=== PATIENT | male | born 1950 | race Caucasian/White ===

== ENCOUNTER → 2017-02-23 | Outpatient (CLI) | payer BC | LOC: FIMAGING 10:46 | PROVIDERS: ATTEND Internal Medicine Nephrology | DX: N18.3 Chronic kidney disease, stage 3 (moderate) (principal); E87.70 Fluid overload, unspecified ==

== ENCOUNTER 2017-02-26 11:53 | Inpatient (IN) | payer BC, OTHER ==
--- NOTE | 2017-02-26 12:52 | CPEKG ---
Heart Rate: 115 RR Interval: 522 QRSD Interval: 86 QT Interval: 324 QTC Interval: 448 QRS [place]: 54 EKG Severity - ABNORMAL ECG - EKG Impression: A-FLUTTER W/ VARIED AV BLOCK, A-RATE 0 EKG Impression: MULTIFORM VENTRICULAR PREMATURE COMPLEXES EKG Impression: NONSPECIFIC REPOL ABNORMALITY, DIFFUSE LEADS Electronically Signed By: Rayo Armstrong 26-Feb-2017 14:26:49
--- NOTE | 2017-02-26 12:52 | CPEKG ---
Heart Rate: 115 RR Interval: 522 QRSD Interval: 86 QT Interval: 324 QTC Interval: 448 QRS [place]: 54 EKG Severity - ABNORMAL ECG - EKG Impression: A-FLUTTER W/ VARIED AV BLOCK, A-RATE 0 EKG Impression: MULTIFORM VENTRICULAR PREMATURE COMPLEXES EKG Impression: NONSPECIFIC REPOL ABNORMALITY, DIFFUSE LEADS Electronically Signed By: Rayo Armstrong 26-Feb-2017 14:26:49
--- NOTE | 2017-02-26 13:30 | EDPHY ---
H & P Time Seen by Provider: 02/26/17 13:22 HPI/ROS: CHIEF COMPLAINT: Right hand pain HISTORY OF PRESENT ILLNESS: 66-year-old man presents with right hand pain and swelling for the last 2 days. Of note he was admitted to our hospital back in March of 2016 was diagnosed with congestive heart failure and atrial fibrillation and placed on Eliquis. He has noted increasing weight gain over the last 1 month. He had a cold last 2 weeks with a cough which is nonproductive and head congestion. Over the last 2 days he resents with polyarthralgia and feeling like all his joints are hurting. Today is right hand is swollen painful red and hot to the touch. It hurts more when he moves it or when it is touched by any other thing. Does not radiate. Symptoms severe. REVIEW OF SYSTEMS: Eye: no change in vision ENT: no sore throat Cardiac: no chest pain or syncope Pulmonary: no cough or SOB Abdomen: no vomiting, diarrhea, abdominal pain. Increasing abdominal girth Musculoskeletal: HPI Skin: no rash Neuro: no headache Constitutional: no fever : no urinary symptoms A comprehensive 10 point review of systems is otherwise negative aside from elements mentioned in the history of present illness. PAST MEDICAL HISTORY: Hypertension, Raynaud's, spine fracture, atrial fibrillation, CHF, gout. Social history: Nonsmoker General Appearance: Alert and conversant, cooperative. Eyes: No scleral icterus. ENT, Mouth: Normal mucous membranes. Respiratory: Normal respiratory effort, breath sounds equal, lungs are clear to auscultation. Cardiovascular: Regular rate and rhythm. Normal right hand radial pulse and capillary refill. Gastrointestinal: Abdominal distention with ventral and periumbilical hernia which are soft, no rebound or guarding. Neurological: Alert and oriented x3. Normally conversant. Face symmetric, normal movement and sensation in all extremities. Skin: Right hand is red and warm to the touch over the knuckles extending distally over the 4 fingers and not the thumb. No blisters and no lymphangitis. Musculoskeletal: Patient has right hand swelling 3+. It is tender to the touch. He can't really make a fist. He holds his hand in flexion. Psychiatric: Not agitated. Emergency Department course/MDM: Possibility of right hand infection is entertained. X-ray of the right hand, labs to include CBC and chemistry. 1407: Accepted by [facility], IV vancomycin with cephalexin allergy. Will treat for right hand cellulitis given elevated white blood cell count, relatively rapid onset of symptoms, no fracture visualized. He has warmth and redness and tenderness to palpation. Right hand Velcro splint placed by tech. Smoking Status: Never smoked Constitutional: Initial Vital Signs Temperature (C) 37.6 C 02/26/17 12:25 Heart Rate 118 H 02/26/17 12:25 Respiratory Rate 18 02/26/17 12:25 Blood Pressure 121/94 H 02/26/17 12:25 O2 Sat (%) 96 02/26/17 12:25 O2 Delivery Mode Room Air Allergies/Adverse Reactions: cephalexin Allergy (Severe, Verified 04/14/16 20:15) Anaphylaxis Home Medications: Medication Instructions Recorded Apixaban [Eliquis] 2.5 mg PO BID #60 tab 04/17/16 hydrALAZINE [Apresoline 10 mg (*)] 10 mg PO BID #60 tab 04/17/16 Furosemide [Lasix 20 MG (*)] 20 mg PO DAILY 02/26/17 Metoprolol Succinate Xr [Toprol Xl 25 mg PO DAILY 02/26/17 25 mg (*)] oxyCODONE HCL [Oxycontin] 30 mg PO BID@03,15 02/26/17 oxyCODONE IR [Oxycodone Ir (*)] 10 mg PO TID PRN 02/26/17 Medical Decision Making - Diagnostics Imaging Results: Imaging Impressions Hand X-Ray 02/26/17 13:31 Impression: 1. Diffuse soft tissue swelling of the second and third digits without evidence of osteomyelitis or retained foreign body. 2. 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 3. Sequela from remote old distal radius trauma. Procedures: Procedure: Splint placement. A right wrist Velcro volar splint was applied. After application of the splint I returned and re-examined the patient at 3:05 p.m.. The splint was adequately immobilizing the joint and distal to the splint the patient's circulation and sensation was intact. Differential Diagnosis: Differential considered including but not limited to gout, cellulitis, abscess, tenosynovitis, fracture, hematoma. - Data Points Laboratory Results: Laboratory Results 02/26/17 13:05 02/26/17 13:05 02/26/17 02/26/17 02/26/17 13:05 13:05 13:05 WBC 12.68 10^3/uL H 10^3/uL (3.80-9.50) RBC 4.02 10^6/uL L 10^6/uL (4.40-6.38) Hgb 14.8 g/dL g/dL (13.7-17.5) Hct 41.7 % % (40.0-51.0) MCV 103.7 fL H fL (81.5-99.8) MCH 36.8 pg H pg (27.9-34.1) MCHC 35.5 g/dL g/dL (32.4-36.7) RDW 14.7 % % (11.5-15.2) Plt Count 244 10^3/uL 10^3/uL (150-400) MPV 9.8 fL fL (8.7-11.7) Neut % (Auto) 76.5 % H % (39.3-74.2) Lymph % (Auto) 10.2 % L % (15.0-45.0) [place] % (Auto) 11.5 % % (4.5-13.0) Eos % (Auto) 0.5 % L % (0.6-7.6) Baso % (Auto) 0.8 % % (0.3-1.7) Nucleat RBC Rel Count 0.0 % % (0.0-0.2) Absolute Neuts (auto) 9.71 10^3/uL H 10^3/uL (1.70-6.50) Absolute Lymphs (auto) 1.29 10^3/uL 10^3/uL (1.00-3.00) Absolute Monos (auto) 1.46 10^3/uL H 10^3/uL (0.30-0.80) Absolute Eos (auto) 0.06 10^3/uL 10^3/uL (0.03-0.40) Absolute Basos (auto) 0.10 10^3/uL 10^3/uL (0.02-0.10) Absolute Nucleated RBC 0.00 10^3/uL 10^3/uL (0-0.01) Immature Gran % 0.5 % % (0.0-1.1) Immature Gran # 0.06 10^3/uL 10^3/uL (0.00-0.10) Sodium 134 mEq/L mEq/L (134-144) Potassium 4.2 mEq/L mEq/L (3.5-5.2) Chloride 91 mEq/L L mEq/L (97-110) Carbon Dioxide 29 mEq/l mEq/l (22-31) Anion Gap 14 mEq/L mEq/L (8-16) BUN 26 mg/dL H mg/dL (7-23) Creatinine 1.7 mg/dL H mg/dL (0.7-1.3) Estimated GFR 40 Glucose 103 mg/dL H mg/dL (70-100) Uric Acid Pending Calcium 9.5 mg/dL mg/dL (8.5-10.4) Procalcitonin Pending Medications Given: Discontinued Medications Hydromorphone HCl (Dilaudid) 0.5 mg IVP EDNOW ONE Stop: 02/26/17 13:58 Last Admin: 02/26/17 14:17 Dose: 0.5 mg Hydromorphone HCl (Dilaudid) 1 mg IVP EDNOW ONE Stop: 02/26/17 14:49 Last Admin: 02/26/17 14:48 Dose: 1 mg Vancomycin/Sodium Chloride (Vancomycin 1 Gm (Premix)) 250 mls @ 250 mls/hr IV EDNOW ONE PRN Reason: Protocol Stop: 02/26/17 14:55 Last Admin: 02/26/17 14:16 Dose: 250 mls Ondansetron HCl (Zofran) 4 mg IVP EDNOW ONE Stop: 02/26/17 13:58 Last Admin: 02/26/17 14:17 Dose: 4 mg Departure - Departure Disposition: [facility] Inpatient Acute Clinical Impression: Cellulitis of hand, right Condition: Good
[2017-02-26 13:36] LABS: PLATELET COUNT 244 10^3/uL (150-400)
[2017-02-26] MEDS ORDERED: VANCOMYCIN HCL/NORMAL SALINE 250 ML IV ONE (13:56)
[2017-02-26] MEDS ORDERED: ONDANSETRON 4 MG/2 ML VIAL IVP ONE (13:57)
[2017-02-26] MEDS ORDERED: HYDROmorphONE/DILAUDID 1 MG/ML INJ IVP ONE ×2 (13:57→14:48)
[2017-02-26] MEDS ORDERED: HYDROmorphONE/DILAUDID 1 MG/ML INJ ONE (14:47)
[2017-02-26] MEDS ORDERED: oxyCODONE IR 5 MG TAB PO PRN ×2 (16:34→16:38)
[2017-02-26] MEDS ORDERED: OXYCODONE/APAP 5/325 TAB PO PRN (16:34)
[2017-02-26] MEDS ORDERED: ONDANSETRON DISINTEGRATING 4 MG TAB PO PRN (16:34)
[2017-02-26] MEDS ORDERED: ONDANSETRON 4 MG/2 ML VIAL IVP PRN (16:34)
[2017-02-26] MEDS: ACETAMINOPHEN 325 MG TAB PO PRN ×2 (17:06→21:12)
[2017-02-26] MEDS: oxyCODONE IR 5 MG TAB PO PRN ×2 (17:06→21:13)
[2017-02-26] MEDS: COLCHICINE 0.6 MG CAP/TAB PO SCH ×2 (17:09→21:12)
[2017-02-26] MEDS: predniSONE 20 MG TAB PO SCH (17:09)
[2017-02-26] MEDS: HYDROmorphONE/DILAUDID 1 MG/ML INJ IVP PRN (17:09)
--- NOTE | 2017-02-26 17:11 | GHP ---
[f rep st] HISTORY AND PHYSICAL DATE OF ADMISSION: 02/26/2017 CHIEF COMPLAINT: Right hand pain and swelling. HISTORY OF PRESENT ILLNESS: This is a 66-year-old male with a history of chronic kidney disease as w ell as atrial fibrillation and hypertension. He presents with a 2-day history of significant right h and swelling, mostly in the distal areas. This is exquisitely tender to the smallest touch. He is n ot having fevers or chills. He has had a previous episode of gout in the past while being hospitaliz ed last time but none previous. No injury to the hand. REVIEW OF SYSTEMS: A 10-point review of systems was obtained and was negative. PAST MEDICAL HISTORY: 1. Chronic kidney disease with baseline creatinine about 1.7 to 1.8. 2. Atrial fibrillation. 3. Hypertension. MEDICATIONS: Reviewed. SOCIAL HISTORY: No smoking but does chew tobacco. 1-2 drinks per day. He lives in [place], is a DNR. FAMILY HISTORY: No heart disease. PHYSICAL EXAM: VITAL SIGNS: Afebrile, blood pressure is 119/79, heart rate 109, oxygen saturation i s 97% on room air. GENERAL: The patient is well developed, no apparent distress. HEENT: Nonicteri c sclerae. Extraocular movements intact. Moist mucous membranes. NECK: Supple. No thyromegaly. LUNGS: Good effort. Clear to auscultation bilaterally. CARDIOVASCULAR: Regular rate and rhythm. No murmurs or gallops. ABDOMEN: Positive bowel sounds. Soft, nontender, nondistended. No hepatosp lenomegaly. EXTREMITIES: Right hand shows significant swelling, but really mostly past the MCP join ts and especially the 3rd digit. He does not have tracking erythema down his hand or arm. The swoll en areas are exquisitely sensitive. No lower extremity edema. NEUROLOGIC: Alert and oriented x3. Moving all 4 extremities equally. PSYCH: Normal affect. LABS: White blood cell count slightly elevated at 12, MCV elevated at 103. Creatinine is 1.7. X-ra y shows evidence of CPPD but no fractures. ASSESSMENT: This is a 66-year-old male presenting with calcium pyrophosphate deposition disease vers us acute gout. PLAN: 1. CPPD attack versus gout. Likelihood for infection seems to be low. There is no reason he would have a hand cellulitis like this. No trauma or history of piercing the skin in any kind of way. He does have evidence of CPPD on his x-ray. The swelling in his hand is really localized to just his fi ngers with no extending erythema. Thus, I will stop his antibiotics. I am going to give a dose of p rednisone as well as colchicine and see how he does tomorrow. 2. Hypertension. Continue medications. 3. Atrial fibrillation. We will continue his Eliquis. CODE STATUS: Patient is a DNR. /[id number]/MODL
[2017-02-26] MEDS: hydrALAZINE 10 MG TAB PO SCH (21:13)
[2017-02-26] MEDS: APIXABAN 2.5 MG TAB PO SCH (21:13)
[2017-02-27] MEDS: HYDROmorphONE/DILAUDID 1 MG/ML INJ IVP PRN ×4 (00:06→20:18)
[2017-02-27] MEDS: oxyCODONE IR 5 MG TAB PO PRN ×5 (00:08→14:23)
[2017-02-27] MEDS: oxyCODONE CR 30 MG TAB PO SCH ×2 (03:29→14:23)
[2017-02-27] MEDS: ACETAMINOPHEN 325 MG TAB PO PRN (03:29)
[2017-02-27 05:40] LABS: PLATELET COUNT 237 10^3/uL (150-400)
[2017-02-27] MEDS: APIXABAN 2.5 MG TAB PO SCH ×2 (08:52→21:19)
[2017-02-27] MEDS: FUROSEMIDE 20 MG TAB PO SCH (08:52)
[2017-02-27] MEDS: hydrALAZINE 10 MG TAB PO SCH ×2 (08:52→20:19)
[2017-02-27] MEDS: METOPROLOL SUCCINATE XR 25 MG TAB PO SCH (08:52)
[2017-02-27] MEDS: predniSONE 20 MG TAB PO SCH (08:52)
[2017-02-27] MEDS: COLCHICINE 0.6 MG CAP/TAB PO SCH ×2 (08:52→20:19)
[2017-02-27] MEDS ORDERED: FLU VACC QS 2017-18 (3YR+)/PF 0.5 ML SYR (FLUARIX QUAD) IM ONE (09:14)
--- NOTE | 2017-02-27 11:13 | ASMTCMCOM ---
CM Note CM Note Notes: Patient cleared by PT, anticipate will dc home with support of when medically stable. CM available for any changes. Date Signed: 02/27/2017 11:12 AM Electronically Signed By:Effie Jennings RN
--- NOTE | 2017-02-27 15:23 | HOSPPROG ---
Hospitalist Progress Note Assessment/Plan: # Acute Suspected CPPD - patient with Xray hand (personally reviewed and interpreted) with erosions c/w CPPD sudden onset pain 2 days previous of presentation - severe pain/erythema/ swelling limiting movemment - episode on left in past far less severe - antibiotics not given overnight with pt reported improvement in erythema and pain - d/w [place] from ortho - recommended IR US arthrocentesis to confirm crystal - continue prednisone and colchicine - ortho agreed with holding abx due to improvement overnight # Acute leukocytosis - presumed 2/2 crystalline arthropathy - recheck in am # CKD - creatinine at baseline - 1.8 oxygen saturations 96% on 2L # proph - lovenox # diet - regular Dispo - > 2 MN as pain continues to require IV narcotics I discussed the case with Dr. Cloud - obtain synovial fluid to confirm crystal disease - continue current course today Subjective: pain and redness improved - however still extremely painful Objective: Vital Signs Temp Pulse Resp BP Pulse Ox 36.7 C 62 18 113/75 90 L 02/27/17 15:06 02/27/17 15:06 02/27/17 15:06 02/27/17 15:06 02/27/17 15:06 Laboratory Results 02/27/17 04:56 02/27/17 04:56 02/26/17 02/27/17 02/28/17 05:59 05:59 05:59 Intake Total 500 Output Total 350 450 Balance -350 50 - Physical Exam Constitutional: appears nourished Eyes: anicteric sclera Ears, Nose, Mouth, Throat: moist mucous membranes Cardiovascular: regular rate and rhythym Respiratory: no respiratory distress, no rales or rhonchi Gastrointestinal: normoactive bowel sounds, soft, non-tender abdomen Genitourinary: no bladder fullness Skin: warm Musculoskeletal: other (severe right hand swelling from wrist - to finger tips involving all five digits), No asymmetric calves Neurologic: AAOx3 Lymph, Heme, Immunologic: no cervical LAD ICD10 Worksheet Patient Problems: Problems Problem Status Onset Cellulitis of hand, right Acute Atrial fibrillation Acute Hyperkalemia Acute Renal failure, acute Acute
[2017-02-28] MEDS: oxyCODONE CR 30 MG TAB PO SCH ×2 (04:01→15:47)
[2017-02-28] MEDS: HYDROmorphONE/DILAUDID 1 MG/ML INJ IVP PRN ×3 (05:30→15:48)
[2017-02-28] MEDS: predniSONE 20 MG TAB PO SCH (09:33)
[2017-02-28] MEDS: APIXABAN 2.5 MG TAB PO SCH ×2 (09:34→21:23)
[2017-02-28] MEDS: FUROSEMIDE 20 MG TAB PO SCH (09:35)
[2017-02-28] MEDS: COLCHICINE 0.6 MG CAP/TAB PO SCH ×2 (09:35→21:23)
[2017-02-28] MEDS: hydrALAZINE 10 MG TAB PO SCH ×2 (09:35→21:23)
[2017-02-28] MEDS: METOPROLOL SUCCINATE XR 25 MG TAB PO SCH (09:36)
[2017-02-28] MEDS: oxyCODONE IR 5 MG TAB PO PRN (09:49)
[2017-02-28] MEDS ORDERED: LIDOCAINE 1% 300 MG/30 ML SDV ONE (11:19)
[2017-02-28] MEDS ORDERED: LACTULOSE 20 GM/30 ML UDCUP PO PRN (15:52)
[2017-02-28] MEDS ORDERED: POLYETHYLENE GLYCOL 3350 17 GM PKT PO PRN (15:52)
[2017-02-28] MEDS ORDERED: BISACODYL 10 MG SUPP PR PRN (15:52)
[2017-02-28] MEDS ORDERED: HYDROmorphONE/DILAUDID 1 MG/ML INJ IVP PRN (16:00)
[2017-02-28] MEDS ORDERED: HYDROmorphone HCL/NS/PF 0.4 MG/2 ML SYR IVP PRN (16:00)
--- NOTE | 2017-02-28 17:50 | HOSPPROG ---
Hospitalist Progress Note Assessment/Plan: Assessment: 66-year-old male presents with suspected acute gout flare the setting of chronic pain with continuous opiate dependency, chronic kidney disease stage 3 Plan: # Acute Suspected CPPD. Hx of gout, uric acid 15, X-ray hand with erosions c/w CPPD - D#2 pred 40, cont - uncontrolled breakthrough pain requiring IV dilaudid, adjust oxy IR to PO dilaudid, gauge effect - cont colchicine, on chronic allopurinol - aspirate difficult, w/o crystals, GS/cell ct/Cx not sent, d/w RN and requested reattempt w/ lab to r/o septic arthritis (given elevation in procalcitonin) # Chronic pain w/ continuous opiate dependency. Cont oxy SR, DC oxy IR # CKD Stage III. Baseline 1.8, cont to monitor # Paroxysmal Atrial fibrillation. Rate controlled w/ metoprolol, monitor burden on tele, cont eliquis renally dosed Diet. Cardiac PPx. High risk, on eliquis Code. DNR Dispo. ADD 03/01, pending symptomatic improvement. Subjective: terrible pain in R wrist/hand Objective: Vital Signs Temp Pulse Resp BP Pulse Ox 36.9 C 57 L 16 136/89 H 94 02/28/17 16:00 02/28/17 16:00 02/28/17 16:00 02/28/17 16:00 02/28/17 16:00 - Pending Discharge Pending Discharge Within 24 Hours: Yes Pending Discharge Date: 03/01/17 Pending Discharge Time: 11:00 - Physical Exam Constitutional: appears nourished, uncomfortable, No not in pain, No obese Cardiovascular: irregularly irregular, edema (trace bilat LE), No systolic murmur, No tachycardia Respiratory: no respiratory distress, no rales or rhonchi, clear to auscultation Gastrointestinal: normoactive bowel sounds, soft, non-tender abdomen, no palpable masses, No distension Skin: other (warmth dorsum R hand, no erythematous streaking) Musculoskeletal: other (effusion R wrist/MCPs w/ limited ROM 2/2 pain and soft tissue edema overlying fingers) Neurologic: AAOx3, sensation intact bilaterally, No facial droop Psychiatric: interacting appropriately, not anxious, not encephalopathic, thought process linear ICD10 Worksheet Patient Problems: Problems Problem Status Onset Cellulitis of hand, right Acute Atrial fibrillation Acute Hyperkalemia Acute Renal failure, acute Acute
--- NOTE | 2017-02-28 20:55 | PDMN ---
Medical Necessity Medical necessity: Patient transitioned to inpatient status per MD note and [facility] [place] M-605 Septic Arthritis ( acute suspected CPPD; hx of gout; attempted IR-guided arthrocentesis to confirm poss septic arthritis; hx CKD, atrial fib, HTN, chronic diastolic CHF; LOS > 2 midnights for ongoing colchicine, prednisone, adjustment in opioids for pain mgmt.)
--- NOTE | 2017-02-28 20:55 | PDMN ---
Medical Necessity Medical necessity: Patient transitioned to inpatient status per MD note and [facility] [place] M-605 Septic Arthritis ( acute suspected CPPD; hx of gout; attempted IR-guided arthrocentesis to confirm poss septic arthritis; hx CKD, atrial fib, HTN, chronic diastolic CHF; LOS > 2 midnights for ongoing colchicine, prednisone, adjustment in opioids for pain mgmt.)
--- NOTE | 2017-02-28 20:55 | PDMN ---
Medical Necessity Medical necessity: Patient transitioned to inpatient status per MD note and [facility] [place] M-605 Septic Arthritis ( acute suspected CPPD; hx of gout; attempted IR-guided arthrocentesis to confirm poss septic arthritis; hx CKD, atrial fib, HTN, chronic diastolic CHF; LOS > 2 midnights for ongoing colchicine, prednisone, adjustment in opioids for pain mgmt.)
[2017-02-28] MEDS: SENNOSIDES/DOCUSATE SODIUM TAB PO SCH (21:23)
[2017-03-01] MEDS: oxyCODONE CR 30 MG TAB PO SCH (02:46)
[2017-03-01 05:07] LABS: PLATELET COUNT 245 10^3/uL (150-400)
[2017-03-01 07:40] VITALS: BP 132/97; PULSE 75; RESP 18; TEMP 98; O2SAT 90
[2017-03-01] MEDS: COLCHICINE 0.6 MG CAP/TAB PO SCH (08:20)
[2017-03-01] MEDS: METOPROLOL SUCCINATE XR 25 MG TAB PO SCH (08:21)
[2017-03-01] MEDS: HYDROmorphONE/DILAUDID 4 MG TAB PO PRN ×2 (08:21→12:21)
[2017-03-01] MEDS: APIXABAN 2.5 MG TAB PO SCH (08:21)
[2017-03-01] MEDS: FUROSEMIDE 20 MG TAB PO SCH (08:22)
[2017-03-01] MEDS: hydrALAZINE 10 MG TAB PO SCH (08:22)
[2017-03-01] MEDS: SENNOSIDES/DOCUSATE SODIUM TAB PO SCH (08:23)
[2017-03-01] MEDS: predniSONE 20 MG TAB PO SCH (08:23)
--- NOTE | 2017-03-01 15:37 | PDDCSUM ---
Discharge Summary Discharge Summary: DISCHARGE SUMMARY FOLLOW-UP ITEMS: Outpatient up titration of allopurinol by medical diagnostic radiographer DATE OF ADMISSION: 02/26/2017 DATE OF DISCHARGE: 03/01/2017 DISCHARGE DIAGNOSES: 1. Acute suspected gout 2. Chronic pain with continuous opiate dependency 3. Chronic diastolic congestive heart failure 4. Permanent atrial fibrillation 5. Chronic kidney disease stage 3 CONSULTATIONS: None PROCEDURES / IMAGING: Attempted ultrasound aspiration of right synovium CHIEF COMPLAINT: Acute hand pain SUBJECTIVE: Patient feels like his pain is better managed PHYSICAL EXAM ON DISCHARGE: Systolic blood pressure is 130, heart rate 70, afebrile overnight, satting on room air, alert awake oriented x3, effusion over his right wrist and right MCPs has improved but is still present, limiting his full range of motion of his right wrist on extension and flexion, limiting the extension of his right hand fingers, small effusion over his right elbow, but with full range of motion in the elbow and only mild impairment in extension, skin is non erythematous over the dorsum of his right hand LABS ON DISCHARGE: Uric acid 15, white blood cell count 01529, creatinine 1.2, potassium 4.1, aspirate quantity insufficient to perform labs HOSPITAL COURSE BY PROBLEM: The patient presented with acute hand pain secondary to suspected acute gout flare evidenced by polyarticular effusions including the MCPs as well as the right wrist, with tenderness to the touch, and improvement with steroid challenge. Given the patient's chronic kidney disease, nonsteroidal anti- inflammatory medications are contraindicated and he was placed on a combination of colchicine and prednisone, for 1 week and then outpatient reassessment. He was continued on his chronic dosing of allopurinol, but this may be up titrated in the outpatient setting by his medical diagnostic radiographer, after the acute flare has resolved. We attempted to aspirate the affected joint to determine the exact type of crystals, but the aspirate quantity was insufficient. The patient did require aggressive pain control, given his opiate dependency, and we continued his OxyContin, discontinued his oxycodone, and initiated oral Dilaudid as a breakthrough agent. The patient will continue on oral Dilaudid as his breakthrough agent until his acute gout flare has subsided, and then he will discontinue the Dilaudid, resuming his oxycodone immediate release. The patient did not demonstrate any evidence of volume overload during this hospitalization and he was continued on his necessary diuretic. He was also in atrial fibrillation during the majority of hospitalization, but he was rate controlled on metoprolol and his Eliquis was continued at his renal dosing. DISCHARGE MEDICATIONS: Please see official discharge medication reconciliation sheet in chart , continue home medications with the addition of colchicine 0.6 mg twice daily, Dilaudid 2-4 mg as needed prednisone 40 mg daily x6 subsequent days. DISCHARGE INSTRUCTIONS: Please follow up with her outpatient medical diagnostic radiographer for reassessment, and Dr. Medel if orthopedic consultation is required. TIME SPENT: Greater than 30 minutes were spent on direct patient care, as well as discharge planning and preparation.
--- NOTE | 2017-03-01 15:37 | PDDCSUM ---
Discharge Summary Discharge Summary: DISCHARGE SUMMARY FOLLOW-UP ITEMS: Outpatient up titration of allopurinol by apparel machinery instructor DATE OF ADMISSION: 02/26/2017 DATE OF DISCHARGE: 03/01/2017 DISCHARGE DIAGNOSES: 1. Acute suspected gout 2. Chronic pain with continuous opiate dependency 3. Chronic diastolic congestive heart failure 4. Permanent atrial fibrillation 5. Chronic kidney disease stage 3 CONSULTATIONS: None PROCEDURES / IMAGING: Attempted ultrasound aspiration of right synovium CHIEF COMPLAINT: Acute hand pain SUBJECTIVE: Patient feels like his pain is better managed PHYSICAL EXAM ON DISCHARGE: Systolic blood pressure is 130, heart rate 70, afebrile overnight, satting on room air, alert awake oriented x3, effusion over his right wrist and right MCPs has improved but is still present, limiting his full range of motion of his right wrist on extension and flexion, limiting the extension of his right hand fingers, small effusion over his right elbow, but with full range of motion in the elbow and only mild impairment in extension, skin is non erythematous over the dorsum of his right hand LABS ON DISCHARGE: Uric acid 15, white blood cell count 06012, creatinine 1.2, potassium 4.1, aspirate quantity insufficient to perform labs HOSPITAL COURSE BY PROBLEM: The patient presented with acute hand pain secondary to suspected acute gout flare evidenced by polyarticular effusions including the MCPs as well as the right wrist, with tenderness to the touch, and improvement with steroid challenge. Given the patient's chronic kidney disease, nonsteroidal anti- inflammatory medications are contraindicated and he was placed on a combination of colchicine and prednisone, for 1 week and then outpatient reassessment. He was continued on his chronic dosing of allopurinol, but this may be up titrated in the outpatient setting by his apparel machinery instructor, after the acute flare has resolved. We attempted to aspirate the affected joint to determine the exact type of crystals, but the aspirate quantity was insufficient. The patient did require aggressive pain control, given his opiate dependency, and we continued his OxyContin, discontinued his oxycodone, and initiated oral Dilaudid as a breakthrough agent. The patient will continue on oral Dilaudid as his breakthrough agent until his acute gout flare has subsided, and then he will discontinue the Dilaudid, resuming his oxycodone immediate release. The patient did not demonstrate any evidence of volume overload during this hospitalization and he was continued on his necessary diuretic. He was also in atrial fibrillation during the majority of hospitalization, but he was rate controlled on metoprolol and his Eliquis was continued at his renal dosing. DISCHARGE MEDICATIONS: Please see official discharge medication reconciliation sheet in chart , continue home medications with the addition of colchicine 0.6 mg twice daily, Dilaudid 2-4 mg as needed prednisone 40 mg daily x6 subsequent days. DISCHARGE INSTRUCTIONS: Please follow up with her outpatient apparel machinery instructor for reassessment, and Dr. Medel if orthopedic consultation is required. TIME SPENT: Greater than 30 minutes were spent on direct patient care, as well as discharge planning and preparation.
--- NOTE | 2017-03-01 15:37 | PDDCSUM ---
Discharge Summary Discharge Summary: DISCHARGE SUMMARY FOLLOW-UP ITEMS: Outpatient up titration of allopurinol by business sales consultant DATE OF ADMISSION: 02/26/2017 DATE OF DISCHARGE: 03/01/2017 DISCHARGE DIAGNOSES: 1. Acute suspected gout 2. Chronic pain with continuous opiate dependency 3. Chronic diastolic congestive heart failure 4. Permanent atrial fibrillation 5. Chronic kidney disease stage 3 CONSULTATIONS: None PROCEDURES / IMAGING: Attempted ultrasound aspiration of right synovium CHIEF COMPLAINT: Acute hand pain SUBJECTIVE: Patient feels like his pain is better managed PHYSICAL EXAM ON DISCHARGE: Systolic blood pressure is 130, heart rate 70, afebrile overnight, satting on room air, alert awake oriented x3, effusion over his right wrist and right MCPs has improved but is still present, limiting his full range of motion of his right wrist on extension and flexion, limiting the extension of his right hand fingers, small effusion over his right elbow, but with full range of motion in the elbow and only mild impairment in extension, skin is non erythematous over the dorsum of his right hand LABS ON DISCHARGE: Uric acid 15, white blood cell count 34513, creatinine 1.2, potassium 4.1, aspirate quantity insufficient to perform labs HOSPITAL COURSE BY PROBLEM: The patient presented with acute hand pain secondary to suspected acute gout flare evidenced by polyarticular effusions including the MCPs as well as the right wrist, with tenderness to the touch, and improvement with steroid challenge. Given the patient's chronic kidney disease, nonsteroidal anti- inflammatory medications are contraindicated and he was placed on a combination of colchicine and prednisone, for 1 week and then outpatient reassessment. He was continued on his chronic dosing of allopurinol, but this may be up titrated in the outpatient setting by his business sales consultant, after the acute flare has resolved. We attempted to aspirate the affected joint to determine the exact type of crystals, but the aspirate quantity was insufficient. The patient did require aggressive pain control, given his opiate dependency, and we continued his OxyContin, discontinued his oxycodone, and initiated oral Dilaudid as a breakthrough agent. The patient will continue on oral Dilaudid as his breakthrough agent until his acute gout flare has subsided, and then he will discontinue the Dilaudid, resuming his oxycodone immediate release. The patient did not demonstrate any evidence of volume overload during this hospitalization and he was continued on his necessary diuretic. He was also in atrial fibrillation during the majority of hospitalization, but he was rate controlled on metoprolol and his Eliquis was continued at his renal dosing. DISCHARGE MEDICATIONS: Please see official discharge medication reconciliation sheet in chart , continue home medications with the addition of colchicine 0.6 mg twice daily, Dilaudid 2-4 mg as needed prednisone 40 mg daily x6 subsequent days. DISCHARGE INSTRUCTIONS: Please follow up with her outpatient business sales consultant for reassessment, and Dr. Medel if orthopedic consultation is required. TIME SPENT: Greater than 30 minutes were spent on direct patient care, as well as discharge planning and preparation.
--- NOTE | 2017-03-02 09:33 | ASDISCHSUM ---
Discharge Information Plan Status:Home with No Needs Medically Cleared to Leave: Discharge Date:03/01/2017 12:40 PM CM D/C Disposition:Home, Routine, Self-Care ADT D/C Disposition:Home, Routine, Self-Care Projected Discharge Date:03/01/2017 12:00 AM Transportation at D/C: Discharge Delay Reason: Follow-Up Date:03/01/2017 12:00 AM Discharge Slot: Final Diagnosis: Placement Information Patient Contact Information Contact Name:NORBERTO Relationship: Address:[address] City:[place] Alternate Phone: [facility]/Zip Code:[place] [address] Email: Financial Information Financial Class:HMO and PPO Plans Primary Plan Desc:[facility] PPO Primary Plan Number:[id number] Secondary Plan Desc:MEDICARE INPATIENT Secondary Plan Number:[id number] Assessment Information [facility] CM Progress Note CM Note CM Note Notes: Patient cleared by PT, anticipate will dc home with support of when medically stable. CM available for any changes. Date Signed: 02/27/2017 11:12 AM Electronically Signed By:Effie Jennings RN Intervention Information
--- NOTE | 2017-03-02 09:33 | ASDISCHSUM ---
Discharge Information Plan Status:Home with No Needs Medically Cleared to Leave: Discharge Date:03/01/2017 12:40 PM CM D/C Disposition:Home, Routine, Self-Care ADT D/C Disposition:Home, Routine, Self-Care Projected Discharge Date:03/01/2017 12:00 AM Transportation at D/C: Discharge Delay Reason: Follow-Up Date:03/01/2017 12:00 AM Discharge Slot: Final Diagnosis: Placement Information Patient Contact Information Contact Name:NORBERTO Relationship: Address:[address] City:[place] Alternate Phone: [facility]/Zip Code:[place] [address] Email: Financial Information Financial Class:HMO and PPO Plans Primary Plan Desc:[facility] PPO Primary Plan Number:[id number] Secondary Plan Desc:MEDICARE INPATIENT Secondary Plan Number:[id number] Assessment Information [facility] CM Progress Note CM Note CM Note Notes: Patient cleared by PT, anticipate will dc home with support of when medically stable. CM available for any changes. Date Signed: 02/27/2017 11:12 AM Electronically Signed By:Effie Jennings RN Intervention Information
--- NOTE | 2017-03-02 09:33 | ASDISCHSUM ---
Discharge Information Plan Status:Home with No Needs Medically Cleared to Leave: Discharge Date:03/01/2017 12:40 PM CM D/C Disposition:Home, Routine, Self-Care ADT D/C Disposition:Home, Routine, Self-Care Projected Discharge Date:03/01/2017 12:00 AM Transportation at D/C: Discharge Delay Reason: Follow-Up Date:03/01/2017 12:00 AM Discharge Slot: Final Diagnosis: Placement Information Patient Contact Information Contact Name:NORBERTO Relationship: Address:[address] City:[place] Alternate Phone: [facility]/Zip Code:[place] [address] Email: Financial Information Financial Class:HMO and PPO Plans Primary Plan Desc:[facility] PPO Primary Plan Number:[id number] Secondary Plan Desc:MEDICARE INPATIENT Secondary Plan Number:[id number] Assessment Information [facility] CM Progress Note CM Note CM Note Notes: Patient cleared by PT, anticipate will dc home with support of when medically stable. CM available for any changes. Date Signed: 02/27/2017 11:12 AM Electronically Signed By:Effie Jennings RN Intervention Information
== END 2017-03-01 12:40 | disposition home or self-care (01) | DRG 556 ==
LOC: F3N 15:34 → F3E 02-27 14:36 → OBSVTOIN 02-28 12:01
PROVIDERS: ADMIT Internal Medicine; ATTEND Internal Medicine
DX: M25.841 Other specified joint disorders, right hand (principal); I13.0 Hypertensive heart and chronic kidney disease with heart failure and stage 1 through stage 4 chronic kidney disease, or unspecified chronic kidney disease; F11.20 Opioid dependence, uncomplicated; I50.32 Chronic diastolic (congestive) heart failure; N18.3 Chronic kidney disease, stage 3 (moderate); G89.29 Other chronic pain; I48.2 Chronic atrial fibrillation; Z23 Encounter for immunization
CPT/HCPCS: 96365; 97161-GP; G0008; G0378; J1170; J2405; J3370; L3908

== ENCOUNTER 2017-07-19 12:54 | Inpatient (IN) | payer OTHER ==
--- NOTE | 2017-07-19 14:03 | EDPHY ---
HPI/HX/ROS/PE/MDM Narrative: CHIEF COMPLAINT: Peripheral edema, renal failure HISTORY OF PRESENT ILLNESS: The patient is a 66 y/o male with a history of hypertension and atrial fibrillation sent by his PCP for an elevated creatine ( 3.5) noted on blood draw yesterday. His previous creatinine was 1.5 in February. He has been reporting associate swelling and redness of the lower legs , and shortness of breath, worsening for several weeks. No warmth over the lower extremities or fever. He does report shortness of breath. He denies any chest pain, nausea, vomiting, fever, chills, or any other associated symptoms. He has used Lasix in the past for peripheral edema. It is unclear if he has been diagnosed with congestive heart failure. He denies history of diabetes or cardiac stents. His last stress test was two years ago. In addition, he has used alcohol heavily but recently stopped drinking. He denies tremors or withdrawal seizures. No fever, chills, chest pain, palpitations, vomiting, diarrhea, urinary complaints, headache, lightheadedness. REVIEW OF SYSTEMS: Aside from elements discussed in the HPI, a comprehensive 10-point review of systems was reviewed and is negative. 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 HEENT: Atraumatic. Eyes: No icterus, no injection. Mouth: dry mucus membranes. No erythema or lesions. Neck: supple with no adenopathy. LUNGS: Clear to auscultation bilaterally, no wheezes, rhonchi or rales. CARDIAC: Irregularly irregular, no rubs, murmurs or gallops. ABDOMEN: Soft, nontender, nondistended, bowel sounds normal. BACK: Presacral edema. No CVA tenderness. EXTREMITIES: 3+ to 4+ pitting edema from feet to knees. Some edema in thighs. No trauma. Range of motion is normal throughout. No warmth, chronic venous stasis changes on bilateral calves and tib-fib NEURO: Alert and oriented, grossly nonfocal. SKIN: Warm and dry, no rash. PSYCHIATRIC: Normal mentation, no agitation. ED Course: 12-LEAD EKG: Please see the full report in [facility]. My interpretation: Atrial flutter/atrial fibrillation The patient was sent by his PCP for elevated creatinine identified yesterday. On exam, he has extensive edema to lower legs, thighs, and presacral. Plan for EKG, chest X-ray, chem-7, troponin, BNP, and urinalysis, and likely admission. 3:10 PM- X-ray shows cardiomegaly. 3:35 PM- EKG shows atrial flutter/atrial fibrillation. I have spoken with the hospitalist service. Dr. Marte will be the admitting physician. I informed the patient of the results of his workup and the planned course of action. The patient agrees to this course of action. Patient's troponin has been delayed secondary to analyzer malfunction the lab. Troponin is positive at 0.141. Patient will be admitted to the PCU. Dr. Lee Marte aware. MDM: Differential diagnoses for the patient's symptom complex was considered including but not limited to dehydration, renal insufficiency secondary to hypertension, hypoperfusion from cardiac causes, arrhythmia, acute coronary syndrome, congestive heart failure. - Data Points Imaging Results: Imaging Impressions Chest X-Ray 07/19/17 13:34 Impression: 1. Findings consistent with low grade congestive heart failure are seen superimposed upon underlying airways disease. 2. Basilar opacities, presumably atelectasis. Imaging: I viewed and interpreted images myself Laboratory Results: Laboratory Results 07/19/17 13:30 07/19/17 13:30 07/19/17 07/19/17 07/19/17 13:34 13:30 13:30 WBC 11.11 10^3/uL H 10^3/uL (3.80-9.50) RBC 4.00 10^6/uL L 10^6/uL (4.40-6.38) Hgb 14.1 g/dL g/dL (13.7-17.5) POC Hgb 16.0 gm/dL gm/dL (13.7-17.5) Hct 42.2 % % (40.0-51.0) POC Hct 47 % % (40-51) MCV 105.5 fL H fL (81.5-99.8) MCH 35.3 pg H pg (27.9-34.1) MCHC 33.4 g/dL g/dL (32.4-36.7) RDW 16.9 % H % (11.5-15.2) Plt Count 283 10^3/uL 10^3/uL (150-400) MPV 10.6 fL fL (8.7-11.7) Neut % (Auto) 87.1 % H % (39.3-74.2) Lymph % (Auto) 6.4 % L % (15.0-45.0) Gooding % (Auto) 5.7 % % (4.5-13.0) Eos % (Auto) 0.1 % L % (0.6-7.6) Baso % (Auto) 0.2 % L % (0.3-1.7) Nucleat RBC Rel Count 0.0 % % (0.0-0.2) Absolute Neuts (auto) 9.68 10^3/uL H 10^3/uL (1.70-6.50) Absolute Lymphs (auto) 0.71 10^3/uL L 10^3/uL (1.00-3.00) Absolute Monos (auto) 0.63 10^3/uL 10^3/uL (0.30-0.80) Absolute Eos (auto) 0.01 10^3/uL L 10^3/uL (0.03-0.40) Absolute Basos (auto) 0.02 10^3/uL 10^3/uL (0.02-0.10) Absolute Nucleated RBC 0.00 10^3/uL 10^3/uL (0-0.01) Immature Gran % 0.5 % % (0.0-1.1) Immature Gran # 0.06 10^3/uL 10^3/uL (0.00-0.10) POC Sodium 129 mEq/L L mEq/L (135-145) Sodium POC Potassium 3.0 mEq/L L mEq/L (3.3-5.0) Potassium POC Chloride 76 mEq/L L mEq/L (97-110) Chloride Carbon Dioxide Anion Gap POC BUN 46 mg/dL H mg/dL (7-23) BUN Creatinine POC Creatinine 4.1 mg/dL H mg/dL (0.7-1.3) Estimated GFR Glucose POC Glucose 123 mg/dL H mg/dL (70-100) Calcium Total Bilirubin Conjugated Bilirubin Unconjugated Bilirubin AST ALT Alkaline Phosphatase Creatine Kinase Troponin I NT-Pro-B Natriuret Pep 42557 pg/mL H pg/mL (0-125) Total Protein Albumin Prealbumin 11.7 mg/dL L mg/dL (17.6-36.0) Lipase 07/19/17 07/19/17 13:30 13:30 WBC RBC Hgb POC Hgb Hct POC Hct MCV MCH MCHC RDW Plt Count MPV Neut % (Auto) Lymph % (Auto) Gooding % (Auto) Eos % (Auto) Baso % (Auto) Nucleat RBC Rel Count Absolute Neuts (auto) Absolute Lymphs (auto) Absolute Monos (auto) Absolute Eos (auto) Absolute Basos (auto) Absolute Nucleated RBC Immature Gran % Immature Gran # POC Sodium Sodium 131 mEq/L L mEq/L (135-145) POC Potassium Potassium 3.6 mEq/L mEq/L (3.5-5.2) POC Chloride Chloride 74 mEq/L L mEq/L (97-110) Carbon Dioxide 39 mEq/l H D mEq/l (22-31) Anion Gap 18 mEq/L H mEq/L (8-16) POC BUN BUN 58 mg/dL H mg/dL (7-23) Creatinine 3.6 mg/dL H mg/dL (0.7-1.3) POC Creatinine Estimated GFR 17 Glucose 98 mg/dL mg/dL (70-100) POC Glucose Calcium 8.6 mg/dL mg/dL (8.5-10.4) Total Bilirubin 1.6 mg/dL H mg/dL (0.1-1.4) Conjugated Bilirubin 1.1 mg/dL H mg/dL (0.0-0.5) Unconjugated Bilirubin 0.5 mg/dL mg/dL (0.0-1.1) AST 125 IU/L H IU/L (17-59) ALT 96 IU/L H IU/L (21-72) Alkaline Phosphatase 150 IU/L H IU/L (38-126) Creatine Kinase 86 IU/L IU/L (0-224) Troponin I 0.141 ng/mL H ng/mL (0.000-0.034) NT-Pro-B Natriuret Pep Total Protein 6.4 g/dL g/dL (6.3-8.2) Albumin 3.6 g/dL g/dL (3.5-5.0) Prealbumin Lipase 58 IU/L IU/L (23-300) Medications Given: Apixaban (Eliquis) 2.5 mg PO BID ОЛЕГ Stop: 01/15/18 20:59 Last Admin: 07/19/17 20:24 Dose: 2.5 mg Potassium Chloride/Sodium Chloride (Ns W/ 20 Kcl/L) 1,000 mls @ 75 mls/hr IV CONT ОЛЕГ Stop: 07/21/17 07:19 Last Admin: 07/19/17 18:48 Dose: 1,000 mls Oxycodone HCl (Oxycodone Ir) 5 - 10 mg PO Q4H PRN PRN Reason: Pain, Breakthrough Stop: 07/29/17 22:18 Last Admin: 07/19/17 22:25 Dose: 10 mg Discontinued Medications Furosemide (Lasix Injection) 40 mg IVP EDNOW ONE Stop: 07/19/17 15:11 Last Admin: 07/19/17 16:11 Dose: 40 mg Oxycodone HCl (Oxycontin) 30 mg PO EDNOW ONE Stop: 07/19/17 16:16 Last Admin: 07/19/17 17:03 Dose: 30 mg Potassium Chloride (Potassium Chloride Oral Liquid) 20 meq PO ONCE ONE Stop: 07/19/17 18:02 Last Admin: 07/19/17 18:49 Dose: 20 meq Point of Care Test Results: 07/19/17 13:34 POC Sodium 129 L POC Potassium 3.0 L POC Chloride 76 L POC BUN 46 H POC Creatinine 4.1 H POC Glucose 123 H General Time Seen by Provider: 07/19/17 13:23 Initial Vital Signs: Initial Vital Signs Temperature (C) 36.8 C 07/19/17 13:00 Heart Rate 75 07/19/17 13:00 Respiratory Rate 18 07/19/17 13:00 Blood Pressure 119/81 H 07/19/17 13:00 O2 Sat (%) 93 07/19/17 13:00 O2 Delivery Mode Room Air Allergies/Adverse Reactions: cephalexin Allergy (Severe, Verified 07/19/17 13:00) Anaphylaxis Home Medications: Medication Instructions Recorded Apixaban [Eliquis] 2.5 mg PO BID #60 tab 04/17/16 hydrALAZINE [Apresoline 10 mg (*)] 10 mg PO BID #60 tab 04/17/16 Furosemide [Lasix 20 MG (*)] 20 mg PO DAILY 02/26/17 Metoprolol Succinate Xr [Toprol Xl 25 mg PO DAILY 02/26/17 25 mg (*)] oxyCODONE HCL [Oxycontin] 30 mg PO BID@03,15 02/26/17 Colchicine [Colchicine (*)] 0.6 mg PO DAILY 07/19/17 Departure - Departure Disposition: [facility] Inpatient Acute Clinical Impression: Elevated troponin Acute renal failure Qualifiers: Acute renal failure type: unspecified Qualified Code(s): N17.9 - Acute kidney failure, unspecified Condition: Fair Report Scribed for: Elly Cantrell Report Scribed by: Tiana Mo Date of Report: 07/19/17 Time of Report: 14:36 Physician Review and Approval Statement: Portions of this note were transcribed by a medical illustrator. I personally performed a history, physical exam, medical decision making, and confirmed accuracy of information the transcribed note.
[2017-07-19 14:49] LABS: PLATELET COUNT 283 10^3/uL (150-400)
[2017-07-19] MEDS ORDERED: FUROSEMIDE 40 MG/4 ML VIAL IVP ONE (15:10)
--- NOTE | 2017-07-19 15:34 | CPEKG ---
Heart Rate: 71 RR Interval: 845 QRSD Interval: 98 QT Interval: 464 QTC Interval: 505 QRS Pollock: 60 T Wave Pollock: -22 EKG Severity - ABNORMAL ECG - EKG Impression: ATRIAL FIBRILLATION, V-RATE 56-99 EKG Impression: NONSPECIFIC REPOL ABNORMALITY, DIFFUSE LEADS EKG Impression: PROLONGED QT INTERVAL Electronically Signed By: Dewey Smalls 19-Jul-2017 21:53:52
[2017-07-19] MEDS ORDERED: ONDANSETRON DISINTEGRATING 4 MG TAB PO PRN (15:35)
[2017-07-19] MEDS ORDERED: ONDANSETRON 4 MG/2 ML VIAL IVP PRN (15:35)
[2017-07-19] MEDS ORDERED: ACETAMINOPHEN 325 MG TAB PO PRN (15:35)
--- NOTE | 2017-07-19 15:47 | PDGENHP ---
History and Physical - Chief Complaint elevated Cr - History of Present Illness The patient is a 66 y/o male with a history of hypertension and atrial fibrillation sent by his PCP for an elevated creatine (3.5) at a routine blood draw yesterday. His previous creatinine was 1.5 in February. Over the past several months he has noticed a decline in his health. He started noticing bilateral leg swelling and increased his Lasix. He has experienced dyspnea on exertion. Labs were checked per routine and his Cr. was found to be elevated. He denies any chest pain, nausea, vomiting, fever, chills, or any other associated symptoms. No fever, chills, chest pain, palpitations, vomiting, diarrhea, urinary complaints, headache, lightheadedness. 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 Lab Data: -Mild leukocytosis -Hypokalemia, K 3.0 -Albumin 3.3 -Cr: 3.5 -BUN 53 CXR: mild CHF History Information - Allergies/Home Medication List Allergies/Adverse Reactions: cephalexin Allergy (Severe, Verified 07/19/17 13:00) Anaphylaxis Home Medications: Furosemide [Lasix 20 MG (*)] 20 mg PO DAILY 02/26/17 [Last Taken 07/19/17] Metoprolol Succinate Xr [Toprol Xl 25 mg (*)] 25 mg PO DAILY 02/26/17 [Last Taken 07/19/17] oxyCODONE HCL [Oxycontin] 30 mg PO BID@,15 02/26/17 [Last Taken 07/19/17 03:00 ] Colchicine [Colchicine (*)] 0.6 mg PO DAILY 07/19/17 [Last Taken 07/19/17] I have personally reviewed and updated: medical history, social history - Social History Smoking Status: Former smoker Review of Systems Review of Systems: ROS: 10pt was reviewed & negative except for what was stated in HPI & below Physical Exam Physical Exam: Temp Pulse Resp BP Pulse Ox 36.8 C 75 18 119/81 H 93 07/19/17 13:00 07/19/17 13:00 07/19/17 13:00 07/19/17 13:00 07/19/17 13:00 Constitutional: no apparent distress Eyes: PERRL, EOMI Ears, Nose, Mouth, Throat: hearing normal, dry mucous membranes Cardiovascular: irregularly irregular, edema (1+ Edema LE), No JVD Respiratory: no respiratory distress, reduced air movement Gastrointestinal: normoactive bowel sounds, soft, non-tender abdomen Skin: warm Musculoskeletal: generalized weakness Neurologic: AAOx3 Psychiatric: interacting appropriately, not anxious, not encephalopathic, thought process linear Lymph, Heme, Immunologic: No petechiae Lab Data & Imaging Review 07/19/17 13:30 07/19/17 13:30 WBC 11.11 10^3/uL (3.80-9.50) H 07/19/17 13:30 RBC 4.00 10^6/uL (4.40-6.38) L 07/19/17 13:30 Hgb 14.1 g/dL (13.7-17.5) 07/19/17 13:30 POC Hgb 16.0 gm/dL (13.7-17.5) 07/19/17 13:34 Hct 42.2 % (40.0-51.0) 07/19/17 13:30 POC Hct 47 % (40-51) 07/19/17 13:34 MCV 105.5 fL (81.5-99.8) H 07/19/17 13:30 MCH 35.3 pg (27.9-34.1) H 07/19/17 13:30 MCHC 33.4 g/dL (32.4-36.7) 07/19/17 13:30 RDW 16.9 % (11.5-15.2) H 07/19/17 13:30 Plt Count 283 10^3/uL (150-400) 07/19/17 13:30 MPV 10.6 fL (8.7-11.7) 07/19/17 13:30 Neut % (Auto) 87.1 % (39.3-74.2) H 07/19/17 13:30 Lymph % (Auto) 6.4 % (15.0-45.0) L 07/19/17 13:30 Gates % (Auto) 5.7 % (4.5-13.0) 07/19/17 13:30 Eos % (Auto) 0.1 % (0.6-7.6) L 07/19/17 13:30 Baso % (Auto) 0.2 % (0.3-1.7) L 07/19/17 13:30 Nucleat RBC Rel Count 0.0 % (0.0-0.2) 07/19/17 13:30 Absolute Neuts (auto) 9.68 10^3/uL (1.70-6.50) H 07/19/17 13:30 Absolute Lymphs (auto) 0.71 10^3/uL (1.00-3.00) L 07/19/17 13:30 Absolute Monos (auto) 0.63 10^3/uL (0.30-0.80) 07/19/17 13:30 Absolute Eos (auto) 0.01 10^3/uL (0.03-0.40) L 07/19/17 13:30 Absolute Basos (auto) 0.02 10^3/uL (0.02-0.10) 07/19/17 13:30 Absolute Nucleated RBC 0.00 10^3/uL (0-0.01) 07/19/17 13:30 Immature Gran % 0.5 % (0.0-1.1) 07/19/17 13:30 Immature Gran # 0.06 10^3/uL (0.00-0.10) 07/19/17 13:30 POC Sodium 129 mEq/L (135-145) L 07/19/17 13:34 POC Potassium 3.0 mEq/L (3.3-5.0) L 07/19/17 13:34 POC Chloride 76 mEq/L (97-110) L 07/19/17 13:34 POC BUN 46 mg/dL (7-23) H 07/19/17 13:34 POC Creatinine 4.1 mg/dL (0.7-1.3) H 07/19/17 13:34 POC Glucose 123 mg/dL (70-100) H 07/19/17 13:34 Total Bilirubin 1.6 mg/dL (0.1-1.4) H 07/19/17 13:30 Conjugated Bilirubin 1.1 mg/dL (0.0-0.5) H 07/19/17 13:30 Unconjugated Bilirubin 0.5 mg/dL (0.0-1.1) 07/19/17 13:30 AST 125 IU/L (17-59) H 07/19/17 13:30 ALT 96 IU/L (21-72) H 07/19/17 13:30 Alkaline Phosphatase 150 IU/L (38-126) H 07/19/17 13:30 Creatine Kinase 86 IU/L (0-224) 07/19/17 13:30 Total Protein 6.4 g/dL (6.3-8.2) 07/19/17 13:30 Albumin 3.6 g/dL (3.5-5.0) 07/19/17 13:30 Lipase 58 IU/L (23-300) 07/19/17 13:30 Assessment & Plan Assessment: #Acute on chronic renal failure #Pedal edema #hx of diastolic CHF, Lasix dependant #Intravascular Depletion #Hypokalemia #indeterminate troponin in a pt with no chest pain. -EKG reviewed, Afib, rate 71, prolonged QT. No ischemic changes #Hx of HTN #Afib and chronic AC #Hypoalbuminemia #Chronic Pain Syndrome #Generalized Weakness Plan: Inpatient admission Hold Hydralazine, bp ok currently Urine studies Renal ultrasound I's and O's He looks intravascularly dry. He received Lasix 40mg IV in the E.D. I will provided 2 L of IVF at 75ml/hr. Hold additional Lasix Low albumin is likely contributing to his edema consider renal consult if no improvement and pending w/u. I's and O's: he reports no hx of prostate issues. He is urinating. For now, I will check post void residual and hold off on Vargas. Avoid meds that prolong the QT interval check TTE Serial Trops Telemetry Cont Apixaban, unclear why he is not on AFib AC doses, this will need to be clarified in a.m. Cont Metoprolol Monitor BP Replace K. check Mg DNR
[2017-07-19] MEDS ORDERED: oxyCODONE CR 30 MG TAB PO ONE (16:15)
[2017-07-19] MEDS ORDERED: POTASSIUM CL 20 MEQ/15 ML UDCUP PO ONE (18:01)
[2017-07-19] MEDS: NS W/ 20 KCl/L 1,000 ML IV SCH (18:48)
[2017-07-19] MEDS: APIXABAN 2.5 MG TAB PO SCH (20:24)
[2017-07-19] MEDS: oxyCODONE IR 5 MG TAB PO PRN (22:25)
[2017-07-20] MEDS: oxyCODONE CR 30 MG TAB PO SCH ×2 (03:21→15:06)
[2017-07-20 04:01] LABS: PLATELET COUNT 246 10^3/uL (150-400)
[2017-07-20] MEDS: NS W/ 20 KCl/L 1,000 ML IV SCH (06:25)
[2017-07-20] MEDS: oxyCODONE IR 5 MG TAB PO PRN ×3 (08:34→18:57)
[2017-07-20] MEDS: APIXABAN 2.5 MG TAB PO SCH ×2 (08:34→21:21)
[2017-07-20] MEDS: METOPROLOL SUCCINATE XR 25 MG TAB PO SCH (08:34)
[2017-07-20] MEDS: COLCHICINE 0.6 MG CAP/TAB PO SCH (08:34)
--- NOTE | 2017-07-20 09:39 | ECHO ---
[email or web address] [address] [address] Main: [phone] Fax: [email or web address] Echocardiogram Name: RAÚL MONTES MR#: [id number] Study Date: 07/20/2017 Study Time: 07:48 AM Date of : 1950 Age: 66 year(s) Height: 182.9 cm (72 in.) Weight: 79.38 kg (175 lb.) BSA: 2.01 m2 Gender: Male Examination: Echo Indication: volume overload Image Quality: Adequate Contrast: Requested by: Lee Marte BP: 104 mmHg/84 mmHg Heart Rate: Rhythm: Atrial fibrillation Indication: volume overload Procedure [employer] Director: Zulma Casey RDCS Reading Physician: Modesto Valentine MD Requesting Provider: Conclusions: No pericardial effusion. Borderline left ventricular systolic function. Biatrial enlargement. Moderate to severe mitral regurgitation with calcification of the annulus. Aortic valve calcification with mild aortic regurgitation and a mean aortic valve gradient of 10 mm of mercury. Reduced RV systolic function with a right ventricular systolic pressure estimated at 46 mm of mercury. Moderate tricuspid regurgitation Measurements: Chambers Valvular Assessment AV/MV Valvular Assessment TV/PV Normal Normal Normal Name Value Range Name Value Range Name Value Range Ao Janie (MM): 3.7 cm (2.2 cm-3.7 AV Vmax: 2.01 m/s (1 m/s-1.7 TR Vmax: 2.77 mm/s ( - ) cm) m/s) TR PGmax: 31 mmHg ( - ) IVSd (2D): 1.2 cm (0.6 cm-1.1 AV maxP mmHg ( - ) syst. PAP: 46 mmHg ( - ) cm) AV meanP mmHg ( - ) PV Vmax: 0.58 m/s (0.6 m/s-0.9 LVDd (2D): 5.6 cm (4.2 cm-5.9 JOANNE (VTI): 1.0 cm ( - ) m/s) cm) MV E Vmax: 0.68 m/s ( - ) PV PGmax: 1 mmHg ( - ) LVDs (2D): 4.2 cm (2.1 cm-4 MV meanP mmHg ( - ) cm) MVA (Vmax): 0.3 m/s ( - ) LVPWd (2D): 1.3 cm (0.6 cm-1 cm) LVOTd 2.2 cm 2.2 cm mm LVEF (BP): 53 % (>=55 %) RVDd(2D): 4.4 cm (1.9 cm-3.8 cmmm) Continued Measurements: Chambers Valvular Assessment AV/MV Valvular Assessment TV/PV Name Value Name Value Name Value LADs Lon.8 cm MV Annulus: 3.6 cm CVP (est.): 15 mmHg Patient: RAÚL MONTES Study Date: 07/20/2017 Page 1 of 2 07:48 AM LA Area: 26.9 cm2 MV VTI: 166.00 cm LA Volume: 99 ml MR Vena Contracta: 0.6 cm LA Volume Index: 49.3 ml/m2 MR ERO: 3.450 cm2 TAPSE: 1.3 cm MR PISA radius: 9 mm RA Area: 28.0 cm2 MR Reg. Volume: 35 ml MR Reg. Fraction: 2 % Additional Vessels Name Value Ao Ascendin.6 cm Findings: Left Ventricle: Normal size left ventricle. No LV hypertrophy. Low normal left ventricular systolic function. EF is 53 %. No regional wall motion abnormality. Unable to assess diastolic dysfunction. Right Ventricle: Mildly dilated right ventricle. Mildly reduced RV function. Left Atrium: The left atrium is severely dilated. Right Atrium: Right atrial enlargement. Mitral Valve: The mitral valve is normal in appearance. There is mild bileaflet mitral valve prolapse.Moderate to severe mitral regurgitation. No mitral stenosis is present. Aortic Valve: The aortic valve is tri-leaflet. Moderate aortic cusp calcification is present. Mild aortic valve regurgitation is present. Mean aortic valve gradient 10. Mild calcific aortic valve stenosis. Tricuspid Valve: The tricuspid valve is normal in appearance and function. Moderate tricuspid regurgitation is present. The pulmonary artery pressure is mild to moderately increased. Right ventricular systolic pressure measures 46mmHg. Pulmonic Valve: The pulmonic valve is normal in appearance and function. Mild pulmonic valve regurgitation is noted. Aorta: Normal size aortic root measuring 3.7 cm. Normal size ascending aorta measuring 3.6 cm. IVC: The IVC is dilated. Pericardium: No pericardial effusion. (No Signature Object) Patient: RAÚL MONTES Study Date: 07/20/2017 Page 2 of 2 07:48 AM [id number]
--- NOTE | 2017-07-20 09:43 | PDMN ---
Medical Necessity Medical necessity: M326 ARF A-3 days: elevated Cr., elevated trop., EKG changes - afib, prolonged QT interval. hypokalemia, further monitoring, eval and tx needed anticipate > 2 midnights.
--- NOTE | 2017-07-20 14:33 | ASMTCMCOM ---
CM Note CM Note Notes: 07/20/2017 Case Management Note Discussed pt in rounds this morning. Pt admitted for renal failure, peripheral edema, dyspnea and elevated troponin. Met w/pt this afternoon. Provided resources to support pt desire to maintain sobriety after d/c. Encouraged pt to contact [employer] for list of resources covered by insurance. There are no d/c case management needs anticipated d/t pt age, marital status and employment status. Will await PT eval and recommendations for final d/c plan. Case Management d/c poc: anticipating independent with follow up as directed. Case Management to follow. Date Signed: 07/20/2017 02:32 PM Electronically Signed By:Ana M Gaytan RN
--- NOTE | 2017-07-20 14:53 | HOSPPROG ---
Hospitalist Progress Note Assessment/Plan: 66-year-old male admitted because of acute renal failure. Patient has had 2-4 weeks of peripheral edema treated with diuresis of Lasix. He was noted in his PCPs office prior to admission to have an elevated creatinine at 3.2. Additionally the gentleman has known alcohol abuse but stopped 2 weeks ago. Admission laboratories indicate abnormal LFTs along with peripheral edema and a creatinine of 3.5. Patient is new to me today -acute renal failure with a creatinine of 3.5. Fractional excretion of sodium is 0.5% indicating pre renal azotemia. He is being treated with IV fluid hydration and will recheck his creatinine and electrolytes. -alcohol addiction, and alcoholic hepatitis. His a prior ultrasound indicating hepatomegaly. This will not be repeated at this time although his liver is tender on examination with abnormal LFTs. He is 2 weeks out from his last alcohol use thus withdrawal is unlikely. The use of high doses of diuretics has probably precipitated renal failure combined with hepatorenal syndrome. -atrial fibrillation: Currently in good rate control on metoprolol and anticoagulation with Eliquis. There is no signs of GI bleeding. -electrolyte at abnormalities without and ion gap. This is secondary to excessive diuresis and will continue his IV fluid hydration. Time: 50 min case was discussed with staff on rounds and discussed with the patient all questions were answered Subjective: Reports he is feeling weak and tired but no nausea vomiting chest pain fever or chills Objective: Vital Signs Temp Pulse Resp BP Pulse Ox 36.6 C 85 15 132/99 H 96 07/20/17 11:13 07/20/17 11:13 07/20/17 11:13 07/20/17 11:13 07/20/17 11:13 Laboratory Results 07/20/17 03:20 07/20/17 12:25 07/19/17 07/20/17 07/21/17 05:59 05:59 05:59 Intake Total 1100 Output Total 600 250 Balance 500 -250 - Time Spent With Patient Time Spent with Patient: greater than 35 minutes Time Spent with Patient: Greater than 35 minutes spent on this patients care, greater than 50% of time spent counseling, educating, and coordinating care regarding the above mentioned plan. - Pending Discharge Pending Discharge Within 24 Hours: No Pending Discharge Within 48 Hours: No - Physical Exam Constitutional: no apparent distress, chronically ill appearing Eyes: PERRL, icteric sclera Ears, Nose, Mouth, Throat: moist mucous membranes, dry mucous membranes Cardiovascular: irregularly irregular Respiratory: no respiratory distress, no rales or rhonchi, clear to auscultation Gastrointestinal: normoactive bowel sounds, tenderness (Right upper quadrant is tender in the liver is easily palpable spleen cannot be palpated nor is the left upper quadrant tender) Genitourinary: no bladder fullness Skin: warm Musculoskeletal: generalized weakness, other (1-2 +peripheral edema.) Neurologic: AAOx3, CN II-XII Intact ICD10 Worksheet Patient Problems: Problems Problem Status Onset Renal failure, acute Acute Atrial fibrillation Acute Hyperkalemia Acute Cellulitis of hand, right Acute Elevated troponin Acute
[2017-07-20] MEDS ORDERED: NS W/ 20 KCl/L 1,000 ML IV SCH (15:00)
[2017-07-20] MEDS: SENNOSIDES 1 TAB PO PRN (18:57)
[2017-07-21] MEDS: oxyCODONE IR 5 MG TAB PO PRN ×5 (01:15→21:26)
[2017-07-21] MEDS: oxyCODONE CR 30 MG TAB PO SCH ×2 (03:27→14:21)
[2017-07-21 03:48] LABS: PLATELET COUNT 224 10^3/uL (150-400)
[2017-07-21] MEDS: APIXABAN 2.5 MG TAB PO SCH ×2 (07:48→21:26)
[2017-07-21] MEDS: METOPROLOL SUCCINATE XR 25 MG TAB PO SCH (07:48)
[2017-07-21] MEDS: COLCHICINE 0.6 MG CAP/TAB PO SCH (07:52)
[2017-07-21] MEDS ORDERED: FUROSEMIDE 40 MG TAB PO ONE (11:23)
[2017-07-21] MEDS ORDERED: LACTULOSE 20 GM/30 ML UDCUP PO PRN (14:02)
[2017-07-21] MEDS ORDERED: MAGNESIUM HYDROXIDE 30 ML UDCUP PO PRN (14:02)
[2017-07-21] MEDS ORDERED: BISACODYL 10 MG SUPP PR PRN (14:02)
--- NOTE | 2017-07-21 14:09 | HOSPPROG ---
Hospitalist Progress Note Assessment/Plan: 66-year-old male admitted because of acute renal failure. Patient has had 2-4 weeks of peripheral edema treated with diuresis of Lasix. He was noted in his PCPs office prior to admission to have an elevated creatinine at 3.2. Additionally the gentleman has known alcohol abuse but stopped 2 weeks ago. Admission laboratories indicate abnormal LFTs along with peripheral edema and a creatinine of 3.5. today creatinine is declined to 2.5 and perpherial edema is increased due to IVF -acute renal failure with a creatinine of 3.5. Fractional excretion of sodium is 0.5% indicating pre renal azotemia. He is being treated with IV fluid hydration and will recheck his creatinine and electrolytes. Will stop IVF, permit po on free water restriction due to hyponatremia, and start lasix gently , consult nephrology. -alcohol addiction, and alcoholic hepatitis. His a prior ultrasound indicating hepatomegaly. This will not be repeated at this time although his liver is tender on examination with abnormal LFTs. He is 2 weeks out from his last alcohol use thus withdrawal is unlikely. The use of high doses of diuretics has probably precipitated renal failure combined with hepatorenal syndrome. Will continue gentle diuresis -atrial fibrillation: Currently in good rate control on metoprolol and anticoagulation with Eliquis. There is no signs of GI bleeding. -electrolyte at abnormalities without and ion gap. This is secondary to excessive diuresis and will continue his IV fluid hydration. CXR shows cardiomegaly, will obtain echo per possible cardiomyopathy 2/2 ETOH. Time: 50 min case was discussed with staff on rounds and discussed with the patient all questions were answered Subjective: no complaints yet many quesitons Objective: Vital Signs Temp Pulse Resp BP Pulse Ox 36.6 C 79 19 121/94 H 94 07/21/17 07:53 07/21/17 07:48 07/21/17 07:53 07/21/17 07:48 07/21/17 08:15 Laboratory Results 07/21/17 03:17 07/21/17 03:17 07/20/17 07/21/17 07/22/17 05:59 05:59 05:59 Intake Total 1100 4863 Output Total 600 2850 200 Balance 500 2012 - Time Spent With Patient Time Spent with Patient: greater than 35 minutes Time Spent with Patient: Greater than 35 minutes spent on this patients care, greater than 50% of time spent counseling, educating, and coordinating care regarding the above mentioned plan. - Pending Discharge Pending Discharge Within 24 Hours: No Pending Discharge Within 48 Hours: No - Physical Exam Constitutional: no apparent distress, chronically ill appearing Eyes: PERRL, anicteric sclera Ears, Nose, Mouth, Throat: moist mucous membranes Cardiovascular: irregularly irregular, other (good rate control) Respiratory: no respiratory distress, no rales or rhonchi, reduced air movement Gastrointestinal: normoactive bowel sounds, soft, non-tender abdomen, no palpable masses Genitourinary: no bladder fullness Skin: warm Musculoskeletal: full muscle strength Neurologic: AAOx3, CN II-XII Intact Psychiatric: interacting appropriately ICD10 Worksheet Patient Problems: Problems Problem Status Onset Renal failure, acute Acute Atrial fibrillation Acute Hyperkalemia Acute Cellulitis of hand, right Acute Elevated troponin Acute
[2017-07-21] MEDS: SENNOSIDES 1 TAB PO PRN (14:20)
[2017-07-21] MEDS: POLYETHYLENE GLYCOL 3350 17 GM PKT PO PRN (14:24)
[2017-07-21] MEDS ORDERED: FUROSEMIDE 40 MG TAB PO SCH (15:00)
[2017-07-22] MEDS: oxyCODONE CR 30 MG TAB PO SCH ×2 (03:13→14:38)
[2017-07-22 04:11] LABS: PLATELET COUNT 229 10^3/uL (150-400)
[2017-07-22] MEDS: oxyCODONE IR 5 MG TAB PO PRN ×3 (07:15→19:21)
[2017-07-22] MEDS: APIXABAN 2.5 MG TAB PO SCH ×2 (08:21→20:08)
[2017-07-22] MEDS: COLCHICINE 0.6 MG CAP/TAB PO SCH (08:21)
[2017-07-22] MEDS: METOPROLOL SUCCINATE XR 25 MG TAB PO SCH (08:21)
--- NOTE | 2017-07-22 12:04 | PDCONSULT ---
Emergency Services Dispatcher Note: History and Physical - Chief Complaint CATHY - History of Present Illness The patient is a 66 y/o M wiht a known h/o HTN, CKDIII, and diastolic HF who presented to the ED per his PCP for elevated creatinine of 3.5mg/dL 2 days ago. His baseline Cr is 1.5 and he endorses LE edema and increased SOB over the past 3 months. He thinks his dry weight is 170lbs, currently 207lbs. He is currently taking lasix 20mg 2x/day, however states this has been at a higher and lower dose in the past. He denies recent NSAID use, symptoms of infection, or other ROS. He does admit to drinking a lot of alcohol for several years, however has stopped. He also monitors his salt intake closely and cooks with his at home. 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, tobacco and ETOH use FmHx: No renal disease History Information - Allergies/Home Medication List cephalexin Allergy (Severe, Verified 07/19/17 13:00) Anaphylaxis Home Medications: Furosemide [Lasix 20 MG (*)] 20 mg PO DAILY 02/26/17 [Last Taken 07/19/17] Metoprolol Succinate Xr [Toprol Xl 25 mg (*)] 25 mg PO DAILY 02/26/17 [Last Taken 07/19/17] oxyCODONE HCL [Oxycontin] 30 mg PO BID@03,15 02/26/17 [Last Taken 07/19/17 03:00 ] Colchicine [Colchicine (*)] 0.6 mg PO DAILY 07/19/17 [Last Taken 07/19/17] Review of Systems ROS: 10pt was reviewed & negative except for what was stated in HPI & below Physical Exam Physical Exam: Temp Pulse Resp BP Pulse Ox 36.5 C 89 16 101/72 94 07/22/17 08:20 07/22/17 08:20 07/22/17 08:20 07/22/17 08:20 07/22/17 08:20 O2 (L/minute) 22 General: NAD, A+Ox3 HEENT: EOMI, dry MM Neck: Supple, no thyromegaly CV: Irregular, soft systolic murmur RESP: Decreased bases, no wheezing ABD: Soft, distended, no tenderness EXT: 2+ edema with chronic stasis changes NEURO: Non-focal, appropriate affect, normal gait SKIN: No rashes, dry WBC 7.85 10^3/uL (3.80-9.50) 07/22/17 03:23 RBC 4.04 10^6/uL (4.40-6.38) L 07/22/17 03:23 Hgb 14.1 g/dL (13.7-17.5) 07/22/17 03:23 POC Hgb 16.0 gm/dL (13.7-17.5) 07/19/17 13:34 Hct 43.3 % (40.0-51.0) 07/22/17 03:23 POC Hct 47 % (40-51) 07/19/17 13:34 MCV 107.2 fL (81.5-99.8) H 07/22/17 03:23 MCH 34.9 pg (27.9-34.1) H 07/22/17 03:23 MCHC 32.6 g/dL (32.4-36.7) 07/22/17 03:23 RDW 16.4 % (11.5-15.2) H 07/22/17 03:23 Plt Count 229 10^3/uL (150-400) 07/22/17 03:23 MPV 10.4 fL (8.7-11.7) 07/22/17 03:23 Neut % (Auto) 63.4 % (39.3-74.2) 07/22/17 03:23 Lymph % (Auto) 23.7 % (15.0-45.0) 07/22/17 03:23 Powell % (Auto) 10.6 % (4.5-13.0) 07/22/17 03:23 Eos % (Auto) 1.1 % (0.6-7.6) 07/22/17 03:23 Baso % (Auto) 0.6 % (0.3-1.7) 07/22/17 03:23 Nucleat RBC Rel Count 0.0 % (0.0-0.2) 07/22/17 03:23 Absolute Neuts (auto) 4.97 10^3/uL (1.70-6.50) 07/22/17 03:23 Absolute Lymphs (auto) 1.86 10^3/uL (1.00-3.00) 07/22/17 03:23 Absolute Monos (auto) 0.83 10^3/uL (0.30-0.80) H 07/22/17 03:23 Absolute Eos (auto) 0.09 10^3/uL (0.03-0.40) 07/22/17 03:23 Absolute Basos (auto) 0.05 10^3/uL (0.02-0.10) 07/22/17 03:23 Absolute Nucleated RBC 0.00 10^3/uL (0-0.01) 07/22/17 03:23 Immature Gran % 0.6 % (0.0-1.1) 07/22/17 03:23 Immature Gran # 0.05 10^3/uL (0.00-0.10) 07/22/17 03:23 POC Sodium 129 mEq/L (135-145) L 07/19/17 13:34 Sodium 135 mEq/L (135-145) 07/22/17 03:23 POC Potassium 3.0 mEq/L (3.3-5.0) L 07/19/17 13:34 Potassium 3.7 mEq/L (3.5-5.2) 07/22/17 03:23 POC Chloride 76 mEq/L (97-110) L 07/19/17 13:34 Chloride 89 mEq/L (97-110) L 07/22/17 03:23 Carbon Dioxide 36 mEq/l (22-31) H 07/22/17 03:23 Anion Gap 10 mEq/L (8-16) 07/22/17 03:23 POC BUN 46 mg/dL (7-23) H 07/19/17 13:34 BUN 58 mg/dL (7-23) H 07/22/17 03:23 Creatinine 2.4 mg/dL (0.7-1.3) H 07/22/17 03:23 POC Creatinine 4.1 mg/dL (0.7-1.3) H 07/19/17 13:34 Estimated GFR 27 07/22/17 03:23 Glucose 74 mg/dL (70-100) 07/22/17 03:23 POC Glucose 123 mg/dL (70-100) H 07/19/17 13:34 Calcium 8.9 mg/dL (8.5-10.4) D 07/22/17 03:23 Magnesium 2.2 mg/dL (1.6-2.3) 07/20/17 03:20 Total Bilirubin 1.3 mg/dL (0.1-1.4) 07/21/17 03:17 Conjugated Bilirubin 1.1 mg/dL (0.0-0.5) H 07/19/17 13:30 Unconjugated Bilirubin 0.5 mg/dL (0.0-1.1) 07/19/17 13:30 AST 92 IU/L (17-59) H 07/21/17 03:17 ALT 92 IU/L (21-72) H 07/21/17 03:17 Alkaline Phosphatase 125 IU/L (38-126) 07/21/17 03:17 Creatine Kinase 86 IU/L (0-224) 07/19/17 13:30 Troponin I 0.174 ng/mL (0.000-0.034) H 07/20/17 03:20 NT-Pro-B Natriuret Pep 81371 pg/mL (0-125) H 07/21/17 03:17 Total Protein 5.5 g/dL (6.3-8.2) L 07/21/17 03:17 Albumin 3.0 g/dL (3.5-5.0) L 07/21/17 03:17 Prealbumin 11.7 mg/dL (17.6-36.0) L 07/19/17 13:30 Lipase 123 IU/L (23-300) 07/21/17 03:17 Urine Color CHE 07/19/17 18:10 Urine Appearance HAZY 07/19/17 18:10 Urine pH 7.0 (5.0-7.5) 07/19/17 18:10 Ur Specific Siren 1.014 (1.002-1.030) 07/19/17 18:10 Urine Protein NEGATIVE (NEGATIVE) 07/19/17 18:10 Urine Ketones NEGATIVE (NEGATIVE) 07/19/17 18:10 Urine Blood NEGATIVE (NEGATIVE) 07/19/17 18:10 Urine Nitrate NEGATIVE (NEGATIVE) 07/19/17 18:10 Urine Bilirubin NEGATIVE (NEGATIVE) 07/19/17 18:10 Urine Urobilinogen 4.0 EU (0.2-1.0) H 07/19/17 18:10 Ur Leukocyte Esterase NEGATIVE (NEGATIVE) 07/19/17 18:10 Ur Random Creatinine 118.1 mg/dL 07/19/17 18:10 Ur Random Sodium 76 mEq/L (30-90) 07/19/17 18:10 Urine Glucose NEGATIVE (NEGATIVE) 07/19/17 18:10 Imaging: Echo and US results reviewed. Assessment/Plan: The patient is a 66 y/o M with a known h/o HTN, diastolic CHF, and CKD Stage III who presents for CATHY, likely cardio-renal syndrome given clinical symptoms, elevated BNP, and bland urine. No evidence of cirrhosis on US and does have elevated transaminases possibly 2/2 to hepatic congestion, however, an INR would assess function. CATHY on CKD Stage III: -CRS as above -would diurese with 40-80mg IV lasix BID -abd US limited and only shows R kidney, no hydro, would consider full renal US -avoid nephrotoxins HTN/vol: -soft BP's most likely 2/2 to CHF -echo shows mildly reduced EF with enlarged atria -diuresis as above -continue BB for afib rate control Metabolic alkalosis -unclear if possibly compensatory from chronic respiratory acidosis -sent VBG -needs EBONIE eval, consider pulm consult -monitor closely with diuresis, may consider acetazolamide Consult appreciated, will continue to monitor. Please contact #[phone] if further questions.
[2017-07-22] MEDS: FUROSEMIDE 40 MG/4 ML VIAL IVP SCH (14:38)
--- NOTE | 2017-07-22 15:00 | ASMTCMCOM ---
CM Note CM Note Notes: 07/22/2017 Case Management Note Met pt during rounds this morning. Pt rheumotologist is Dr. Perera in [place]. Pt reports seeing Dr. Perera approximately every [address] Perera is presriber for meds. Pt family law attorney is Dr. Oliver but pt has not seen recently. Case Management d/c poc: remains independent. Case Management to follow. Date Signed: 07/22/2017 02:59 PM Electronically Signed By:Ana M Gaytan RN
--- NOTE | 2017-07-22 15:47 | HOSPPROG ---
Hospitalist Progress Note Assessment/Plan: 66-year-old male admitted because of acute renal failure. Patient has had 2-4 weeks of peripheral edema treated with diuresis of Lasix. He was noted in his PCPs office prior to admission to have an elevated creatinine at 3.2. Additionally the gentleman has known alcohol abuse but stopped 2 weeks ago. Admission laboratories indicate abnormal LFTs along with peripheral edema and a creatinine of 3.5. today creatinine is declined to 2.5 and perpherial edema is increased due to IVF -acute renal failure with a creatinine of 3.5. Fractional excretion of sodium is 0.5% indicating pre renal azotemia. He is being treated with IV fluid hydration and will recheck his creatinine and electrolytes. today per nephrology consult will restart lasix and follow creatinine. -mild systolic CHF with EF lower limit of normal by echo. Possible ETOH cardiomyopathy. -alcohol addiction, and alcoholic hepatitis. His a prior ultrasound indicating hepatomegaly. Repeat ultrasound shows heptomegaly without obstruction suggesting steatosis. He is 2 weeks out from his last alcohol use thus withdrawal is unlikely. The use of high doses of diuretics has probably precipitated renal failure combined with hepatorenal syndrome or cardorenal syndrome with the reduced EF. Will continue gentle diuresis -atrial fibrillation: Currently in good rate control on metoprolol and anticoagulation with Eliquis. There is no signs of GI bleeding. -electrolyte at abnormalities without and ion gap. This is secondary to excessive diuresis and will continue his IV fluid hydration. CXR shows cardiomegaly, will obtain echo per possible cardiomyopathy 2/2 ETOH. disposition: -will be able to return home when final medication regimen is established for diuresis. Could be followed further as outpatient. Possible discharge 07/23 to home. Time: 50 min case was discussed with staff on rounds and discussed with the patient all questions were answered Subjective: Reports he is feeling improved with less leg edema, less abdominal pressure. NO chest pain, fever, nausea, vomiting, diarrhea, melena Objective: Vital Signs Temp Pulse Resp BP Pulse Ox 36.6 C 82 16 98/76 L 94 07/22/17 12:00 07/22/17 12:00 07/22/17 12:00 07/22/17 12:00 07/22/17 12:00 Laboratory Results 07/22/17 03:23 07/22/17 03:23 07/21/17 07/22/17 07/23/17 05:59 05:59 05:59 Intake Total 8130 3091 Output Total 3067 611 424 Balance 2013 7445 -203 - Time Spent With Patient Time Spent with Patient: greater than 35 minutes Time Spent with Patient: Greater than 35 minutes spent on this patients care, greater than 50% of time spent counseling, educating, and coordinating care regarding the above mentioned plan. - Pending Discharge Pending Discharge Within 24 Hours: Yes Pending Discharge Date: 07/23/17 Pending Discharge Time: 11:00 - Physical Exam Constitutional: no apparent distress Eyes: PERRL, anicteric sclera Ears, Nose, Mouth, Throat: moist mucous membranes, hearing normal Cardiovascular: irregularly irregular Respiratory: no respiratory distress, no rales or rhonchi, clear to auscultation Gastrointestinal: normoactive bowel sounds, soft, non-tender abdomen, distension , other (very rounded) Genitourinary: no bladder fullness Skin: warm Musculoskeletal: full muscle strength Neurologic: AAOx3, CN II-XII Intact Psychiatric: interacting appropriately ICD10 Worksheet Patient Problems: Problems Problem Status Onset Renal failure, acute Acute Atrial fibrillation Acute Hyperkalemia Acute Cellulitis of hand, right Acute Elevated troponin Acute
[2017-07-23] MEDS: oxyCODONE CR 30 MG TAB PO SCH ×2 (03:12→15:27)
[2017-07-23] MEDS: oxyCODONE IR 5 MG TAB PO PRN ×3 (03:14→19:41)
[2017-07-23 04:21] LABS: PLATELET COUNT 247 10^3/uL (150-400)
[2017-07-23] MEDS: APIXABAN 2.5 MG TAB PO SCH ×2 (08:08→19:41)
[2017-07-23] MEDS: FUROSEMIDE 40 MG/4 ML VIAL IVP SCH ×2 (08:08→15:26)
[2017-07-23] MEDS: METOPROLOL SUCCINATE XR 25 MG TAB PO SCH (08:08)
[2017-07-23] MEDS: COLCHICINE 0.6 MG CAP/TAB PO SCH (08:08)
--- NOTE | 2017-07-23 10:16 | SOAPPROG ---
SOAP Progress Note Assessment/Plan: Assessment/Plan: CATHY on CKD 3: Baseline Cr around 1.5, no hematuria or proteinuria on UA, unlikely an active GN, prerenal indices concerning for possible cardiorenal syndrome in setting of volume overload. Cr down to 2.5 today. - No need for HD. - Will continue diuresis. - Avoid hypotension and nephrotoxins. - Will continue to monitor. Hypervolemia: improving, would continue IV diuretics today and switch to PO regimen tomorrow. Hypokalemia: K 3.5 in setting of Lasix, will give KCl today and continue to monitor. HTN: reasonably controlled on current meds, will continue to monitor. Subjective: No acute events overnight. Pt notes that his swelling seems to be improving but usually does not have any swelling in his legs, his fluid retention in the past has usually been in abdomen alone. His breathing is more comfortable and he is urinating more with IV Lasix. Objective: Vital Signs Temp Pulse Resp BP Pulse Ox 36.6 C 86 16 123/97 H 93 07/23/17 07:22 07/23/17 07:22 07/23/17 07:22 07/23/17 07:22 07/23/17 07:22 Laboratory Results 07/23/17 03:36 07/23/17 03:36 07/22/17 07/23/17 07/24/17 05:59 05:59 05:59 Intake Total 3093 800 Output Total 400 2750 Balance 2693 -1950 General: alert and oriented, no acute distress Eyes: EOMI, PERRL OP: CLear CV: RRR Resp: nonlabored respirations on RA Abd: Soft, distended, NTTP Ext: +2 edema BLE Neuro; CN II-XII grossly intact, no asterixis Psych: cooperative, appropriate mood and affect ICD10 Worksheet Patient Problems: Problems Problem Status Onset Elevated troponin Acute Renal failure, acute Acute Atrial fibrillation Acute Cellulitis of hand, right Acute Hyperkalemia Acute
[2017-07-23] MEDS ORDERED: POTASSIUM CL 20 MEQ TAB PO ONE (10:19)
[2017-07-23] MEDS ORDERED: POTASSIUM CL 10 MEQ TAB ONE (13:05)
--- NOTE | 2017-07-23 18:09 | HOSPPROG ---
Hospitalist Progress Note Assessment/Plan: DIAGNOSES: -acute valvular and right-sided congestive heart failure, no significant pulmonary edema * Has never been tested for EBONIE, and declined in past due to not willing to consider cpap (per patient) * Notably he has moderate to severe mitral regurg with pulmonary hypertension on echo, and suspect this may be contributing a lot to his overall problems * His AFib is rate controlled and not likely contributing significantly to his current issue * Systolic function unchanged from most recent echo at greater than 50% * Minimal elevations in troponin at admission may be due to his renal function; myocardial perfusion stress test about 18 months ago was unremarkable -acute renal failure felt to be primarily hemodynamic in etiology, unremarkable ultrasound * Notably he improved his creatinine while getting fluid infusions in the 1st couple days and his creatinine has remained stable at but not at his baseline while diuresing the last 2 days * will need to follow closely to see how well he tolerates ongoing diuresis -elevated hepatic transaminases * likely due to hepatic congestion, however heavy alcohol use and consideration for possible chronic viral hepatitis * Hepatic steatosis seen on ultrasound raising higher risk of developing cirrhosis or tumors if ongoing hepatitis -alcoholism now sober for 1 week and wishing to remain sober * No current signs of alcohol withdrawal -chronic pain syndrome (back) with chronic prescribed daily narcotic use At present as he has edema and passive congestion, it will be important to determine best ideas of what part of physiology is causing and best treatment approach. His MR may be major factor, and I need cardiology to assess to determine whether valve surgery wound benefit (presence of Pulm HTN already developed), and what his risk would be (notably higher with his worsened renal fxn). Also need to assess for resp/pulm contributors to R CHF, and determine what treatments would be helpful and what he would be willing to try. In addition, his liver disease may all be CHF, but should look for other causes. He is at risk for hepatic cirrhosis, and should protect liver any way possible. Worsening failure of any of his organs could pull to bottom out and lead to decompensation of the others. I reviewed all of above with patient and his son at bedside pt seen to day also as part of multidisc rounds PLANS: -continue diuresis -follow renal fxn closely -cardiology consult to review Mitral valve management -check Hep serologies -continue current AFib management -PFTs -strongly recommend sleep study to see if nocturnal oxygen (he [place] 9000 [place] elevation) or any treatments for EBONIE he would consider might be of benefit SUBJECTIVE: feeling better overall but still with abd distension, unable to take deep breath due to that, legs swollen and sore no fever sxs OBJECTIVE Vitals reviewed: stable without fever Shroudman, my review: a fib, good rate control Exam: alert oriented skin warm dry color ok resps not labored lungs clear BSs heart irregular abd soft nondistended nontender, bowel sounds present limbs warm, still with remarkable bilateral edema, stasis dermatitis but no ulcers or cellulitis All lab data reviewed by me today iv site ok I have reviewed his images from CXR, no pulm edema or effusions Objective: Vital Signs Temp Pulse Resp BP Pulse Ox 36.6 C 75 14 126/87 H 94 07/23/17 15:11 07/23/17 15:11 07/23/17 15:11 07/23/17 15:11 07/23/17 15:11 Laboratory Results 07/23/17 03:36 07/23/17 03:36 07/22/17 07/23/17 07/24/17 06:59 06:59 06:59 Intake Total 3093 800 810 Output Total 400 7170 2550 Balance 3243 -1186 -3298 - Time Spent With Patient Time Spent with Patient: greater than 35 minutes Time Spent with Patient: Greater than 35 minutes spent on this patients care, greater than 50% of time spent counseling, educating, and coordinating care regarding the above mentioned plan. ICD10 Worksheet Patient Problems: Problems Problem Status Onset Elevated troponin Acute Renal failure, acute Acute Atrial fibrillation Acute Cellulitis of hand, right Acute Hyperkalemia Acute
[2017-07-24] MEDS: oxyCODONE IR 5 MG TAB PO PRN ×4 (03:24→19:38)
[2017-07-24] MEDS: oxyCODONE CR 30 MG TAB PO SCH ×2 (03:25→14:20)
[2017-07-24 04:31] LABS: PLATELET COUNT 237 10^3/uL (150-400)
[2017-07-24 07:16] LABS: HEPATITIS B SURFACE ANTIGEN NEGATIVE (NEGATIVE); HEPATITIS C ANTIBODY TOTAL NEGATIVE (NEGATIVE)
[2017-07-24] MEDS: FUROSEMIDE 40 MG/4 ML VIAL IVP SCH ×2 (08:27→14:20)
[2017-07-24] MEDS: COLCHICINE 0.6 MG CAP/TAB PO SCH (08:28)
[2017-07-24] MEDS: METOPROLOL SUCCINATE XR 25 MG TAB PO SCH (08:28)
[2017-07-24] MEDS: APIXABAN 2.5 MG TAB PO SCH (08:28)
--- NOTE | 2017-07-24 10:00 | SOAPPROG ---
[facility] Progress Note Assessment/Plan: Assessment: 1. Heart Failure in setting of diastolic dysfuction and valvular disease. Pt appears better compensated. Diuresing well. Continue current dosing. 2. Hypokalemia Replace 3. MV disease Query contribution to Heart failure and pulmonary HTN 4. CATHY on CKD Cr falling with improving volume status. Plan: 07/24/17 09:56 Subjective: Doing better Objective: Vital Signs Temp Pulse Resp BP Pulse Ox 37.1 C 83 17 127/74 H 98 07/24/17 07:55 07/24/17 08:28 07/24/17 07:55 07/24/17 08:28 07/24/17 07:55 Laboratory Results 07/24/17 03:15 07/24/17 03:15 07/23/17 07/24/17 07/25/17 05:59 05:59 05:59 Intake Total 800 1310 120 Output Total 2750 3650 300 Balance -1950 -2340 -180 Physical Exam - Physical Exam General Appearance: no apparent distress Respiratory: normal breath sounds Cardiac/Chest: regular rate, rhythm, systolic murmur Extremities: pedal edema Neuro/Psych: oriented x 3 ICD10 Worksheet Patient Problems: Problems Problem Status Onset Elevated troponin Acute Renal failure, acute Acute Atrial fibrillation Acute Cellulitis of hand, right Acute Hyperkalemia Acute
[2017-07-24] MEDS ORDERED: POTASSIUM CL 10 MEQ TAB PO ONE (10:03)
[2017-07-24] MEDS: SENNOSIDES 1 TAB PO PRN (11:55)
--- NOTE | 2017-07-24 16:47 | ASMTCMCOM ---
CM Note CM Note Notes: 07/24/2017 Case Management Note Discussed pt during multidisciplinary rounds this morning. Pt requiring further work up for cardiac issues. D/C likely on Sun or . Case Management d/c poc: remains independent. Case Management will follow. Date Signed: 07/24/2017 04:46 PM Electronically Signed By:Ana M Gaytan RN
--- NOTE | 2017-07-24 18:55 | GCON ---
[f rep st] CONSULTATION CARDIOLOGY CONSULT DATE OF CONSULTATION: 07/24/2017 PRIMARY STABLE CLEANER: Anival Oliver MD CHIEF COMPLAINT: Mitral regurgitation and heart failure. HISTORY OF PRESENT ILLNESS: We were asked by Dr. Marc to visit with the patient. The patient is a 66-year-old male with permanent atrial fibrillation, chronic renal insufficiency, hypertension, and mitral regurgitation. He was admitted on July 19 with acute renal failure and predominantly right -sided heart failure. His renal function has improved with diuresis. Echocardiogram reveals low-nor mal ejection fraction, severe mitral regurgitation, severe biatrial dilation, mild aortic regurgitati on. Right ventricle is mildly dilated with mildly reduced systolic function. Pulmonary pressure is estimated at 46 mmHg. Moderate tricuspid regurgitation. Upon my evaluation, he reports that he is overall quite a bit better. His lower extremity edema has improved significantly. He had profound abdominal distention upon admission, which also has improved . He denies anginal chest pain. He has not had syncope. He denies palpitations. REVIEW OF SYSTEMS: A full 10-point review of systems was performed and negative except that which is outlined in the History of Present Illness. PAST MEDICAL HISTORY: 1. Permanent atrial fibrillation on Eliquis. 2. Hypertension. 3. Mitral regurgitation. 4. Gout. 5. Chronic pain syndrome. 6. Chronic renal insufficiency with a baseline creatinine of 1.5. OUTPATIENT MEDICATIONS: Eliquis, colchicine, Lasix 20 mg daily, metoprolol 25 mg daily, and OxyConti n. 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 He is a past alcohol drinker, quit 1 week ag o. He reports 2 mixed drinks nightly. He does chew tobacco. FAMILY HISTORY: Not applicable to the current case. PHYSICAL EXAM: VITAL SIGNS: Blood pressure 106/90, heart rate is 79, oxygen saturation is 92% on ro om air. His respiratory rate is 17, afebrile. GENERAL: Somewhat ill-appearing older male in no acu te distress. HEENT: Sclerae clear and free of jaundice. Mucous membranes are moist. CARDIOVASCULA R: JVP is less than 10. Carotids equal and 2+ without bruit. Irregularly irregular rhythm. 2/6 ho losystolic murmur at the apex. No S3. LUNGS: Clear to auscultation bilaterally without wheezing, r honchi, or rales. ABDOMEN: Distended with positive ascites. No obvious bruits, masses, or hepatospl enomegaly. EXTREMITIES: Warm and well perfused. There is stigmata of chronic venous insufficiency in both legs. He does have 1+ pitting edema to the midshin bilaterally. His hands are mottled, but he has normal radial pulses bilaterally. NEURO: Alert and oriented x3 without gross focal neurologi c deficits. Appropriate mood and affect. LABORATORY DATA: White count 6.7, hematocrit 43.8, and platelets are 237. Sodium 142, potassium 3.5, chloride 98, bicarb 34, BUN 50. Creatinine 2.4 from 3.6 on admission. T 92, ALT 92, alk phos 125. Troponin 0.174 with the peak BNP 10,400. Urinalysis is planned. Hepati tis B antigen and hepatitis C antibody are negative. EKG reviewed by me shows controlled atrial fibrillation. Echocardiogram reviewed by me and also compared to 2016 echocardiogram as detailed above. His RV dys function and mitral regurgitation seem to have progressed since 2016. Chest x-ray reviewed by me, dated 07/19: Airways disease. Renal ultrasound shows medical renal disease without hydronephrosis. Abdominal ultrasound: Hepatomegaly. Small amount of kidney pericholecystic fluid and a mildly thick ened gallbladder wall. ASSESSMENT AND PLAN: 66-year-old male with acute renal failure and acute on chronic heart failure. This represents both diastolic left-sided heart failure and right heart failure. I believe the prima ry etiology of his heart failure, pulmonary hypertension, and renal failure is related to his progres sive mitral regurgitation. 1. Heart failure: Likely related to mitral regurgitation. Agree with continued diuresis as long as his renal function is improving. At this point, not a candidate for angiotensin-converting enzyme i nhibitor, angiotensin receptor phil or spironolactone given his elevated creatinine. He is on Top rol 25 mg daily, primarily for his atrial fibrillation, but this can be continued. I will add low-do se hydralazine for improved afterload reduction. 2. Mitral regurgitation: This does appear severe and likely related to posterior leaflet prolapse. I have discussed options with the patient. We will hold his Apple hernandezight. On , July 26, he should have a ANGEL and right heart catheterization. If his creatinine has improved quite a bit , we could consider coronary angiography as well. I do think he may ultimately require surgical inte rvention for his mitral regurgitation, once he is more medically stable. 3. Atrial fibrillation: This is permanent. He is well rate controlled. His longstanding atrial fi brillation, and mitral regurgitation and tricuspid regurgitation are the etiology for his significant biatrial dilation. 4. Hypertension: Fairly well controlled. Add hydralazine for afterload reduction. 5. Acute on chronic renal failure: Improving. Appreciate renal consultation. Thank you for allowing us to participate in the patient's care. We will follow with you. /[id number]/MODL
--- NOTE | 2017-07-24 19:16 | HOSPPROG ---
Hospitalist Progress Note Assessment/Plan: DIAGNOSES: -acute valvular and right-sided congestive heart failure with moderately severe pulmonary hypertension, no significant pulmonary edema * Has never been tested for EBONIE, and declined in past due to not willing to consider cpap (per patient) * Notably he has moderate to severe mitral regurg with pulmonary hypertension on echo, and suspect this may be contributing a lot to his overall problems * His AFib is rate controlled and not likely contributing significantly to his current issue * Systolic function unchanged from most recent echo at greater than 50% * Minimal elevations in troponin at admission may be due to his renal function; myocardial perfusion stress test about 18 months ago was unremarkable -acute renal failure felt to be primarily hemodynamic in etiology, unremarkable ultrasound * Continued slow improvement of creatinine with ongoing diuresis here * will need to follow closely to see how well he tolerates further ongoing diuresis -elevated hepatic transaminases * likely due to hepatic congestion, however heavy alcohol use and consideration for possible chronic viral hepatitis * Hepatic steatosis seen on ultrasound raising higher risk of developing cirrhosis or tumors if ongoing hepatitis -alcoholism now sober for 1 week and wishing to remain sober * No current signs of alcohol withdrawal -chronic pain syndrome (back) with chronic prescribed daily narcotic use I reviewed the case today in detail with Dr. Vera Cloud who is seeing him in consultation. My belief is that this patient will probably benefit from considering mitral valve replacement or clipping. However the patient currently is certainly not medically optimized are stable for doing that surgery. It would seem to me that probably getting his renal function, pulmonary and respiratory issues, volume status, and liver issues stabilized to the best extent and then referring for elective evaluation for possible mitral valve procedures. Dr. Cloud will assess these questions and make her comments. In addition to my rounds with the patient I visited the patient on multidisciplinary rounds PLANS: -continue diuresis -follow renal fxn closely -cardiology consult to review Mitral valve management -check Hep serologies -continue current AFib management -PFTs -strongly recommend sleep study to see if nocturnal oxygen (he [place] 9000 [place] elevation) or any treatments for EBONIE he would consider might be of benefit SUBJECTIVE: Continues to feel improved overall. Still notices swelling and discomfort at his calves and ankles. No other new symptoms today OBJECTIVE Vitals reviewed: stable without fever Histologist, my review: a fib, good rate control Exam: alert oriented skin warm dry color ok resps not labored lungs clear BSs heart irregular abd soft nondistended nontender, bowel sounds present limbs warm, still with remarkable bilateral edema, stasis dermatitis but no ulcers or cellulitis All lab data reviewed by me today Hepatitis-B and C serologies are negative iv site ok Objective: Vital Signs Temp Pulse Resp BP Pulse Ox 36.4 C 79 17 106/90 H 92 07/24/17 16:00 07/24/17 16:00 07/24/17 16:00 07/24/17 16:00 07/24/17 16:00 Laboratory Results 07/24/17 03:15 07/24/17 03:15 07/23/17 07/24/17 07/25/17 06:59 06:59 06:59 Intake Total 800 1310 2090 Output Total 2750 7622 6483 Balance -1950 -2340 -485 - Time Spent With Patient Time Spent with Patient: greater than 35 minutes Time Spent with Patient: Greater than 35 minutes spent on this patients care, greater than 50% of time spent counseling, educating, and coordinating care regarding the above mentioned plan. ICD10 Worksheet Patient Problems: Problems Problem Status Onset Elevated troponin Acute Renal failure, acute Acute Atrial fibrillation Acute Cellulitis of hand, right Acute Hyperkalemia Acute
[2017-07-24] MEDS: hydrALAZINE 10 MG TAB PO SCH (21:03)
[2017-07-25] MEDS: oxyCODONE IR 5 MG TAB PO PRN ×5 (00:21→22:11)
[2017-07-25] MEDS: oxyCODONE CR 30 MG TAB PO SCH ×2 (03:25→15:10)
[2017-07-25] MEDS: SENNOSIDES 1 TAB PO PRN (08:17)
[2017-07-25] MEDS: METOPROLOL SUCCINATE XR 25 MG TAB PO SCH (08:17)
[2017-07-25] MEDS: hydrALAZINE 10 MG TAB PO SCH ×3 (08:17→22:11)
[2017-07-25] MEDS: FUROSEMIDE 40 MG/4 ML VIAL IVP SCH ×2 (08:18→15:10)
--- NOTE | 2017-07-25 10:08 | SOAPPROG ---
[facility] Progress Note Assessment/Plan: Assessment: 1. CATHY on CKD. UA bland. Presumed due to cardiorenal syndrome. Creat improved from 3.6 but stuck at 2.4-2.5 x 5 days. May have component of superimposed ATN. Baseline creatinine ~1.7. 2. CHF. Acute on chronic diastolic. Has significant MR, resultant SERENITY/RHF. Dr. Cloud evaluating, planning RHC. Would defer LHC until creat closer to baseline, probably some time after hospital d/c. Continue iv lasix, hydralazine. Would switch to po diuretics 1-2 d prior to d/c to ensure adequate titration. 3. Atrial fibrillation. Chronic. Rate controlled. On metop and eliquis. Plan: 07/25/17 10:04 07/25/17 10:04 07/25/17 10:09 Subjective: Feels much better overall. Has lost a lot of edema and breathing improved with diuresis. Objective: Vital Signs Temp Pulse Resp BP Pulse Ox 36.5 C 93 16 112/79 90 L 07/25/17 07:42 07/25/17 07:42 07/25/17 07:42 07/25/17 07:42 07/25/17 07:42 Laboratory Results 07/24/17 03:15 07/25/17 03:32 07/24/17 07/25/17 07/26/17 05:59 05:59 05:59 Intake Total 1310 2390 Output Total 3650 3075 Balance -2340 -685 comfortable wm, in bed IRIR, I/ sys murmur at LSB CTAB Abdom soft, nontender 3+ indurated sacral and LE pitting edema ICD10 Worksheet Patient Problems: Problems Problem Status Onset Renal failure, acute Acute Atrial fibrillation Acute Hyperkalemia Acute Cellulitis of hand, right Acute Elevated troponin Acute
[2017-07-25] MEDS ORDERED: NS 1,000 ML IV ONE (15:44)
--- NOTE | 2017-07-25 15:51 | SOAPPROG ---
[facility] Progress Note Assessment/Plan: Assessment: 1. Diastolic heart failure 2. Right heart failure 3. Chronic renal insufficiency 4. Acute on chronic heart failure 5. Acute on chronic renal failure. 6. Atrial fibrillation I have talked to him today. And he is Comfortable right now. He has no chest pain jaw pain arm pain He does have shortness of breath His edema is much better. He feels significantly better than when he came into the hospital. I had a long talk to talk to he and his son answer all her questions. 1 thing he has been doing is using tobacco and I talked to him extensively about stopping that any actually is willing to commit to doing that he choose to tobacco. I really believe that he can do this and his son is very enthusiastic about helping him. His son was taking the chewing tobacco out of the patient's room. His atrial fibrillation is controlled right now. He is going to have a transesophageal echocardiogram tomorrow. He had had his anticoagulation held in order to do a right heart catheterization but because renal does not want to do a left heart catheterization right now I think is much better for him to not having either catheterization and daily can happen both done at once he is not interested in having 2 procedures and I certainly understand that I do not think there is any benefit or need to put him through 2 procedures on especially since the coronary anatomy is the most important thing at this time that would have the biggest impact on changing his therapeutics around and that is the test we cannot do because of renals same we may end up putting him into dialysis. I do not think the procedure is indicated to the extent that it might cause him to be on long-term dialysis and I am sure that he is not interested in that at all although I did not talk to him about the fact that might threatened to end up on dialysis. Neck can be developed then figured out a little further down the line and people can decide if they think it is important to do it. So will line him up for ANGEL tomorrow get him back on Eliquis until it is decided that he is okay to have an angiogram and then the people care inform at that time can decide if they think is worth putting him through that risk. Plan: 07/25/17 15:51 Subjective: he has no chest pain He has no fever chills or cough He has no other issues right now. He continues to be short of breath. He does not have nausea vomiting He has been using tobacco. Objective: Vital Signs Temp Pulse Resp BP Pulse Ox 36.6 C 73 16 111/82 H 94 07/25/17 15:29 07/25/17 15:29 07/25/17 15:29 07/25/17 15:29 07/25/17 15:29 Laboratory Results 07/24/17 03:15 07/25/17 03:32 07/24/17 07/25/17 07/26/17 05:59 05:59 05:59 Intake Total 1310 2390 Output Total 3650 3075 1350 Balance -4342 -685 -4790 Laboratory Tests 07/20/17 07/21/17 07/24/17 03:20 03:17 03:15 Hct 40.6 43.8 Plt Count 246 237 BUN 58 H Creatinine 2.5 H NT-Pro-B Natriuret Pep 47124 H Total Protein 5.5 L Albumin 3.0 L 07/25/17 03:32 Hct Plt Count BUN 48 H Creatinine 2.4 H NT-Pro-B Natriuret Pep Total Protein Albumin Physical Exam - Physical Exam General Appearance: no apparent distress Respiratory: rhonchi, prolonged expiration Cardiac/Chest: regular rate, rhythm, systolic murmur Abdomen: non-tender, soft, No organomegaly Skin: warm/dry Extremities: non-tender, No calf tenderness Neuro/Psych: alert, normal mood/affect ICD10 Worksheet Patient Problems: Problems Problem Status Onset Elevated troponin Acute Renal failure, acute Acute Atrial fibrillation Acute Cellulitis of hand, right Acute Hyperkalemia Acute
[2017-07-25] MEDS ORDERED: SENNOSIDES 1 TAB PO PRN (17:32)
--- NOTE | 2017-07-25 17:37 | HOSPPROG ---
Hospitalist Progress Note Assessment/Plan: DIAGNOSES: -acute valvular and right-sided congestive heart failure with moderately severe pulmonary hypertension, no significant pulmonary edema * Has never been tested for EBONIE, and declined in past due to not willing to consider cpap (per patient) * Notably he has moderate to severe mitral regurg with pulmonary hypertension on echo, and suspect this may be contributing a lot to his overall problems * His AFib is rate controlled and not likely contributing significantly to his current issue * Systolic function unchanged from most recent echo at greater than 50% * Minimal elevations in troponin at admission may be due to his renal function; myocardial perfusion stress test about 18 months ago was unremarkable -acute renal failure felt to be primarily hemodynamic in etiology, unremarkable ultrasound * Continued slow improvement of creatinine with ongoing diuresis here * will need to follow closely to see how well he tolerates further ongoing diuresis -elevated hepatic transaminases * likely due to hepatic congestion, however heavy alcohol use and consideration for possible chronic viral hepatitis * Hepatic steatosis seen on ultrasound raising higher risk of developing cirrhosis or tumors if ongoing hepatitis -painful stasis dermatitis without ulcers * Will begin treating that today with compression stockings and steroid topical -alcoholism now sober for 1 week and wishing to remain sober * No current signs of alcohol withdrawal -chronic pain syndrome (back) with chronic prescribed low-dose daily narcotic use; he has not had any inappropriate discussion around his pain medicines I reviewed the patient's care today with Dr. Skinny Sampson and Dr. El Campo. At this point the patient continues gradual improvement with ongoing significant diuresis, stable to slowly improving renal function, improvement in symptoms. His leg pain is still significant and I think a lot of that is from stasis dermatitis at this point. We should be able to start treating the stasis dermatitis as well. I think Dr. Sampson suggestion to do all of his heart catheterization studies at 1 time is reasonable so delaying his right heart catheterization until he has can have coronary angiography down the road is reasonable In addition to my rounds with the patient I visited the patient on multidisciplinary rounds PLANS: -continue diuresis -will add compression stockings and topical steroids for his stasis dermatitis -follow renal fxn closely -continue current AFib management -plan on continuing treatment here for another 1-2 days most likely but depending on his symptoms progress and renal function, will review further with Nephrology tomorrow -he will be followed up closely by Cardiology and have eventually right heart catheterization and left heart catheterization with angiography and referral to cardiothoracic surgery for consideration of mitral valve replacement but clearly needs to have his renal function and other issues optimized before proceeding with that -PFTs ordered -strongly recommend at some point he get sleep study to see if nocturnal oxygen ([place]000 [place]) or any treatments for EBONIE he would except might be of benefit SUBJECTIVE: Continues to feel improved overall. Still notices swelling and discomfort at his calves and ankles. Today makes more mention of the pain in his legs. OBJECTIVE Vitals reviewed: stable without fever [employer], my review: a fib, good rate control Exam: alert oriented skin warm dry color ok resps not labored lungs clear BSs heart irregular abd soft nondistended nontender, bowel sounds present limbs warm, still with remarkable bilateral edema, stasis dermatitis but no ulcers or cellulitis All lab data reviewed by me today Hepatitis-B and C serologies are negative BUN slightly lower, creatinine stable unchanged today iv site ok Objective: Vital Signs Temp Pulse Resp BP Pulse Ox 36.6 C 73 16 111/82 H 94 07/25/17 15:29 07/25/17 15:29 07/25/17 15:29 07/25/17 15:29 07/25/17 15:29 Laboratory Results 07/24/17 03:15 07/25/17 03:32 07/24/17 07/25/17 07/26/17 06:59 06:59 06:59 Intake Total 1310 2390 Output Total 3650 5776 1355 Balance -2340 -685 -1350 ICD10 Worksheet Patient Problems: Problems Problem Status Onset Elevated troponin Acute Renal failure, acute Acute Atrial fibrillation Acute Cellulitis of hand, right Acute Hyperkalemia Acute
[2017-07-25] MEDS: TRIAMCINOLONE 0.1% 15 GM CRTUBE TP SCH (22:12)
[2017-07-26] MEDS: oxyCODONE CR 30 MG TAB PO SCH ×2 (02:36→14:15)
[2017-07-26] MEDS: oxyCODONE IR 5 MG TAB PO PRN ×3 (07:26→20:47)
[2017-07-26] MEDS: FUROSEMIDE 40 MG/4 ML VIAL IVP SCH ×2 (09:27→13:11)
[2017-07-26] MEDS: TRIAMCINOLONE 0.1% 15 GM CRTUBE TP SCH ×3 (09:27→21:45)
[2017-07-26] MEDS ORDERED: POTASSIUM CL 20 MEQ/15 ML UDCUP PO ONE (10:40)
--- NOTE | 2017-07-26 10:40 | SOAPPROG ---
SOAP Progress Note Assessment/Plan: Assessment: 1. CATHY on CKD. UA bland. Presumed due to cardiorenal syndrome. Creat improved from 3.6 to 2.0 with diuresis. May have component of superimposed ATN. Baseline creatinine ~1.7. 2. CHF. Acute on chronic diastolic. Good progress with diuretics. Has significant MR, resultant SERENITY/RHF. Cardiology evaluating. Possible eventual LHC/RHC. If necessary, agree with deferring LHC until creat back to baseline and patient euvolemic. Continue iv lasix, hydralazine. Would switch to po diuretics 1-2 d prior to d/c to ensure adequate titration. 3. Atrial fibrillation. Chronic. Rate controlled. On metop and eliquis. For ANGEL today. Plan: 07/25/17 10:04 07/25/17 10:04 07/25/17 10:09 07/26/17 10:37 07/26/17 10:39 Subjective: No new complaints. Hungry. Objective: Vital Signs Temp Pulse Resp BP Pulse Ox 37.1 C 96 16 119/87 H 92 07/26/17 07:14 07/26/17 07:14 07/26/17 07:14 07/26/17 07:14 07/26/17 07:14 Laboratory Results 07/24/17 03:15 07/26/17 03:27 07/25/17 07/26/17 07/27/17 05:59 05:59 05:59 Intake Total 2390 785 Output Total 3075 2400 Balance -685 -1615 Comfortable, sitting at bedside, NAD IRIR, tachycardic, no m/g/r CTAB Abdom obese, nontender 3+ LE indurated pitting edema Wt. 87.7 kg ICD10 Worksheet Patient Problems: Problems Problem Status Onset Renal failure, acute Acute Atrial fibrillation Acute Hyperkalemia Acute Cellulitis of hand, right Acute Elevated troponin Acute
[2017-07-26] MEDS ORDERED: PROPOFOL 200 MG/20 ML VIAL ONE ×2 (11:01)
--- NOTE | 2017-07-26 11:10 | PDANEPAE ---
ANE History of Present Illness transesophageal echocardiogram ANE Past Medical History - Cardiovascular History Hx Hypertension: Yes Hx Arrhythmias: Yes Hx CHF / Valvular Disease: Yes Cardiovascular History Comment: atrial fibrillation-chronic, CHF, moderate MR, moderate TR - Pulmonary History Hx Oxygen in Use at Home: No Hx Sleep Apnea: No - Endocrine History Hx Diabetes: No Hypothyroid: No Hyperthyroid: No Obesity: moderate - Renal History Hx Renal Disorders: Yes Renal History Comment: CKD III, creatinine was 3.5 on admission, now 2.0 - Neurological & Psychiatric Hx Hx Neurological and Psychiatric Disorders: No - GI History GERD: no - Chronic Pain History Chronic Pain: Yes (back pain, on chronic opioids) - Surgical History Prior Surgeries: s/p 11 surgeries for fractures of ankles, ACL reconstructions ANE Review of Systems Review of Systems: - Exercise capacity METS (RN): 3 METS ANE Patient History - Allergies Allergies/Adverse Reactions: cephalexin Allergy (Severe, Verified 07/19/17 13:00) Anaphylaxis - Home Medications Home Medications: Furosemide [Lasix 20 MG (*)] 20 mg PO DAILY 02/26/17 [Last Taken 07/19/17] Metoprolol Succinate Xr [Toprol Xl 25 mg (*)] 25 mg PO DAILY 02/26/17 [Last Taken 07/19/17] oxyCODONE HCL [Oxycontin] 30 mg PO BID@02/26/17 [Last Taken 07/19/17 03:00 ] Colchicine [Colchicine (*)] 0.6 mg PO DAILY 07/19/17 [Last Taken 07/19/17] - Anes Hx Anes Hx: no prior problems - Smoking Hx Smoking Status: Former smoker Marijuana use: No - Alcohol Use Alcohol Use: Other (2 drinks/day) ANE Labs/Vital Signs - Labs Result Diagrams: 07/24/17 03:15 07/26/17 03:27 - Vital Signs Blood Pressure: 119/87 Heart Rate: 96 Respiratory Rate: 16 O2 Sat (%): 92 Height: 182.88 cm Weight: 87.7 kg ANE Physical Exam - Airway Neck exam: FROM Mallampati Score: Class 3 Mouth exam: dentures (Upper) - Pulmonary Pulmonary: clear to auscultation - Cardiovascular Cardiovascular: irregularly irregular - ASA Status ASA Status: III ANE Anesthesia Plan Anesthesia Plan: GA with mask
--- NOTE | 2017-07-26 11:32 | PDHPUP ---
History & Physical Update H&P update statement: This history and physical update is based on an assessment of the patient which was completed after admission or registration (within 24 hours), but prior to the surgery/procedure. H&P update: H&P reviewed & patient examined, no change in patient's condition since H&P completed, changes noted
--- NOTE | 2017-07-26 11:48 | PDCARPN ---
Cardiology Progress Note Chief Complaint: Patient reports ongoing leg pain. Assessment/Plan: Assessment: 66-year-old male with significant history of permanent atrial fibrillation, chronic renal insufficiency (baseline 1.7), hypertension, and mitral regurgitation. Admitted on July 19 for acute renal failure and predominantly right-sided heart failure. Echocardiogram done on 07/20/2017 showing low-normal systolic function, EF 53% with no regional wall motion abnormalities. RV was mildly dilated with mildly reduced RV function, LA is severely dilated, RA is enlarged, mild bileaflet mitral valve prolapse. Moderate to severe MR, mild AI , mean gradient across the valve was 10 mm Hg, with mild calcified aortic stenosis, moderate TR, RVSP was estimated at 46 mm Hg, mild TN. Laboratory studies on admission showing creatinine 3.6, BUN 58, AST 125, ALT 96, proBNP 17, 300, patient noted to have troponin levels initially at 0.141, peaking at 0.174. Patient has been started on IV diuresis of Lasix. Being followed by hospital services, Nephrology, and our group. Today: Patient's weight is down almost 2 kilos from 07/25, total weight loss since hospitalization was 6.3 kilos. Liver enzymes reducing, creatinine is also down to 2 .0 today (2.4 yesterday). Continues to have +2 to 3 peripheral edema bilateral lower extremities knees down, but significant improvement. Reporting no abdomen bloating. Denies of any chest pressure, pain, or symptoms suggesting of ischemia. Plan: 1. Heart failure: Likely due to his mitral regurgitation. He has had significant improvement with diuresis. Will plan on continue IV diuresis until tomorrow, then consideration of transitioning over to oral. Currently on beta- phil primarily for rate control for his atrial fibrillation. Also on low- dose hydralazine for afterload reduction. 2. Mitral regurgitation: Moderate to severe by echo. Potentially related to prolapse. Patient will undergo ANGEL this morning for further evaluation (Dr Martinez). Potentially, may need surgical intervention for repair or replacement. Continue med management. 3. Elevated troponin: Patient reports no history of chest pressure or pain. Echocardiogram showing no wall motion abnormality. More likely elevation is due to heart failure and acute on top of chronic renal insufficiency. Patient ultimately will need a left heart catheterization, especially if he will require mitral valve repair. On hold this time due to renal insufficiency. Consideration a doing once he returns back to baseline renal function, and is stable on heart failure medication. Continue beta-phil. Will start on aspirin 81 mg p.o. q.day. Would not consider starting him on statins at this time due to recent elevated liver enzymes. Can consideration can be done once she is more stabilized on medical management. 4. Acute on chronic renal insufficiency: Improvement in creatinine today. Have discussed with Dr. Campo. Continue current dose of IV Lasix today, with consideration of transitioning over to oral tomorrow. Nephrology would like patient to be followed for 1-2 days after started oral diuretics before DC to home. 5. Hypertension: BP appears to be well controlled on current dose of metoprolol succinate and hydralazine. Continue to monitor. Patient is not a candidate for Acei, Arb, or Aldactone due to renal insufficiency. 6. Permanent atrial fibrillation: Well rate controlled on current dose of metoprolol succinate. On anticoagulation of Eliquis. 7. Elevated hepatic transaminases: Elevated on admission with improvement with diuresis. Recheck in a.m.. Probable due to right heart failure with hepatic congestion, questionable some history of EtOH use. 07/26/17 11:45 Subjective: Patient denies of any chest pressure or pain. Reports significant improvement in dyspnea on exertion with IV diuresis. Has noted a significant reduction in abdominal bloating and lower extremity edema. Denies of any palpitations, lightheadedness, orthopnea, near-syncope or syncopal events. Reviewed/Discussed With: hospitalist, other (Dr Martinez and Dr Campo) Objective: Vital Signs (8 Hrs) Temp Pulse Resp BP Pulse Ox 07/26/17 11:21 96 16 119/87 H 92 07/26/17 07:14 37.1 C 96 16 119/87 H 92 07/26/17 06:25 145 H 07/26/17 03:47 36.5 C 113 H 18 125/83 H 90 L Intake/Output (24 Hrs) 07/25/17 07/26/17 07/27/17 05:59 05:59 05:59 Intake Total 2390 785 Output Total 3075 2400 Balance -685 1618 Intake: Oral (ml) 2390 785 Output: Urine (ml) 3075 2400 Toilet 2575 1050 Urinal 500 1350 Other: Weight 89.4 kg 87.7 kg Intake Quantity Yes Yes Sufficient Number of Voids Toilet 7 2 Result Diagrams: 07/24/17 03:15 07/26/17 03:27 - Physical Exam Constitutional: WDWN, healthy appearing, no apparent distress Ears, Nose, Mouth, Throat: moist mucous membranes Cardiovascular: no rubs, no gallops, systolic murmur ( 2 to 3/6 left sternal border), irregularly irregular ( Regular rate irregular rhythm.), pulses symmetric bilat, No carotid bruit Peripheral Pulses: 1+: dorsalis-pedis (R), dorsalis-pedis (L), 2+: carotid (R), carotid (L) Respiratory: other ( lungs are clear to auscultation, no rhonchi, rales, or wheezing noted. No accessary muscle use, no intercostal muscle retraction.) Gastrointestinal: normoactive bowel sounds, no tenderness, no masses Skin: warm, No no edema ( +2 to 3 peripheral edema bilateral lower extremities to knees.) Neurologic: AAOx3 Psychiatric: cooperative, interactive, following commands ICD10 Worksheet Patient Problems: Problems Problem Status Onset Renal failure, acute Acute Atrial fibrillation Acute Hyperkalemia Acute Cellulitis of hand, right Acute Elevated troponin Acute
--- NOTE | 2017-07-26 11:51 | PDCARTEE ---
CAR ANGEL CAR ANGEL: After consents for sedation and ANGEL were signed, the patient was placed in the left lateral position. ANGEL probe was placed without difficulty and standard views were obtained. Prelim report Low normal LVEF (50%) Moderate to severe MR was noted - Bileaflet prolapse noted (posterior > anterior) - two separate regurgitant jets were noted with regurgitation to posterior aspect of the left atrium Severe biatrial dilation No significant TR was noted No PI Trace/Mild AI with moderate to severe aortic sclerosis (there is fusion of all cusps around the annulus). (+) smoke to both atria Bubble contrast injection without right to left passage noted No appreciable atherosclerosis to the aorta no complications were appreciated Patient recovered without incident
[2017-07-26] MEDS: hydrALAZINE 10 MG TAB PO SCH ×3 (12:02→20:47)
[2017-07-26] MEDS: APIXABAN 2.5 MG TAB PO SCH (12:02)
[2017-07-26] MEDS: METOPROLOL SUCCINATE XR 25 MG TAB PO SCH (13:10)
--- NOTE | 2017-07-26 15:22 | HOSPPROG ---
Hospitalist Progress Note Assessment/Plan: * Acute on chronic right/diastolic CHF due to valvular disease -good diuresis - continue IV Lasix * CKD -improving with improved volume control -baseline creatinine 1.7 * Severe MR s/p ANGEL -may need surgery * Pulmonary HTN -outpatient sleep study * Afib -rate control -Eliquis * Troponin elevation -outpatient cath when renal function returns to baseline * Hepatic congestion with increased LFT * Chronic pain with continuous narcotic dependency Subjective: NO complaints, feels much better Objective: Vital Signs Temp Pulse Resp BP Pulse Ox 37.1 C 96 16 119/87 H 92 07/26/17 07:14 07/26/17 11:21 07/26/17 11:21 07/26/17 11:21 07/26/17 11:21 Laboratory Results 07/24/17 03:15 07/26/17 03:27 07/25/17 07/26/17 07/27/17 05:59 05:59 05:59 Intake Total 2390 785 Output Total 3075 2400 Balance -595 -1615 d/w [facility] cardiology - another 24 hours IV lasix abd us - hepatic steatosis - Physical Exam Constitutional: no apparent distress, appears nourished, not in pain Cardiovascular: regular rate and rhythym, no murmur, rub, or gallop, edema (3+) Respiratory: no respiratory distress, no rales or rhonchi, clear to auscultation Gastrointestinal: normoactive bowel sounds, soft, non-tender abdomen, no palpable masses Skin: no rashes or abrasions, no fluctuance, no induration Neurologic: AAOx3, sensation intact bilaterally Psychiatric: interacting appropriately, not anxious, not encephalopathic, thought process linear ICD10 Worksheet Patient Problems: Problems Problem Status Onset Elevated troponin Acute Renal failure, acute Acute Atrial fibrillation Acute Cellulitis of hand, right Acute Hyperkalemia Acute
[2017-07-26] MEDS: APIXABAN 5 MG TAB PO SCH (20:47)
[2017-07-27] MEDS: oxyCODONE CR 30 MG TAB PO SCH ×2 (02:58→14:56)
[2017-07-27] MEDS: oxyCODONE IR 5 MG TAB PO PRN ×3 (06:08→14:13)
[2017-07-27] MEDS: hydrALAZINE 10 MG TAB PO SCH ×3 (08:24→22:00)
[2017-07-27] MEDS: APIXABAN 5 MG TAB PO SCH ×2 (08:24→21:12)
[2017-07-27] MEDS: METOPROLOL SUCCINATE XR 25 MG TAB PO SCH (08:24)
[2017-07-27] MEDS: ASPIRIN 81 MG CHEWABLE TAB PO SCH (08:24)
[2017-07-27] MEDS: FUROSEMIDE 40 MG/4 ML VIAL IVP SCH (08:25)
[2017-07-27] MEDS: TRIAMCINOLONE 0.1% 15 GM CRTUBE TP SCH ×3 (08:45→21:12)
[2017-07-27] MEDS ORDERED: POTASSIUM CL 20 MEQ/15 ML UDCUP PO ONE ×2 (10:20→13:45)
--- NOTE | 2017-07-27 10:26 | SOAPPROG ---
SOAP Progress Note Assessment/Plan: Assessment/Plan: CATHY on CKD 3: Baseline Cr around 1.5, no hematuria or proteinuria on UA, unlikely an active GN, prerenal indices concerning for possible cardiorenal syndrome in setting of volume overload. Cr down to 2.0 today with diuresis. ANGEL notes moderate to severe MR. - No need for HD. - Will continue diuresis, being switched to oral torsemide today. - Would ideally like to see further improvement in renal function before pursuing cardiac cath. - Avoid hypotension and nephrotoxins. - Will continue to monitor. Hypervolemia: improving with diuresis, switching to oral torsemide today. Hypokalemia: K 3.8 in setting of diuretics, will give KCl today and continue to monitor. HTN: reasonably controlled on current meds, will continue to monitor. Subjective: No acute events overnight. Pt had ANGEL yesterday, showing mod to severe MR. Pt notes that his swelling is improving but still present, urinating a lot. He has pain in his legs that is worsening. Objective: Vital Signs Temp Pulse Resp BP Pulse Ox 36.9 C 105 H 17 132/90 H 88 L 07/27/17 08:00 07/27/17 08:00 07/27/17 08:00 07/27/17 08:00 07/27/17 04:00 Laboratory Results 07/24/17 03:15 07/27/17 03:22 07/26/17 07/27/17 07/28/17 05:59 05:59 05:59 Intake Total 785 930 Output Total 2400 850 Balance -1615 80 General: alert and oriented, no acute distress Eyes: EOMI, PERRL OP: Clear CV: RRR Resp: nonlabored respirations on RA Abd: Soft, NT Ext: +2 edema BLE Neuro: CN II-XII grossly intact, no asterixis Psych: cooperative, appropriate mood and affect ICD10 Worksheet Patient Problems: Problems Problem Status Onset Elevated troponin Acute Renal failure, acute Acute Atrial fibrillation Acute Cellulitis of hand, right Acute Hyperkalemia Acute
--- NOTE | 2017-07-27 11:21 | PDCARPN ---
Cardiology Progress Note Chief Complaint: Patient reports continuation of lower extremity leg pain, his pain medication does help with symptoms. Assessment/Plan: Assessment: 66-year-old male with significant history of permanent atrial fibrillation, chronic renal insufficiency (baseline 1.7), hypertension, and mitral regurgitation. Admitted on July 19 for acute renal failure and predominantly right-sided heart failure. Echocardiogram done on 07/20/2017 showing low-normal systolic function, EF 53% with no regional wall motion abnormalities. RV was mildly dilated with mildly reduced RV function, LA is severely dilated, RA is enlarged, mild bileaflet mitral valve prolapse. Moderate to severe MR, mild AI , mean gradient across the valve was 10 mm Hg, with mild calcified aortic stenosis, moderate TR, RVSP was estimated at 46 mm Hg, mild UT. Laboratory studies on admission showing creatinine 3.6, BUN 58, AST 125, ALT 96, proBNP 17, 300, patient noted to have troponin levels initially at 0.141, peaking at 0.174. Patient has been started on IV diuresis of Lasix. Being followed by hospital services, Nephrology, and our group. Today: Patient's BUN creatinine are 36 and 2.0, this is unchanged pretty much from yesterday. His AST and ALT have returned back to within normal limits (54 in 62). Repeated troponin level was 0.020. His weight is down approximately 2 more kilos from yesterday. He did undergo ANGEL on 07/26/2017 showing low normal LVEF of 50%, moderate to severe MR noted with bileaflet prolapse, posterior leaflet worsened anterior, significant biatrial dilation, no significant TR was noted, no PI, trace to mild AI with moderate to severe aortic sclerosis. Patient denies of any chest pressure, pain, or symptoms suggesting of ischemia. Reports no worsening in shortness of breath. No significant arrhythmias noted on continuous cardiac monitoring. Plan: 1. Heart failure: Continues to have adequate output with IV diuretics. No significant JVD. Transitioned over to torsemide today. Also on low-dose hydralazine for afterload reduction. 2. Mitral regurgitation: ANGEL yesterday showing moderate to severe MR with bileaflet prolapse, posterior leaflet worse than anterior. We discussed after patient has been stabilized for few weeks, consideration of him seen CT surgery as an outpatient, for evaluation of possible replacement or repair. 3. Elevated troponin: Patient reports no history of chest pressure or pain. Echocardiogram showing no wall motion abnormality. More likely elevation is due to heart failure and acute on top of chronic renal insufficiency. Troponin level done today showing within normal limits. Patient ultimately will need a left heart catheterization, especially if he will require mitral valve repair. On hold this time due to renal insufficiency. Consideration a doing once he returns back to baseline renal function, and is stable on heart failure medication. Continue beta-phil. Will start on aspirin 81 mg p.o. q.day. Would not consider starting him on statins at this time due to recent elevated liver enzymes. Consider starting on statin therapy as an outpatient. 4. Acute on chronic renal insufficiency: BUN creatinine are unchanged today. Have discussed with Dr. Barrera with Nephrology, and agreement transitioning over to oral diuretics today. Nephrology would like patient to be followed for 1-2 days after started oral diuretics before DC to home. 5. Hypertension: BP appears to be well controlled on current dose of metoprolol succinate and hydralazine. Continue to monitor. Patient is not a candidate for Acei, Arb, or Aldactone due to renal insufficiency. 6. Permanent atrial fibrillation: Well rate controlled on current dose of metoprolol succinate. On anticoagulation of Eliquis. 7. Elevated hepatic transaminases: Elevated on admission with improvement with diuresis. Probable due to right heart failure with hepatic congestion, questionable some history of EtOH use. Today AST and ALT within normal limits. 07/27/17 11:18 Subjective: Patient reporting no chest pain or pressure. Reports continue improvement in peripheral edema to his lower extremities. Denies of any significant shortness of breath, palpitations, orthopnea, lightheadedness, near-syncope or syncopal events. Reviewed/Discussed With: other Objective: Vital Signs (8 Hrs) Temp Pulse Resp BP Pulse Ox 07/27/17 08:00 36.9 C 105 H 17 132/90 H 07/27/17 04:00 36.7 C 89 13 127/96 H 88 L Intake/Output (24 Hrs) 07/26/17 07/27/17 07/28/17 05:59 05:59 05:59 Intake Total 785 930 Output Total 2400 850 Balance -1615 80 Intake: Oral (ml) 785 930 Output: Urine (ml) 2400 850 Toilet 1050 Urinal 1350 850 Other: Weight 87.3 kg Intake Quantity Yes Sufficient Number of Voids Toilet 2 2 Urinal 1 Number of Stools Toilet 1 Result Diagrams: 07/24/17 03:15 07/27/17 03:22 Cardiac Labs: Cardiac Lab Results (72 Hrs) 07/27/17 03:22 Troponin I 0.020 - Physical Exam Constitutional: WDWN, no apparent distress Ears, Nose, Mouth, Throat: moist mucous membranes Cardiovascular: no rubs, systolic murmur (2 to 3/6 along the left sternal border.), irregularly irregular (Regular rate irregular rhythm, atrial fibrillation on the monitor.), pulses symmetric bilat, No jugular vein distention, No carotid bruit Peripheral Pulses: 1+: dorsalis-pedis (R), dorsalis-pedis (L), 2+: carotid (R), carotid (L) Respiratory: clear to auscultate bilat, no crackles, no wheezes Gastrointestinal: normoactive bowel sounds Skin: warm, No no edema (+ 2 peripheral edema bilateral lower extremities, mid calf down.) Neurologic: AAOx3 Psychiatric: cooperative, interactive, following commands ICD10 Worksheet Patient Problems: Problems Problem Status Onset Elevated troponin Acute Renal failure, acute Acute Atrial fibrillation Acute Cellulitis of hand, right Acute Hyperkalemia Acute
--- NOTE | 2017-07-27 13:01 | ASMTCMCOM ---
CM Note CM Note Notes: Pts case discussed in tx rounds this AM. Anticipate d/c for tomorrow. The plans remains the same. Pt will d/c independent. No therapies ordered at this time. CM available for changes. Plan: Independent Date Signed: 07/27/2017 01:00 PM Electronically Signed By:EDGAR Manzanares
[2017-07-27] MEDS: TORSEMIDE 20 MG TAB PO SCH (14:56)
[2017-07-27] MEDS ORDERED: PROTOCOL MAGNESIUM 1 DOSE IV PRN (16:35)
[2017-07-27] MEDS ORDERED: MAGNESIUM SULF 1 GM/DEXTROSE 100 ML IV ONE (16:41)
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
[2017-07-27] MEDS ORDERED: LORazepam 2 MG/ML INJ IVP PRN (16:46)
--- NOTE | 2017-07-27 16:48 | POSTANESTH ---
Post Anesthetic Evaluation Cardiovascular Status: Similar to Pre-Op Cond Respiratory Status: Similar to Pre-op Cond. Level of Consciousness/Mental Status: Can Participate in Eval Pain Control: Adequate, Prn Tx Ordered Nausea/Vomiting Control: Adequate, Prn Tx Ordered Complications Possibly Related to Anesthesia: None Noted
[2017-07-27] MEDS: HYDROmorphone HCL/NS 0.5 MG/ML SYR IVP PRN ×2 (17:18→17:42)
[2017-07-28] MEDS: oxyCODONE CR 30 MG TAB PO SCH ×2 (02:13→15:03)
[2017-07-28] MEDS: POLYETHYLENE GLYCOL 3350 17 GM PKT PO PRN (02:13)
[2017-07-28 05:15] LABS: PLATELET COUNT 240 10^3/uL (150-400)
[2017-07-28] MEDS: oxyCODONE IR 5 MG TAB PO PRN ×4 (07:22→21:34)
[2017-07-28] MEDS ORDERED: GABAPENTIN 300 MG CAP PO ONE (10:10)
[2017-07-28] MEDS: ASPIRIN 81 MG CHEWABLE TAB PO SCH (10:14)
[2017-07-28] MEDS: METOPROLOL SUCCINATE XR 25 MG TAB PO SCH (10:15)
[2017-07-28] MEDS: APIXABAN 5 MG TAB PO SCH ×2 (10:15→21:34)
[2017-07-28] MEDS: hydrALAZINE 10 MG TAB PO SCH ×3 (10:15→21:35)
[2017-07-28] MEDS: TRIAMCINOLONE 0.1% 15 GM CRTUBE TP SCH ×3 (10:18→21:38)
[2017-07-28] MEDS: TORSEMIDE 20 MG TAB PO SCH ×2 (10:18→10:20)
--- NOTE | 2017-07-28 10:34 | PDCARPN ---
Cardiology Progress Note Chief Complaint: Patient reports severe leg pain with movement, right worse left. Assessment/Plan: Assessment: 66-year-old male with significant history of permanent atrial fibrillation, chronic renal insufficiency (baseline 1.7), hypertension, and mitral regurgitation. Admitted on July 19 for acute renal failure and predominantly right-sided heart failure. Echocardiogram done on 07/20/2017 showing low-normal systolic function, EF 53% with no regional wall motion abnormalities. RV was mildly dilated with mildly reduced RV function, LA is severely dilated, RA is enlarged, mild bileaflet mitral valve prolapse. Moderate to severe MR, mild AI , mean gradient across the valve was 10 mm Hg, with mild calcified aortic stenosis, moderate TR, RVSP was estimated at 46 mm Hg, mild TN. Laboratory studies on admission showing creatinine 3.6, BUN 58, AST 125, ALT 96, proBNP 17, 300, patient noted to have troponin levels initially at 0.141, peaking at 0.174. ANGEL done 07/26/2017 showing moderate to severe MR with bileaflet prolapse (posterior greater than anterior) with 2 separate regurgitation jet. Severe biatrial dilation, trace to mild AI with moderate to severe aortic sclerosis. Being followed by hospital services, Nephrology, and our group. Today: Patient reports significant pain in his lower extremities, right worse than left. Normal pulses and capillary refill lower extremities shins. Patient did have an MRI done yesterday showing moderate central canal stenosis at L4 and L5, right L5-S1 with moderate to severe neural foraminal stenosis. Overnight, patient continue to diurese. No daily weights done today due to leg pain. O>I. BUN and creatinine today 32-1.9. Plan: 1. Heart failure: Continues to have adequate output, transition to oral diuretics of torsemide yesterday. Due to ongoing leg pain, will back off on diuresis to see if this helps with symptoms. Will switch torsemide to once daily. Continue monitoring I&Os. 2. Mitral regurgitation: ANGEL showing moderate to severe MR with bileaflet prolapse, posterior leaflet worse than anterior. We discussed after patient has been stabilized for few weeks, consideration of him seen CT surgery as an outpatient, for evaluation of possible replacement or repair. 3. Elevated troponin: Patient reports no history of chest pressure or pain. Echocardiogram showing no wall motion abnormality. More likely elevation is due to heart failure and acute on chronic renal insufficiency. Most recent troponin level was within normal limits. Patient ultimately will need a left heart catheterization, especially if he will require mitral valve repair. On hold this time due to renal insufficiency. Consideration doing once he returns back to baseline renal function, and is stable on heart failure medication. Could be done as an outpatient. Continue beta-phil. Will start on aspirin 81 mg p.o. q.day. Would not consider starting him on statins at this time due to recent elevated liver enzymes. Consider starting on statin therapy as an outpatient. 4. Acute on chronic renal insufficiency: BUN and creatinine improved today. Change in diuretics as mentioned above. Nephrology would like patient to be followed for 1-2 days after started oral diuretics before DC to home. 5. Hypertension: BP appears to be well controlled on current dose of metoprolol succinate and hydralazine. Continue to monitor. Patient is not a candidate for Acei, Arb, or Aldactone due to renal insufficiency. 6. Permanent atrial fibrillation: Well rate controlled on current dose of metoprolol succinate. On anticoagulation of Eliquis. 7. Elevated hepatic transaminases: Elevated on admission with improvement with diuresis. Returned back to normal limits after diuresis 8. Lower extremity pain: MRI done yesterday as above. Discuss with Dr Lal, she has reorder PT/OT evaluation, started patient on gabapentin, and consulting Neurosurgery 07/28/17 10:26 Subjective: Patient denies of any chest pressure or pain, reports no shortness of breath denies of any orthopnea, PND, palpitations, lightheadedness, near-syncope or syncope and Reviewed/Discussed With: hospitalist (Dr Lal), other (Dr Martinez) Objective: Vital Signs (8 Hrs) Temp Pulse Resp BP Pulse Ox 07/28/17 07:25 36.3 C 87 18 127/85 H 93 07/28/17 04:00 37.2 C 108 H 19 135/87 H 92 Intake/Output (24 Hrs) 07/27/17 07/28/17 07/29/17 05:59 05:59 05:59 Intake Total 930 660 Output Total 850 1700 Balance 80 -1040 Intake: Oral (ml) 930 560 IV Infused (ml) 100 Magnesium Sulf 1 gm/ 100 Dextrose 100 ml @ 100 mls /hr IV ONCE ONE Rx#: [id number] Output: Urine (ml) 850 1700 Urinal 850 1700 Other: Weight 87.3 kg Number of Voids Toilet 2 3 Urinal 1 Number of Stools Toilet 1 Result Diagrams: 07/28/17 04:43 07/28/17 04:43 Cardiac Labs: Cardiac Lab Results (72 Hrs) 07/27/17 03:22 Troponin I 0.020 - Physical Exam Constitutional: WDWN Ears, Nose, Mouth, Throat: moist mucous membranes Cardiovascular: irregularly irregular (Regular rate, regular rhythm, atrial fibrillation on the monitor), pulses symmetric bilat, No jugular vein distention (3-4 cm above sternal notch at a 45 degree angle) Peripheral Pulses: 1+: dorsalis-pedis (R), dorsalis-pedis (L), 2+: carotid (R), carotid (L) Respiratory: clear to auscultate bilat, no crackles, no wheezes Gastrointestinal: normoactive bowel sounds Skin: warm, other (shins on both legs red, but not warm. No open wounds. +1 post tibial pulses bilateral lower extremities normal capillary refills to foot and toes.), No no edema (Trace pedal edema bilateral lower extremities) Neurologic: AAOx3 Psychiatric: cooperative, following commands ICD10 Worksheet Patient Problems: Problems Problem Status Onset Elevated troponin Acute Renal failure, acute Acute Atrial fibrillation Acute Cellulitis of hand, right Acute Hyperkalemia Acute
[2017-07-28] MEDS ORDERED: MAGNESIUM SULF 1 GM/DEXTROSE 100 ML IV ONE (11:07)
--- NOTE | 2017-07-28 13:35 | HOSPPROG ---
Hospitalist Progress Note Assessment/Plan: * Acute on chronic right/diastolic CHF due to valvular disease -s/p massive diuresis - changed to oral Demadex * CKD -improving with improved volume control -baseline creatinine 1.7 * Severe MR s/p ANGEL -outpatient cardiothoracic surgery consult * Pulmonary HTN -outpatient sleep study * Afib -rate control -Eliquis * Troponin elevation -outpatient cath prior to MVR * Hepatic congestion with increased LFT * Chronic pain with continuous narcotic dependency * Acute flare gout right knee -colchicine held on admission due to ARF -restart home colchicine dose + prednisone burst 40mg x 5 days Subjective: pain in legs has now localized to right knee, swollen Objective: Vital Signs Temp Pulse Resp BP Pulse Ox 36.4 C 96 18 102/60 94 07/28/17 11:52 07/28/17 11:52 07/28/17 11:52 07/28/17 11:52 07/28/17 11:52 Laboratory Results 07/28/17 04:43 07/28/17 04:43 07/27/17 07/28/17 07/29/17 05:59 05:59 05:59 Intake Total 930 660 Output Total 850 1700 Balance 80 -10[facility] for discharge from cardiology once gout resolved MRI L-spine - not that bad, mild stenosis - Physical Exam Constitutional: no apparent distress, appears nourished, not in pain Cardiovascular: regular rate and rhythym, no murmur, rub, or gallop Respiratory: no respiratory distress, no rales or rhonchi, clear to auscultation Gastrointestinal: normoactive bowel sounds, soft, non-tender abdomen, no palpable masses Skin: no rashes or abrasions, no fluctuance, no induration Musculoskeletal: joint effusion, joint tenderness, pain with ROM, No normal joint ROM, No muscular tenderness Neurologic: AAOx3, sensation intact bilaterally Psychiatric: interacting appropriately, not anxious, not encephalopathic, thought process linear ICD10 Worksheet Patient Problems: Problems Problem Status Onset Elevated troponin Acute Renal failure, acute Acute Atrial fibrillation Acute Cellulitis of hand, right Acute Hyperkalemia Acute
[2017-07-28] MEDS: predniSONE 20 MG TAB PO SCH (13:38)
[2017-07-28] MEDS: COLCHICINE 0.6 MG CAP/TAB PO SCH (13:38)
--- NOTE | 2017-07-28 14:04 | SOAPPROG ---
SOAP Progress Note Assessment/Plan: Assessment/Plan: CATHY on CKD 3: Baseline Cr around 1.5, no hematuria or proteinuria on UA, unlikely an active GN, prerenal indices concerning for possible cardiorenal syndrome in setting of volume overload. Cr down to 1.9 today with diuresis. ANGEL notes moderate to severe MR. - No need for HD. - Will continue diuresis, oral torsemide decreased today. - Would ideally like to see further improvement in renal function before pursuing cardiac cath. - Avoid hypotension and nephrotoxins. - Will continue to monitor. Hypervolemia: improving with diuresis, on oral torsemide with decrease in dose to daily today, continue fluid restriction. Hypokalemia: K at goal at 4.0, will continue to monitor. HTN: reasonably controlled on current meds, will continue to monitor. Gout: possible acute flare today, may have been brought on with aggressive diuresis. - Ok to give colchicine. - Agree with prednisone. - Please avoid NSAIDs in setting of renal disease. - Will check uric acid. Subjective: No acute events overnight. Pt having marked pain in both legs, particularly R knee, with erythema, feels like a gout flare to him. Objective: Vital Signs Temp Pulse Resp BP Pulse Ox 36.4 C 96 18 102/60 94 07/28/17 11:52 07/28/17 11:52 07/28/17 11:52 07/28/17 11:52 07/28/17 11:52 Laboratory Results 07/28/17 04:43 07/28/17 04:43 07/27/17 07/28/17 07/29/17 05:59 05:59 05:59 Intake Total 930 660 Output Total 850 1700 Balance 80 -1040 General: alert and oriented, no acute distress Eyes; EOMI, PERRL OP: Clear CV: RRR Resp: nonlabored respirations Abd: Soft, NT/ND Ext: +1 edema BLE with erythema and TTP Neuro: CN II-XII grossly intact, no asterixis Psych: cooperative ICD10 Worksheet Patient Problems: Problems Problem Status Onset Elevated troponin Acute Renal failure, acute Acute Atrial fibrillation Acute Cellulitis of hand, right Acute Hyperkalemia Acute
[2017-07-28] MEDS: HYDROmorphone HCL/NS 0.5 MG/ML SYR IVP PRN ×2 (14:31→15:05)
--- NOTE | 2017-07-28 15:34 | ASMTCMCOM ---
CM Note CM Note Notes: Today SWer participated in rounds. Pt. having significant knee pain today. PT recommending home, but OT recommending SNF vs HC vs H. Pt's d/c plan is still TBD. Pt. would like to go home. CM to follow. Date Signed: 07/28/2017 03:33 PM Electronically Signed By:Lakeshia Douglass LCSW
[2017-07-29] MEDS: oxyCODONE CR 30 MG TAB PO SCH (02:18)
[2017-07-29 07:05] VITALS: BP 113/87; PULSE 74; RESP 16; TEMP 97.7; O2SAT 93
[2017-07-29] MEDS: oxyCODONE IR 5 MG TAB PO PRN (07:33)
[2017-07-29] MEDS ORDERED: GABAPENTIN 300 MG CAP PO SCH (09:00)
[2017-07-29] MEDS: TORSEMIDE 20 MG TAB PO SCH (09:44)
[2017-07-29] MEDS: COLCHICINE 0.6 MG CAP/TAB PO SCH (09:45)
[2017-07-29] MEDS: APIXABAN 5 MG TAB PO SCH (09:45)
[2017-07-29] MEDS: ASPIRIN 81 MG CHEWABLE TAB PO SCH (09:45)
[2017-07-29] MEDS: hydrALAZINE 10 MG TAB PO SCH (09:45)
[2017-07-29] MEDS: METOPROLOL SUCCINATE XR 25 MG TAB PO SCH (09:45)
[2017-07-29] MEDS: predniSONE 20 MG TAB PO SCH (09:45)
[2017-07-29] MEDS: TRIAMCINOLONE 0.1% 15 GM CRTUBE TP SCH (09:47)
--- NOTE | 2017-07-29 09:52 | GDS ---
[f rep st] DISCHARGE SUMMARY ALL DIAGNOSES: 1. Acute on chronic right end diastolic congestive heart failure due to valvular disease. 2. Acute kidney injury on chronic kidney disease with a baseline creatinine about 1.5. 3. Severe mitral regurgitation. 4. Pulmonary hypertension. 5. Atrial fibrillation. 6. Troponin elevation. 7. Hepatic congestion with increased LFTs. 8. Chronic pain with continuous narcotic dependency. 9. Acute gout flare of the right knee. HOSPITAL COURSE: This is a 66-year-old man who was admitted with severe volume overload, as well as renal failure. Etiology of his volume overload is likely severe mitral regurgitation. He underwent a ANGEL to document this. Also noted to have renal failure with creatinine of 3.5, where his baseline is about 1.5. He underwent diuresis guided by both Cardiology, as well as Nephrology. He has had a significant diuresis with a documented weight loss of approximately 10 kg. At discharge, he has no s ignificant peripheral edema. His creatinine improved significantly with diuresis; it is 1.6 on the d ay of discharge. Diuretics were switched from furosemide to torsemide. He will be discharged on 20 mg daily. He has atrial fibrillation as well. He previously was on Eliquis at 2.5 mg p.o. b.i.d., this has bee n increased to the appropriate dose of 5 mg p.o. b.i.d. He is also on metoprolol for rate control. In terms of his cardiac issues, he will need to follow up closely with Cardiology as an outpatient. Could consider giving him a cardiothoracic referral for his mitral regurgitation. He would also need a left heart catheterization prior to any planned surgical intervention. Would ideally want to opti berta his creatinine prior to this. He would prefer to follow with Dr. Oliver if possible. He had an acute flare of gout. His colchicine had been held with his renal failure. This was restar rafael. He was also given a prednisone burst of a total 5 days of 40 mg. Gout on the day of discharge is significantly better than the day prior. FOLLOWUP: 1. Dr. Stoddard. Her office will call with a followup appointment in 1-2 weeks. 2. Cardiology. Would prefer to follow with Dr. Oliver. 3. Consideration for outpatient sleep study given his pulmonary hypertension. 4. Consideration for cardiothoracic surgery referral given his valvular disease. BILLING: I spent more than 30 minutes on the day of discharge coordinating care. /[id number]/MODL
--- NOTE | 2017-07-29 13:57 | ASDISCHSUM ---
Discharge Information Plan Status:Home with No Needs Medically Cleared to Leave:07/29/2017 Discharge Date:07/29/2017 11:50 AM CM D/C Disposition:Home, Routine, Self-Care ADT D/C Disposition:Home, Routine, Self-Care Projected Discharge Date:07/29/2017 11:50 AM Transportation at D/C:Family Discharge Delay Reason: Follow-Up Date:07/29/2017 11:50 AM Discharge Slot: Final Diagnosis: Placement Information Patient Contact Information Contact Name:NORBERTO Relationship: Address:[address] City:[place] Alternate Phone: [facility]/Zip Code:[place] [address] Email: Financial Information Financial Class:Kelly MiTurno Primary Plan Desc:[facility] Primary Plan Number:[id number] Secondary Plan Desc:MEDICARE INPATIENT Secondary Plan Number:[id number] Assessment Information LACE LACE Length of stay for Answers: 7-13 days current admission Acuity / Level of Answers: Yes Care: Did the patient have an inpatient admission? Comorbidities - select Answers: Chronic pulmonary disease all that apply Congestive heart failure Mild liver or renal disease # of Emergency department Answers: 1-2 visits in the last 6 months Social determinants Answers: History of substance abuse (ETOH, street drugs, prescription drugs, etc.) Score: 18 Date Signed: 07/29/2017 01:56 PM Electronically Signed By:Ana M Gaytan RN [facility] Progress Note CM Fran CHANDLER Note Notes: 07/20/2017 Case Management Note Discussed pt in rounds this morning. Pt admitted for renal failure, peripheral edema, dyspnea and elevated troponin. Met w/pt this afternoon. Provided resources to support pt desire to maintain sobriety after d/c. Encouraged pt to contact [employer] for list of resources covered by insurance. There are no d/c case management needs anticipated d/t pt age, marital status and employment status. Will await PT eval and recommendations for final d/c plan. Case Management d/c poc: anticipating independent with follow up as directed. Case Management to follow. Date Signed: 07/20/2017 02:32 PM Electronically Signed By:Ana M Gaytan RN [facility] CM Progress Note CM Note CM Note Notes: 07/22/2017 Case Management Note Met pt during rounds this morning. Pt rheumotologist is Dr. Perera in [place]. Pt reports seeing Dr. Perera approximately every [address] Perera is presriber for meds. Pt professor of apologetics is Dr. Oliver but pt has not seen recently. Case Management d/c poc: remains independent. Case Management to follow. Date Signed: 07/22/2017 02:59 PM Electronically Signed By:Ana M Gaytan RN [facility] CM Progress Note CM Note CM Note Notes: 07/24/2017 Case Management Note Discussed pt during multidisciplinary rounds this morning. Pt requiring further work up for cardiac issues. D/C likely on Sun or . Case Management d/c poc: remains independent. Case Management will follow. Date Signed: 07/24/2017 04:46 PM Electronically Signed By:Ana M Gaytan RN [facility] CM Progress Note CM Note CM Note Notes: Pts case discussed in tx rounds this AM. Anticipate d/c for tomorrow. The plans remains the same. Pt will d/c independent. No therapies ordered at this time. CM available for changes. Plan: Independent Date Signed: 07/27/2017 01:00 PM Electronically Signed By:EDGAR Manzanares [facility] CM Progress Note CM Note CM Note Notes: Today SWer participated in rounds. Pt. having significant knee pain today. PT recommending home, but OT recommending SNF vs HC vs H. Pt's d/c plan is still TBD. Pt. would like to go home. CM to follow. Date Signed: 07/28/2017 03:33 PM Electronically Signed By:Lakeshia Douglass LCSW Case Management Discharge Plan Note Case Management Discharge Discharge Order Complete? Answers: Yes Patient to Obtain Answers: Independently Medications Transportation Arranged Answers: Family/Friends Family Notified Answers: Yes Notes: in room Discharge Comments Notes: 07/29/2017 Case Management Note Pt d/c independent with support from and with follow up as directed. transported home. PT and OT recommended home. There were no other case management d/c needs identified. Date Signed: 07/29/2017 01:55 PM Electronically Signed By:Ana M Gaytan RN Intervention Information
== END 2017-07-29 11:50 | disposition home or self-care (01) | DRG 682 ==
LOC: OBSVTOIN 15:35 → F2W 17:25
PROVIDERS: ADMIT Student in an Organized Health Care Education/Training Program; ATTEND Student in an Organized Health Care Education/Training Program
PROC: B246ZZ4 Ultrasonography of Right and Left Heart, Transesophageal (ICD-10-PCS; principal; 2017-07-26)
DX: N17.9 Acute kidney failure, unspecified (principal); I13.0 Hypertensive heart and chronic kidney disease with heart failure and stage 1 through stage 4 chronic kidney disease, or unspecified chronic kidney disease; I50.33 Acute on chronic diastolic (congestive) heart failure; F11.20 Opioid dependence, uncomplicated; N18.3 Chronic kidney disease, stage 3 (moderate); I34.0 Nonrheumatic mitral (valve) insufficiency; I27.20 Pulmonary hypertension, unspecified; I48.91 Unspecified atrial fibrillation; K76.1 Chronic passive congestion of liver; G89.4 Chronic pain syndrome; M10.461 Other secondary gout, right knee; K70.10 Alcoholic hepatitis without ascites; F10.21 Alcohol dependence, in remission; I87.2 Venous insufficiency (chronic) (peripheral); Z79.01 Long term (current) use of anticoagulants
CPT/HCPCS: 82947-QW; 84134-90; 97116-GP; 97161-GP; 97164-GP; 97166-GO; 97535-GO; G0472; G8978-GP-CH; G8978-GP-CI; G8979-GP-CH; G8979-GP-CI; G8980-GP-CH; G8980-GP-CI; G8987-GO-CL; G8988-GO-CI; G8990-GO-CI; J1170; J1940; J2060; J2704; J3475; J7512

== ENCOUNTER 2017-08-08 11:23 | Inpatient (IN) | payer OTHER ==
[~2017-08-08 11:23] MED LIST: MILRINONE/DEXTROSE 100 ML IV ONE; niCARdipine/NACL 200 ML IV ONE
[2017-08-08] MEDS ORDERED: ASPIRIN EC 325 MG TAB PO ONE ×2 (11:27→11:54)
[2017-08-08] MEDS ORDERED: FAMOTIDINE 20 MG TAB PO ONE (11:27)
[2017-08-08] MEDS ORDERED: diphenhydrAMINE 25 MG CAP PO ONE ×2 (11:27→11:54)
[2017-08-08] MEDS ORDERED: DIAZEPAM 5 MG TAB PO ONE (11:27)
[2017-08-08] MEDS ORDERED: NS 1,000 ML IV ONE (11:27)
--- NOTE | 2017-08-08 11:48 | CPEKG ---
Heart Rate: 95 RR Interval: 632 QRSD Interval: 88 QT Interval: 380 QTC Interval: 478 QRS [place]: 39 T Wave [place]: 55 EKG Severity - ABNORMAL ECG - EKG Impression: ATRIAL FIBRILLATION, V-RATE 70-136 EKG Impression: BORDERLINE ST DEPRESSION, ANTEROLATERAL LEADS EKG Impression: BORDERLINE PROLONGED QT INTERVAL Electronically Signed By: Delores Bravo 08-Aug-2017 17:02:49
[2017-08-08] MEDS ORDERED: FAMOTIDINE 20 MG TAB ONE (11:54)
[2017-08-08] MEDS ORDERED: DIAZEPAM 5 MG TAB ONE (11:55)
[2017-08-08 12:17] LABS: PLATELET COUNT 325 10^3/uL (150-400)
--- NOTE | 2017-08-08 12:19 | PDHPUP ---
History & Physical Update H&P update statement: This history and physical update is based on an assessment of the patient which was completed after admission or registration (within 24 hours), but prior to the surgery/procedure. H&P update: H&P reviewed & patient examined, no change in patient's condition since H&P completed
--- NOTE | 2017-08-08 12:19 | PDPROPOC ---
Sedation Plan of Care Sedation Plan of Care: vital signs stable, mental status noted, patient educated of risks, benefits, alternatives, patient can tolerate sedation ASA Classification: ASA 1 Planned drugs: fentanyl, midazolam Mallampati Score: Class 1 Mallampati Reference Image: Patient passed 3-3-2 rule?: Yes
[2017-08-08 12:24] LABS: INR 1.03 (0.83-1.16); PROTIME(PATIENT) 13.7 SEC (12.0-15.0)
[2017-08-08] MEDS ORDERED: fentaNYL 100 MCG/2 ML INJ ONE (12:41)
[2017-08-08] MEDS ORDERED: LIDOCAINE 1% 300 MG/30 ML SDV ONE (12:41)
[2017-08-08] MEDS ORDERED: IOPAMIDOL (ISOVUE-370) 150 ML BTL IV ONE (12:41)
[2017-08-08] MEDS ORDERED: MIDAZOLAM 2 MG/2 ML VIAL ONE (12:41)
[2017-08-08] MEDS ORDERED: VERAPAMIL 5 MG/2 ML VIAL ONE (12:46)
[2017-08-08] MEDS ORDERED: HEPARIN 10,000 UNIT/10 ML MDV (1,000 UNIT/ML) ONE (12:47)
--- NOTE | 2017-08-08 13:23 | PDGENHP ---
History and Physical - Chief Complaint MR, TR, LSPAF, CAD - History of Present Illness 66M with significant LAD disease, severe MR, moderate TR, and long-standing persistent AF admitted today in advance of open-heart surgery for risk stratification. Pt has a h/o valvular cardiomyopathy which has been managed by Dr. Oliver. Pt was hospitalized 07/19-07/29 for decompensated heart failure, acute on chronic renal insufficiency, and congestive hepatopathy. After diuresis , his edema improved, his LFTs normalized, and his Cr returned to his baseline of about 1.6. Pt currently reports that he becomes dyspneic on minimal exertion. His BLE has improved although his abdominal bloating has recently returned. He admits to intermittent CP and palpitations. He sleeps with his head propped up and sometimes wakes with SOB. He quit ETOH abuse about 4 weeks ago and states he would drink at least 3 drinks per night for many years. His states he drank much more than that. He quit smoking 40 years ago and denies illicit drug use. He took his last dose of Eliquis on Sunday. History Information - Allergies/Home Medication List Allergies/Adverse Reactions: cephalexin Allergy (Severe, Verified 08/07/17 17:38) Anaphylaxis Home Medications: Metoprolol Succinate Xr [Toprol Xl 25 mg (*)] 25 mg PO DAILY 02/26/17 [Last Taken 08/07/17] oxyCODONE HCL [Oxycontin] 30 mg PO BID@03,14 02/26/17 [Last Taken 08/08/17 03:00 ] Colchicine [Colchicine (*)] 0.6 mg PO DAILY 07/19/17 [Last Taken 08/07/17] Herbals/Supplements -Info Only 1 ea PO DAILY 08/06/17 [Last Taken Unknown] Torsemide [Demadex] 20 mg PO DAILY 08/06/17 [Last Taken 08/07/17] oxyCODONE IR [Oxycodone Ir (*)] 10 mg PO Q4HRS PRN 08/06/17 [Last Taken 03:00] predniSONE 20 mg PO DAILY 08/06/17 [Last Taken 08/07/17] I have personally reviewed and updated: medical history, social history, surgical history - Past Medical History atrial fibrillation, arthritis, CHF (acute on chronic class III systolic/ diastolic ), hypertension, hyperlipidemia, liver disease Additional medical history: pulmonary htn, CKD stage 3, chronic pain on narcotics - Surgical History Reports: appendectomy Additional surgical history: multiple bony injuries requiring surgical repair - Social History Smoking Status: Former smoker Alcohol Use: Heavy Drug Use: None Review of Systems Review of Systems: ROS: 10pt was reviewed & negative except for what was stated in HPI & below Physical Exam Physical Exam: Constitutional: no apparent distress, appears nourished, not in pain Eyes: anicteric sclera Ears, Nose, Mouth, Throat: moist mucous membranes, hearing normal, poor dentition Cardiovascular: systolic murmur, irregularly irregular Respiratory: no respiratory distress, no rales or rhonchi, clear to auscultation Gastrointestinal: soft, non-tender abdomen, distension Genitourinary: no bladder fullness Skin: warm, mottled Musculoskeletal: full muscle strength Neurologic: AAOx3 Psychiatric: interacting appropriately, not anxious, not encephalopathic, thought process linear Lab Data & Imaging Review 08/08/17 11:45 08/08/17 11:45 WBC 11.07 10^3/uL (3.80-9.50) H 08/08/17 11:45 RBC 4.73 10^6/uL (4.40-6.38) 08/08/17 11:45 Hgb 15.9 g/dL (13.7-17.5) 08/08/17 11:45 Hct 48.4 % (40.0-51.0) 08/08/17 11:45 MCV 102.3 fL (81.5-99.8) H 08/08/17 11:45 MCH 33.6 pg (27.9-34.1) 08/08/17 11:45 MCHC 32.9 g/dL (32.4-36.7) 08/08/17 11:45 RDW 16.9 % (11.5-15.2) H 08/08/17 11:45 Plt Count 325 10^3/uL (150-400) 08/08/17 11:45 MPV 10.0 fL (8.7-11.7) 08/08/17 11:45 Neut % (Auto) 64.0 % (39.3-74.2) 08/08/17 11:45 Lymph % (Auto) 24.3 % (15.0-45.0) 08/08/17 11:45 [place] % (Auto) 9.2 % (4.5-13.0) 08/08/17 11:45 Eos % (Auto) 1.2 % (0.6-7.6) 08/08/17 11:45 Baso % (Auto) 0.9 % (0.3-1.7) 08/08/17 11:45 Nucleat RBC Rel Count 0.0 % (0.0-0.2) 08/08/17 11:45 Absolute Neuts (auto) 7.09 10^3/uL (1.70-6.50) H 08/08/17 11:45 Absolute Lymphs (auto) 2.69 10^3/uL (1.00-3.00) 08/08/17 11:45 Absolute Monos (auto) 1.02 10^3/uL (0.30-0.80) H 08/08/17 11:45 Absolute Eos (auto) 0.13 10^3/uL (0.03-0.40) 08/08/17 11:45 Absolute Basos (auto) 0.10 10^3/uL (0.02-0.10) 08/08/17 11:45 Absolute Nucleated RBC 0.00 10^3/uL (0-0.01) 08/08/17 11:45 Immature Gran % 0.4 % (0.0-1.1) 08/08/17 11:45 Immature Gran # 0.04 10^3/uL (0.00-0.10) 08/08/17 11:45 PT 13.7 SEC (12.0-15.0) 08/08/17 11:45 INR 1.03 (0.83-1.16) 08/08/17 11:45 Sodium 138 mEq/L (135-145) 08/08/17 11:45 Potassium 5.2 mEq/L (3.5-5.2) 08/08/17 11:45 Chloride 101 mEq/L (97-110) 08/08/17 11:45 Carbon Dioxide 25 mEq/l (22-31) 08/08/17 11:45 Anion Gap 12 mEq/L (8-16) 08/08/17 11:45 BUN 24 mg/dL (7-23) H 08/08/17 11:45 Creatinine 1.7 mg/dL (0.7-1.3) H 08/08/17 11:45 Estimated GFR 40 08/08/17 11:45 Glucose 90 mg/dL (70-100) 08/08/17 11:45 Calcium 9.6 mg/dL (8.5-10.4) 08/08/17 11:45 Magnesium 2.5 mg/dL (1.6-2.3) H 08/08/17 11:45 Triglycerides 143 mg/dL (40-150) 08/08/17 11:45 Cholesterol 230 mg/dL (140-220) H 08/08/17 11:45 Cholesterol Risk Factr 0.6 (0.2-1.0) 08/08/17 11:45 LDL Cholesterol, Calc 140 mg/dL (80-100) H 08/08/17 11:45 LDL Risk Factor 0.8 (0.2-1.0) 08/08/17 11:45 VLDL Cholesterol 28 mg/dL (8-25) H 08/08/17 11:45 Non-HDL Cholesterol 168 mg/dL (90-129) H 08/08/17 11:45 HDL Cholesterol 62 mg/dL (40-65) 08/08/17 11:45 LDL/HDL Ratio 2.26 RATIO (1.00-3.64) 08/08/17 11:45 Cholesterol/HDL Ratio 3.71 RATIO (1.00-4.97) 08/08/17 11:45 Patient ABO/Rh A POSITIVE 08/08/17 11:45 Antibody Screen NEGATIVE 08/08/17 11:45 Visualized and Interpreted Chest x-ray results: Yes Chest X-Ray results: no infiltrate, other (CHF) Visualized and Interpreted imaging results: Yes Interpretation: 07/20/17 TTE: EF 53%, LAE, MARY, mod-sev MR, mild /AI, mod TR, RVSP 46 mmHg, aortic root 3.7 asc ao 3.6 cm. 08/08/17 LHC/RHC: EF 50-55%. LAD with 90% proximal stenosis. RV 70/12 mmHg. PA 75/34 mmHg. PAWP: 23 mmHg Visualized and Interpreted EKG results: Yes EKG Interpretation: Positive for: other (irregularly irregular) Assessment & Plan Assessment: 66M with MR/TR/LSPAF/CAD Plan: - MV repair/replacement, TVA, CM 4, CABG tomorrow at 7:15 AM - Pre-op orders to be placed - Consents to be obtain in tomorrow
[2017-08-08] MEDS ORDERED: ONDANSETRON 4 MG/2 ML VIAL IVP PRN (14:18)
[2017-08-08] MEDS ORDERED: HYDROCODONE/APAP 5/325 TAB PO PRN (14:18)
[2017-08-08] MEDS ORDERED: OXYCODONE/APAP 5/325 TAB PO PRN (14:18)
[2017-08-08] MEDS ORDERED: ATROPINE SULFATE 1 MG/10 ML SYR IVP PRN (14:18)
[2017-08-08] MEDS ORDERED: NITROGLYCERIN 0.4 MG BTL SL PRN (14:18)
--- NOTE | 2017-08-08 14:21 | PDDXCAT ---
Diagnostic Cath Note - . Date: 08/08/17 Director Of [employer]: Jl Indication: other (History of significant mitral and tricuspid regurgitation. Preoperative for planned mitral valve repair and tricuspid ring annuloplasty.) - Procedure Access: left wrist (The left wrist was used for coronary angiography. Right femoral vein was used for right heart catheterization.) Procedure: left heart catheterization, coronary angiography, left ventriculogram , right heart catheterization - Materials Left Heart Cath size: 5F Left Heart Cath materials: standard multipack (JL4, JR4, pigtail) Right Heart Cath size: 7F Right Heart Cath materials: PWP catheter - Findings-Left Heart Catheterization LM: Large caliber vessel. Normal angiographically in appearance. Bifurcates into the LAD and circumflex. LAD: Large caliber transapical vessel. 2 diagonal branches identified. 90% proximal LAD lesion. LCX: Large caliber vessel. 2 obtuse marginal branches and a posterolateral identified. Angiographically normal. RCA: Large caliber vessel. Dominant. Normal in appearance. EDP: 127/21/26 mmHg. LVEF: A hand injection was used. The ejection fraction visually is about 50-55% . Wall motion: Grossly normal. - Findings-Right Heart Catheterization RA: 20 mm Hg. RV: 70/12/24 mmHg. PA: 75/34/52 mmHg. PAOP: 23 mmHg. AO: 131/89/104 mmHg. Complications: None. Estimated blood loss: <50ml Closure method: manual pressure (Manual pressure was used for the vein. A TR band was used to obtain hemostasis to the left radial artery.) Assessment: 1. Single-vessel coronary artery disease with a 90% proximal LAD lesion noted. 2. History of severe mitral and tricuspid regurgitation with plans for mitral and tricuspid valve repair. 3. Low normal left ventricular systolic function. 4. Severely elevated pulmonary artery pressures likely mixed related to the underlying valvular heart disease however there also appears to be a component of primary pulmonary vascular disease. Plan: The patient will be admitted to the hospital tonight. There are plans for cardiovascular surgery in the morning. Intervention: None. Patient Problems: Problems Problem Status Onset Atrial fibrillation Acute Cellulitis of hand, right Acute Elevated troponin Acute Hyperkalemia Acute Renal failure, acute Acute
[2017-08-08] MEDS ORDERED: FUROSEMIDE 100 MG/10 ML VIAL IVP ONE (16:30)
[2017-08-08] MEDS ORDERED: FUROSEMIDE IV ONE ×2 (17:00)
[2017-08-08] MEDS ORDERED: NS IV ONE (17:00)
[2017-08-08] MEDS ORDERED: D5W IV ONE (17:00)
[2017-08-08] MEDS: METOPROLOL SUCCINATE XR 25 MG TAB PO SCH (17:56)
[2017-08-08] MEDS: COLCHICINE 0.6 MG CAP/TAB PO SCH (17:56)
[2017-08-08] MEDS ORDERED: CHLORHEXIDINE GLUC HIBICLENS 118 ML BTL TP SCH (21:00)
[2017-08-08] MEDS: oxyCODONE IR 5 MG TAB PO PRN (21:36)
[2017-08-09] MEDS ORDERED: VERAPAMIL 5 MG, NITROGLYCERIN 2.5 MG, HEPARIN 500 UNIT, SODIUM BICARBONATE 0.2 MEQ in L... MISC ONE (06:00)
[2017-08-09] MEDS ORDERED: CITRATE DEXTROSE SOLN 500 ML BAG MISC ONE (06:00)
[2017-08-09] MEDS ORDERED: AMINOCAPROIC ACID 5 GM/20 ML VIAL IV ONE (06:00)
[2017-08-09] MEDS ORDERED: NOREPINEPHRINE BITARTRATE 16 MG in NS 250 ML IV ONE (06:00)
[2017-08-09] MEDS ORDERED: DOBUTamine/DEXTROSE 250 ML IV ONE (06:00)
[2017-08-09] MEDS ORDERED: PHENYLEPHRINE HCL 50 MG in NS 250 ML IV ONE (06:00)
[2017-08-09] MEDS ORDERED: INSULIN REGULAR HUMAN 100 UNIT in NS 100 ML IV ONE (06:00)
[2017-08-09] MEDS ORDERED: DOBUTamine 500 MG in D5W 250 ML IV SCH (06:00)
[2017-08-09] MEDS ORDERED: SODIUM BICARBONATE 20 MEQ, LIDOCAINE 1% 10 ML in NORMOSOL-R 1,000 ML MISC ONE (06:00)
[2017-08-09] MEDS ORDERED: MANNITOL 25% 12.5 GM/50 ML VIAL IVP ONE (06:00)
[2017-08-09] MEDS ORDERED: TRANEXAMIC ACID 1,000 MG in NS (SYRINGE) 50 ML IV ONE (06:00)
[2017-08-09] MEDS ORDERED: MUPIROCIN 2% 22 GM OINT NS ONE (06:00)
[2017-08-09] MEDS ORDERED: VANCOMYCIN PHARMACY TO DOSE MISC ONE (06:00)
[2017-08-09] MEDS ORDERED: VANCOMYCIN 1.25 GM in NS 250 ML IV ONE (06:00)
[2017-08-09] MEDS ORDERED: MILRINONE/DEXTROSE/100 ML BAG IV ONE (06:23)
[2017-08-09] MEDS ORDERED: PROTAMINE SULFATE 50 MG/5 ML VIAL IVP ONE (06:23)
[2017-08-09] MEDS ORDERED: CALCIUM CHLORIDE 1 GM/10 ML INJ ONE ×2 (06:23→06:27)
[2017-08-09] MEDS ORDERED: niCARdipine/NACL/200 ML BAG IV ONE (06:24)
[2017-08-09] MEDS ORDERED: NA BICARBONATE 50 MEQ/50 ML VIAL ONE (06:24)
[2017-08-09] MEDS ORDERED: HEPARIN 10,000 UNIT/10 ML MDV (1,000 UNIT/ML) ONE ×2 (06:24→06:27)
[2017-08-09] MEDS ORDERED: DOPamine/DEXTROSE/250 ML BAG IV ONE ×2 (06:24→20:07)
[2017-08-09] MEDS ORDERED: ceFAZolin 1 GM VIAL ONE (06:25)
[2017-08-09] MEDS ORDERED: AMIODARONE HCL 150 MG/3 ML VIAL ONE ×2 (06:25→06:27)
[2017-08-09] MEDS ORDERED: ADENOSINE 6 MG/2 ML VIAL ONE (06:25)
[2017-08-09] MEDS ORDERED: ALBUMIN 5% 250 ML BOTTLE IV ONE ×2 (06:26→10:52)
[2017-08-09] MEDS ORDERED: CITRATE DEXTROSE SOLN 500 ML BAG ONE (06:27)
[2017-08-09] MEDS ORDERED: LIDOCAINE 2% 100 MG/5 ML SYR ONE (06:27)
[2017-08-09] MEDS ORDERED: LR 1,000 ML IV ONE (06:28)
[2017-08-09] MEDS ORDERED: methylPREDNISolone SOD SUCC 1 GM/8 ML VIAL ONE (06:28)
[2017-08-09] MEDS ORDERED: MAGNESIUM SULFATE 1 GM/2 ML VIAL ONE (06:28)
[2017-08-09] MEDS ORDERED: PAPAVERINE HCL 60 MG/2 ML SDV ONE (07:06)
[2017-08-09] MEDS ORDERED: MIDAZOLAM 2 MG/2 ML VIAL IVP ONE (07:06)
[2017-08-09] MEDS ORDERED: VERAPAMIL 5 MG/2 ML VIAL ONE (07:06)
[2017-08-09] MEDS ORDERED: MINERAL OIL 10 ML VIAL ONE (07:06)
--- NOTE | 2017-08-09 07:06 | PDANEPAE ---
ANE History of Present Illness 66 yo for mvr/tvr/ayala 4/ cabg ANE Past Medical History - Cardiovascular History Hx Hypertension: Yes Hx Arrhythmias: Yes Hx CHF / Valvular Disease: Yes Cardiovascular History Comment: atrial fibrillation-chronic, CHF, moderate MR, moderate TR - Pulmonary History Hx COPD: No Hx Asthma/Reactive Airway Disease: No Hx Recent Upper Respiratory Infection: No Hx Oxygen in Use at Home: No Hx Sleep Apnea: No Sleep Apnea Screening Result - Last Documented: Positive Pulmonary History Comment: SOB w/ strenuous activity - Neurologic History Hx Cerebrovascular Accident: No Hx Seizures: No Hx Dementia: No - Endocrine History Hx Diabetes: No - Renal History Hx Renal Disorders: Yes Renal History Comment: CKD III, creatinine 1.6 as of 07-29-17. - Liver History Hx Hepatic Disorders: No - Neurological & Psychiatric Hx Hx Neurological and Psychiatric Disorders: Yes Neurological / Psychiatric History Comment: "T12/L4/L5 fx them twice" resulting in back pain. - Cancer History Hx Cancer: No - Congenital Disorder History Hx Congenital Disorders: No - GI History Hx Gastrointestinal Disorders: Yes Gastrointestinal History Comment: use OTC for occ acid reflux - Chronic Pain History Chronic Pain: Yes (back pain, on chronic opioids) - Surgical History Prior Surgeries: s/p 11 surgeries for fractures of ankles, ACL reconstructions ANE Review of Systems Review of Systems: - Exercise capacity METS (RN): 4 METS ANE Patient History - Allergies Allergies/Adverse Reactions: cephalexin Allergy (Severe, Verified 08/07/17 17:38) Anaphylaxis - Home Medications Home medications: home medication list seen and reviewed Home Medications: Metoprolol Succinate Xr [Toprol Xl 25 mg (*)] 25 mg PO DAILY 02/26/17 [Last Taken 08/07/17] oxyCODONE HCL [Oxycontin] 30 mg PO BID@03,14 02/26/17 [Last Taken 08/08/17 03:00 ] Colchicine [Colchicine (*)] 0.6 mg PO DAILY 07/19/17 [Last Taken 08/07/17] Herbals/Supplements -Info Only 1 ea PO DAILY 08/06/17 [Last Taken Unknown] Torsemide [Demadex] 20 mg PO DAILY 08/06/17 [Last Taken 08/07/17] oxyCODONE IR [Oxycodone Ir (*)] 10 mg PO Q4HRS PRN 08/06/17 [Last Taken 03:00] predniSONE 20 mg PO DAILY 08/06/17 [Last Taken 08/07/17] - NPO status NPO Status: no food or drink >8 hours NPO Since - Liquids (Date): 08/09/17 NPO Since - Liquids (Time): 00:00 NPO Since - Solids (Date): 08/09/17 NPO Since - Solids (Time): 00:00 - Anes Hx Anes Hx: no prior problems - Smoking Hx Smoking Status: Former smoker - Alcohol Use Alcohol Use: Heavy ANE Labs/Vital Signs - Labs Result Diagrams: 08/08/17 11:45 08/09/17 03:44 - Vital Signs Blood Pressure: 112/77 Heart Rate: 84 Respiratory Rate: 16 O2 Sat (%): 96 Height: 6 ft Weight: 81.3 kg ANE Physical Exam - Airway Neck exam: FROM Mallampati Score: Class 2 Mouth exam: dentures - Pulmonary Pulmonary: no respiratory distress - Cardiovascular Cardiovascular: regular rate and rhythym - ASA Status ASA Status: IV ANE Anesthesia Plan Anesthesia Plan: general endotracheal anesthesia Lines/Monitors: arterial line, central line, ANGEL
[2017-08-09] MEDS ORDERED: REMIFENTANIL HCL 1 MG VIAL ONE (07:14)
[2017-08-09] MEDS ORDERED: PROPOFOL/EMULSION 500 MG/50 ML BOTTLE IV ONE (07:14)
[2017-08-09] MEDS ORDERED: fentaNYL 250 MCG/5 ML INJ ONE (07:14)
[2017-08-09] MEDS ORDERED: DEXMEDETOMIDINE HCL 400 MCG in NS 100 ML IV ONE (07:30)
[2017-08-09] MEDS ORDERED: DEXMEDETOMIDINE IN 0.9 % NACL 100 ML IV ONE (07:30)
[2017-08-09] MEDS ORDERED: MAGNESIUM SULF 2 GM/WATER 50 ML BAG IV ONE (10:41)
[2017-08-09] MEDS ORDERED: PROPOFOL 200 MG/20 ML VIAL ONE (11:09)
[2017-08-09] MEDS ORDERED: SUGAMMADEX SODIUM 200 MG/2 ML VIAL IVP ONE (11:37)
[2017-08-09] MEDS ORDERED: DEXAMETHASONE 4 MG/ML VIAL ONE (11:37)
[2017-08-09] MEDS ORDERED: ROCURONIUM 100 MG/10 ML VIAL ONE (11:37)
[2017-08-09] MEDS ORDERED: ONDANSETRON 4 MG/2 ML VIAL ONE (11:37)
[2017-08-09] MEDS ORDERED: fentaNYL 100 MCG/2 ML INJ ONE (11:41)
[2017-08-09] MEDS ORDERED: POLYETHYLENE GLYCOL 3350 17 GM PKT PO PRN (12:06)
[2017-08-09] MEDS ORDERED: CEPACOL LOZENGE PO PRN (12:06)
[2017-08-09] MEDS ORDERED: LACTULOSE 20 GM/30 ML UDCUP PO PRN (12:06)
[2017-08-09] MEDS ORDERED: POTASSIUM Cl (KCl) 50 ML IV PRN (12:06)
[2017-08-09] MEDS ORDERED: SODIUM CL NASAL 45 ML BTL EACHNARE PRN (12:06)
[2017-08-09] MEDS ORDERED: BISACODYL 10 MG SUPP PR PRN (12:06)
[2017-08-09] MEDS ORDERED: ACETAMINOPHEN 650 MG SUPP PR PRN (12:06)
[2017-08-09] MEDS ORDERED: ONDANSETRON DISINTEGRATING 4 MG TAB PO PRN (12:06)
[2017-08-09] MEDS ORDERED: MEPERIDINE 25 MG/ML SYR IVP PRN (12:06)
[2017-08-09] MEDS ORDERED: METOCLOPRAMIDE 10 MG/2 ML VIAL IVP PRN (12:06)
[2017-08-09] MEDS ORDERED: ACETAMINOPHEN 325 MG TAB PO PRN (12:06)
[2017-08-09] MEDS ORDERED: fentaNYL 100 MCG/2 ML INJ IVP PRN (12:06)
[2017-08-09] MEDS ORDERED: D50W 25 GM/50 ML SYR IVP PRN (12:06)
[2017-08-09] MEDS ORDERED: DOBUTamine/DEXTROSE 250 ML IV SCH (12:30)
[2017-08-09] MEDS ORDERED: INSULIN REGULAR HUMAN 100 UNIT in NS 100 ML IV SCH (12:30)
--- NOTE | 2017-08-09 12:34 | GOP ---
[f rep st] OPERATIVE REPORT DATE OF OPERATION: 08/09/2017 SURGEON: Carter Uribe DO TAR WORKER: Alyx Kelley, PAC. ANESTHESIOLOGIST: Ban Little MD. PREOPERATIVE DIAGNOSIS: 1. Class 4 congestive heart failure with permanent atrial fibrillation, severe mitral insufficiency, and severe tricuspid insufficiency. 2. Valvular cardiomyopathy. 3. Arteriosclerotic heart disease. POSTOPERATIVE DIAGNOSIS: 1. Class 4 congestive heart failure with permanent atrial fibrillation, severe mitral insufficiency, and severe tricuspid insufficiency. 2. Valvular cardiomyopathy. 3. Arteriosclerotic heart disease. PROCEDURE PERFORMED: 1. Mitral valve repair with a #34 Physio annuloplasty ring. 2. Tricuspid valve annuloplasty with a #30 MC3 Verma tricuspid ring. 3. Full left and right-sided Bishop-Maze IV, utilizing cryo and radiofrequency ablation with testing. 4. AtriClip of the left atrial appendage. 5. Left internal mammary artery to the left anterior descending. 6. Left ventricular lead at the base of the left ventricle tunneled to the left subclavian area. FINDINGS: Patient had class 4 heart failure, presented with a 40-pounds weight gain, was diuresed, r eferred for surgical intervention. He returned for diagnostic left heart cath and was noted to have severe pulmonary hypertension as well with PAs in the 70s. DESCRIPTION OF PROCEDURE: He was diuresed overnight, brought to the operating room, intubated, and m onitoring lines were placed. He was prepped and draped in sterile classical manner. Sternotomy was performed. The mammary was harvested. It was a 2.7 mm vessel with good flow. He was heparinized, c annulated in the standard fashion with bicaval cannulae and tapes. Cardiopulmonary bypass was begun. We then did attempt to cardiovert him to sinus rhythm in order to perform complete sensing. We wer e unable to cardiovert him. We did confirm that he had conduction in both pulmonary veins in all fortunato renee tested prior to ablation. We then encircled the right common pulmonary vein and ablated that multiple times until we had multip le lesion sets with conductance less than 5 seconds. We then arrested the heart and then performed a pulmonary vein ablation on the left side again until there were conduction times less than 5 seconds multiple times. We then identified the terminus of the left and right coronary system and ablated t he coronary sinus overlapping the left atrium at that site and marking it with methylene blue. This was done for 3 minutes. We then placed a retrograde catheter in order to adequately give cardioplegi a as well. We transected the tip of the left atrial appendage and placed a radiofrequency clamp up i nto the left superior pulmonary vein and did multiple ablations. We then placed a 35 mm AtriClip acr oss the base to the appendage. We then exposed the mitral valve through the right superior pulmonary vein. We then performed a roof in 4 lesions utilizing cryo for 3 minutes. We then performed the is thmus lesion utilizing cryo for 3 minutes, overlapping the previous coronary sinus lesion which had b een marked. 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 Circumferential annuloplasty rings were placed. He was sized f or a 34 ring which was secured in place with Cor-Knots. Distention of the ventricle revealed no regu rgitation. Left atrium was then closed. We then performed grafting of the mammary to the mid LAD which was a 2 mm vessel. It was tacked to the epicardium. We then proceeded with rewarming. The cross-clamp was removed with suction on the ascending aortic vent. Both caval tapes were secured. The patient was k ept in Trendelenburg and aspiration through the LV apex was intermittently repeated until no air was identified. With the aortic vent done, caval tapes were secured. The right atrium was opened after removing the retrograde catheter in a vertical fashion and then connecting that with the isthmus of t he tricuspid valve with 3 minutes of radiofrequency. We then performed a free wall superior and infe rior vena caval lines utilizing radiofrequency. Circumferential annuloplasty sutures were then place d, and the patient was sized for a 30 mm ring which was secured with Cor-Knots. There was no signifi cant regurgitation with distention at the completion. Spontaneous cardiac activity was noted to resu me while the right atrium was closed. We then placed an LV lead in the inferior lateral wall in case the patient needed future biventricular pacing. This was a screw-in lead, which was also tacked to the epicardium. The patient was then allowed to rewarm. Spontaneous cardiac activity was noted to r esume. He resumed normal sinus rhythm without pacing. He was easily weaned from bypass. Heparin wa s reversed with protamine. There was no mitral regurgitation or tricuspid regurgitation on echo. LV function appeared to maintain around 45%. The heparin was reversed with protamine. The cannula was removed and oversewn. The thymic fat and pericardium were closed with 4 pacing wires. The LV lead was tunneled to the left subclavicular region. The sternum was closed in a standard fashion with 2 m ediastinal and 1 left pleural drain. Chest was closed in standard fashion. Patient returned to ICU in stable condition. /[id number]/MODL
[2017-08-09] MEDS: METOPROLOL SUCCINATE XR 25 MG TAB PO SCH (12:49)
[2017-08-09] MEDS: COLCHICINE 0.6 MG CAP/TAB PO SCH (12:49)
--- NOTE | 2017-08-09 13:12 | CPEKG ---
Heart Rate: 60 RR Interval: 1000 P-R Interval: 164 QRSD Interval: 86 QT Interval: 476 QTC Interval: 476 P [place]: 159 QRS [place]: 60 T Wave [place]: 67 EKG Severity - ABNORMAL ECG - EKG Impression: SINUS OR ECTOPIC ATRIAL RHYTHM EKG Impression: LOW VOLTAGE IN FRONTAL LEADS EKG Impression: NONSPECIFIC REPOL ABNORMALITY VS ISCHEMIC CHANGE, DIFFUSE LEADS EKG Impression: BORDERLINE PROLONGED QT INTERVAL Electronically Signed By: Delores Bravo 09-Aug-2017 15:27:30
[2017-08-09] MEDS: ALBUMIN 5% 250 ML IV PRN ×2 (13:18→14:58)
--- NOTE | 2017-08-09 13:21 | PDMN ---
Medical Necessity Medical necessity: Patient meets inpatient criteria per physician/PA notes and [facility] [place] [facility]-[id number] Cardiac Valve Replacement or Repair.
[2017-08-09] MEDS: NS 1,000 ML IV SCH ×2 (14:13→14:49)
[2017-08-09] MEDS: HYDROCORTISONE 100 MG/2 ML VIAL IVP SCH ×2 (14:18→21:53)
[2017-08-09] MEDS: PANTOPRAZOLE SODIUM 40 MG VIAL IVP SCH (14:18)
[2017-08-09] MEDS ORDERED: HEPARIN 5,000 UNIT/0.5 ML SYR ONE ×2 (16:19→16:20)
[2017-08-09] MEDS: oxyCODONE IR 5 MG TAB PO PRN ×2 (17:31→23:51)
[2017-08-09] MEDS: HYDROCODONE/APAP 5/325 TAB PO PRN (18:42)
[2017-08-09] MEDS ORDERED: FUROSEMIDE 40 MG/4 ML VIAL ONE (20:07)
[2017-08-09] MEDS ORDERED: FUROSEMIDE 40 MG/4 ML VIAL IVP ONE (20:15)
--- NOTE | 2017-08-09 20:19 | GCON ---
[f rep st] CONSULTATION CERTIFIED PROFESSIONAL MIDWIFE CONSULTATION REASON FOR ADMISSION: Patient examined postoperatively after receiving mitral valve repair, tricuspi d valve annuloplasty, left and right Bishop maze IV, AtriClip of left atrial appendage, left internal ma mmary to the left anterior descending artery, left ventricular lead to the base of the left ventricle . HISTORY OF PRESENT ILLNESS: The patient is a 66-year-old white male with a past medical history incl uding class III congestive heart failure, hypertension, hyperlipidemia, chronic liver disease, atrial fibrillation, arthritis, pulmonary hypertension, chronic renal insufficiency. Again, he is examined postoperatively. Patient is currently sedated and on mechanical ventilation. All history is gleane d from the record. Apparently, in the last several weeks, he has had a worsening course with regard to his congestive he art failure. He was recently admitted and discharged from [facility] after a 40-pound weight gain, requiring aggressive diuresis. Again, he is sedated and on mechanical ventilation. REVIEW OF SYSTEMS: 10-point review of systems was performed and was negative, except for what was st ated in HPI. ALLERGIES: To cephalosporins. SOCIAL HISTORY: Previous heavy smoker, none recently. Apparently, he has excessive alcohol use. PAST SURGICAL HISTORY: For an appendectomy. FAMILY HISTORY: Noncontributory. PHYSICAL EXAMINATION: VITAL SIGNS: Blood pressure is 112/77, pulse 66, respirations 14, temperature 37.1, oxygen saturation 93% on mechanical ventilation at 50% FiO2. GENERAL: He is a well-developed , well-nourished, 66-year-old white male who is resting comfortably, on mechanical ventilation. HEEN T: Eyes: PERRLA, EOMI. Throat: Endotracheal tube is in good position. NECK: Supple. There is n o cervical adenopathy. HEART: Regular rate and rhythm, with a 2/6 systolic murmur at left sternal b order without radiation. LUNGS: Diminished breath sounds and a mild prolongation of expiratory phas e but no wheeze. ABDOMEN: Soft, nontender. Bowel sounds are present in all 4 quadrants. EXTREMITI ES: No clubbing, cyanosis, or edema. LABORATORIES: White count is 11, hemoglobin of 15, hematocrit 48; platelet count is 325. Sodium 140, potassium 4.5, chloride 102; CO2 is 28. BUN 25, creatinine 1.8. Glucose is 72. AST is 58, ALT 106. IMPRESSION: 1. Congestive heart failure. 2. Hypertension. 3. Atrial fibrillation. 4. Hyperlipidemia. 5. Chronic liver disease. 6. Pulmonary hypertension. 7. Chronic renal insufficiency. 8. Chronic pain. 9. Status post mitral valve repair, tricuspid valve annuloplasty, Bishop maze using cryoablation and ra diofrequency ablation, and coronary artery bypass. RECOMMENDATIONS: 1. Wean FiO2 as tolerated. 2. Extubate patient from mechanical ventilation when appropriate. 3. DVT and PE prophylaxis: Holding anticoagulation for now. 4. Stress ulcer prophylaxis. 5. Adequate pain control. 6. Early ambulation. 7. PT and OT. /[id number]/MODL
[2017-08-09] MEDS: MUPIROCIN 2% 22 GM OINT NS SCH (21:12)
[2017-08-10 04:17] LABS: PLATELET COUNT 193 10^3/uL (150-400)
[2017-08-10 04:25] LABS: INR 1.11 (0.83-1.16); PROTIME(PATIENT) 14.5 SEC (12.0-15.0)
[2017-08-10] MEDS: HYDROCORTISONE 100 MG/2 ML VIAL IVP SCH (06:35)
[2017-08-10] MEDS: HEPARIN 5,000 UNIT/0.5 ML SYR SC SCH ×3 (06:36→21:00)
[2017-08-10] MEDS: oxyCODONE IR 5 MG TAB PO PRN ×2 (06:38→19:25)
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
[2017-08-10] MEDS ORDERED: ALBUMIN 5% 500 ML IV ONE (07:11)
[2017-08-10] MEDS ORDERED: ALBUMIN 5% 500 ML BOTTLE IV ONE (07:12)
[2017-08-10] MEDS ORDERED: D50W 25 GM/50 ML SYR IVP PRN (08:52)
--- NOTE | 2017-08-10 08:57 | PDINTPN ---
Cold Mill Operator Progress Note Assessment/Plan: Assessment/plan: * Acute respiratory failure-stable off mechanical ventilation -wean FiO2 as tolerated * Congestive heart failure * Coronary disease * Status post mitral valve repair tricuspid valve annuloplasty Bishop Maze and coronary bypass graft * Pain well tolerated * Arthritis * Pulmonary hypertension * Chronic renal insufficiency * Hyperglycemia -start sliding scale * PT/OT * Nutrition Subjective: Sitting up in chair. Resting comfortably. Hungry. Pain is well tolerated. Objective: Vital Signs Temp Pulse Resp BP Pulse Ox 36.3 C 90 21 H 111/62 90 L 08/10/17 04:00 08/10/17 06:00 08/10/17 06:00 08/10/17 06:00 08/10/17 06:00 Laboratory Results 08/10/17 04:04 08/10/17 04:04 08/09/17 08/10/17 08/11/17 05:59 05:59 05:59 Intake Total 100 1738.9 Output Total 2750 2228 Balance -2650 -489.1 PT 14.5 SEC (12.0-15.0) 08/10/17 04:04 INR 1.11 (0.83-1.16) 08/10/17 04:04 Chest [id number] by myself. Lines in good position. Left-sided chest tube in place. Sternal wires are present. Cardiomegaly. Slight fluid overload. - Time Spent With Patient Time Spent With Patient: 35 min of time spent with patient, over 1/2 involved coordination of care counseling. Case discussed with nursing. Physical Exam - Physical Exam General Appearance: WD/WN, alert, no apparent distress EENT: PERRL/EOMI, normal ENT inspection, pharynx normal, TMs normal Neck: non-tender, full range of motion, supple, normal inspection Respiratory: crackles (Left base), prolonged expiration (Mild), No respiratory distress, No wheezing Cardiac/Chest: normal peripheral pulses, regular rate, rhythm, systolic murmur Peripheral Pulses: 2+: carotid (R), carotid (L), femoral (R), femoral (L), dorsalis-pedis (R), dorsalis-pedis (L) Abdomen: normal bowel sounds, non-tender, soft Male Genitalia: deferred Rectal: deferred Skin: normal color, warm/dry Extremities: non-tender Neuro/Psych: no motor/sensory deficits, alert, normal mood/affect, oriented x 3 ICD10 Worksheet Patient Problems: Problems Problem Status Onset Acute blood loss anemia Acute CAD in [place] artery Acute Gout Acute S/P CABG x 1 Acute ~08/09/17 S/P Maze operation for atrial fibrillation Acute ~08/09/17 Status post mitral valve annuloplasty Acute ~08/09/17 Status post tricuspid valve repair Acute ~08/09/17 s/p placement of LV epicardial lead Acute ~08/09/17 CKD (chronic kidney disease) stage 3, GFR 30-59 ml/min Chronic Diastolic congestive heart failure, NYHA class 3 Chronic Dilated cardiomyopathy Chronic Secondary tricuspid valve regurgitation Chronic Severe mitral regurgitation Chronic Atrial fibrillation Chronic
[2017-08-10] MEDS ORDERED: VANCOMYCIN 1 GM in NS 250 ML IV SCH (09:00)
[2017-08-10] MEDS ORDERED: VANCOMYCIN HCL/NORMAL SALINE 250 ML IV SCH (09:00)
[2017-08-10] MEDS: predniSONE 20 MG TAB PO SCH (09:51)
[2017-08-10] MEDS: oxyCODONE CR 30 MG TAB PO SCH ×2 (09:51→20:59)
[2017-08-10] MEDS: ASPIRIN 81 MG CHEWABLE TAB PO SCH (09:51)
[2017-08-10] MEDS: MUPIROCIN 2% 22 GM OINT NS SCH ×2 (09:51→21:09)
[2017-08-10] MEDS: PANTOPRAZOLE SODIUM 40 MG VIAL IVP SCH (09:52)
--- NOTE | 2017-08-10 10:09 | WOCRNPDOC ---
WOCRN Advanced Assessment Note - Skin Integrity Problem, Advanced Assess Left Anterior Lower Medial Leg Dressing Type: Allevyn Life Dressing Description: Clean/Dry, Intact Exudate Amount: Minimal Exudate Color: Reddish/Yellow Exudate Characteristic(s): Serosanguinous Integumentary Issue Intervention: Dressing Changed, Dressing Initialed & Dated Marycruz Wound Tissue: Thin Marycruz Wound Swelling: None Wound Bed Color: Black, Red Wound Bed Constitution: Red/[place] - Non Granular Tissue (25%), Mixed Loose & Adhered Slough/Eschar (75%) Site Measurement - Head-to-Toe Length X Width X Depth (cm): 2cmx1.5cmx0.1cm Skin Integrity Problem Comment: Wound w/ loose eschar noted to L anterior cuello, no periwound erythema or swelling. Per patient report, this wound is the result of hitting his cuello about a week ago when his legs were edematous and the overlying skin was taut and thin. Will initiate dressing with Therahoney gel today to autolytically debride the necrotic tissue. Wound RN will round again to reassess on 08/14.
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
[2017-08-10] MEDS: INSULIN LISPRO 100 UNIT/ML SC SCH ×2 (11:38→18:46)
[2017-08-10] MEDS: FUROSEMIDE 40 MG/4 ML VIAL IVP SCH ×2 (14:36→20:59)
[2017-08-10] MEDS ORDERED: WARFARIN SODIUM 2.5 MG TAB PO ONE (16:00)
[2017-08-10] MEDS ORDERED: NS 1,000 ML IV SCH (17:30)
[2017-08-11] MEDS: oxyCODONE IR 5 MG TAB PO PRN ×4 (00:35→18:57)
[2017-08-11] MEDS: FUROSEMIDE 40 MG/4 ML VIAL IVP SCH (03:19)
[2017-08-11 04:40] LABS: PLATELET COUNT 183 10^3/uL (150-400)
[2017-08-11 04:47] LABS: INR 1.03 (0.83-1.16); PROTIME(PATIENT) 13.7 SEC (12.0-15.0)
[2017-08-11] MEDS ORDERED: LIDOCAINE 2% JELLY 20 ML (UROJECT) ONE (06:04)
[2017-08-11] MEDS: LIDOCAINE 2% JELLY 20 ML (UROJECT) UR PRN ×2 (06:24→13:00)
[2017-08-11] MEDS: HEPARIN 5,000 UNIT/0.5 ML SYR SC SCH ×3 (06:24→20:23)
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
--- NOTE | 2017-08-11 09:08 | PDINTPN ---
Fitting Room Maintenance Mechanic Progress Note Assessment/Plan: Assessment/plan: * Respiratory-stable on minimal oxygen. * Congestive heart failure * Coronary disease * Status post mitral valve repair tricuspid valve annuloplasty Bishop Maze and coronary bypass graft * Pain well tolerated * Acute renal failure-creatinine now at 2.2 -consider Nephrology consult -follow closely * Arthritis * Pulmonary hypertension * Chronic renal insufficiency * Hyperglycemia -start sliding scale * PT/OT * Nutrition-good appetite. Starting p.o. Subjective: Sitting in chair. Resting comfortably. Denies any breathlessness. Pain is well tolerated. Objective: Vital Signs Temp Pulse Resp BP Pulse Ox 37.6 C 90 23 H 153/106 H 95 08/10/17 17:00 08/11/17 06:00 08/11/17 06:00 08/11/17 06:00 08/11/17 06:00 Laboratory Results 08/11/17 04:15 08/11/17 04:15 08/10/17 08/11/17 08/12/17 05:59 05:59 05:59 Intake Total 1738.9 3000 Output Total 2228 1665 Balance -489.1 1335 PT 13.7 SEC (12.0-15.0) 08/11/17 04:15 INR 1.03 (0.83-1.16) 08/11/17 04:15 - Time Spent With Patient Time Spent With Patient: 25 min of time spent with patient, over 1/2 involved with coordination of care or counseling. Case discussed with nursing Physical Exam - Physical Exam General Appearance: alert, no apparent distress EENT: PERRL/EOMI, normal ENT inspection Neck: non-tender, full range of motion, supple, normal inspection Respiratory: chest non-tender, lungs clear, normal breath sounds Cardiac/Chest: normal peripheral pulses, regular rate, rhythm, systolic murmur Peripheral Pulses: 2+: carotid (R), carotid (L), femoral (R), femoral (L), dorsalis-pedis (R), dorsalis-pedis (L) Abdomen: normal bowel sounds, non-tender, soft Male Genitalia: deferred Rectal: deferred Skin: normal color, warm/dry Extremities: normal range of motion Neuro/Psych: no motor/sensory deficits, alert, normal mood/affect, oriented x 3 ICD10 Worksheet Patient Problems: Problems Problem Status Onset Acute blood loss anemia Acute CAD in [place] artery Acute Gout Acute S/P CABG x 1 Acute ~08/09/17 S/P Maze operation for atrial fibrillation Acute ~08/09/17 Status post mitral valve annuloplasty Acute ~08/09/17 Status post tricuspid valve repair Acute ~08/09/17 s/p placement of LV epicardial lead Acute ~08/09/17 CKD (chronic kidney disease) stage 3, GFR 30-59 ml/min Chronic Diastolic congestive heart failure, NYHA class 3 Chronic Dilated cardiomyopathy Chronic Secondary tricuspid valve regurgitation Chronic Severe mitral regurgitation Chronic Atrial fibrillation Chronic
[2017-08-11] MEDS: oxyCODONE CR 30 MG TAB PO SCH ×2 (09:32→20:22)
[2017-08-11] MEDS: ASPIRIN 81 MG CHEWABLE TAB PO SCH (09:33)
[2017-08-11] MEDS: INSULIN LISPRO 100 UNIT/ML SC SCH ×3 (09:33→17:30)
[2017-08-11] MEDS: predniSONE 20 MG TAB PO SCH (09:33)
[2017-08-11] MEDS: MUPIROCIN 2% 22 GM OINT NS SCH (09:37)
[2017-08-11] MEDS: PANTOPRAZOLE SODIUM 40 MG VIAL IVP SCH (11:20)
[2017-08-11] MEDS: PANTOPRAZOLE SODIUM 40 MG TAB PO SCH (12:43)
[2017-08-11] MEDS: TAMSULOSIN HCL 0.4 MG CAP PO SCH (15:09)
[2017-08-11] MEDS ORDERED: WARFARIN SODIUM 2.5 MG TAB PO ONE (16:00)
[2017-08-11] MEDS: SENNOSIDES/DOCUSATE SODIUM TAB PO SCH (20:22)
[2017-08-12] MEDS: oxyCODONE IR 5 MG TAB PO PRN ×4 (00:31→19:15)
[2017-08-12 06:25] LABS: INR 1.08 (0.83-1.16); PROTIME(PATIENT) 14.2 SEC (12.0-15.0)
[2017-08-12] MEDS: HEPARIN 5,000 UNIT/0.5 ML SYR SC SCH ×3 (06:28→20:53)
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
[2017-08-12] MEDS: INSULIN LISPRO 100 UNIT/ML SC SCH (08:18)
[2017-08-12] MEDS: PANTOPRAZOLE SODIUM 40 MG TAB PO SCH (08:18)
[2017-08-12] MEDS: oxyCODONE CR 30 MG TAB PO SCH ×2 (08:18→20:53)
[2017-08-12] MEDS: SENNOSIDES/DOCUSATE SODIUM TAB PO SCH ×2 (08:18→20:53)
[2017-08-12] MEDS: TAMSULOSIN HCL 0.4 MG CAP PO SCH (08:18)
[2017-08-12] MEDS: predniSONE 20 MG TAB PO SCH (08:18)
[2017-08-12] MEDS: ASPIRIN 81 MG CHEWABLE TAB PO SCH (08:18)
[2017-08-12] MEDS: COLCHICINE 0.6 MG CAP/TAB PO SCH (09:07)
--- NOTE | 2017-08-12 09:21 | PDINTPN ---
Transmitter Tester Progress Note Assessment/Plan: Assessment/plan: * Respiratory-stable on minimal oxygen. * Congestive heart failure * Coronary disease * Status post mitral valve repair tricuspid valve annuloplasty Bishop Maze and coronary bypass graft * Pain well tolerated * Acute renal failure-creatinine down to 1.6 -continue to follow closely * Arthritis * Pulmonary hypertension * Chronic renal insufficiency * Hyperglycemia -start sliding scale * PT/OT-ambulating well without difficulty * Nutrition-good appetite, eating well Subjective: Sitting up in chair. Pain is well tolerated. Good spirits today. Good appetite Objective: Vital Signs Temp Pulse Resp BP Pulse Ox 36.8 C 47 L 20 126/65 H 98 08/12/17 08:00 08/12/17 08:00 08/12/17 08:00 08/12/17 08:00 08/12/17 08:00 Laboratory Results 08/12/17 06:00 08/12/17 06:00 08/11/17 08/12/17 08/13/17 05:59 05:59 05:59 Intake Total 3000 1550 Output Total 1665 955 Balance 1335 595 PT 14.2 SEC (12.0-15.0) 08/12/17 06:00 INR 1.08 (0.83-1.16) 08/12/17 06:00 - Time Spent With Patient Time Spent With Patient: 25 min of time spent with patient, over 1/2 involved with coordination of care or counseling. Case discussed with Nursing Physical Exam - Physical Exam General Appearance: alert, no apparent distress EENT: PERRL/EOMI, normal ENT inspection Neck: non-tender, full range of motion, supple, normal inspection Respiratory: chest non-tender, lungs clear, normal breath sounds Cardiac/Chest: normal peripheral pulses, regular rate, rhythm, systolic murmur Peripheral Pulses: 2+: carotid (R), carotid (L), femoral (R), femoral (L), dorsalis-pedis (R), dorsalis-pedis (L) Abdomen: normal bowel sounds, non-tender, soft Male Genitalia: deferred Rectal: deferred Skin: normal color, warm/dry Extremities: normal range of motion, non-tender, normal inspection, normal capillary refill Neuro/Psych: no motor/sensory deficits, alert, normal mood/affect, oriented x 3 ICD10 Worksheet Patient Problems: Problems Problem Status Onset Acute blood loss anemia Acute CAD in [place] artery Acute Gout Acute S/P CABG x 1 Acute ~08/09/17 S/P Maze operation for atrial fibrillation Acute ~08/09/17 Status post mitral valve annuloplasty Acute ~08/09/17 Status post tricuspid valve repair Acute ~08/09/17 s/p placement of LV epicardial lead Acute ~08/09/17 CKD (chronic kidney disease) stage 3, GFR 30-59 ml/min Chronic Diastolic congestive heart failure, NYHA class 3 Chronic Dilated cardiomyopathy Chronic Secondary tricuspid valve regurgitation Chronic Severe mitral regurgitation Chronic Atrial fibrillation Chronic
--- NOTE | 2017-08-12 10:14 | SOAPPROG ---
SOAP Progress Note Assessment/Plan: Assessment: CHF consult performed and dictated. 66 y/o man with longstanding afib and moderate to heavy ETOH use x 4yrs found to have LVEF 53%, single vessel CAD (90% LAD lesion) and severe MR and TR now POD#3 CABG (GAXIOLA to LAD), MV and TV annuloplasties, HUMPHREY IV MAZE and SILVANA clipping and placement LV lead. He is doing better than I would have expected with preop CVP of 20 with little RV dysfunction. Off IV DBT, DOPAMINE and LASIX gtts. I think he is still hypervolemic more right sided failure. REC: 1)lasix 40mg IV qday 2)Aldactone 12.5mg PO qam. 3)no beta phil or ACEI for now. 4)start statin soon? 5)follow telemetry and continue temporary pacer. May need EP-Javed to put in SPLASH LINE OPERATOR- P (not D) this hospitalization. watch closely for RV chf but so far none. Thanks will follow with you. 08/12/17 10:08 Objective: Vital Signs Temp Pulse Resp BP Pulse Ox 36.8 C 47 L 20 126/65 H 98 08/12/17 08:00 08/12/17 08:00 08/12/17 08:00 08/12/17 08:00 08/12/17 08:00 Laboratory Results 08/12/17 06:00 08/12/17 06:00 08/11/17 08/12/17 08/13/17 05:59 05:59 05:59 Intake Total 3000 1550 Output Total 1665 955 Balance 1335 595 PT 14.2 SEC (12.0-15.0) 08/12/17 06:00 INR 1.08 (0.83-1.16) 08/12/17 06:00 ICD10 Worksheet Patient Problems: Problems Problem Status Onset Gout Acute Acute blood loss anemia Acute S/P CABG x 1 Acute ~08/09/17 CAD in [place] artery Acute CKD (chronic kidney disease) stage 3, GFR 30-59 ml/min Chronic Dilated cardiomyopathy Chronic Diastolic congestive heart failure, NYHA class 3 Chronic Secondary tricuspid valve regurgitation Chronic Severe mitral regurgitation Chronic s/p placement of LV epicardial lead Acute ~08/09/17 S/P Maze operation for atrial fibrillation Acute ~08/09/17 Status post tricuspid valve repair Acute ~08/09/17 Status post mitral valve annuloplasty Acute ~08/09/17 Atrial fibrillation Chronic
[2017-08-12] MEDS ORDERED: traMADol 50 MG TAB PO PRN (10:59)
[2017-08-12] MEDS ORDERED: MAGNESIUM HYDROXIDE 30 ML UDCUP PO PRN (10:59)
[2017-08-12] MEDS: FUROSEMIDE 40 MG/4 ML VIAL IVP SCH (11:21)
[2017-08-12] MEDS: SPIRONOLACTONE 25 MG TAB PO SCH (11:21)
[2017-08-12] MEDS ORDERED: WARFARIN SODIUM 5 MG TAB PO ONE (16:00)
[2017-08-12] MEDS: HYDROCODONE/APAP 5/325 TAB PO PRN (16:16)
[2017-08-13] MEDS: oxyCODONE IR 5 MG TAB PO PRN ×2 (01:55→12:52)
[2017-08-13] MEDS: HEPARIN 5,000 UNIT/0.5 ML SYR SC SCH ×3 (05:34→22:38)
[2017-08-13 06:04] LABS: INR 1.18 (0.83-1.16); PROTIME(PATIENT) 15.2 SEC (12.0-15.0)
--- NOTE | 2017-08-13 07:57 | SOAPPROG ---
VIANEY Progress Note Assessment/Plan: POD#4: MVA #34 Physio ring, TVA #30 MC3 ring, CABGx1 (GAXIOLA-LAD), Bishpo-Maze 4, LV epicardial lead tunneled to left subclavian space. Sx severe MR - Amenable to ring annuloplasty. Antithrombotic prophylaxis with Coumadin as per Maze. Secondary TR - Amenable to ring annuloplasty. Antithrombotic prophylaxis as per Maze. Single vessel CAD - Revascularized with arterial graft. Secondary prevention with baby ASA, and statin. Beta-phil avoided d/t bradycardia. Longstanding persistent atrial fibrillation - Chronically anticoagulated on Eliquis for [id number] score of 4. Anticoagulation switched to Coumadin. Target INR 2-3. Duration TBD as per Maze surveillance. Early post Maze rhythm sinus, evolving into junctional/SR in 40s-50s with adequate BP. Continue AAI backup. Dilated cardiomyopathy with class IV CHF, diastolic and systolic - Preop PAS 70s , PCWP 23, LVEF 50%. from CPB on low dose dobutamine with preserved BiV systolic fx. Apacing and dopamine added for optimized hemodynamics. All inotropes weaned off. Staggered intro of HF meds when appropriate as per Dr. Gallardo. LV epicardial lead placed in case STEAMTABLE WORKER needed. Acute postoperative respiratory insufficiency - Extubated several hrs after surgery without incident. Inc O2 req overnight, primarily due to splinting/ suboptimal pain control. No evidence acute CHF, PTX, undrained pleural effusion. O2 wean in progress. CKD3 - Baseline Cr 1.6. No significant decline in renal fx early postop. Care with preload and MAPs. Cont avoidance nephrotoxins. Acute expected blood loss anemia - Stable. No transfusions required. No evidence bleeding. VTE prophylaxis with SQ heparin pending INR > 2. Acute on chronic pain - Narc dependent back pain. Postop pain management limited by renal fx. Reintro of chronic oxy in progress. Stress hyperglycemia - Preop A1c of 6%. Postop hyperglycemia managed with low dose insulin gtt. Likely exacerbated by steroids. Transitioned to SSI with adequate glucose levels. Blood sugar levels stopped. Recent gouty arthritis flare - Treated with colchicine and prednisone. Stress steroids periop. Colchicine pending normalization renal fx. Follow. Chronic wound left low leg - Accidental scrape with delayed healing while CHF decompensated. Now with dry leathery eschar. Wound care managing. Disposition - anticipate home without services in the next day or two. Objective: Vital Signs Temp Pulse Resp BP Pulse Ox 36.7 C 48 L 16 137/80 H 98 08/13/17 04:00 08/13/17 04:00 08/13/17 04:00 08/13/17 04:00 08/13/17 04:00 Laboratory Results 08/12/17 06:00 08/13/17 05:30 08/12/17 08/13/17 08/14/17 05:59 05:59 05:59 Intake Total 1550 1408 Output Total 955 1675 Balance 595 -267 PT 15.2 SEC (12.0-15.0) H 08/13/17 05:30 INR 1.18 (0.83-1.16) H 08/13/17 05:30 Physical Exam - Physical Exam General Appearance: WD/WN, alert, no apparent distress EENT: No scleral icterus (R), No scleral icterus (L) Neck: normal inspection Respiratory: No respiratory distress Cardiac/Chest: bradycardia Abdomen: non-tender, soft, distended Skin: normal color, warm/dry Extremities: pedal edema Neuro/Psych: no motor/sensory deficits, alert, normal mood/affect, oriented x 3 ICD10 Worksheet Patient Problems: Problems Problem Status Onset Acute blood loss anemia Acute CAD in [place] artery Acute Gout Acute S/P CABG x 1 Acute ~08/09/17 S/P Maze operation for atrial fibrillation Acute ~08/09/17 Status post mitral valve annuloplasty Acute ~08/09/17 Status post tricuspid valve repair Acute ~08/09/17 s/p placement of LV epicardial lead Acute ~08/09/17 CKD (chronic kidney disease) stage 3, GFR 30-59 ml/min Chronic Diastolic congestive heart failure, NYHA class 3 Chronic Dilated cardiomyopathy Chronic Secondary tricuspid valve regurgitation Chronic Severe mitral regurgitation Chronic Atrial fibrillation Chronic
[2017-08-13] MEDS: SPIRONOLACTONE 25 MG TAB PO SCH (08:05)
[2017-08-13] MEDS: COLCHICINE 0.6 MG CAP/TAB PO SCH (08:05)
[2017-08-13] MEDS: FUROSEMIDE 40 MG/4 ML VIAL IVP SCH (08:06)
[2017-08-13] MEDS: ASPIRIN 81 MG CHEWABLE TAB PO SCH (08:06)
[2017-08-13] MEDS: SENNOSIDES/DOCUSATE SODIUM TAB PO SCH ×2 (08:06→19:57)
[2017-08-13] MEDS: TAMSULOSIN HCL 0.4 MG CAP PO SCH (08:06)
[2017-08-13] MEDS: oxyCODONE CR 30 MG TAB PO SCH ×2 (08:06→19:56)
[2017-08-13] MEDS: predniSONE 20 MG TAB PO SCH (08:06)
[2017-08-13] MEDS: PANTOPRAZOLE SODIUM 40 MG TAB PO SCH (08:06)
--- NOTE | 2017-08-13 09:43 | ASMTCMCOM ---
CM Note CM Note Notes: 08/13/2017 Case Management Note Discussed case with RN and PA this morning. Cardiac rehab has evaluated pt and recommends follow up after discharge. There are no further anticipated case management d/c needs. Case Management d/c poc: home with cardiac rehab. Case Management available for any further d/c needs. Date Signed: 08/13/2017 09:42 AM Electronically Signed By:Ana M Gaytan RN
--- NOTE | 2017-08-13 09:46 | ECHO ---
[email or web address] [address] [address] Main: [phone] Fax: [email or web address] Echocardiogram Name: RAÚL MONTES MR#: [id number] Study Date: 08/13/2017 Study Time: 10:17 AM Date of : 1950 Age: 66 year(s) Height: 182.9 cm (72 in.) Weight: 83.46 kg (184 lb.) BSA: 2.06 m2 Gender: Male Examination: Echo Indication: Image Quality: Adequate Contrast: Requested by: Stalin Eid BP: 137 mmHg/80 mmHg Heart Rate: Rhythm: Indication: Procedure Staff Creative Lead: Skylar Calderón [facility] Reading Physician: Skinny Sampson MD Requesting Provider: Conclusions: Normal size left ventricle. No LV hypertrophy. Normal global systolic LV function. EF is 60 %. No regional wall motion abnormality. Unable to assess diastolic dysfunction. Normal RV function. Trivial mitral valve regurgitation. An annuloplasty ring is noted in the mitral valve position. The prosthetic mitral valve is normal. The aortic valve is normal in appearance and function. Mild-moderate aortic valve stenosis. There is no aortic valve regurgitation. The pulmonary artery pressure is normal. There is a tricuspid valve ring. The prosthetic tricuspid valve is normal. The aorta is normal. Measurements: Chambers Valvular Assessment AV/MV Valvular Assessment TV/PV Normal Normal Normal Name Value Range Name Value Range Name Value Range Ao Janie (2D): 3.4 cm (1.4 cm-2.6 AV meanP mmHg ( - ) TV Vmax: 1.34 m/s (0.3 m/s-0.7 cm) JOANNE (VTI): 1.3 cm ( - ) m/s) IVSd (2D): 1.3 cm (0.6 cm-1.1 MV E Vmax: 1.43 m/s ( - ) TV Vmean: 0.89 m/s ( - ) cm) MV A Vmax: 0.40 m/s ( - ) TV PGmax: 7 mmHg ( - ) LVDd (2D): 5.6 cm (4.2 cm-5.9 MV E/A: 3.58 ( - ) TV PGmean: 4 mmHg ( - ) cm) MV meanP mmHg ( - ) TV VTI: 33.50 cm ( - ) LVDs (2D): 3.7 cm (2.1 cm-4 PV Vmax: 0.94 m/s (0.6 m/s-0.9 cm) MV PHT: 0.063 s ( - ) m/s) Patient: RAÚL MONTES Study Date: 08/13/2017 Page 1 of 2 10:17 AM LVPWd (2D): 1.3 cm (0.6 cm-1 MVA (Vmax): 2.2 m/s ( - ) PV PGmax: 4 mmHg ( - ) cm) MVA (PHT): 3.5 s ( - ) LVOTd 2.2 cm 2.2 cm mm LVEF (BP): 60 % (>=55 %) RVDd(2D): 3.6 cm (1.9 cm-3.8 cmmm) Continued Measurements: Chambers Valvular Assessment AV/MV Valvular Assessment TV/PV Name Value Name Value Name Value LADs: 4.7 cm MV DecTime: 215 m/s CVP (est.): 5 mmHg LADs Lon.4 cm MV E' Septal: 0.04 m/s LA Area: 28.6 cm2 MV E/E' Septal: 35.80 LA Volume: 102 ml MV E/E' Lateral: 24.00 LA Volume Index: 49.5 ml/m2 MV VTI: 38.10 cm RA Area: 23.1 cm2 Additional Vessels Name Value Ao Ascendin.0 cm Findings: Left Ventricle: Normal size left ventricle. No LV hypertrophy. Normal global systolic LV function. EF is 60 %. No regional wall motion abnormality. Unable to assess diastolic dysfunction. Right Ventricle: Normal size right ventricle. Normal RV function. Left Atrium: The left atrium is normal in size. Right Atrium: The right atrium is normal in size. Mitral Valve: The mitral valve is normal in appearance and function. Trivial mitral valve regurgitation. An annuloplasty ring is noted in the mitral valve position. The prosthetic mitral valve is normal. Aortic Valve: The aortic valve is normal in appearance and function. Mild-moderate aortic valve stenosis. There is no aortic valve regurgitation. Tricuspid Valve: The tricuspid valve is normal in appearance and function. Trivial tricuspid valve regurgitation. The pulmonary artery pressure is normal. There is a tricuspid valve ring. The prosthetic tricuspid valve is normal. Pulmonic Valve: The pulmonic valve is normal in appearance and function. There is no pulmonic regurgitation seen. Aorta: The aorta is normal. IVC: The IVC is not visualized. Pericardium: No pericardial effusion. No pleural effusion. (No Signature Object) Patient: RAÚL MONTES Study Date: 08/13/2017 Page 2 of 2 10:17 AM [id number]
--- NOTE | 2017-08-13 10:19 | SOAPPROG ---
SOAP Progress Note Assessment/Plan: Assessment: 66 y/o man with longstanding afib and moderate to heavy ETOH use x 4yrs found to have LVEF 53%, single vessel CAD (90% LAD lesion) and severe MR and TR now POD#3 CABG (GAXIOLA to LAD), MV and TV annuloplasties, HUMPHREY IV MAZE and SILVANA clipping and placement LV lead. He is doing better than I would have expected with preop CVP of 20 with little RV dysfunction. Off IV DBT, DOPAMINE and LASIX gtts. He is doing well diuresis, in sinus bradycardia with improving renal function. REC: 1)change IV lasix to Lasix 40mg PO qam and discharge on this dose 2)increase Aldactone to 25mg PO qam. 3)no beta phil or ACEI for now. 4)f/u CHF-Blois in 2-3 weeks post discharge. 08/13/17 10:16 Subjective: overall feeling better each day. Transferred out of ICU to Tele yesterday. Urinating a lot. Denies palpitations, syncope, PND or chest pressure. Ambulating hallways with mild STOKES. Objective: Vital Signs Temp Pulse Resp BP Pulse Ox 36.5 C 53 L 20 157/86 H 95 08/13/17 08:00 08/13/17 08:00 08/13/17 08:00 08/13/17 08:00 08/13/17 08:00 Laboratory Results 08/12/17 06:00 08/13/17 05:30 08/12/17 08/13/17 08/14/17 05:59 05:59 05:59 Intake Total 1550 1408 Output Total 955 1675 200 Balance 595 -267 -200 PT 15.2 SEC (12.0-15.0) H 08/13/17 05:30 INR 1.18 (0.83-1.16) H 08/13/17 05:30 Physical Exam - Physical Exam General Appearance: alert EENT: normal ENT inspection Neck: non-tender Respiratory: lungs clear Cardiac/Chest: regular rate, rhythm, systolic murmur (1/6 JERILYN heard), No gallop Peripheral Pulses: 2+: carotid (R), carotid (L), femoral (R), femoral (L), dorsalis-pedis (R), dorsalis-pedis (L) Abdomen: non-tender, No guarding, No rebound Skin: warm/dry Extremities: No pedal edema Neuro/Psych: alert ICD10 Worksheet Patient Problems: Problems Problem Status Onset Acute blood loss anemia Acute CAD in [place] artery Acute Gout Acute S/P CABG x 1 Acute ~08/09/17 S/P Maze operation for atrial fibrillation Acute ~08/09/17 Status post mitral valve annuloplasty Acute ~08/09/17 Status post tricuspid valve repair Acute ~08/09/17 s/p placement of LV epicardial lead Acute ~08/09/17 CKD (chronic kidney disease) stage 3, GFR 30-59 ml/min Chronic Diastolic congestive heart failure, NYHA class 3 Chronic Dilated cardiomyopathy Chronic Secondary tricuspid valve regurgitation Chronic Severe mitral regurgitation Chronic Atrial fibrillation Chronic
--- NOTE | 2017-08-13 11:44 | CPEKG ---
Heart Rate: 52 RR Interval: 1154 QRSD Interval: 98 QT Interval: 456 QTC Interval: 424 QRS [place]: 60 T Wave [place]: 99 EKG Severity - ABNORMAL ECG - EKG Impression: REPOL ABNRM SUGGESTS ISCHEMIA, ANT-LAT LEADS EKG Impression: Atrial fibrillation, new since August 09, 2017 EKG Impression: Left atrial abnormality Electronically Signed By: Darrin Werner 13-Aug-2017 12:18:31
[2017-08-13] MEDS ORDERED: POTASSIUM CL 10 MEQ TAB PO SCH (11:45)
--- NOTE | 2017-08-13 12:13 | GCON ---
[f rep st] CONSULTATION CONGESTIVE HEART FAILURE CONSULTATION DATE OF CONSULTATION: 08/12/2017 REASON FOR CONSULTATION: Evaluate gentleman with [id number] diastolic heart failure, status po st complex cardiac surgery. HISTORY OF PRESENT ILLNESS: The patient is a 66-year-old gentleman with the following cardiac histor y. He has had long-standing atrial fibrillation. Earlier this year, he was found to have diastolic heart failure with severe mitral and tricuspid insufficiency. A heart catheterization in July, presurgery, demonstrated an LVEF of 53% with isolated 90% LAD lesion. Right heart catheterizatio n demonstrated an RA pressure of 20, PA pressure of 75/34, with a mean pulmonary artery pressure of 5 2, and a mean pulmonary capillary wedge pressure of 23. On 08/09/2017, he underwent a sternotomy wit h a GAXIOLA to LAD bypass, mitral valve and tricuspid valve repairs, a Bishop maze type IV ablation, and pl acement of LV epicardial lead and clipping of the left atrial appendage. He was briefly on IV dobuta mine, dopamine, and Lasix drip, but these have been weaned off. He is now postop day [address] He denies chest pressure, rest shortness of breath, dizziness, or cough. His last CVP was 14. He is temporarily paced with an underlying junctional rhythm. Of note, he did drink heavy alcohol, probably 4-5 drinks per day until 3 weeks ago. PAST MEDICAL HISTORY: Atrial fibrillation, diastolic heart failure, previous severe mitral and tricu spid insufficiency, moderate to severe secondary pulmonary hypertension, coronary artery disease, hyp ertension, chronic renal insufficiency with a creatinine of 1.6, and gout. PAST SURGICAL HISTORY: A remote appendectomy and recent cardiac surgery, as per HPI. CURRENT MEDICATIONS: Aspirin 81 mg per day. The rest of the medications are noncardiac. ALLERGIES: Lisinopril and Keflex. SOCIAL HISTORY: Patient is . He does have heavy alcohol use until 3 weeks ago and does not s moke. FAMILY HISTORY: Unremarkable for premature coronary artery disease. REVIEW OF SYSTEMS: The patient reports no recent fevers, chills, hemoptysis, or purulent sputum prod uction. He has no GI bleed symptoms such as hematemesis, melena, or bright red blood per rectum. Th e rest of a 10-point review of systems was negative. PHYSICAL EXAM: VITAL SIGNS: Afebrile, pulse 60 and paced, blood pressure 126/65, respirations 20, C ION EXCHANGE OPERATOR 14, weight 83.9 kg. GENERAL: A normal-appearing gentleman in no acute distress without chest yared n or using accessory respiratory muscles. EYES: Pupils equal and reactive to light. ENT: Oral muc enrique with no cyanosis. NECK: Jugular venous pressure to 8-9 cm. Carotid pulses 2+ bilaterally with no obvious bruits. LUNGS: Clear to auscultation bilaterally with no obvious rales, rhonchi, or whee zing. HEART: Normal PMI. Regular rate and rhythm with 1/6 nonradiating systolic murmur and no S3. ABDOMEN: Slightly distended. No obvious guarding or ascites noted. EXTREMITIES: 2+ peripheral pu lses including femoral and pedal pulses. Trace pretibial edema noted. MUSCULOSKELETAL: No scoliosi s. SKIN: No bleeding or cyanosis. NECK: No nuchal rigidity. LABORATORY DATA: White count 16.5, hematocrit 31, platelets 167,000, MCV 103. INR 1.08. Sodium 132 , potassium 5.0, chloride 96, bicarb 28, BUN 34, creatinine 1.6, glucose 91. Hemoglobin A1c 6.0, LDL cholesterol 140. IMPRESSION: A 66-year-old gentleman with [id number] diastolic heart failure and successful cor onary artery bypass graft x1 vessel and mitral valve and tricuspid valve repair. He is doing much be tter than I clinically suspected. In particular, not having any significant right ventricular failur e. He probably is moderately hypervolemic, more with right-sided congestion. RECOMMENDATIONS: 1. Would start on Lasix 40 mg IV daily. 2. Would start on renal dose Aldactone 12.5 mg per day. 3. For now, do not think he needs a beta-phil and he is allergic to FRANSISCO inhibitors. 4. Would start him back on a statin during this hospitalization. 5. Agree with loading him on Coumadin for an INR of 2.0-3.0. 6. He is getting an echo tomorrow to re-evaluate LV and RV function and valvular function status pos t his complex cardiac surgery. Thank you for allowing me to participate in the care of your patient. As mentioned above, I think he clinically is doing much better than expected for his complex biventricular issues. I will follow a long closely with you during his hospitalization. Copy requested to: [facility] /[id number]/MODL
[2017-08-13] MEDS ORDERED: FUROSEMIDE 40 MG TAB PO ONE (13:00)
[2017-08-13] MEDS ORDERED: WARFARIN SODIUM 5 MG TAB PO ONE (16:00)
--- NOTE | 2017-08-13 17:07 | WOCRNPDOC ---
WOBRIGETTEN Advanced Assessment Note - Skin Integrity Problem, Advanced Assess Left Anterior Lower Medial Leg Scab Dressing Type: Allevyn Life, Telfa Dressing Description: Clean/Dry, Intact Exudate Amount: Moderate Exudate Color: Brown, Reddish/Yellow Exudate Characteristic(s): Serosanguinous Integumentary Issue Intervention: Dressing Changed Marycruz Wound Tissue: Blanching, Macerated, Contused Marycruz Wound Swelling: Mild Wound Bed Color: Red, Yellow, White Wound Bed Constitution: Hypergranulation (40%), Adhered Slough (60%) Site Odor: Moderate, Foul Site Measurement - Head-to-Toe Length X Width X Depth (cm): 2.3x1.6x0.2 Skin Integrity Problem Comment: Traumatic wound greatly improved since previous assessment. Eschar completely gone. Wound plan will be amended accordingly. Wound care will follow next week.
[2017-08-14] MEDS: oxyCODONE IR 5 MG TAB PO PRN ×2 (02:14→17:48)
[2017-08-14] MEDS: HEPARIN 5,000 UNIT/0.5 ML SYR SC SCH ×3 (05:20→22:04)
[2017-08-14 06:11] LABS: INR 1.25 (0.83-1.16); PROTIME(PATIENT) 15.9 SEC (12.0-15.0)
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
[2017-08-14] MEDS: SPIRONOLACTONE 25 MG TAB PO SCH (09:57)
[2017-08-14] MEDS: ASPIRIN 81 MG CHEWABLE TAB PO SCH (09:57)
[2017-08-14] MEDS: SENNOSIDES/DOCUSATE SODIUM TAB PO SCH ×2 (09:57→19:28)
[2017-08-14] MEDS: oxyCODONE CR 30 MG TAB PO SCH ×2 (09:57→19:25)
[2017-08-14] MEDS: POTASSIUM CL 20 MEQ TAB PO SCH (09:57)
[2017-08-14] MEDS: PANTOPRAZOLE SODIUM 40 MG TAB PO SCH (09:58)
[2017-08-14] MEDS: predniSONE 20 MG TAB PO SCH (09:58)
[2017-08-14] MEDS: COLCHICINE 0.6 MG CAP/TAB PO SCH (09:58)
[2017-08-14] MEDS: TAMSULOSIN HCL 0.4 MG CAP PO SCH (09:58)
[2017-08-14] MEDS: FUROSEMIDE 40 MG TAB PO SCH (10:05)
[2017-08-14] MEDS ORDERED: WARFARIN SODIUM 5 MG TAB PO ONE (16:00)
[2017-08-15] MEDS: oxyCODONE IR 5 MG TAB PO PRN ×2 (01:55→19:05)
[2017-08-15] MEDS: HEPARIN 5,000 UNIT/0.5 ML SYR SC SCH ×2 (05:48→12:35)
[2017-08-15 06:25] LABS: INR 1.4 (0.83-1.16); PROTIME(PATIENT) 17.3 SEC (12.0-15.0)
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
[2017-08-15] MEDS: TAMSULOSIN HCL 0.4 MG CAP PO SCH (08:58)
[2017-08-15] MEDS: oxyCODONE CR 30 MG TAB PO SCH ×2 (08:59→20:50)
[2017-08-15] MEDS: PANTOPRAZOLE SODIUM 40 MG TAB PO SCH (08:59)
[2017-08-15] MEDS: SPIRONOLACTONE 25 MG TAB PO SCH (08:59)
[2017-08-15] MEDS: predniSONE 20 MG TAB PO SCH (08:59)
[2017-08-15] MEDS: POTASSIUM CL 20 MEQ TAB PO SCH (08:59)
[2017-08-15] MEDS: COLCHICINE 0.6 MG CAP/TAB PO SCH (08:59)
[2017-08-15] MEDS: ASPIRIN 81 MG CHEWABLE TAB PO SCH (09:00)
[2017-08-15] MEDS: FUROSEMIDE 40 MG TAB PO SCH (09:00)
[2017-08-15] MEDS: SENNOSIDES/DOCUSATE SODIUM TAB PO SCH (09:03)
--- NOTE | 2017-08-15 11:17 | PDCARPN ---
Cardiology Progress Note Chief Complaint: Reports no symptoms. Had heart rates less than 30 beats per minute last night at 6:05 p.m. while he was awake, needed atrial pacing Assessment/Plan: Assessment: 1. Status post mitral and tricuspid valve repair 2. Status Bishop Maze 4 procedure 3. Sinus node dysfunction with daytime heart rates less than 30 beats per minute 4. Secondary pulmonary hypertension Plan: Patient meets class 1 indication for pacemaker given that he has heart rates less than 30 beats per minute during the daytime requiring backup atrial pacing , also need for beta-blockers and potentially antiarrhythmic drugs in this patient who has underlying bradycardia. Patient has had breakfast this morning so will perform his procedure at 4:30 p.m. Today. Risks of the procedure including cardiac perforation, pneumothorax, bleeding, infection, lead dislodgement etc were discussed with him, his nurse was present in the room at the time of interview. Dr. Uribe did place an epicardial coronary sinus lead which will be brought back to the pacemaker pocket and attached to a biventricular pacemaker generator. 08/15/17 11:19 Subjective: Status post mitral and tricuspid repair, status post Maze. Maintaining sinus rhythm. Feels well. Reviewed/Discussed With: multidisciplinary team (Dr. Carter Uribe, patient's RN Maranda) Time Spent With Patient: 30 min Objective: Vital Signs (8 Hrs) Temp Pulse Resp BP Pulse Ox 08/15/17 07:41 37.1 C 63 15 141/82 H 97 08/15/17 04:00 36.8 C 62 17 126/77 H 94 Intake/Output (24 Hrs) 08/13/17 08/14/17 08/15/17 11:59 11:59 11:59 Intake Total 6105 511 1704 Output Total 2375 700 900 Balance -667 -100 195 Intake: Oral (ml) 8619 055 9638 Output: Urine (ml) 2375 700 900 Catheter 600 Toilet 400 250 Urinal 1775 300 650 Other: Weight 83.2 kg 81.1 kg 79.69 kg Intake Quantity Yes Yes Sufficient Number of Voids Catheter 1 Toilet 1 1 1 Urinal 1 1 Number of Stools Toilet 1 Result Diagrams: 08/14/17 05:30 08/15/17 05:45 Telemetry: Sinus rhythm. Episode of sinus rate less than 30 beats per minute at 6:05 p.m. requiring atrial pacing - Physical Exam Constitutional: obese Eyes: PERRL, EOMI Ears, Nose, Mouth, Throat: moist mucous membranes Cardiovascular: regular rate and rhythm Respiratory: clear to auscultate bilat ICD10 Worksheet Patient Problems: Problems Problem Status Onset Gout Acute Acute blood loss anemia Acute S/P CABG x 1 Acute ~08/09/17 CAD in [place] artery Acute CKD (chronic kidney disease) stage 3, GFR 30-59 ml/min Chronic Dilated cardiomyopathy Chronic Diastolic congestive heart failure, NYHA class 3 Chronic Secondary tricuspid valve regurgitation Chronic Severe mitral regurgitation Chronic s/p placement of LV epicardial lead Acute ~08/09/17 S/P Maze operation for atrial fibrillation Acute ~08/09/17 Status post tricuspid valve repair Acute ~08/09/17 Status post mitral valve annuloplasty Acute ~08/09/17 Atrial fibrillation Chronic
[2017-08-15] MEDS ORDERED: BACITRACIN IRRIGATION/NS 50,000 UNITS/1,000 ML BTL IRR ONE (11:39)
[2017-08-15] MEDS ORDERED: NS 1,000 ML IV ONE (11:39)
[2017-08-15] MEDS ORDERED: VANCOMYCIN 1.25 GM in D5W 250 ML IV ONE (11:47)
[2017-08-15] MEDS ORDERED: VANCOMYCIN 1.25 GM in NS 250 ML IV ONE (13:30)
[2017-08-15] MEDS ORDERED: WARFARIN SODIUM 5 MG TAB PO SCH (16:00)
[2017-08-15] MEDS ORDERED: LIDOCAINE 1% 300 MG/30 ML SDV ONE (16:01)
[2017-08-15] MEDS ORDERED: BUPIVACAINE 0.5% 30 ML SDV ONE (16:01)
[2017-08-15] MEDS ORDERED: MIDAZOLAM 2 MG/2 ML VIAL IVP ONE (16:10)
[2017-08-15] MEDS ORDERED: NALOXONE HCL 0.4 MG/ML INJ IVP PRN (16:12)
[2017-08-15] MEDS ORDERED: ALBUTEROL 3 ML DEYVIAL IH PRN (16:12)
[2017-08-15] MEDS ORDERED: fentaNYL 100 MCG/2 ML INJ IVP PRN (16:12)
--- NOTE | 2017-08-15 16:12 | PDANEPAE ---
ANE History of Present Illness here for PM ANE Past Medical History - Cardiovascular History Hx Hypertension: Yes Hx Arrhythmias: Yes Hx CHF / Valvular Disease: Yes Cardiovascular History Comment: atrial fibrillation-chronic, CHF, moderate MR, moderate TR - Pulmonary History Hx COPD: No Hx Asthma/Reactive Airway Disease: No Hx Recent Upper Respiratory Infection: No Hx Oxygen in Use at Home: No Hx Sleep Apnea: No Sleep Apnea Screening Result - Last Documented: Positive Pulmonary History Comment: SOB w/ strenuous activity - Neurologic History Hx Cerebrovascular Accident: No Hx Seizures: No Hx Dementia: No - Endocrine History Hx Diabetes: No - Renal History Hx Renal Disorders: Yes Renal History Comment: CKD III, creatinine 1.6 as of 07-29-17. - Liver History Hx Hepatic Disorders: No - Neurological & Psychiatric Hx Hx Neurological and Psychiatric Disorders: Yes Neurological / Psychiatric History Comment: "T12/L4/L5 fx them twice" resulting in back pain. - Cancer History Hx Cancer: No - Congenital Disorder History Hx Congenital Disorders: No - GI History Hx Gastrointestinal Disorders: Yes Gastrointestinal History Comment: use OTC for occ acid reflux - Chronic Pain History Chronic Pain: Yes (back pain, on chronic opioids) - Surgical History Prior Surgeries: s/p 11 surgeries for fractures of ankles, ACL reconstructions ANE Review of Systems Review of systems is: negative Review of Systems: - Exercise capacity Exercise capacity: <4 METS METS (RN): 4 METS - Pacemaker Pacemaker Set Rate: 30 ANE Patient History - Allergies Allergies/Adverse Reactions: cephalexin Allergy (Severe, Verified 08/07/17 17:38) Anaphylaxis - Home Medications Home medications: home medication list seen and reviewed Home Medications: Metoprolol Succinate Xr [Toprol Xl 25 mg (*)] 25 mg PO DAILY 02/26/17 [Last Taken 08/07/17] oxyCODONE HCL [Oxycontin] 30 mg PO BID@03,14 02/26/17 [Last Taken 08/08/17 03:00 ] Colchicine [Colchicine (*)] 0.6 mg PO DAILY 07/19/17 [Last Taken 08/07/17] Herbals/Supplements -Info Only 1 ea PO DAILY 08/06/17 [Last Taken Unknown] Torsemide [Demadex] 20 mg PO DAILY 08/06/17 [Last Taken 08/07/17] oxyCODONE IR [Oxycodone Ir (*)] 10 mg PO Q4HRS PRN 08/06/17 [Last Taken 03:00] predniSONE 20 mg PO DAILY 08/06/17 [Last Taken 08/07/17] - NPO status NPO Status: no food or drink >8 hours NPO Since - Liquids (Date): 08/09/17 NPO Since - Liquids (Time): 00:00 NPO Since - Solids (Date): 08/09/17 NPO Since - Solids (Time): 00:00 - Smoking Hx Smoking Status: Former smoker - Alcohol Use Alcohol Use: Heavy ANE Labs/Vital Signs - Labs Result Diagrams: 08/15/17 12:44 08/15/17 12:44 - Vital Signs Vital Signs: reviewed preoperatively; see RN documention for details Blood Pressure: 116/74 Heart Rate: 68 Respiratory Rate: 15 O2 Sat (%): 95 Height: 182.88 cm Weight: 79.69 kg ANE Physical Exam - Airway Neck exam: FROM Mallampati Score: Class 1 - Pulmonary Pulmonary: no respiratory distress - Cardiovascular Cardiovascular: other - ASA Status ASA Status: III (pacer external) ANE Anesthesia Plan Anesthesia Plan: GA with mask
[2017-08-15] MEDS ORDERED: PROPOFOL/EMULSION 500 MG/50 ML BOTTLE IV ONE (16:17)
[2017-08-15] MEDS ORDERED: fentaNYL 100 MCG/2 ML INJ ONE (16:19)
--- NOTE | 2017-08-15 16:34 | ASMTCMCOM ---
CM Note CM Note Notes: 08/15/2017 Case Management Note Reviewed case with Alyx Kleley. Pt has pacer placed today and will likely d/c tomorrow. Case Management d/c poc: cardiac rehab once a week with follow up by his Primary Care in [place]. Case Management available if needs change. Date Signed: 08/15/2017 04:33 PM Electronically Signed By:Ana M Gaytan RN
[2017-08-15] MEDS ORDERED: IOPAMIDOL (ISOVUE-300) 100 ML BTL ONE (16:36)
[2017-08-15] MEDS ORDERED: PROPOFOL 200 MG/20 ML VIAL ONE ×2 (17:10)
--- NOTE | 2017-08-15 17:52 | POSTOPPROG ---
Post Op Note Date of Operation: 08/15/17 Surgeon: Vijay Burt Anesthesiologist: Katina Velasquez Anesthesia: IV Sedation Pre-op Diagnosis: bradycardia Indication: bradycardia Procedure: dual chamber pacemaker Inf/Abcess present in the surg proc area at time of surgery?: No EBL: Minimal Complications: None
--- NOTE | 2017-08-15 18:28 | CPEKG ---
Heart Rate: 60 RR Interval: 1000 P-R Interval: 176 QRSD Interval: 90 QT Interval: 460 QTC Interval: 460 QRS Enola: 50 T Wave Enola: 81 EKG Severity - ABNORMAL ECG - EKG Impression: ATRIAL-PACED RHYTHM -- NEW SINCE AUGUST 13, 2017 Electronically Signed By: Darrin Werner 16-Aug-2017 06:51:49
[2017-08-15] MEDS ORDERED: SENNOSIDES/DOCUSATE SODIUM TAB PO PRN (21:00)
[2017-08-16] MEDS: oxyCODONE IR 5 MG TAB PO PRN ×2 (00:55→06:08)
[2017-08-16 04:09] LABS: INR 1.54 (0.83-1.16); PROTIME(PATIENT) 18.6 SEC (12.0-15.0)
[2017-08-16 04:11] LABS: PLATELET COUNT 266 10^3/uL (150-400)
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
--- NOTE | 2017-08-16 08:16 | EPPROC ---
Electrophysiology Procedure Note: PROCEDURE DONE 08/15/17 PROCEDURE PERFORMED: 1. Implantation of an A/V Pacemaker 2. Subclavian vein angiography 3. Fluoroscopy INDICATION: Maze procedure, MV repair, TV repair Post maze has sinus pauses requring atrial backup pacing at rates of 30 ppm PROCEDURE NOTE: Patient presented to the cardiac catheterization laboratory in a fasting, post absorptive state . Dr. Gerhard Velasquez administered sedation. The left infraclavicular area was prepped and draped in the usual sterile fashion. Lidocaine plus bupivacaine was used for local anesthesia. Left subclavian venography was performed by injection of iodinated contrast into the left antecubital vein. This was done to assure patency of the vein and also to assess for any anatomical aberrations. Using a combination of blunt and sharp dissection and electrocautery, the dissection was carried down to the prepectoral fascia. A pocket was made in this anatomical plane. All bleeding was controlled with electrocautery. The pocket was packed with gauze soaked in antibiotic solution. Fluoroscopy was utilized during the entire procedure for venous access and placement of the leads. Using a direct stick technique the left extrathoracic axillary vein was accessed with 2 sticks using the modified Seldinger technique. Placement of the guidewires into the venous system was confirmed by low-pressure blood return and also by visualizing the guidewires advancing into the inferior vena cava. A purse string suture was applied around the guidewires. Two #7 [place] sheaths were advanced under fluoroscopic guidance over the guidewire. An active fixation ventricular lead was advanced into the right ventricular apex and screwed in place. An active fixation atrial lead was advanced into the right atrial appendage and screwed in place. The peel away sheaths were removed. Pacing thresholds, sensing parameters and lead impedances were measured. There was no diaphragmatic stimulation at maximum output. The leads were sutured to the prepectoral fascia with 3 nonabsorbable sutures each. During atrial pacing at 120 bpm there was 1:1 AV conduction. QRS duration was < 120 ms. LV epicardial lead placed at time of surgery was brought to pacemaker pocket and thresholds were tested. However due to above findings and LVEF >50% , this lead was recapped and sutured to posterior aspect of pacemaker pocket. This lead is available for use in future if necessary. The pocket was again inspected for any bleeding. The leads were attached to the pacemaker securely. The pacemaker was inserted into the pocket and secured in place with a nonabsorbable suture. Fluoroscopy was performed in MARTIN and KINYARWANDA planes to verify right-sided placement of the leads. Also fluoroscopy of the pacemaker pocket was performed. The pacemaker pocket was closed in 3 layers with absorbable monocryl sutures and bobby. Appropriate dressing was applied. The patient left the cardiac catheterization laboratory in stable condition. Serial Numbers: 1. Device: SJ Assurity 2272 SN [id number] 2. Atrial Lead: SJM Tendril 52 cm 2088TC SN [id number] 3. R Ventricular Lead: SJM Tendril 58 cm 2088TC SN [id number] 4. L Ventricular (epicardial) lead : [facility] [id number] (CAPPED, USABLE) Stimulation Thresholds & Impedance Measurements: 1. Atrial Lead P 4.8 mV 0.9 V 0.5 ms 2.1 mA415 ohm 2. R Ventricular Lead R >12 mV 680 ohm 0.5 V 0.5 ms 3. L Ventricular Lead R 9.4 mV 422 ohm 1.2 V 0.5 ms [place] Pacing Parameters 1. Pacing mode: DDDR 2. Lower rate: 60ppm 3. Upper tracking rate: 120 ppm 4. Upper sensor rate: 120 ppm Patient Problems: Problems Problem Status Onset Gout Acute Acute blood loss anemia Acute S/P CABG x 1 Acute ~08/09/17 CAD in [place] artery Acute CKD (chronic kidney disease) stage 3, GFR 30-59 ml/min Chronic Dilated cardiomyopathy Chronic Diastolic congestive heart failure, NYHA class 3 Chronic Secondary tricuspid valve regurgitation Chronic Severe mitral regurgitation Chronic s/p placement of LV epicardial lead Acute ~08/09/17 S/P Maze operation for atrial fibrillation Acute ~08/09/17 Status post tricuspid valve repair Acute ~08/09/17 Status post mitral valve annuloplasty Acute ~08/09/17 Atrial fibrillation Chronic
--- NOTE | 2017-08-16 08:57 | CPEKG ---
Heart Rate: 76 RR Interval: 789 P-R Interval: 172 QRSD Interval: 92 QT Interval: 400 QTC Interval: 450 P [place]: 100 QRS [place]: 23 T Wave [place]: 105 EKG Severity - ABNORMAL ECG - EKG Impression: SINUS RHYTHM Electronically Signed By: Vijay Burt 16-Aug-2017 10:19:31
[2017-08-16] MEDS: TAMSULOSIN HCL 0.4 MG CAP PO SCH (09:29)
[2017-08-16] MEDS: SPIRONOLACTONE 25 MG TAB PO SCH (09:30)
[2017-08-16] MEDS: COLCHICINE 0.6 MG CAP/TAB PO SCH (09:30)
[2017-08-16] MEDS: oxyCODONE CR 30 MG TAB PO SCH (09:31)
[2017-08-16] MEDS: predniSONE 20 MG TAB PO SCH (09:32)
[2017-08-16] MEDS: FUROSEMIDE 40 MG TAB PO SCH (09:32)
[2017-08-16] MEDS: PANTOPRAZOLE SODIUM 40 MG TAB PO SCH (09:32)
[2017-08-16] MEDS: ASPIRIN 81 MG CHEWABLE TAB PO SCH (09:32)
[2017-08-16] MEDS: POTASSIUM CL 20 MEQ TAB PO SCH (09:32)
[2017-08-16] MEDS: METOPROLOL SUCCINATE XR 25 MG TAB PO SCH (09:32)
[2017-08-16 11:39] VITALS: BP 130/84
--- NOTE | 2017-08-16 12:05 | PDCARPN ---
Cardiology Progress Note Chief Complaint: Patient reports he would like to go home. Assessment/Plan: Assessment: 66-year-old male with significant past history of atrial fibrillation, cardiomyopathy, history of systolic heart failure, renal insufficiency hypertension, and mitral regurgitation. He has recently underwent mitral valve annuloplasty ring placement, tricuspid valve annuloplasty ring placement, CABG x1 (sweeney LAD), Bishop Maze procedure, an epicardial LV lead implantation on 02/2018. Noted to have sinus stephanie dysfunction postoperatively with daytime heart rates less than 30 BPM. Underwent ppm implantation with right atrial and right ventricular lead implantation. LV epicardial lead capped ([employer] device and leads). By Dr. Burt 08/15/2017. Today: Device check by [employer] rep showing functioning within normal limits. Chest x-ray showing no delayed pneumothorax. Postop anemia remained stable. H&H today 9.8 in 29.6. Electrocardiogram done today showing sinus rhythm, with no malignant arrhythmias or pauses. 12 lead showing sinus rhythm, normal axis, nonspecific T-wave abnormalities noted in lateral leads. Patient reports since no shortness of breath, denies of any chest pressure or pain. Plan: 1. Sick sinus syndrome: Status post ppm implantation, device functioning within normal limits, no delayed pneumothorax by chest x-ray. Postprocedure discharge instructions went over with patient including activity restrictions, bathing precautions. Patient has capped epicardial lead if needed for few used to upgrade to Bi V device. 2. CAD: Status post CABG x1 vessel, no chest pain or symptoms suggesting of ischemia, patient his been started on 81 mg of aspirin, statin and beta- blockers 3. Valvular heart disease: Status post mitral and tricuspid valve vision repair. Patient appears to be euvolemic, defer to CT surgery for management at this time. 4. History of dilated cardiomyopathy: Appears euvolemic, continue on current medication management, Patient is planning to be discharged home today, post pacemaker implantation instructions went over with patient. Follow-up appointments have been made for both device and wound check, and one-month follow-up with Dr. Burt. 08/16/17 12:05 Subjective: Patient denies of any chest pressure, pain, shortness of breath, palpitations, lightheadedness, near-syncope or syncopal events. Reviewed/Discussed With: other Objective: Vital Signs (8 Hrs) Temp Pulse Resp BP Pulse Ox 08/16/17 11:30 36.5 C 72 16 130/84 H 93 08/16/17 07:48 36.7 C 69 16 140/89 H 91 L 08/16/17 04:08 36.8 C 60 17 144/86 H 93 Intake/Output (24 Hrs) 08/15/17 08/16/17 08/17/17 05:59 05:59 05:59 Intake Total 1095 750 Output Total 900 Balance 195 750 Intake: Oral (ml) 1095 750 Output: Urine (ml) 900 Toilet 250 Urinal 650 Other: Weight 79.1 kg Number of Voids Toilet 1 1 Urinal 1 Result Diagrams: 08/16/17 03:34 08/16/17 03:34 - Physical Exam Constitutional: WDWN, no apparent distress Ears, Nose, Mouth, Throat: moist mucous membranes Cardiovascular: regular rate and rhythm, no murmurs, pulses symmetric bilat, No jugular vein distention Peripheral Pulses: 1+: dorsalis-pedis (R), dorsalis-pedis (L), 2+: carotid (R), carotid (L) Respiratory: other ( Lungs are diminished in bases bilateral, no rhonchi, rales , or wheezing noted.) Gastrointestinal: normoactive bowel sounds Skin: no edema, other ( Pacemaker insertion site, left anterior chest, incision intact with bobby, no redness, swelling, drainage, or ecchymosis. Sternotomy incision site, CDI, with no signs of infection) Neurologic: AAOx3 Psychiatric: cooperative, interactive, following commands ICD10 Worksheet Patient Problems: Problems Problem Status Onset Acute blood loss anemia Acute CAD in [place] artery Acute Gout Acute S/P CABG x 1 Acute ~08/09/17 S/P Maze operation for atrial fibrillation Acute ~08/09/17 Status post mitral valve annuloplasty Acute ~08/09/17 Status post tricuspid valve repair Acute ~08/09/17 s/p placement of LV epicardial lead Acute ~08/09/17 Atrial fibrillation Chronic CKD (chronic kidney disease) stage 3, GFR 30-59 ml/min Chronic Diastolic congestive heart failure, NYHA class 3 Chronic Dilated cardiomyopathy Chronic Secondary tricuspid valve regurgitation Chronic Severe mitral regurgitation Chronic
--- NOTE | 2017-08-16 12:38 | PDDCSUM ---
Discharge Summary Discharge Summary: ADMISSION DATE: 08/08/17 DISCHARGE DATE: 08/16/17 ADMISSION DIAGNOSES: 1. Severe MR 2. Secondary TR 3. CAD 4. Longstanding persistent atrial fibrillation 5. Dilated cardiomyopathy with class IV diastolic and systolic CHF 6. CKD stage 3 7. Gout 8. Chronic left leg wound DISCHARGE DIAGNOSES: 1. Severe MR 2. Secondary TR 3. CAD 4. Longstanding persistent atrial fibrillation 5. Dilated cardiomyopathy with class IV diastolic and systolic CHF 6. CKD stage 3 7. Gout 8. Chronic left leg wound 9. Acute blood loss anemia 10. Bradycardia 11. Urinary retention PROCEDURES 08/09/17, Carter Uribe: 1. Mitral valve repair with #34 Physio annuloplasty ring 2. Tricuspid valve annuloplasty with #30 MC3 Verma ring 3. Bishop-Maze IV 4. CABGx1 ([place]-LAD) 5. LV lead placed at base of LV and tunneled to left subclavian area 08/14/17, Vijay Burt: 1. Implantation of [employer] A/V pacemaker HOSPITAL COURSE BY PROBLEM LIST 1. Severe MR with secondary TR - s/p MV and TV repairs. Thromboprophylaxis with Coumadin, parameters and duration as per Bishop-Maze protocol. 2. CAD - s/p CABG x1. Continue beta-phil, aspirin, and statin for secondary prevention. 3. Longstanding persistent atrial fibrillation - s/p Bishop-Maze IV with post-op bradycardia requiring A/V pacemaker implantation. Thromboprophylaxis with Coumadin, INR goal 2-3, duration as per Bishop-Maze protocol. 4. Dilated cardiomyopathy with class IV diastolic and systolic CHF - fluid balance optimized on discharge with daily Lasix and Aldactone. Beta-phil restarted after PPM implanted. Plans for further management as an outpatient with Dr. Gallardo. LV lead in place if RN INTAKE needed. 5. CKD stage 3 - discharged with normal Cr. 6. Gout - colchicine and steroids continued. 7. Chronic left leg wound - managed by wound care with patient taught home care. 8. Acute blood loss anemia - stable without the need for blood transfusions. 9. Urinary retention - resolution after Flomax started. Duration as per PCP. CONDITION Good DISPOSITION Home, self-care ACTIVITY Pt was instructed on sternal precautions, activity limitations, and which problems to call [facility] with. Please see Discharge Plan in chart for specifics. DISCHARGE MEDICATIONS Continue: Metoprolol Succinate Xr [Toprol Xl 25 mg (*)] 25 mg PO DAILY oxyCODONE HCL [Oxycontin] 30 mg PO BID@,14 Colchicine [Colchicine (*)] 0.6 mg PO DAILY Aspirin [Aspirin 81mg (*)] 81 mg PO DAILY Herbals/Supplements -Info Only 1 ea PO DAILY oxyCODONE IR [Oxycodone Ir (*)] 10 mg PO Q4HRS PRN predniSONE 20 mg PO DAILY New: Acetaminophen [Tylenol 325mg (*)] 325 - 650 mg PO Q4HRS PRN Furosemide [Lasix 40 MG (*)] 40 mg PO DAILY Potassium Cl [Klor-Con 20 meq (*)] 20 meq PO DAILY Sennosides/Docusate Sodium [Senokot-S] 1 - 2 tab PO BID PRN Spironolactone [Aldactone 25 MG (*)] 25 mg PO DAILY Tamsulosin HCl [Flomax 0.4 MG (*)] 0.4 mg PO DAILY Warfarin Sodium [Coumadin 5MG (*)] 5 mg PO DAILY AT 4PM traMADol [Ultram 50 mg (*)] 50 mg PO Q4HRS PRN Stop: Eliquis Hydralazine Torsemide PENDING STUDIES/LABS 1. CXR prior to surgical follow-up 2. INR 08/17/17 with PCP. Rx given to patient regarding INR parameters and instructed to share with PCP. FOLLOW-UP 1. Carter Uribe, 08/21/17, 11:30 PM 2. Pacemaker clinic, 08/21/17, 11:00 AM 3. PCP, 08/17/17
--- NOTE | 2017-08-21 08:41 | POSTANESTH ---
Post Anesthetic Evaluation Cardiovascular Status: Normal, Stable Respiratory Status: Normal, Stable Level of Consciousness/Mental Status: Can Participate in Eval, Moderately Sleepy Pain Control: Adequate, Prn Tx Ordered Nausea/Vomiting Control: Adequate, Prn Tx Ordered Complications Possibly Related to Anesthesia: None Noted
== END 2017-08-16 13:00 | disposition home or self-care (01) | DRG 217 ==
LOC: FCATH 11:23 → F2W 12:25 → F2N 08-09 07:37 → F2W 08-12 15:56
PROVIDERS: ADMIT Thoracic Surgery (Cardiothoracic Vascular Surgery); ATTEND Thoracic Surgery (Cardiothoracic Vascular Surgery)
PROC: B2111ZZ Fluoroscopy of Multiple Coronary Arteries using Low Osmolar Contrast (ICD-10-PCS; 2017-08-08)
PROC: B2151ZZ Fluoroscopy of Left Heart using Low Osmolar Contrast (ICD-10-PCS; 2017-08-08)
PROC: 4A023N8 Measurement of Cardiac Sampling and Pressure, Bilateral, Percutaneous Approach (ICD-10-PCS; 2017-08-08)
PROC: 02UJ0JZ Supplement Tricuspid Valve with Synthetic Substitute, Open Approach (ICD-10-PCS; principal; 2017-08-09 07:15)
PROC: 02L70CK Occlusion of Left Atrial Appendage with Extraluminal Device, Open Approach (ICD-10-PCS; principal; 2017-08-09 07:15)
PROC: 02H Heart and Great Vessels, Insertion (ICD-10-PCS; principal; 2017-08-09 07:15)
PROC: 5A1221Z Performance of Cardiac Output, Continuous (ICD-10-PCS; principal; 2017-08-09 07:15)
PROC: 02100Z9 Bypass Coronary Artery, One Artery from Left Internal Mammary, Open Approach (ICD-10-PCS; principal; 2017-08-09 07:15)
PROC: 5A2204Z Restoration of Cardiac Rhythm, Single (ICD-10-PCS; principal; 2017-08-09 07:15)
PROC: 02UG0JZ Supplement Mitral Valve with Synthetic Substitute, Open Approach (ICD-10-PCS; principal; 2017-08-09 07:15)
PROC: 02580ZZ Destruction of Conduction Mechanism, Open Approach (ICD-10-PCS; principal; 2017-08-09 07:15)
PROC: 02H63JZ Insertion of Pacemaker Lead into Right Atrium, Percutaneous Approach (ICD-10-PCS; 2017-08-15)
PROC: 0JH636Z Insertion of Pacemaker, Dual Chamber into Chest Subcutaneous Tissue and Fascia, Percutaneous Approach (ICD-10-PCS; 2017-08-15)
PROC: 02HK3JZ Insertion of Pacemaker Lead into Right Ventricle, Percutaneous Approach (ICD-10-PCS; 2017-08-15)
DX: I08.1 Rheumatic disorders of both mitral and tricuspid valves (principal); I25.10 Atherosclerotic heart disease of native coronary artery without angina pectoris; I48.1 Persistent atrial fibrillation; I42.0 Dilated cardiomyopathy; I13.0 Hypertensive heart and chronic kidney disease with heart failure and stage 1 through stage 4 chronic kidney disease, or unspecified chronic kidney disease; I50.40 Unspecified combined systolic (congestive) and diastolic (congestive) heart failure; N18.3 Chronic kidney disease, stage 3 (moderate); L97.829 Non-pressure chronic ulcer of other part of left lower leg with unspecified severity; M10.9 Gout, unspecified; D62 Acute posthemorrhagic anemia; N17.9 Acute kidney failure, unspecified; I49.5 Sick sinus syndrome; R33.9 Retention of urine, unspecified; E78.5 Hyperlipidemia, unspecified; K76.9 Liver disease, unspecified; R73.9 Hyperglycemia, unspecified; T38.0X5A Adverse effect of glucocorticoids and synthetic analogues, initial encounter; G89.29 Other chronic pain; F11.20 Opioid dependence, uncomplicated; Z87.891 Personal history of nicotine dependence
CPT/HCPCS: 82947-QW; 92610-GN; 97110-GP; 97116-GP; 97161-GP; 97165-GO; 97530-GO; 97530-GP; 97535-GO; C1721; C1769; C1785; C1898; G8978-GP-CK; G8979-GP-CI; G8980-GP-CI; G8987-GO-CK; G8988-GO-CI; G8996-GN-CH; G8997-GN-CH; G8998-GN-CH; J0153; J0282; J0690; J1100; J1250; J1265; J1644; J1720; J1815; J1940; J2001; J2150; J2250; J2260; J2270; J2370; J2405; J2440; J2704; J2720; J2765; J2930; J3010; J3370; J3475; J7060; J7512; P9041; Q9967

== ENCOUNTER → 2017-08-21 | Outpatient (CLI) | payer OTHER | LOC: FIMAGING 10:21 | PROVIDERS: ATTEND Thoracic Surgery (Cardiothoracic Vascular Surgery) | DX: Z09 Encounter for follow-up examination after completed treatment for conditions other than malignant neoplasm (principal); J98.11 Atelectasis; J90 Pleural effusion, not elsewhere classified; I51.7 Cardiomegaly; Z95.1 Presence of aortocoronary bypass graft; Z95.2 Presence of prosthetic heart valve; Z95.0 Presence of cardiac pacemaker; Z98.890 Other specified postprocedural states; Z86.79 Personal history of other diseases of the circulatory system ==

== ENCOUNTER 2017-08-22 07:39 | Day surgery (SDC) | payer OTHER ==
[2017-08-22] MEDS ORDERED: MIDAZOLAM 2 MG/2 ML VIAL IVP ONE (07:41)
[2017-08-22] MEDS ORDERED: BENZOCAINE UNIT DOSE SPRAY HURRICAINE MM ONE (07:41)
[2017-08-22] MEDS ORDERED: NS 500 ML IV ONE (07:41)
[2017-08-22] MEDS ORDERED: fentaNYL 100 MCG/2 ML INJ IVP ONE (07:41)
[2017-08-22] MEDS ORDERED: ATROPINE SULFATE 1 MG/10 ML SYR IVP ONE (07:41)
--- NOTE | 2017-08-22 08:10 | CPEKG ---
Heart Rate: 91 RR Interval: 659 QRSD Interval: 84 QT Interval: 360 QTC Interval: 443 QRS [place]: 37 EKG Severity - ABNORMAL ECG - EKG Impression: ATRIAL FIBRILLATION EKG Impression: ATRIAL FIBRILLATION HAS REPLACED SINUS RHYTHM NOTED ON PRIOR ECG Electronically Signed By: Jaiden Martinez 22-Aug-2017 10:57:41
[2017-08-22 08:39] LABS: INR 2.09 (0.83-1.16); PROTIME(PATIENT) 23.5 SEC (12.0-15.0)
[2017-08-22] MEDS ORDERED: ETOMIDATE 40 MG/20 ML INJ ONE (08:53)
--- NOTE | 2017-08-22 09:14 | PDPROPOC ---
Sedation Plan of Care Sedation Plan of Care: vital signs stable, mental status noted, patient educated of risks, benefits, alternatives, patient can tolerate sedation ASA Classification: ASA 3 Planned drugs: fentanyl, midazolam Mallampati Score: Class 2 Mallampati Reference Image: Patient passed 3-3-2 rule?: Yes
--- NOTE | 2017-08-22 09:15 | PDHPUP ---
History & Physical Update H&P update statement: This history and physical update is based on an assessment of the patient which was completed after admission or registration (within 24 hours), but prior to the surgery/procedure. H&P update: H&P reviewed & patient examined, no change in patient's condition since H&P completed H&P changes: Patient has a fib with RVR needs ANGEL cardioversion
--- NOTE | 2017-08-22 10:16 | PDTEE1 ---
ANGEL Cardioversion Procedure Procedure: electrical cardioversion, transesophageal echo Indications: atrial fibrillation Consent: signed and in chart Anticoagulation: warfarin Procedural Details: Pads were placed in anterior-posterior position. ANGEL probe was advanced and standard images obtained. There is no evidence of left atrial or left atrial appendage thrombus. Synchronized cardioversion attempt #1: 300J Results: normal sinus rhythm Conclusions: successful ANGEL cardioversion Patient Problems: Problems Problem Status Onset Acute blood loss anemia Acute CAD in [place] artery Acute Gout Acute S/P CABG x 1 Acute ~08/09/17 S/P Maze operation for atrial fibrillation Acute ~08/09/17 Status post mitral valve annuloplasty Acute ~08/09/17 Status post tricuspid valve repair Acute ~08/09/17 s/p placement of LV epicardial lead Acute ~08/09/17 Atrial fibrillation Chronic CKD (chronic kidney disease) stage 3, GFR 30-59 ml/min Chronic Diastolic congestive heart failure, NYHA class 3 Chronic Dilated cardiomyopathy Chronic Secondary tricuspid valve regurgitation Chronic Severe mitral regurgitation Chronic
[2017-08-22] MEDS ORDERED: AMIODARONE HCL 100 ML IV ONE (10:30)
--- NOTE | 2017-08-22 10:53 | CPEKG ---
Heart Rate: 60 RR Interval: 1000 P-R Interval: 180 QRSD Interval: 84 QT Interval: 432 QTC Interval: 432 P [place]: 38 QRS [place]: 39 T Wave [place]: 90 EKG Severity - ABNORMAL ECG - EKG Impression: ATRIAL-PACED COMPLEXES EKG Impression: NONSPECIFIC T ABNORMALITIES, LATERAL LEADS EKG Impression: ATRIAL PACED COMPLEXES HAVE REPLACED ATRIAL FIBRILLATION NOTED ON PRIOR ECG Electronically Signed By: Jaiden Martinez 22-Aug-2017 10:58:09
[2017-08-22 12:22] VITALS: BP 112/79
--- NOTE | 2017-08-23 08:45 | ECHO ---
[email or web address] [id number] Main: [phone] Fax: Transesophageal Echocardiography Name: RAÚL MONTES MR#: [id number] Study Date: 08/22/2017 Study Time: 09:03 AM Date of : 1950 Age: 66 year(s) Height: ( ) Weight: ( ) BSA: Gender: Male Examination: ANGEL Indication: Post open heart, Pre cardioversion Image Quality: Contrast: Requested by: Chaparro Bustos Heart Rate: Rhythm: BP: / Procedure Staff Electrotyper Helper: Deven Ramos RDCS Reading Physician: Chaparro Bustos MD Requesting Provider: ANGEL Exam Details Measurements: Chambers Valvular Assessment AV/MV Valvular Assessment TV/PV Normal Normal Normal Name Value Range Name Value Range Name Value Range Additional Measurements: Findings: Left Ventricle: Normal global systolic LV function. Right Ventricle: Normal size right ventricle. Left Atrium: There is a left atrial appendage clip.. Right Atrium: The right atrium is normal in size. Mitral Valve: A bioprothetic mitral valve is in place. The mitral valve prosthesis exhibits normal function. Aortic Valve: The aortic valve is a bioprosthesis. Normal functioning aortic valve prosthesis. Tricuspid Valve: There is a tricuspid valve ring. Tricuspid valve prosthesis function is normal. Pulmonic Valve: Patient: RAÚL MONTES Study Date: 08/22/2017 Page 1 of 2 09:03 AM The pulmonic valve is normal in appearance and function. Aorta: The aorta is normal. Pericardium: No pericardial effusion. l1n (No Signature Object) Patient: RAÚL MONTES Study Date: 08/22/2017 Page 2 of 2 09:03 AM [id number]
== END 2017-08-22 13:15 | disposition home or self-care (01) ==
LOC: FCATH 07:39
PROVIDERS: ATTEND Internal Medicine Cardiovascular Disease
PROC: 5A2204Z Restoration of Cardiac Rhythm, Single (ICD-10-PCS; principal; 2017-08-22)
DX: I48.2 Chronic atrial fibrillation (principal); I50.30 Unspecified diastolic (congestive) heart failure; I34.0 Nonrheumatic mitral (valve) insufficiency; N17.9 Acute kidney failure, unspecified; Z79.82 Long term (current) use of aspirin
CPT/HCPCS: J0282; J0461; J2250; J3010

== ENCOUNTER 2017-10-11 18:48 | Inpatient (IN) | payer OTHER ==
--- NOTE | 2017-10-11 19:18 | EDPHY ---
H & P Stated Complaint: hx afib failed ablation in july here for cardioversion? Time Seen by Provider: 10/11/17 19:15 HPI/ROS: CHIEF COMPLAINT: Recurrent atrial fib ablation HISTORY OF PRESENT ILLNESS: The patient has a history of coronary artery disease and valvular heart disease and paroxysmal atrial fibrillation. He is status post mitral and tricuspid valve surgery, Maze procedure in CABG in July. He required cardioversion later that month. He presents to the ED today with recurrent palpitations. The patient reports he took himself all of his cardiac medications earlier this week. He felt that he was having fatigue as a result of the medications. He reports he has been compliant with his Coumadin. The patient denies any focal numbness or weakness. He denies history of fall or trauma. He denies headache. REVIEW OF SYSTEMS: A comprehensive 10 point review of systems is otherwise negative aside from elements mentioned in the history of present illness. Source: Patient - Personal History Current Tetanus/Diphtheria Vaccine: Yes - Medical/Surgical History Hx Asthma: No Hx Chronic Respiratory Disease: No Hx Diabetes: No Hx Cardiac Disease: Yes Hx Renal Disease: No Hx Cirrhosis: No Hx Alcoholism: No Hx HIV/AIDS: No Hx Splenectomy or Spleen Trauma: No Other PMH: a fib. CHF. HTN/RAYNAUDS/BACK FX x2, knee replacements, chronic pain - Social History Smoking Status: Former smoker - Physical Exam Exam: General Appearance: Alert, no distress Eyes: Pupils equal and round no pallor or injection ENT, Mouth: Mucous membranes moist Respiratory: There are no retractions, lungs are clear to auscultation Cardiovascular: Tachycardic, irregular Gastrointestinal: Abdomen is soft and nontender, no masses, bowel sounds normal Neurological: A&O, normal motor function, normal sensory exam, normal cranial nerves Skin: Warm and dry, no rashes Musculoskeletal: Neck is supple nontender Extremities: symmetrical, full range of motion Psychiatric: Patient is oriented X 3, there is no agitation Constitutional: Initial Vital Signs Temperature (C) 36.5 C 10/11/17 18:58 Heart Rate 138 H 18 18:58 Respiratory Rate 18 10/11/17 18:58 Blood Pressure 130/99 H 10/11/17 18:58 O2 Sat (%) 93 10/11/17 18:58 O2 Delivery Mode Room Air Allergies/Adverse Reactions: cephalexin Allergy (Severe, Verified 10/11/17 18:58) Anaphylaxis Home Medications: Medication Instructions Recorded oxyCODONE HCL [Oxycontin] 30 mg PO BID@02/26/17 oxyCODONE IR [Oxycodone Ir (*)] 10 mg PO Q4HRS PRN 08/06/17 Warfarin Sodium [Coumadin 3MG (*)] 3 mg PO DAILY@16 10/11/17 Medical Decision Making - Diagnostics EKG Interpretation: EKG: Complete interpretation has been separately recorded in the [facility] archive. Summary impression: Atrial fibrillation, rate 137, no ST segment elevation or depression, unifocal PVCs noted Imaging Results: EKG: Complete interpretation has been separately recorded in the [email or web address] archive. Summary impression: Narrow complex tachycardia, likely underlying low -voltage fib versus flutter. ED Course/Re-evaluation: The patient presents to the ED with recurrent atrial fibrillation with rapid ventricular response in the setting of medication noncompliance for the past week. The patient is hemodynamically stable. He has no focal findings on his neurologic examination. The patient was slightly subtherapeutic with an INR of 1.8. The patient's hospital account liaison would like him admitted to the hospital. The patient was given his regular 100 mg oral dose of metoprolol. Consultation was made with Dr. Abdirashid Combs from the hospitalist service. The patient will be admitted to the progressive care unit. The patient has no evidence of a critical anemia or metabolic abnormality. The patient's creatinine is 1.6 which is improved from his chronic renal insufficiency which typically runs with a creatinine of 2. Differential Diagnosis: Differential diagnosis considered includes atrial fibrillation, atrial flutter, dehydration, metabolic abnormality, congestive heart failure, renal failure - Data Points Laboratory Results: Laboratory Results 10/11/17 19:24 10/11/17 19:24 10/11/17 10/11/17 10/11/17 19:24 19:24 19:24 WBC 9.58 10^3/uL H 10^3/uL (3.80-9.50) RBC 4.20 10^6/uL L 10^6/uL (4.40-6.38) Hgb 10.9 g/dL L g/dL (13.7-17.5) Hct 36.2 % L % (40.0-51.0) MCV 86.2 fL fL (81.5-99.8) MCH 26.0 pg L pg (27.9-34.1) MCHC 30.1 g/dL L g/dL (32.4-36.7) RDW 18.3 % H % (11.5-15.2) Plt Count 516 10^3/uL H 10^3/uL (150-400) MPV 9.1 fL fL (8.7-11.7) Neut % (Auto) 69.1 % % (39.3-74.2) Lymph % (Auto) 18.5 % % (15.0-45.0) [place] % (Auto) 9.7 % % (4.5-13.0) Eos % (Auto) 1.3 % % (0.6-7.6) Baso % (Auto) 1.0 % % (0.3-1.7) Nucleat RBC Rel Count 0.0 % % (0.0-0.2) Absolute Neuts (auto) 6.62 10^3/uL H 10^3/uL (1.70-6.50) Absolute Lymphs (auto) 1.77 10^3/uL 10^3/uL (1.00-3.00) Absolute Monos (auto) 0.93 10^3/uL H 10^3/uL (0.30-0.80) Absolute Eos (auto) 0.12 10^3/uL 10^3/uL (0.03-0.40) Absolute Basos (auto) 0.10 10^3/uL 10^3/uL (0.02-0.10) Absolute Nucleated RBC 0.00 10^3/uL 10^3/uL (0-0.01) Immature Gran % 0.4 % % (0.0-1.1) Immature Gran # 0.04 10^3/uL 10^3/uL (0.00-0.10) PT 20.8 SEC H SEC (12.0-15.0) INR 1.78 H (0.83-1.16) APTT 44.8 SEC H SEC (23.0-38.0) Sodium 137 mEq/L mEq/L (135-145) Potassium 3.9 mEq/L mEq/L (3.3-5.0) Chloride 92 mEq/L L mEq/L (97-110) Carbon Dioxide 33 mEq/l H mEq/l (22-31) Anion Gap 12 mEq/L mEq/L (8-16) BUN 21 mg/dL mg/dL (7-23) Creatinine 1.6 mg/dL H mg/dL (0.7-1.3) Estimated GFR 43 Glucose 79 mg/dL mg/dL (70-100) Calcium 8.9 mg/dL mg/dL (8.5-10.4) Medications Given: Discontinued Medications Metoprolol Tartrate (Lopressor) 100 mg PO EDNOW ONE Stop: 10/11/17 19:57 Last Admin: 10/11/17 20:41 Dose: 100 mg Departure - Departure Disposition: [facility] Inpatient Acute Clinical Impression: Atrial fibrillation with RVR, CKD (chronic kidney disease) stage 3, GFR 30-59 ml/min, S/P CABG x 1, Status post tricuspid valve repair, Status post mitral valve annuloplasty, S/P Maze operation for atrial fibrillation Condition: Good
--- NOTE | 2017-10-11 19:19 | CPEKG ---
Heart Rate: 137 RR Interval: 438 P-R Interval: 288 QRSD Interval: 86 QT Interval: 300 QTC Interval: 453 P [place]: 0 QRS [place]: 46 T Wave [place]: 12 EKG Severity - ABNORMAL ECG - EKG Impression: ATRIAL FIBRILLATION, V-RATE 0-0 EKG Impression: MULTIPLE VENTRICULAR PREMATURE COMPLEXES EKG Impression: FIRST DEGREE AV BLOCK Electronically Signed By: Stalin Handy 11-Oct-2017 19:37:25
[2017-10-11 19:45] LABS: PLATELET COUNT 516 10^3/uL (150-400)
[2017-10-11 19:56] LABS: INR 1.78 (0.83-1.16); PROTIME(PATIENT) 20.8 SEC (12.0-15.0)
[2017-10-11] MEDS ORDERED: METOPROLOL TARTRATE 100 MG TAB PO ONE (19:56)
[2017-10-11] MEDS ORDERED: FUROSEMIDE 40 MG/4 ML VIAL IVP ONE ×2 (21:15→23:30)
--- NOTE | 2017-10-11 22:22 | GHP ---
[f rep st] HISTORY AND PHYSICAL DATE OF ADMISSION: 10/11/2017 Mr. Crawley is a 67-year-old gentleman with a history of coronary artery disease and severe mitral regurgitation who recently in July of this year underwent valve repair of the mitral and tricuspid v ovalle as well as a 1-vessel bypass. He had a preexisting diagnosis of atrial fibrillation. His post operative course has been complicated by that as well, requiring admission to the hospital in July or elective ANGEL cardioversion. He was discharged and has done well since then with intermittent cardiology followup. It sounds like he sees them about once every month and a half. Over the last few weeks, he has noted that he felt that he was in a fog. He is feeling weak with blurred vision. He abruptly stopped all of his medica tions, which appeared to be metoprolol, Lasix, aspirin. He continued to take warfarin, and he takes chronic pain pills for low back pain. He went to the cardiology clinic yesterday where he was noted to be in rapid atrial fibrillation and referred for admission, but he declined because had some errands to run, but he returns today for adm ission. He notes that he has noticed a bit of swelling in his legs that had started over the last co uple of days. He feels better since stopping his medications. He has not had fever, chills, cough, sputum. He continues to have alcohol. He is a nonsmoker. REVIEW OF SYSTEMS: Complete 10-point review of systems conducted, negative except as noted in the HP I. PAST MEDICAL HISTORY: 1. Longstanding atrial fibrillation. 2. Chronic kidney disease, baseline creatinine about 1.5. 3. Mitral regurgitation status post repair. 4. Coronary artery disease status post bypass. PHYSICAL EXAMINATION: PRESENTING VITALS: Temp 36.5, blood pressure 130/99, pulse 138, now 1-teens, breathing 18 times a minute, 93% on room air. GENERAL: No acute distress. HEENT: Sclerae anicteri c. Oropharynx clear. Mucous membranes moist. NECK: Supple. No lymphadenopathy. 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 HEART: S1, S2. Irregularly irregular. Tachycardic. ABDOMEN: Sof t. Midline incision of his chest is well healed. LOWER EXTREMITIES: Show chronic venous stasis joe nges with trace edema bilaterally. LABS: White count 9.6, hematocrit 36, platelets are 516,000. INR is 1.8. Sodium 137, potassium 3.9 , chloride 92, bicarb 33, BUN 21, creatinine 1.6, it was 1 just 2 months ago. EKG interpreted by me shows atrial fibrillation at 137, with no ST or T-wave changes. Chest x-ray is pending. I have discussed the case Dr. Nickolas Handy. ASSESSMENT/PLAN: A 67-year-old gentleman with recent mitral valve repair, as well as coronary artery bypass graft presents with rapid atrial fibrillation. 1. Atrial fibrillation. This is rapid, uncontrolled secondary to cessation of his beta phil. I have given him 100 mg of metoprolol and will follow. Given his subtherapeutic INR, we will start low -molecular heparin and will make him n.p.o. past midnight for possible transesophageal echocardiogram and cardioversion in the morning. 2. Congestive heart failure. I believe the patient is probably a bit clinically wet, although I do acknowledge his elevated creatinine. His history of having elevated creatinine in the setting of hea rt failure. However, that was before his mitral valve was repaired. We will give a 1 time trial of Lasix and follow his labs. 3. Crackles. Will perform chest x-ray. His recent coronary artery bypass graft is at risk for a pl eural effusion. He may also have pulmonary edema. 4. History of coronary disease. Restart aspirin and beta phil. Chronic back pain. Continue his chronic narcotics. 5. Disposition: Inpatient status. /[id number]/[id number]
[2017-10-11] MEDS: oxyCODONE IR 5 MG TAB PO PRN (23:32)
[2017-10-11] MEDS ORDERED: ENOXAPARIN 80 MG/0.8 ML SYR SC ONE (23:45)
[2017-10-12] MEDS: oxyCODONE CR 30 MG TAB PO SCH ×2 (02:50→14:22)
[2017-10-12 04:26] LABS: INR 2.1 (0.83-1.16); PROTIME(PATIENT) 23.6 SEC (12.0-15.0)
[2017-10-12] MEDS ORDERED: FUROSEMIDE 20 MG TAB PO SCH (09:00)
--- NOTE | 2017-10-12 09:28 | HOSPPROG ---
Hospitalist Progress Note Assessment/Plan: Atrial fibrillation - s/p ANGEL/CV 07/2017, then stopped his Metoprolol. Rate control improved this am back on Metoprolol. INR therapeutic on coumadin. -NPO for possible cardioversion, will alert cards -cont BBholdenanabela -considered changing to dilt since he may be having untoward side effects from BB, but BB preferred given CAD. Will review with cards Acute heart failure - still appears volume up with JVD and LE edema, d/c weight in july was 74.8 kg, now 78.9 kg -cont lasix, will give IV today -follow I&O's, daily weights CAD s/p 1v CABG - stable, cont ASA, BB. LDL 140 in 07/2017 -add statin Severe MR - s/p valve repair 07/2017 CKD - baseline Cr 1.6-1.8, monitor closely while diuresing Chronic low back pain - cont home opioid regimen Full code Dispo - cont inpt, ADD uncertain Subjective: Pt feels a little better. No CP or SOB. Still a bit orthopneic and dyspneic with activity. No fevers/chills. NPO this am for possible cardioversion. Objective: Vital Signs Temp Pulse Resp BP Pulse Ox 36.6 C 100 15 108/78 89 L 10/12/17 07:32 10/12/17 07:32 10/12/17 07:32 10/12/17 07:32 10/12/17 07:32 Laboratory Results 10/12/17 03:16 10/12/17 03:16 10/11/17 10/12/17 10/13/17 05:59 05:59 05:59 Intake Total 150 Output Total 1100 550 Balance -950 -550 PT 23.6 SEC (12.0-15.0) H 10/12/17 03:16 INR 2.10 (0.83-1.16) H 10/12/17 03:16 - Physical Exam Constitutional: no apparent distress Eyes: PERRL Ears, Nose, Mouth, Throat: moist mucous membranes Cardiovascular: irregularly irregular Respiratory: no respiratory distress, inspiratory crackles Gastrointestinal: normoactive bowel sounds, soft, non-tender abdomen Skin: warm Musculoskeletal: full muscle strength, other (1+ b/l LE pitting edema) Neurologic: AAOx3 Psychiatric: interacting appropriately ICD10 Worksheet Patient Problems: Problems Problem Status Onset Atrial fibrillation with RVR Acute S/P CABG x 1 Acute ~08/09/17 S/P Maze operation for atrial fibrillation Acute ~08/09/17 Status post mitral valve annuloplasty Acute ~08/09/17 Status post tricuspid valve repair Acute ~08/09/17 CKD (chronic kidney disease) stage 3, GFR 30-59 ml/min Chronic Acute blood loss anemia Acute CAD in [place] artery Acute Gout Acute s/p placement of LV epicardial lead Acute ~08/09/17 Atrial fibrillation Chronic Diastolic congestive heart failure, NYHA class 3 Chronic Dilated cardiomyopathy Chronic Secondary tricuspid valve regurgitation Chronic Severe mitral regurgitation Chronic
[2017-10-12] MEDS: oxyCODONE IR 5 MG TAB PO PRN ×3 (10:36→18:37)
[2017-10-12] MEDS: ATORVASTATIN CALCIUM 40 MG TAB PO SCH (10:36)
[2017-10-12] MEDS: METOPROLOL TARTRATE 100 MG TAB PO SCH ×2 (10:37→20:37)
[2017-10-12] MEDS: ASPIRIN EC 81 MG TAB PO SCH (10:38)
[2017-10-12] MEDS: FUROSEMIDE 20 MG/2 ML VIAL IVP SCH ×2 (10:39→18:29)
--- NOTE | 2017-10-12 11:46 | ASMTCASEMG ---
Living Arrangements What is your living Answers: With Spouse arrangement? Who do you live with? Type Of Residence What kind of residence do Answers: House you live in? Discharge Plan Comments Coordination Status Comments Notes: Pts case discussed in morning rounds. Pt is a 67 y/o man admitted for atrial fibrillation. Pt goes by Jaime. Pt has a hx of chronic kidney disease. Cards have been consulted. Pt will most likely d/c without any needs. No therapies ordered at this time. CM available for changes. Plan: Independent Date Signed: 10/12/2017 11:46 AM Electronically Signed By:EDGAR Manzanares
--- NOTE | 2017-10-12 12:05 | PDMN ---
Medical Necessity Medical necessity: MCG: M505 Atrial Fibrillation, Tachycardic, NPO for potential ANGEL/CV, Acute Heart failure w/ lower extremity edema and JVD, on IV Lasix, orthopneic and dyspneic w/ activity, cardiology consult pending, significant cardiac history w/ CABG in July 2017. Ongoing monitoring and treatment, anticipate >2MN.
[2017-10-12] MEDS ORDERED: NS 1,000 ML IV ONE (13:51)
[2017-10-12] MEDS ORDERED: ATROPINE SULFATE 1 MG/10 ML SYR IVP ONE (13:52)
--- NOTE | 2017-10-12 13:54 | PDPROPOC ---
Sedation Plan of Care Sedation Plan of Care: vital signs stable, mental status noted, patient educated of risks, benefits, alternatives, patient can tolerate sedation ASA Classification: ASA 4 Planned drugs: fentanyl, midazolam, other (Etomidate) Mallampati Score: Class 3 Mallampati Reference Image: Patient passed 3-3-2 rule?: Yes
--- NOTE | 2017-10-12 13:55 | PDHPUP ---
History & Physical Update H&P update statement: This history and physical update is based on an assessment of the patient which was completed after admission or registration (within 24 hours), but prior to the surgery/procedure. H&P update: H&P reviewed & patient examined (pt remains in a fib symptomatic with RVR), no change in patient's condition since H&P completed
[2017-10-12] MEDS ORDERED: fentaNYL 100 MCG/2 ML INJ IVP ONE (14:20)
[2017-10-12] MEDS ORDERED: MIDAZOLAM 2 MG/2 ML VIAL IVP ONE (14:20)
[2017-10-12] MEDS ORDERED: NS 500 ML IV ONE (14:20)
[2017-10-12] MEDS ORDERED: BENZOCAINE UNIT DOSE SPRAY HURRICAINE MM ONE (14:20)
[2017-10-12] MEDS ORDERED: ETOMIDATE 40 MG/20 ML INJ IV ONE (15:00)
[2017-10-12] MEDS ORDERED: WARFARIN SODIUM 3 MG TAB PO SCH (16:00)
--- NOTE | 2017-10-12 16:21 | PDTEE1 ---
ANGEL Cardioversion Procedure Procedure: electrical cardioversion Indications: atrial fibrillation Consent: signed and in chart Anticoagulation: warfarin Procedural Details: Pads were placed in anterior-posterior position. ANGEL probe was advanced and standard images obtained. There is no evidence of left atrial or left atrial appendage thrombus. Synchronized cardioversion attempt #1: other (250 Joules) Results: other (AV sequential pacing. I temporarily increased the basal atrial rate to 70 BPM and turned on a fib suppression at atrial rates up to 90 to hopefully decrease the risk of a fib recurrence.) Conclusions: successful ANGEL cardioversion Patient Problems: Problems Problem Status Onset Atrial fibrillation with RVR Acute S/P CABG x 1 Acute ~08/09/17 S/P Maze operation for atrial fibrillation Acute ~08/09/17 Status post mitral valve annuloplasty Acute ~08/09/17 Status post tricuspid valve repair Acute ~08/09/17 CKD (chronic kidney disease) stage 3, GFR 30-59 ml/min Chronic Acute blood loss anemia Acute CAD in [place] artery Acute Gout Acute s/p placement of LV epicardial lead Acute ~08/09/17 Atrial fibrillation Chronic Diastolic congestive heart failure, NYHA class 3 Chronic Dilated cardiomyopathy Chronic Secondary tricuspid valve regurgitation Chronic Severe mitral regurgitation Chronic
--- NOTE | 2017-10-12 16:26 | CPEKG ---
Heart Rate: 91 RR Interval: 659 P-R Interval: 208 QRSD Interval: 86 QT Interval: 384 QTC Interval: 473 QRS [place]: 58 T Wave [place]: 113 EKG Severity - ABNORMAL ECG - EKG Impression: ATRIAL-PACED RHYTHM EKG Impression: REPOL ABNRM SUGGESTS ISCHEMIA, ANT-LAT LEADS EKG Impression: ATRIAL PACING IS NEW IN COMPARISON TO YESTERDAY'S ATRIAL FIBRILLATION Electronically Signed By: Jaiden Martinez 12-Oct-2017 17:14:13
[2017-10-12] MEDS ORDERED: predniSONE 20 MG TAB PO ONE (22:24)
--- NOTE | 2017-10-12 22:33 | HOSPPROG ---
Hospitalist Progress Note Assessment/Plan: Patient seen on almond grinder for acute bilateral foot and toe pain, has history of gout On examination he has changes consistent with bilateral gouty arthropathy acutely in the feet and per particularly the 1st MTPs. He does have some renal insufficiency with creatinine of 1.5 and so I would not use a nonsteroidal anti- inflammatory rate now particularly as AFib in will be needing anticoagulation. Will therefore give him some prednisone and some colchicine as he is quite uncomfortable Objective: Vital Signs Temp Pulse Resp BP Pulse Ox 36.6 C 91 16 124/81 H 90 L 10/12/17 20:46 10/12/17 20:46 10/12/17 20:46 10/12/17 20:46 10/12/17 20:46 Laboratory Results 10/12/17 03:16 10/12/17 03:16 10/11/17 10/12/17 10/13/17 06:59 06:59 06:59 Intake Total 150 150 Output Total 1100 1290 Balance -950 -1140 PT 23.6 SEC (12.0-15.0) H 10/12/17 03:16 INR 2.10 (0.83-1.16) H 10/12/17 03:16 ICD10 Worksheet Patient Problems: Problems Problem Status Onset Atrial fibrillation with RVR Acute S/P CABG x 1 Acute ~08/09/17 S/P Maze operation for atrial fibrillation Acute ~08/09/17 Status post mitral valve annuloplasty Acute ~08/09/17 Status post tricuspid valve repair Acute ~08/09/17 CKD (chronic kidney disease) stage 3, GFR 30-59 ml/min Chronic Acute blood loss anemia Acute CAD in [place] artery Acute Gout Acute s/p placement of LV epicardial lead Acute ~08/09/17 Atrial fibrillation Chronic Diastolic congestive heart failure, NYHA class 3 Chronic Dilated cardiomyopathy Chronic Secondary tricuspid valve regurgitation Chronic Severe mitral regurgitation Chronic
[2017-10-12] MEDS: COLCHICINE 0.6 MG CAP/TAB PO SCH (22:38)
[2017-10-13] MEDS: oxyCODONE IR 5 MG TAB PO PRN (00:13)
[2017-10-13] MEDS: oxyCODONE CR 30 MG TAB PO SCH (02:33)
[2017-10-13] MEDS: ASPIRIN EC 81 MG TAB PO SCH (08:50)
[2017-10-13] MEDS: COLCHICINE 0.6 MG CAP/TAB PO SCH (08:50)
[2017-10-13] MEDS: ATORVASTATIN CALCIUM 40 MG TAB PO SCH (08:50)
[2017-10-13] MEDS: FUROSEMIDE 20 MG/2 ML VIAL IVP SCH (08:51)
[2017-10-13] MEDS ORDERED: predniSONE 20 MG TAB PO SCH (09:00)
--- NOTE | 2017-10-13 09:02 | PDHOMEO2F ---
Home Oxygen Face to Face Home Orders: I certify that a physician or a nurse practitioner or physician's phlebotomist medical lab assistant has had a [id number] encounter with this patient on the date of this order due to the diagnosis listed, which relates to the primary reason the patient requires home oxygen. Alternative treatments have been tried, or considered, and deemed ineffective. It is anticipated that supplemental oxygen will result in improvement with treatment. Home oxygen qualifying diagnosis: heart failure SpO2 on room air (%): 80 Frequency of home oxygen needed: continuous Home oxygen liters per minute: 2 LPM Home oxygen delivery device: nasal cannula Concentrator: Yes E-tanks for mobility and back up: Yes If ordering portable O2, is the patient mobile in the home?: Yes I certify that, based on these findings, the home oxygen is medically necessary for this patient for the following length of time. Length of time home oxygen needed: 99 years
[2017-10-13] MEDS: METOPROLOL TARTRATE 100 MG TAB PO SCH (09:07)
--- NOTE | 2017-10-13 10:09 | GDS ---
[f rep st] DISCHARGE SUMMARY DISCHARGE DIAGNOSES: 1. Atrial fibrillation with rapid ventricular rate. 2. Acute diastolic heart failure. 3. Coronary artery disease, status post 1-vessel coronary artery bypass grafting, condition stable. 4. Hyperlipidemia. LDL was 140 in July 2017 after coronary artery bypass grafting. 5. Severe mitral regurgitation, status post valve repair, July 2017. 6. Chronic kidney disease, baseline creatinine 1.6-1.8. 7. Chronic low back pain. CONSULTANTS: Dr. Chaparro Bustos, cardiology. HISTORY: For details, please see the history and physical dated October 11, 2017. In brief, the patien brigitte is a 67-year-old male, history of coronary artery disease, severe mitral regurgitation, who recentl y underwent a valve repair, along with 1-vessel CABG in July 2017, presented to the hospital with ra pid atrial fibrillation, who was admitted for further management. HOSPITAL COURSE: Patient was admitted to the cardiac telemetry unit. He has had a pre-existing diag nosis of atrial fibrillation, and his postop course in July was complicated by problems with atrial fibrillation. He required readmission to the hospital for elective cardioversion. Since that time, he did well, but he states he had not been feeling well, and thus, stopped all of his medications, ex cept Coumadin. He was readmitted with rapid atrial fibrillation and a rate around 150. He was resta rted on his metoprolol. He underwent ANGEL cardioversion the following day and has maintained sinus rh ythm since. He seems to be tolerating his metoprolol and believes he can be adherent to his medicati on regimen. In addition, he was noted to be clinically volume overloaded on arrival. He received IV Lasix. His creatinine was 1.6 on admission and down to 1.5 after IV Lasix. Review of previous data reveals frequent acute on chronic kidney injury with a creatinine as high as 2.1, but he mostly seem s to have a baseline consistent with where he is right now. It is noted his discharge weight in [place] was 74.8 kg, and on admission here, he was 78.9 kg. We will continue low-dose Lasix at discharge a nd advised the patient he needs to have close followup with his supply service worker to repeat a basic metabo lic panel within 3-5 days to recheck his creatinine, as well as his symptoms and determine if he need s ongoing diuresis therapy. He is continued on his Coumadin. His INR on arrival was 1.8, though the following morning, it was therapeutic at 2.1. He will discharge on the same dose of Coumadin. Arabella ng his hospitalization, he complained of an acute gout flare and was started on colchicine. We will discharge with a few more days of prednisone to complete a 5-day prednisone course. I will keep this low dose in an effort to prevent recurrent atrial fibrillation. On the day of discharge, he maintai sofía sinus rhythm. He is rate controlled. His blood pressure was 105/74. He is a bit hypoxic on nathalia m air, and thus, will discharge on home oxygen. DISPOSITION: Patient is discharged home in stable condition with home oxygen at 2 L/minute. FOLLOWUP: 1. . Cardiology. 2. Dr. Mat Coon, primary care. DISCHARGE MEDICATIONS: [facility] see [facility] for completed outpatient medication list. New medication s on discharge include Lasix 20 mg p.o. daily, #30, no refills; potassium 10 mEq p.o. daily, #30, no refills; prednisone 20 mg p.o. daily, #3, no refills; colchicine 0.6 mg p.o. daily, #30, no refills; and atorvastatin 40 mg p.o. daily, #30 no refills. He will continue metoprolol 100 mg p.o. b.i.d. an d aspirin enteric-coated 81 mg p.o. daily. He will continue his same outpatient doses of warfarin, O xyContin, and oxycodone. /[id number]/MODL
[2017-10-13 11:17] VITALS: BP 111/78
--- NOTE | 2017-10-13 12:40 | ASDISCHSUM ---
Discharge Information Plan Status:Home with No Needs Medically Cleared to Leave: Discharge Date: CM D/C Disposition:Home, Routine, Self-Care ADT D/C Disposition:Home, Routine, Self-Care Projected Discharge Date: Transportation at D/C:Family Discharge Delay Reason: Follow-Up Date: Discharge Slot: Final Diagnosis: Placement Information Patient Contact Information Contact Name:NORBERTO Relationship: Address:[address] City:[place] Alternate Phone: [facility]/Zip Code:[place] [address] Email: Financial Information Financial Class:[facility] Primary Plan Desc:[facility] Primary Plan Number:[id number] Secondary Plan Desc:MEDICARE INPATIENT Secondary Plan Number:[id number] Assessment Information [facility] Initial CM Assessment Living Arrangements What is your living Answers: With Spouse arrangement? Who do you live with? Type Of Residence What kind of residence do Answers: House you live in? Discharge Plan Comments Coordination Status Comments Notes: Pts case discussed in morning rounds. Pt is a 67 y/o man admitted for atrial fibrillation. Pt goes by Jaime. Pt has a hx of chronic kidney disease. Cards have been consulted. Pt will most likely d/c without any needs. No therapies ordered at this time. CM available for changes. Plan: Independent Date Signed: 10/12/2017 11:46 AM Electronically Signed By:EDGAR Manzanares [facility] CM Progress Note CM Note CM Note Notes: OT ordered; recommending home no needs. Dc order received. Spoke with RN. Anticipate dc home independently. CM available if needs/changes. Date Signed: 10/13/2017 12:38 PM Electronically Signed By:Luz Combs RN Intervention Information
== END 2017-10-13 12:35 | disposition home or self-care (01) | DRG 308 ==
LOC: F2W 21:10
PROVIDERS: ADMIT Internal Medicine; ATTEND Internal Medicine
PROC: B244ZZ4 Ultrasonography of Right Heart, Transesophageal (ICD-10-PCS; principal; 2017-10-12)
PROC: 5A2204Z Restoration of Cardiac Rhythm, Single (ICD-10-PCS; principal; 2017-10-12)
DX: I48.91 Unspecified atrial fibrillation (principal); I50.31 Acute diastolic (congestive) heart failure; I25.10 Atherosclerotic heart disease of native coronary artery without angina pectoris; Z95.1 Presence of aortocoronary bypass graft; E78.5 Hyperlipidemia, unspecified; N18.3 Chronic kidney disease, stage 3 (moderate); G89.29 Other chronic pain; Z79.01 Long term (current) use of anticoagulants; M10.9 Gout, unspecified
CPT/HCPCS: 97116-GP; 97161-GP; G8978-GP-CI; G8979-GP-CI; G8980-GP-CI; J0461; J1650; J1940; J2250; J2270; J3010; J7512

== ENCOUNTER 2018-02-09 06:50 | Inpatient (IN) | payer OTHER ==
--- NOTE | 2018-02-09 07:26 | EDPHY ---
HPI/HX/ROS/PE/MDM Narrative: CHIEF COMPLAINT: Bilateral foot pain HPI: The patient is a 67 y/o male with atrial fibrillation arriving with his complaining of worsening bilateral foot pain over the last 3-4 days. He had bypass surgery in July 2017, 6 months ago, and since then he's had neuropathy in both feet. Recently the pain across the bottom of his feet has become more severe and spread up his legs, causing difficulty walking and sleeping. He describes it feels like "walking on coals." He reports he is on treatment for neuropathy including local anesthetic injections, but is not taking medication for this. He was on Lyrica briefly, but stopped it because " it made me feel strange." He is on continuous opioid use for his chronic back pain and reports these "don't touch" the foot pain. He denies fever, chest pain , dyspnea. He notes he decided to stop his Coumadin because "that stuff's too weird;" he is taking aspirin. REVIEW OF SYSTEMS: A comprehensive 10 system review of systems is otherwise negative aside from elements mentioned in the history of present illness. PMH: Bypass surgery in July 2017; CAD; atrial fibrillation; back fractures - continuous oxycodone and OxyContin use; osteoporosis; chronic kidney disease with baseline creatinine around 1.5; mitral regurgitation status post repair. SOCIAL HISTORY: at bedside. [facility]. Lives in [place]. Prior medical records reviewed including admission 10/11/17 for rapid atrial fibrillation. PHYSICAL EXAM: General:Patient is alert, in no acute distress. ENT:Eyes are normal to inspection. ENT inspection normal. Neck: Normal inspection. Full range of motion. Respiratory:No respiratory distress. Breath sounds normal bilaterally. Cardiovascular: Regular rate and rhythm. Strong peripheral pulses. Normal cap refill. Abdomen:The abdomen is nontender to palpation. There are no peritoneal signs. Back: Normal to inspection. No tenderness to palpation. Skin: Normal color. No rash. Warm and dry. Extremities: Normal appearance. Full range of motion. Normal capillary refill of both feet. Neuro: Oriented x3. Normal motor function. Normal sensory function. ED Course: This is a 67 y/o male with a history of atrial fibrillation and renal insufficiency who is 6 months post-op from bypass surgery and presents with persistent neuropathy since this surgery that worsened acutely over the last 3- 4 days. On exam ___. Since he has been off his Coumadin, we will proceed with bilateral leg US to rule out DVT. He also does not seem to be taking his Lasix appropriately and may be taking too much. Plan for IV and labs. Patient is in acute renal failure with creatinine of 5.1 (baseline around 1.5) and elevated potassium of 6.9. EKG ordered. The 12 lead EKG was interpreted by myself. See hard copy and/or "tracemaster" electronic copy for interpretation. Spoke with hospitalist service. Dr. Rodriguez accepts admission. US shows right calf DVT. - Data Points Imaging Results: Imaging Impressions Extremity Venous Study 02/09/18 07:27 Impression: Right calf vein DVT. Results called to Dr. Jorge Alejo at 9:00 AM. Imaging: Discussed imaging studies w/ concrete journeyman Radiologist Laboratory Results: Laboratory Results 02/09/18 07:40 02/09/18 07:40 02/09/18 02/09/18 02/09/18 07:40 07:40 07:40 WBC 5.08 10^3/uL 10^3/uL (3.80-9.50) RBC 5.35 10^6/uL 10^6/uL (4.40-6.38) Hgb 12.9 g/dL L g/dL (13.7-17.5) Hct 41.5 % % (40.0-51.0) MCV 77.6 fL L fL (81.5-99.8) MCH 24.1 pg L pg (27.9-34.1) MCHC 31.1 g/dL L g/dL (32.4-36.7) RDW 22.3 % H % (11.5-15.2) Plt Count 267 10^3/uL 10^3/uL (150-400) MPV 10.6 fL fL (8.7-11.7) Neut % (Auto) 42.1 % % (39.3-74.2) Lymph % (Auto) 31.9 % % (15.0-45.0) [place] % (Auto) 20.3 % H % (4.5-13.0) Eos % (Auto) 3.5 % % (0.6-7.6) Baso % (Auto) 2.0 % H % (0.3-1.7) Nucleat RBC Rel Count 0.0 % % (0.0-0.2) Absolute Neuts (auto) 2.14 10^3/uL 10^3/uL (1.70-6.50) Absolute Lymphs (auto) 1.62 10^3/uL 10^3/uL (1.00-3.00) Absolute Monos (auto) 1.03 10^3/uL H 10^3/uL (0.30-0.80) Absolute Eos (auto) 0.18 10^3/uL 10^3/uL (0.03-0.40) Absolute Basos (auto) 0.10 10^3/uL 10^3/uL (0.02-0.10) Absolute Nucleated RBC 0.00 10^3/uL 10^3/uL (0-0.01) Immature Gran % 0.2 % % (0.0-1.1) Immature Gran # 0.01 10^3/uL 10^3/uL (0.00-0.10) Platelet Estimate Pending PT 14.0 SEC SEC (12.0-15.0) INR 1.06 (0.83-1.16) APTT 30.3 SEC SEC (23.0-38.0) Sodium 135 mEq/L mEq/L (135-145) Potassium 6.9 mEq/L H* mEq/L (3.3-5.0) Chloride 89 mEq/L L mEq/L (97-110) Carbon Dioxide 36 mEq/l H mEq/l (22-31) Anion Gap 10 mEq/L mEq/L (6-14) BUN 66 mg/dL H mg/dL (7-23) Creatinine 5.1 mg/dL H mg/dL (0.7-1.3) Estimated GFR 11 Glucose 93 mg/dL mg/dL (70-100) Calcium 10.5 mg/dL H mg/dL (8.5-10.4) Creatine Kinase 29 IU/L IU/L (0-224) Medications Given: Discontinued Medications Sodium Chloride (Ns) 1,000 mls @ 0 mls/hr IV EDNOW ONE; Wide Open PRN Reason: Protocol Stop: 02/09/18 08:41 Last Admin: 02/09/18 09:03 Dose: 1,000 mls General Time Seen by Provider: 02/09/18 07:13 Initial Vital Signs: Initial Vital Signs Temperature (C) 36.7 C 02/09/18 06:59 Heart Rate 70 02/09/18 06:59 Respiratory Rate 16 02/09/18 06:59 Blood Pressure 100/62 02/09/18 06:59 O2 Sat (%) 94 02/09/18 06:59 O2 Delivery Mode Room Air Allergies/Adverse Reactions: cephalexin Allergy (Severe, Verified 10/11/17 18:58) Anaphylaxis Home Medications: Medication Instructions Recorded Colchicine 02/09/18 Furosemide 02/09/18 Metoprolol Succinate 02/09/18 Oxycodone HCl 02/09/18 Spironolactone 02/09/18 Torsemide 02/09/18 ULORIC 02/09/18 predniSONE 02/09/18 Departure - Departure Disposition: [facility] Acute Clinical Impression: Neuropathic pain, leg, bilateral, Hyperkalemia Acute renal failure Qualifiers: Acute renal failure type: unspecified Qualified Code(s): N17.9 - Acute kidney failure, unspecified DVT (deep venous thrombosis) Qualifiers: DVT location: lower extremity Affected thrombotic vein of extremity: other lower extremity vein Chronicity: acute Laterality: right Qualified Code(s): I82.491 - Acute embolism and thrombosis of other specified deep vein of right lower extremity Condition: Fair Report Scribed for: Jorge Alejo Report Scribed by: Martha Fischer Date of Report: 02/09/18 Time of Report: 07:37 Physician Review and Approval Statement: Portions of this note were transcribed by an ED scribe. I personally performed the history, physical exam, and medical decision making; and confirm the accuracy of the information in the transcribed note.
[2018-02-09 08:05] LABS: INR 1.06 (0.83-1.16)
[2018-02-09 08:18] LABS: CREATINE KINASE 29 IU/L (0-224)
[2018-02-09] MEDS ORDERED: NS 1,000 ML IV ONE (08:40)
[2018-02-09] MEDS ORDERED: SODIUM POLY SULF 15 GM/60 ML BOTTLE PO ONE (08:41)
[2018-02-09 09:08] LABS: PLATELET COUNT 267 10^3/uL (150-400)
[2018-02-09] MEDS ORDERED: ENOXAPARIN 80 MG/0.8 ML SYR SC ONE (09:15)
[2018-02-09] MEDS ORDERED: ACETAMINOPHEN 325 MG TAB PO PRN (09:20)
[2018-02-09] MEDS ORDERED: ONDANSETRON 4 MG/2 ML VIAL IVP PRN (09:20)
[2018-02-09] MEDS ORDERED: ONDANSETRON DISINTEGRATING 4 MG TAB PO PRN (09:20)
[2018-02-09] MEDS ORDERED: CALCIUM GLUCONATE 50 ML IV ONE (09:26)
[2018-02-09] MEDS ORDERED: INSULIN REGULAR HUMAN 100 UNIT/ML UNIT IVP ONE ×2 (09:26→12:15)
[2018-02-09] MEDS ORDERED: D50W 25 GM/50 ML SYR IVP ONE ×2 (09:27→12:30)
[2018-02-09] MEDS ORDERED: HYDROmorphONE/DILAUDID 1 MG/ML INJ ONE (10:30)
[2018-02-09] MEDS: HYDROmorphONE/DILAUDID 1 MG/ML INJ IVP PRN ×3 (10:33→20:27)
[2018-02-09] MEDS ORDERED: CALCIUM GLUCONATE 1 GM in D5W 50 ML IV ONE (11:30)
[2018-02-09] MEDS ORDERED: predniSONE 5 MG TAB PO PRN (11:34)
[2018-02-09] MEDS: oxyCODONE IR 5 MG TAB PO PRN ×2 (12:11→20:27)
[2018-02-09] MEDS: NS 1,000 ML IV SCH ×2 (12:47→20:26)
[2018-02-09] MEDS: HEPARIN 5,000 UNIT/0.5 ML INJ SC SCH ×2 (14:42→20:28)
[2018-02-09] MEDS: WARFARIN SODIUM 5 MG TAB PO SCH (17:14)
--- NOTE | 2018-02-09 18:10 | GHP ---
DATE OF ADMISSION: 02/09/2018 CHIEF COMPLAINT: Bilateral leg pain. 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 Th e patient states over the past 3-4 days, he is having a burning-type sensation in his feet. He does have a history of being diagnosed with peripheral neuropathy. He states he has been on Lyrica and Ne urontin before but did not continue them as they made him feel unusual. He also has chronic low back pain and is on chronic narcotics. Of significance during his emergency room evaluation, his creatin ine was measured at 5.1 and his potassium was 6.9. His baseline creatinine is reportedly around 1.5. He has not taken any NSAIDs recently. He denies taking any Advil or Aleve. No complaints of any d iarrhea or vomiting. Additionally, he had a lower extremity ultrasound in the emergency room which s howed a right calf vein deep vein thrombosis. PAST MEDICAL HISTORY: 1. Coronary artery disease with a history of 1 vessel CABG in July 2017. 2. Atrial fibrillation. 3. History of mitral valve regurgitation, status post repair. 4. Chronic kidney disease, stage 3, with a baseline creatinine of 1.5. 5. Chronic low back pain, on chronic narcotics. 6. Osteoporosis. PAST SURGICAL HISTORY: 1. CABG. 2. Mitral valve repair. MEDICATIONS: 1. Colchicine 0.6 mg daily. 2. Uloric 80 mg daily. 3. Lasix 20 mg daily. 4. Metoprolol succinate 100 mg daily. 5. OxyContin 30 mg twice a day. 6. Oxycodone IR 10 mg 3 times a day as needed. 7. Prednisone 5 mg daily. 8. Spironolactone 25 mg daily. 9. Torsemide 20 mg daily. ALLERGIES: Cephalexin. FAMILY HISTORY: Father secondary to stomach cancer and mother lived into her mid 90s and di ed of "old age." SOCIAL HISTORY: The patient is currently . He lives in [place]. He is a nonsmoker. REVIEW OF SYSTEMS: CONSTITUTIONAL: No complaints of any subjective fevers or chills. ENT: No comp laints of any upper respiratory illnesses. CARDIOVASCULAR: No complaints of any chest pains or palp itations. RESPIRATORY: No complaints of shortness of breath or productive cough. GI: No nausea, v omiting, diarrhea, constipation. : No report of any difficulty with urination. NEUROLOGIC: No c omplaints of any headaches or focal weakness. HEMATOLOGIC: No history of any deep vein thrombosis o r pulmonary embolism. PSYCHIATRIC: No history of anxiety or depression. ENDOCRINE: No polyuria or heat intolerance. SKIN: No new skin rashes. MUSCULOSKELETAL: No focal joint pains. PHYSICAL EXAM: VITAL SIGNS: Temperature 36.7, blood pressure is 115/88, heart rate 70, respirations 16, saturating 94% on room air. GENERAL: Patient appears comfortable. He is resting comfortably i n bed, awake, alert, conversant, in no acute distress. HEENT: Extraocular movements appear intact. No scleral icterus is noted. NECK: Supple. No adenopathy appreciated. CHEST: Clear to auscultat ion with normal respiratory effort. HEART: Irregular. No murmurs appreciated. ABDOMEN: Soft, non tender, nondistended. : No Vargsa catheter in place. EXTREMITIES: No significant pitting edema. He does have creases suggestive of recent edema in the lower extremities. Pulses 1+ in both dorsali s pedis. NEUROLOGIC: Cranial nerves 2-12 appear intact with 5/5 strength in the extremities. LABS: Sodium 135, potassium 6.9, chloride 89, bicarb 36, BUN 66, creatinine 5.1, glucose of 93. INR is 1.0, calcium 10.5. CPK 29. IMAGING: Lower extremity ultrasounds showed calf vein thrombosis on the right. ASSESSMENT/PLAN: 1. Hyperkalemia. I suspect this is related to a combination of use of spironolactone and acute kidn ey injury on top of chronic kidney disease. He was treated initially with insulin and dextrose. Rep eat potassium level has improved to 6.1 from the initial 6.9. Continue with IV fluids overnight. I will recheck another basic metabolic panel this evening as well. 2. Deep vein thrombosis. The patient was found to have a right calf vein thrombosis. We did discus s that these do not necessarily necessitate anticoagulation and could be followed. However, he does have a secondary indication for anticoagulation having atrial fibrillation. We had a discussion on r esuming Coumadin and the patient was agreeable to this. He states he was on a 3 mg daily dose in the past. For now, will start 5 mg daily and obtain a daily INR value. 3. Acute kidney injury on top of chronic kidney disease-ultrasound did not show any obstructive proc ess. Suspecting a prerenal secondary to diuresis. Improved with IV fluids thus far. Continue IV fl uids overnight and reassess again in the morning. 4. Lower extremity pain-the patient's presentation is consistent with peripheral neuropathy. For no w, we will treat with IV Dilaudid. I did offer a trial of Cymbalta, but patient declined. I will re assess if the patient will be willing to do a gradual titration of either Lyrica or Neurontin again i n the morning. 5. Coronary artery disease-patient with a history of CABG earlier this year. Continue current medic al management. I do not see that he is on aspirin or statin therapy and I will need to confirm with him. 6. Atrial fibrillation. Continue metoprolol for rate control, and per our discussion above, will re sume with Coumadin therapy. 7. Chronic kidney disease, stage 3-baseline listed at 1.5. 8. Chronic low back pain-I continued his outpatient regimen of OxyContin and oxycodone. 9. Deep venous thrombosis prophylaxis-anticoagulation being started. DISPOSITION: I anticipate it will take at least 2-3 days to normalize his creatinine to his current baseline. I recommend we admit him under an inpatient setting. /[id number]/MODL
--- NOTE | 2018-02-09 19:15 | PDMN ---
Medical Necessity Medical necessity: MCG: ARF 3 days: 67 yr. old male present with Bilat. Lower extremity pain, burning in his feet, has hx of peripheral neuropathy, elevated Cr 5.1, K 6.9, Pt also found to have DVT R calf, PMHx CAD w/ hx CABG 07/2017, afib, hx mitral valve regurg. s/p repair, CKD stage 3 bseline Cr 1.5, chronic low back pain, on chronic narcotics, osteoporosis. anticipate > 2 MN ongoing med nec care, further monitoring and tx.
[2018-02-09] MEDS: oxyCODONE CR 30 MG TAB PO SCH (21:01)
[2018-02-10] MEDS: HYDROmorphONE/DILAUDID 1 MG/ML INJ IVP PRN (00:57)
[2018-02-10 04:31] LABS: PLATELET COUNT 242 10^3/uL (150-400)
[2018-02-10 04:36] LABS: INR 1.05 (0.83-1.16); PROTIME(PATIENT) 13.9 SEC (12.0-15.0)
[2018-02-10] MEDS: NS 1,000 ML IV SCH ×3 (05:10→17:02)
[2018-02-10] MEDS: HEPARIN 5,000 UNIT/0.5 ML INJ SC SCH ×3 (06:05→21:34)
[2018-02-10] MEDS: oxyCODONE CR 30 MG TAB PO SCH ×2 (08:58→21:33)
[2018-02-10] MEDS: METOPROLOL SUCCINATE XR 100 MG TAB PO SCH (08:58)
[2018-02-10] MEDS: HYDROmorphONE/DILAUDID 2 MG/ML INJ IVP PRN ×3 (08:58→17:07)
--- NOTE | 2018-02-10 16:46 | ASMTCMCOM ---
CM Note CM Note Notes: Case Management Chart Review for Discharge Support: Patient is 67 y/o male presented to [facility] ED for bilateral lower extremity pain. Patient admitted and followed for hyperkalemia, DVT, CATHY, and peripheral neuropathy. There are no therapies ordered at this time. Patient was seen at [facility] last September & went home independent. Jolanta is support, patient lives in [place]. CM spoke with Larry MOYA, patient will likely be monitored for 2+ days and discharge home independent. CM to follow. Plan: likely home independent. Date Signed: 02/10/2018 04:46 PM Electronically Signed By:Komal Hinojosa
[2018-02-10] MEDS: WARFARIN SODIUM 5 MG TAB PO SCH (17:01)
--- NOTE | 2018-02-10 17:45 | HOSPPROG ---
Hospitalist Progress Note Assessment/Plan: Subjective Follow-up on hyperkalemia and acute kidney injury and isolated calf vein thrombosis. No acute events overnight. Patient denies any chest pain or difficulty breathing. We did review his chemistry studies and discuss his creatinine did improve to 4.0 and his potassium level has continued to trend down as well. We did discuss that his blood work did show microcytic anemia which could be iron deficiency and that we would check iron studies with his next set of labs and hemoccult his stools. He states he has had a colonoscopy in the past but it has been over 10 years. Objective Vital signs as detailed below Exam General-awake alert conversant no acute distress Heart-regular rate and rhythm no murmurs Lungs-Clear to auscultation with normal respiratory effort Abdomen-soft nontender nondistended normal bowel sounds -no Vargas catheter in place Extremities-no significant pitting edema or calf pain with palpation, he does have skin creases of his skin suggestive of recent diuresis. Skin-no concerning skin rashes noted Labs as detailed below Assessment and plan Hyperkalemia-suspect related to acute kidney injury and concurrent spironolactone use. This was 6.9 on admission and has trended downward to 5.9 today. I anticipate continued improvement with ongoing IV fluids. Recheck again with labs in the morning. Deep vein thrombosis-patient has an isolated calf vein thrombosis in the right calf. We discussed that this diagnosis does not necessitate anticoagulation and could be followed however he does have a secondary indication for anticoagulation with his underlying atrial fibrillation. Considering this the patient was agreeable to resuming Coumadin. He previously stopped Coumadin secondary to easy bleeding with skin abrasions. Continue 5 mg daily. The patient states he was previously well controlled on 3 mg daily. Acute kidney injury-suspecting secondary to over diuresis. Creatinine is improving with IV fluids. He does have a history of chronic kidney disease stage 3 as well and is followed by Nephrology in the outpatient setting. His baseline creatinine is estimated at 1.5. Lower extremity pain-I suspect this is secondary to peripheral neuropathy. I offered to start the patient on Lyrica or Neurontin but he declined stating bad reactions in the past. We did also discuss Cymbalta but this was also declined. He states he would like to resolve his electrolyte abnormalities and acute kidney injury before considering other treatment options. Continue with IV Dilaudid for now. Anemia-microcytic. Hemoccults and iron studies ordered. His last colonoscopy was over 10 years ago. Coronary artery disease-patient with history of single-vessel CABG in July of this year. He has not been on aspirin or statin therapy per his home medication list. Atrial fibrillation-patient with history of pacemaker placement. Continue metoprolol for rate control. Anticoagulation has been resumed with Coumadin. Gout-I have held allopurinol and Uloric for now. Chronic low back pain-patient is on his baseline pain medications. DVT prophylaxis-patient is on heparin pending his INR becoming therapeutic with Coumadin. Disposition-I anticipate he will be able to discharge home when medically ready. Objective: Vital Signs Temp Pulse Resp BP Pulse Ox 36.6 C 70 12 108/74 94 02/10/18 12:00 02/10/18 12:00 02/10/18 12:00 02/10/18 12:00 02/10/18 12:00 Laboratory Results 02/10/18 03:22 02/10/18 03:22 02/09/18 02/10/18 02/11/18 05:59 05:59 05:59 Intake Total 3154 Output Total 300 500 Balance 2854 -500 PT 13.9 SEC (12.0-15.0) 02/10/18 03:22 INR 1.05 (0.83-1.16) 02/10/18 03:22 ICD10 Worksheet Patient Problems: Problems Problem Status Onset Acute renal failure Acute DVT (deep venous thrombosis) Acute Hyperkalemia Acute Neuropathic pain, leg, bilateral Acute Acute blood loss anemia Acute Atrial fibrillation with RVR Acute CAD in [place] artery Acute Gout Acute S/P CABG x 1 Acute ~08/09/17 S/P Maze operation for atrial fibrillation Acute ~08/09/17 Status post mitral valve annuloplasty Acute ~08/09/17 Status post tricuspid valve repair Acute ~08/09/17 s/p placement of LV epicardial lead Acute ~08/09/17 Atrial fibrillation Chronic CKD (chronic kidney disease) stage 3, GFR 30-59 ml/min Chronic Diastolic congestive heart failure, NYHA class 3 Chronic Dilated cardiomyopathy Chronic Secondary tricuspid valve regurgitation Chronic Severe mitral regurgitation Chronic
[2018-02-10] MEDS: oxyCODONE IR 5 MG TAB PO PRN (18:44)
[2018-02-11] MEDS: NS 1,000 ML IV SCH ×4 (00:01→21:59)
[2018-02-11] MEDS: HYDROmorphONE/DILAUDID 2 MG/ML INJ IVP PRN (02:11)
[2018-02-11] MEDS: oxyCODONE IR 5 MG TAB PO PRN ×3 (03:58→21:49)
[2018-02-11 04:44] LABS: PLATELET COUNT 224 10^3/uL (150-400)
[2018-02-11 04:48] LABS: INR 1.09 (0.83-1.16); PROTIME(PATIENT) 14.3 SEC (12.0-15.0)
[2018-02-11] MEDS: HEPARIN 5,000 UNIT/0.5 ML INJ SC SCH (07:30)
[2018-02-11] MEDS ORDERED: SODIUM POLY SULF 15 GM/60 ML BOTTLE PO ONE ×2 (08:35→10:00)
--- NOTE | 2018-02-11 08:39 | ASMTLACE ---
TANVI Acuity / Level of Answers: Yes Care: Did the patient have an inpatient admission? Comorbidities - select Answers: Coronary Artery Disease all that apply Moderate or severe liver or renal disease Opioid dependence / Chronic pain Other Notes: AFib # of Emergency department Answers: 1-2 visits in the last 6 months Score: 15 Date Signed: 02/11/2018 08:38 AM Electronically Signed By:Gloria Yang
[2018-02-11] MEDS: oxyCODONE CR 30 MG TAB PO SCH ×2 (10:06→21:49)
[2018-02-11] MEDS: METOPROLOL SUCCINATE XR 100 MG TAB PO SCH (10:07)
[2018-02-11] MEDS: ASPIRIN EC 81 MG TAB PO SCH (11:13)
[2018-02-11] MEDS: ATORVASTATIN CALCIUM 40 MG TAB PO SCH (11:13)
--- NOTE | 2018-02-11 14:19 | HOSPPROG ---
Hospitalist Progress Note Assessment/Plan: #CATHY on CKD: BL Cr 1.5-2. Improved to 2.4 with IVFs #Right peroneal DVT: already on coumadin. Technically can just follow with U/S with distal DVT #Atrial fibrillation: restarted coumadin. BB #Peripheral neuropathy: side effects with Lyrica/Gabapentin. Suggested Cymbalta ; he wants to think about. Stop IV opioids #CAD: restarted ASA, statin. BB #Gout: hold home meds #Diet: renal #DVT ppx: Coumadin #Disp: can likely DC tomorrow if Cr stable Subjective: pain in feet Objective: Vital Signs Temp Pulse Resp BP Pulse Ox 36.6 C 74 18 122/77 H 93 02/11/18 07:55 02/11/18 10:07 02/11/18 07:55 02/11/18 10:07 02/11/18 07:55 Laboratory Results 02/11/18 03:58 02/10/18 02/11/18 02/12/18 05:59 05:59 05:59 Intake Total 3154 4850 Output Total 300 500 Balance 2854 4350 PT 14.3 SEC (12.0-15.0) 02/11/18 03:58 INR 1.09 (0.83-1.16) 02/11/18 03:58 - Time Spent With Patient Time Spent with Patient: greater than 35 minutes Time Spent with Patient: Greater than 35 minutes spent on this patients care, greater than 50% of time spent counseling, educating, and coordinating care regarding the above mentioned plan. - Physical Exam Constitutional: no apparent distress Eyes: PERRL Ears, Nose, Mouth, Throat: moist mucous membranes Cardiovascular: regular rate and rhythym, No edema Respiratory: no respiratory distress Gastrointestinal: normoactive bowel sounds Genitourinary: no bladder fullness, joy in urethra Musculoskeletal: other (TTP over bilateral legs with touch) Neurologic: AAOx3, CN II-XII Intact Psychiatric: interacting appropriately ICD10 Worksheet Patient Problems: Problems Problem Status Onset Acute renal failure Acute DVT (deep venous thrombosis) Acute Hyperkalemia Acute Neuropathic pain, leg, bilateral Acute Acute blood loss anemia Acute Atrial fibrillation with RVR Acute CAD in [place] artery Acute Gout Acute S/P CABG x 1 Acute ~08/09/17 S/P Maze operation for atrial fibrillation Acute ~08/09/17 Status post mitral valve annuloplasty Acute ~08/09/17 Status post tricuspid valve repair Acute ~08/09/17 s/p placement of LV epicardial lead Acute ~08/09/17 Atrial fibrillation Chronic CKD (chronic kidney disease) stage 3, GFR 30-59 ml/min Chronic Diastolic congestive heart failure, NYHA class 3 Chronic Dilated cardiomyopathy Chronic Secondary tricuspid valve regurgitation Chronic Severe mitral regurgitation Chronic
[2018-02-11] MEDS: WARFARIN SODIUM 5 MG TAB PO SCH (16:57)
--- NOTE | 2018-02-11 20:27 | CPEKG ---
Test Reason : OPEN Blood Pressure : / mmHG Vent. Rate : 070 BPM Atrial Rate : 188 BPM P-R Int : 144 ms QRS Dur : 144 ms QT Int : 421 ms P-R-T Axes : 000 000 065 degrees QTc Int : 455 ms Atrial-paced complexes Right atrial enlargement Nonspecific intraventricular conduction delay Inferior infarct, acute (RCA) Probable RV involvement, suggest recording right precordial leads Confirmed by Jorge Alejo ([id number] on 02/11/2018 8:26:39 PM Referred By: Confirmed By:Jorge Alejo
--- NOTE | 2018-02-11 20:27 | CPEKG ---
Test Reason : OPEN Blood Pressure : / mmHG Vent. Rate : 070 BPM Atrial Rate : 070 BPM P-R Int : 238 ms QRS Dur : 099 ms QT Int : 435 ms P-R-T Axes : 085 066 024 degrees QTc Int : 470 ms Atrial-paced rhythm Repol abnrm suggests ischemia, anterolateral Confirmed by Jorge Alejo ([id number]) on 02/11/2018 8:26:45 PM Referred By: Confirmed By:Jorge Alejo
[2018-02-12 04:34] LABS: INR 1.13 (0.83-1.16); PROTIME(PATIENT) 14.7 SEC (12.0-15.0)
[2018-02-12] MEDS: NS 1,000 ML IV SCH (04:56)
[2018-02-12] MEDS: oxyCODONE IR 5 MG TAB PO PRN ×2 (04:57→10:40)
[2018-02-12 07:50] VITALS: BP 142/83
[2018-02-12] MEDS: ATORVASTATIN CALCIUM 40 MG TAB PO SCH (08:36)
[2018-02-12] MEDS: oxyCODONE CR 30 MG TAB PO SCH (08:37)
[2018-02-12] MEDS: ASPIRIN EC 81 MG TAB PO SCH (08:37)
[2018-02-12] MEDS: METOPROLOL SUCCINATE XR 100 MG TAB PO SCH (08:37)
[2018-02-12] MEDS ORDERED: predniSONE 20 MG TAB PO SCH (09:15)
--- NOTE | 2018-02-12 10:00 | GDS ---
DISCHARGE DIAGNOSES: 1. Acute kidney injury on chronic kidney disease. 2. Right knee gout flare. 3. Right peroneal deep vein thrombosis. 4. Atrial fibrillation. 5. Peripheral neuropathy. 6. Coronary disease. HISTORY OF PRESENT ILLNESS: A 67-year-old male with CKD, gout, coronary disease with CABG in July 2017, presented to [facility] with increased bilateral leg pain. Over the 3-4 days prior, he described a burning sensation. During his evaluation in the ER, his creatinine was elevated to 5.1 (baseline 1.5), and potassium was 6.9. Denies NSAIDs, but had been taking spironolactone, Lasix, and torsemide. He is unclear where he received that prescription. ASSESSMENT/PLAN: 1. Hyperkalemia: Secondary to acute kidney injury in the setting of spironolactone. He was initially treated with insulin and dextrose. This resolved with additional Kayexalate and intravenous fluids. 2. Acute kidney injury on chronic kidney disease: Ultrasound without obstructive disease. Secondary to over diuresis. Still unclear why he had the additional torsemide. Creatinine now 1.9. He was advised to hold the spironolactone and Lasix until repeat labs on . 3. Right peroneal deep vein thrombosis: This is superficial in nature. This could technically be followed with serial ultrasounds, but is already on Coumadin, so will continue this. 4. Atrial fibrillation: He has not been compliant with his Coumadin. This was restarted. 5. Coronary disease: Coronary artery bypass graft, July 2017. His med list did not include a statin and aspirin, which he was previously prescribed. I have restarted both of these. 6. Peripheral neuropathy: Reason for his initial presentation. He has trialed Lyrica and Neurontin in the past with side effects. I offered Cymbalta , but he declined. 7. Chronic back pain with chronic opioid dependency. Resume home medications. 8. Right knee gout flare: Likely due to being off his medications with acute kidney injury. Reduce dose of Uloric to 40 mg a day. Prednisone burst for 5 days and hold colchicine until flare is treated. MEDICATIONS: Uloric reduced to 40 mg daily. Hold allopurinol, Lasix, and spironolactone until repeat lab. Prednisone 40 mg for 4 days. FOLLOWUP: 1. Dr. Barrera with Nephrology. 2. Primary care physician. 3. BMP, INR 02/12/2018. PHYSICAL EXAMINATION: VITAL SIGNS: Today, temperature 36.8. Blood pressure is 142/83. Heart rate is in the 70s, respirations 18, 90% on room air. GENERAL : Well appearing, no acute distress. HEENT: PERRLA. Moist mucous membranes. CV: Regular rate and rhythm. LUNGS: Clear. ABDOMEN: Soft, nontender, nondistended. Positive bowel sounds. : No Vargas. MUSCULOSKELETAL: Right knee with mild effusion. No warmth or redness over joint. Has full range, though some pain. NEURO: 2 through 12 intact. PSYCH: Alert and oriented x3. Time spent on discharge: 45 minutes at bedside with patient discussing medication changes, followup plan, and coordinating discharge.Advised to seek medical attention if pain progresses, fevers, redness over joint. /[id number]/MODL MTDD
--- NOTE | 2018-02-12 10:19 | CPEKG ---
Test Reason : OPEN Blood Pressure : / mmHG Vent. Rate : 070 BPM Atrial Rate : 070 BPM P-R Int : 220 ms QRS Dur : 089 ms QT Int : 407 ms P-R-T Axes : 100 081 058 degrees QTc Int : 440 ms Atrial-paced rhythm Borderline right axis deviation Abnormal T, consider ischemia, anterior leads Confirmed by Jaiden Martinez ([id number] on 02/12/2018 10:19:05 AM Referred By: Confirmed By:Jaiden Martinez
--- NOTE | 2018-02-12 10:35 | ASDISCHSUM ---
Discharge Information Plan Status:Home with No Needs Medically Cleared to Leave:02/12/2018 Discharge Date:02/12/2018 CM D/C Disposition:Home, Routine, Self-Care ADT D/C Disposition:Home, Routine, Self-Care Projected Discharge Date:02/12/2018 Transportation at D/C:Family Discharge Delay Reason: Follow-Up Date:02/12/2018 Discharge Slot: Final Diagnosis: Placement Information Patient Contact Information Contact Name:NORBERTO Relationship: Address:[address] City:[place] Alternate Phone: [facility]/Zip Code:[place] [address] Email: Financial Information Financial Class:[employer] Primary Plan Desc:[facility] OPEN ACC LOCAL Primary Plan Number:[id number] Secondary Plan Desc:MEDICARE INPATIENT Secondary Plan Number:[id number] Assessment Information [facility] CM Progress Note CM Note CM Note Notes: Case Management Chart Review for Discharge Support: Patient is 67 y/o male presented to [facility] ED for bilateral lower extremity pain. Patient admitted and followed for hyperkalemia, DVT, CATHY, and peripheral neuropathy. There are no therapies ordered at this time. Patient was seen at [facility] last September & went home independent. Jolanta is support, patient lives in [place]. CM spoke with Larry MOYA, patient will likely be monitored for 2+ days and discharge home independent. CM to follow. Plan: likely home independent. Date Signed: 02/10/2018 04:46 PM Electronically Signed By:Komal Hinojosa LACE TANVI Acuity / Level of Answers: Yes Care: Did the patient have an inpatient admission? Comorbidities - select Answers: Coronary Artery Disease all that apply Moderate or severe liver or renal disease Opioid dependence / Chronic pain Other Notes: AFib # of Emergency department Answers: 1-2 visits in the last 6 months Score: 15 Date Signed: 02/11/2018 08:38 AM Electronically Signed By:Gloria Yang Case Management Discharge Plan Note Case Management Discharge Discharge Order Complete? Answers: Yes Patient to Obtain Answers: via Family Medications Transportation Arranged Answers: Family/Friends Discharge Comments Notes: 02/12/2018 Case Management Note No discharge case management d/c needs identified. Pt to discharge with family support and follow up as directed. Date Signed: 02/12/2018 10:34 AM Electronically Signed By:Ana M Gaytan RN Intervention Information Intervention Type:*IM-Signed Date of Service:02/12/2018 10:27 AM Patient Type:Inpatient Staff Member:Gloria Yang Hours: Discipline: Severity: Comment:
== END 2018-02-12 11:54 | disposition home or self-care (01) | DRG 683 ==
LOC: OBSVTOIN 08:41 → F2W 11:05
PROVIDERS: ADMIT Internal Medicine; ATTEND Internal Medicine
DX: N17.9 Acute kidney failure, unspecified (principal); E87.5 Hyperkalemia; T50.0X5A Adverse effect of mineralocorticoids and their antagonists, initial encounter; I82.4Z1 Acute embolism and thrombosis of unspecified deep veins of right distal lower extremity; G62.9 Polyneuropathy, unspecified; M10.9 Gout, unspecified; N18.3 Chronic kidney disease, stage 3 (moderate); I48.91 Unspecified atrial fibrillation; M54.5 Low back pain; I25.10 Atherosclerotic heart disease of native coronary artery without angina pectoris; M81.0 Age-related osteoporosis without current pathological fracture; Z79.82 Long term (current) use of aspirin; Z95.1 Presence of aortocoronary bypass graft; Z95.0 Presence of cardiac pacemaker; Z23 Encounter for immunization
CPT/HCPCS: G0008; J0610; J1170; J1644; J1650; J1815; J7512

== ENCOUNTER 2018-06-06 07:57 | Inpatient (IN) | payer OTHER ==
[2018-06-06] MEDS ORDERED: ACETAMINOPHEN 325 MG TAB PO ONE (08:31)
[2018-06-06 08:51] LABS: INR 1.18 (0.83-1.16); PLATELET COUNT 249 10^3/uL (150-400); PROTIME(PATIENT) 15.2 SEC (12.0-15.0)
--- NOTE | 2018-06-06 09:15 | EDPHY ---
H & P Stated Complaint: weakness, nausea Time Seen by Provider: 06/06/18 08:30 HPI/ROS: CHIEF COMPLAINT: Altered mental status Limitations: Drowsy, answers limited questions only HISTORY OF PRESENT ILLNESS: 67-year-old male with alcoholism and chronic pain presents with altered mental status. Yesterday he underwent cataract surgery. The procedure went well and when he arrived home, he was complaining of pain. His manages his narcotic pain medications and gave him pain medication. This morning she found him in bed with altered mental status. There was a bottle of vodka under his pillow. She is concerned that he may have been drinking alcohol last evening. He denies cough, shortness of breath, abdominal pain. He complains of ongoing chronic pain. Did not know that he had a fever. REVIEW OF SYSTEMS: complete 10 point ROS reviewed and is negative except for the noted elements in the HPI - Personal History Current Tetanus/Diphtheria Vaccine: Yes Current Tetanus Diphtheria and Acellular Pertussis (TDAP): Yes - Medical/Surgical History Hx Asthma: No Hx Chronic Respiratory Disease: No Hx Diabetes: No Hx Cardiac Disease: Yes Hx Renal Disease: Yes Hx Cirrhosis: No Hx Alcoholism: Yes Hx HIV/AIDS: No Hx Splenectomy or Spleen Trauma: No Other PMH: a fib, CHF, open heart 08/15,. HTN/RAYNAUDS/BACK FX x2, knee replacements, chronic pain, CKD, MVR & TVR repair July 2017, cataract surgery - Social History Smoking Status: Former smoker - Physical Exam Exam: General Appearance: Drowsy, opens eyes to voice Eyes: Pupils equal and round, no conjunctival pallor or injection ENT, Mouth: Mucous membranes moist Neck: Normal inspection Respiratory: Rales at bases Cardiovascular: Regular rate and rhythm, 2/6 systolic murmur Gastrointestinal: Abdomen is soft, mild diffuse tenderness Neurological: A&O, nonfocal, normal gait Skin: Warm and dry Extremities: Left lower extremity-multiple linear abrasions with overlying scabs on the left anterior lower leg with surrounding erythema, erythema, warmth and tenderness on the medial aspect of the left ankle, left ankle range of motion does not appear to cause pain Psychiatric: Flat affect Constitutional: Initial Vital Signs Temperature (C) 38.8 C H 06/06/18 08:03 Heart Rate 79 06/06/18 08:03 Respiratory Rate 16 06/06/18 08:03 Blood Pressure 134/89 H 06/06/18 08:03 O2 Sat (%) 87 L 06/06/18 08:03 O2 Delivery Mode Nasal Cannula O2 (L/minute) 2 Allergies/Adverse Reactions: cephalexin Allergy (Severe, Verified 06/06/18 08:02) Anaphylaxis Home Medications: Medication Instructions Recorded Herbals/Supplements -Info Only 1 ea PO DAILY 02/09/18 oxyCODONE HCL [Oxycontin] 30 mg PO BID 02/09/18 oxyCODONE IR [Oxycodone Ir (*)] 10 mg PO Q6-8PRN PRN 02/09/18 Aspirin EC [Aspirin EC 81 mg (*)] 81 mg PO DAILY tab 02/12/18 Febuxostat [Uloric] 40 mg PO DAILY #30 tablet 02/12/18 Diclofenac 0.1% [Voltaren 0.1% (*)] 1 drops RTEYE BID 06/06/18 Gabapentin [Neurontin 300 MG (*)] 600 mg PO TID 06/06/18 Ofloxacin 0.3% [Ocuflox 0.3% (RX)] 1 drop RTEYE QID 06/06/18 oxyCODONE CR [Oxycontin] 10 mg PO Q8HRS PRN 06/06/18 prednisoLONE ACET 1% [Pred Forte 1 drops RTEYE QID 06/06/18 1% (*)] Medical Decision Making - Diagnostics EKG Interpretation: EKG interpreted by me reveals atrial paced rhythm, rate 74, T-wave inversions in leads V1 through V3. Interpretation: Abnormal EKG. Similar to EKG dated Imaging Results: Imaging Impressions Chest X-Ray 06/06/18 08:31 Impression: 1. Mild interstitial edema - cardiogenic versus viral pneumonitis. 2. No effusion or lobar pneumonia. Chest/Thorax CTA 06/06/18 09:12 Impression: 1. Acute minimally displaced lateral right fifth through seventh rib fractures. Subacute nondisplaced posterior left twelfth rib fracture. 2. No visible pulmonary embolus. 3. Coronary artery atherosclerosis. 4. 3 mm likely benign right middle lobe nodule. If the patient is a smoker or is high risk, unenhanced low dose chest CT for follow up in 12 months is considered optional. Otherwise, no further follow up is needed per Fleischner Society criteria. 5. Additional findings as above. Findings discussed with Renetta Loyola on on 06/06/2018 at 10:23 a.m. Imaging: Discussed imaging studies w/ downstairs maid Radiologist, I viewed and interpreted images myself ED Course/Re-evaluation: This patient presents with altered mental status and fever. Altered mental status possibly secondary to narcotics, alcohol or infection. Physical exam reveals hypoxia and left lower extremity cellulitis. Meets SIRS criteria, initial lactate normal. History of anaphylaxis to Keflex. Blood cultures were drawn and vancomycin 1 g IV given. Chest x-ray reveals likely pulmonary edema. BNP is markedly elevated, though D-dimer is elevated as well. Patient sent over for CT pulmonary angiogram to rule out pulmonary embolism. No evidence of pulmonary embolism or pneumonia. Lasix 20 mg IV given for pulmonary edema. Will reassess when the patient is more alert. 11am: pt more alert, answering more questions. ? sedation secondary to narcotics , now resolving. Abd soft, NT. No evidence of acute abdominal process. Extremities-left ankle range of motion without pain. Doubt gout or septic joint , given that he can move his ankle without pain and is now alert and not confused. The hospitalist service was consulted for admission. Differential Diagnosis: Altered mental status including but not limited to hypoglycemia, infectious process, electrolyte abnormality, head injury, CVA, and intoxicants. Differential diagnosis for fever includes pyelonephritis, cholecystitis, influenza, cellulitis, pneumonia, abscess, meningitis. - Data Points Laboratory Results: Laboratory Results 06/06/18 08:29 06/06/18 08:29 06/06/18 06/06/18 06/06/18 10:30 10:02 08:30 WBC RBC Hgb Hct MCV MCH MCHC RDW Plt Count MPV Neut % (Auto) Lymph % (Auto) Leslie % (Auto) Eos % (Auto) Baso % (Auto) Nucleat RBC Rel Count Absolute Neuts (auto) Absolute Lymphs (auto) Absolute Monos (auto) Absolute Eos (auto) Absolute Basos (auto) Absolute Nucleated RBC Immature Gran % Seg Neutrophils % Band Neutrophils % Lymphocytes % Monocytes % Eosinophils % Basophils % Metamyelocytes % Myelocytes % Promyelocytes % Blast Cells % Immature Gran # Absolute Seg Neuts Absolute Band Neuts Absolute Lymphocytes Absolute Monocytes Absolute Eosinophils Absolute Basophils Absolute Metamyelocyte Absolute Myelocytes Absolute Promyelocytes Absolute Plasma Cells Absolute Blast Cells Plasma Cells % Platelet Estimate Polychromasia Microcytic Cells PT INR APTT D-Dimer VBG Lactic Acid 0.8 mmol/L mmol/L (0.7-2.1) Sodium Potassium Chloride Carbon Dioxide Anion Gap BUN Creatinine Estimated GFR Glucose Calcium Phosphorus 3.0 mg/dL mg/dL (2.5-4.5) Magnesium 2.6 mg/dL H mg/dL (1.6-2.3) Total Bilirubin Conjugated Bilirubin Unconjugated Bilirubin AST ALT Alkaline Phosphatase Troponin I NT-Pro-B Natriuret Pep Total Protein Albumin Urine Color YELLOW Urine Appearance HAZY Urine pH 9.0 H (5.0-7.5) Ur Specific [place] 1.017 (1.002-1.030) Urine Protein NEGATIVE (NEGATIVE) Urine Ketones NEGATIVE (NEGATIVE) Urine Blood NEGATIVE (NEGATIVE) Urine Nitrate NEGATIVE (NEGATIVE) Urine Bilirubin NEGATIVE (NEGATIVE) Urine Urobilinogen NEGATIVE EU EU (0.2-1.0) Ur Leukocyte Esterase NEGATIVE (NEGATIVE) Urine Glucose NEGATIVE (NEGATIVE) Ethyl Alcohol 06/06/18 06/06/18 06/06/18 08:30 08:30 08:30 WBC RBC Hgb Hct MCV MCH MCHC RDW Plt Count MPV Neut % (Auto) Lymph % (Auto) Leslie % (Auto) Eos % (Auto) Baso % (Auto) Nucleat RBC Rel Count Absolute Neuts (auto) Absolute Lymphs (auto) Absolute Monos (auto) Absolute Eos (auto) Absolute Basos (auto) Absolute Nucleated RBC Immature Gran % Seg Neutrophils % Band Neutrophils % Lymphocytes % Monocytes % Eosinophils % Basophils % Metamyelocytes % Myelocytes % Promyelocytes % Blast Cells % Immature Gran # Absolute Seg Neuts Absolute Band Neuts Absolute Lymphocytes Absolute Monocytes Absolute Eosinophils Absolute Basophils Absolute Metamyelocyte Absolute Myelocytes Absolute Promyelocytes Absolute Plasma Cells Absolute Blast Cells Plasma Cells % Platelet Estimate Polychromasia Microcytic Cells PT INR APTT D-Dimer VBG Lactic Acid Sodium Potassium Chloride Carbon Dioxide Anion Gap BUN Creatinine Estimated GFR Glucose Calcium Phosphorus Magnesium Total Bilirubin 1.7 mg/dL H mg/dL (0.1-1.4) Conjugated Bilirubin 0.7 mg/dL H mg/dL (0.0-0.5) Unconjugated Bilirubin 1.0 mg/dL mg/dL (0.0-1.1) AST 30 IU/L IU/L (17-59) ALT 40 IU/L IU/L (21-72) Alkaline Phosphatase 103 IU/L IU/L (38-126) Troponin I 0.027 ng/mL ng/mL (0.000-0.034) NT-Pro-B Natriuret Pep 9670 pg/mL H pg/mL (0-125) Total Protein 6.8 g/dL g/dL (6.3-8.2) Albumin 4.0 g/dL g/dL (3.5-5.0) Urine Color Urine Appearance Urine pH Ur Specific [place] Urine Protein Urine Ketones Urine Blood Urine Nitrate Urine Bilirubin Urine Urobilinogen Ur Leukocyte Esterase Urine Glucose Ethyl Alcohol < 10 mg/dL mg/dL (0-10) 06/06/18 06/06/18 06/06/18 08:29 08:29 08:29 WBC 15.27 10^3/uL H 10^3/uL (3.80-9.50) RBC 5.30 10^6/uL 10^6/uL (4.40-6.38) Hgb 11.4 g/dL L g/dL (13.7-17.5) Hct 39.4 % L % (40.0-51.0) MCV 74.3 fL L fL (81.5-99.8) MCH 21.5 pg L pg (27.9-34.1) MCHC 28.9 g/dL L g/dL (32.4-36.7) RDW 22.5 % H % (11.5-15.2) Plt Count 249 10^3/uL 10^3/uL (150-400) MPV 10.7 fL fL (8.7-11.7) Neut % (Auto) Not Reported Lymph % (Auto) Not Reported Leslie % (Auto) Not Reported Eos % (Auto) Not Reported Baso % (Auto) Not Reported Nucleat RBC Rel Count Not Reported Absolute Neuts (auto) Not Reported Absolute Lymphs (auto) Not Reported Absolute Monos (auto) Not Reported Absolute Eos (auto) Not Reported Absolute Basos (auto) Not Reported Absolute Nucleated RBC Not Reported Immature Gran % Not Reported Seg Neutrophils % 77.0 % % Band Neutrophils % 5.0 % % Lymphocytes % 9.0 % % Monocytes % 7.0 % % Eosinophils % 2.0 % % Basophils % 0.0 % % Metamyelocytes % 0.0 % % Myelocytes % 0.0 % % Promyelocytes % 0.0 % % Blast Cells % 0.0 % % Immature Gran # Not Reported Absolute Seg Neuts 11.76 10^3/uL H 10^3/uL (1.70-6.50) Absolute Band Neuts 0.76 10^3/uL H 10^3/uL (0.00-0.70) Absolute Lymphocytes 1.37 10^3/uL 10^3/uL (1.00-3.00) Absolute Monocytes 1.07 10^3/uL H 10^3/uL (0.30-0.80) Absolute Eosinophils 0.31 10^3/uL 10^3/uL (0.03-0.40) Absolute Basophils 0.00 10^3/uL L 10^3/uL (0.02-0.10) Absolute Metamyelocyte 0.00 10^3/mL 10^3/mL (0.00-0.00) Absolute Myelocytes 0.00 10^3/mL 10^3/mL (0.00-0.00) Absolute Promyelocytes 0.00 10^3/uL 10^3/uL (0.00-0.00) Absolute Plasma Cells 0.00 10^3/uL 10^3/uL (0.00-0.00) Absolute Blast Cells 0.00 10^3/uL 10^3/uL (0.00-0.00) Plasma Cells % 0.0 % % Platelet Estimate ADEQUATE (ADEQ) Polychromasia 1+ H Microcytic Cells 1+ H PT 15.2 SEC H SEC (12.0-15.0) INR 1.18 H (0.83-1.16) APTT 29.2 SEC SEC (23.0-38.0) D-Dimer 1.84 ug/mLFEU H ug/mLFEU (0.00-0.50) VBG Lactic Acid Sodium 138 mEq/L mEq/L (135-145) Potassium 4.2 mEq/L mEq/L (3.5-5.2) Chloride 106 mEq/L mEq/L (97-110) Carbon Dioxide 23 mEq/l mEq/l (22-31) Anion Gap 9 mEq/L mEq/L (6-14) BUN 30 mg/dL H mg/dL (7-23) Creatinine 1.4 mg/dL H mg/dL (0.7-1.3) Estimated GFR 50 Glucose 106 mg/dL H mg/dL (70-100) Calcium 9.6 mg/dL mg/dL (8.5-10.4) Phosphorus Magnesium Total Bilirubin 1.6 mg/dL H mg/dL (0.1-1.4) Conjugated Bilirubin Unconjugated Bilirubin AST ALT Alkaline Phosphatase Troponin I NT-Pro-B Natriuret Pep Total Protein Albumin Urine Color Urine Appearance Urine pH Ur Specific [place] Urine Protein Urine Ketones Urine Blood Urine Nitrate Urine Bilirubin Urine Urobilinogen Ur Leukocyte Esterase Urine Glucose Ethyl Alcohol Microbiology Results: MICROBIOLOGY 06/06/18 08:29 Blood Blood Culture - Preliminary 06/06/18 10:02 Nasal, Sinus - Swab Respiratory Panel (PCR) - Final No Organism Detected By Pcr Medications Given: Diclofenac Sodium (Voltaren 0.1%) 1 drops RTEYE BID ОЛЕГ Stop: 12/03/18 12:44 Last Admin: 06/06/18 13:31 Dose: Not Given Discontinued Medications Acetaminophen (Tylenol) 650 mg PO EDNOW ONE Stop: 06/06/18 08:32 Last Admin: 06/06/18 08:55 Dose: 650 mg Furosemide (Lasix Injection) 20 mg IVP EDNOW ONE Stop: 06/06/18 11:02 Last Admin: 06/06/18 11:09 Dose: 20 mg Vancomycin/Sodium Chloride (Vancomycin 1 Gm (Premix)) 250 mls @ 250 mls/hr IV EDNOW ONE PRN Reason: Protocol Stop: 06/06/18 10:29 Last Admin: 06/06/18 10:03 Dose: 250 mls Departure - Departure Disposition: Home, Routine, Self-Care Clinical Impression: Cellulitis Qualifiers: Site of cellulitis: extremity Site of cellulitis of extremity: lower extremity Laterality: left Qualified Code(s): L03.116 - Cellulitis of left lower limb Congestive heart failure (CHF) Qualifiers: Heart failure type: unspecified Heart failure chronicity: acute on chronic Qualified Code(s): I50.9 - Heart failure, unspecified Condition: Fair
[2018-06-06] MEDS ORDERED: IOHEXOL 350mgI/ML (OMNIPAQUE) 150 ML BTL IV ONE (09:29)
[2018-06-06] MEDS ORDERED: VANCOMYCIN HCL/NORMAL SALINE 250 ML IV ONE (09:30)
[2018-06-06] MEDS ORDERED: FUROSEMIDE 20 MG/2 ML VIAL IVP ONE (11:01)
--- NOTE | 2018-06-06 11:02 | PDGENHP ---
History and Physical - Chief Complaint Confusion and left ankle pain - History of Present Illness Patient is a 67-year-old male with history of coronary artery disease status post one-vessel CABG and aortic valve repair, alcohol abuse, chronic kidney disease, hypertension, gout who was brought in by his with concerns of increasing confusion, weakness and left ankle pain. He had right cataract surgery yesterday and he seemed to do well with that. Afterwards he was complaining of pain in his left ankle and in his eye. She gave him pain medications and he went to sleep. When she woke up she said she found a bottle of empty vodka that she is concerned that he drink and he was confused and complaining of pain. She is unsure if he has had any fevers chills nausea vomiting or other symptoms. Patient currently complaining of severe pain in his left ankle and right knee. He was not able to tell me if he had fallen but he does have excoriations on his upper and lower extremities. Patient is somewhat of a difficult historian as he is falling asleep during the interview and only answers and small 1 word responses. He denied any chest pain cough dysuria shortness of breath or other symptoms. He has no pain with any movement of his ankle. History Information - Allergies/Home Medication List Allergies/Adverse Reactions: cephalexin Allergy (Severe, Verified 06/06/18 08:02) Anaphylaxis Home Medications: Herbals/Supplements -Info Only 1 ea PO DAILY 02/09/18 [Last Taken Unknown] oxyCODONE HCL [Oxycontin] 30 mg PO BID 02/09/18 [Last Taken 06/05/18 12:00] oxyCODONE IR [Oxycodone Ir (*)] 10 mg PO Q6-8PRN PRN 02/09/18 [Last Taken ] Diclofenac 0.1% [Voltaren 0.1% (*)] 1 drops RTEYE BID 06/06/18 [Last Taken 06/06 09:00] Gabapentin [Neurontin 300 MG (*)] 600 mg PO TID 06/06/18 [Last Taken 06/05/18 21 :00] Ofloxacin 0.3% [Ocuflox 0.3% (RX)] 1 drop RTEYE QID 06/06/18 [Last Taken 09:00] oxyCODONE CR [Oxycontin] 10 mg PO Q8HRS PRN 06/06/18 [Last Taken Unknown] prednisoLONE ACET 1% [Pred Forte 1% (*)] 1 drops RTEYE QID 06/06/18 [Last Taken 06/06/18 09:00] I have personally reviewed and updated: family history, medical history, social history, surgical history - Past Medical History atrial fibrillation, arthritis, CHF (acute on chronic class III systolic/ diastolic ), hypertension, hyperlipidemia, liver disease Additional medical history: pulmonary htn, CKD stage 3, chronic pain on narcotics - Surgical History Reports: appendectomy Additional surgical history: multiple bony injuries requiring surgical repair, mitral valve repair - Family History Positive for: non-pertinent - Social History Smoking Status: Former smoker Alcohol Use: Heavy Drug Use: None Review of Systems Review of Systems: ROS: 10pt was reviewed & negative except for what was stated in HPI & below Physical Exam Physical Exam: Temp Pulse Resp BP Pulse Ox 37.3 C 79 16 106/75 95 06/06/18 10:00 06/06/18 10:00 06/06/18 10:00 06/06/18 10:00 06/06/18 10:00 Constitutional: no apparent distress, appears nourished, not in pain Eyes: other (Right eye covered with clear patch. Anisocoria with right pupil 2- 3 mm nonreactive to light. Left pupil pinpoint with light reactive.) Ears, Nose, Mouth, Throat: moist mucous membranes, hearing normal, ears appear normal, no oral mucosal ulcers Cardiovascular: regular rate and rhythym, no murmur, rub, or gallop, No edema Respiratory: no respiratory distress, no rales or rhonchi, clear to auscultation Gastrointestinal: normoactive bowel sounds, soft, non-tender abdomen, no palpable masses Genitourinary: no bladder fullness, no bladder tenderness Skin: warm, other, No mottled Musculoskeletal: other (Left ankle with substantial swelling possible effusion.) Neurologic: AAOx3 Psychiatric: interacting appropriately, not anxious, not encephalopathic, thought process linear Lymph, Heme, Immunologic: no cervical LAD, no supraclavicular LAD Lab Data & Imaging Review 06/06/18 08:29 06/06/18 08:29 WBC 15.27 10^3/uL (3.80-9.50) H 06/06/18 08:29 RBC 5.30 10^6/uL (4.40-6.38) 06/06/18 08:29 Hgb 11.4 g/dL (13.7-17.5) L 06/06/18 08:29 Hct 39.4 % (40.0-51.0) L 06/06/18 08:29 MCV 74.3 fL (81.5-99.8) L 06/06/18 08:29 MCH 21.5 pg (27.9-34.1) L 06/06/18 08:29 MCHC 28.9 g/dL (32.4-36.7) L 06/06/18 08:29 RDW 22.5 % (11.5-15.2) H 06/06/18 08:29 Plt Count 249 10^3/uL (150-400) 06/06/18 08:29 MPV 10.7 fL (8.7-11.7) 06/06/18 08:29 Neut % (Auto) Not Reported 06/06/18 08:29 Lymph % (Auto) Not Reported 06/06/18 08:29 [place] % (Auto) Not Reported 06/06/18 08:29 Eos % (Auto) Not Reported 06/06/18 08:29 Baso % (Auto) Not Reported 06/06/18 08:29 Nucleat RBC Rel Count Not Reported 06/06/18 08:29 Absolute Neuts (auto) Not Reported 06/06/18 08:29 Absolute Lymphs (auto) Not Reported 06/06/18 08:29 Absolute Monos (auto) Not Reported 06/06/18 08:29 Absolute Eos (auto) Not Reported 06/06/18 08:29 Absolute Basos (auto) Not Reported 06/06/18 08:29 Absolute Nucleated RBC Not Reported 06/06/18 08:29 Immature Gran % Not Reported 06/06/18 08:29 Seg Neutrophils % 77.0 % 06/06/18 08:29 Band Neutrophils % 5.0 % 06/06/18 08:29 Lymphocytes % 9.0 % 06/06/18 08:29 Monocytes % 7.0 % 06/06/18 08:29 Eosinophils % 2.0 % 06/06/18 08:29 Basophils % 0.0 % 06/06/18 08:29 Metamyelocytes % 0.0 % 06/06/18 08:29 Myelocytes % 0.0 % 06/06/18 08: Promyelocytes % 0.0 % 06/06/18 08:29 Blast Cells % 0.0 % 06/06/18 08:29 Immature Gran # Not Reported 06/06/18 08:29 Absolute Seg Neuts 11.76 10^3/uL (1.70-6.50) H 06/06/18 08:29 Absolute Band Neuts 0.76 10^3/uL (0.00-0.70) H 06/06/18 08:29 Absolute Lymphocytes 1.37 10^3/uL (1.00-3.00) 06/06/18 08:29 Absolute Monocytes 1.07 10^3/uL (0.30-0.80) H 06/06/18 08:29 Absolute Eosinophils 0.31 10^3/uL (0.03-0.40) 06/06/18 08:29 Absolute Basophils 0.00 10^3/uL (0.02-0.10) L 06/06/18 08:29 Absolute Metamyelocyte 0.00 10^3/mL (0.00-0.00) 06/06/18 08:29 Absolute Myelocytes 0.00 10^3/mL (0.00-0.00) 06/06/18 08:29 Absolute Promyelocytes 0.00 10^3/uL (0.00-0.00) 06/06/18 08:29 Absolute Plasma Cells 0.00 10^3/uL (0.00-0.00) 06/06/18 08:29 Absolute Blast Cells 0.00 10^3/uL (0.00-0.00) 06/06/18 08:29 Plasma Cells % 0.0 % 06/06/18 08:29 Platelet Estimate ADEQUATE (ADEQ) 06/06/18 08:29 Polychromasia 1+ H 06/06/18 08:29 Microcytic Cells 1+ H 06/06/18 08:29 PT 15.2 SEC (12.0-15.0) H 06/06/18 08:29 INR 1.18 (0.83-1.16) H 06/06/18 08:29 APTT 29.2 SEC (23.0-38.0) 06/06/18 08:29 D-Dimer 1.84 ug/mLFEU (0.00-0.50) H 06/06/18 08:29 VBG Lactic Acid 0.8 mmol/L (0.7-2.1) 06/06/18 10:02 Sodium 138 mEq/L (135-145) 06/06/18 08:29 Potassium 4.2 mEq/L (3.5-5.2) 06/06/18 08:29 Chloride 106 mEq/L (97-110) 06/06/18 08:29 Carbon Dioxide 23 mEq/l (22-31) 06/06/18 08:29 Anion Gap 9 mEq/L (6-14) 06/06/18 08:29 BUN 30 mg/dL (7-23) H 06/06/18 08:29 Creatinine 1.4 mg/dL (0.7-1.3) H 06/06/18 08:29 Estimated GFR 50 06/06/18 08:29 Glucose 106 mg/dL (70-100) H 06/06/18 08:29 Calcium 9.6 mg/dL (8.5-10.4) 06/06/18 08:29 Total Bilirubin 1.6 mg/dL (0.1-1.4) H 06/06/18 08:29 Troponin I 0.027 ng/mL (0.000-0.034) 06/06/18 08:30 NT-Pro-B Natriuret Pep 9670 pg/mL (0-125) H 06/06/18 08:30 Urine Color YELLOW 06/06/18 10:30 Urine Appearance HAZY 06/06/18 10:30 Urine pH 9.0 (5.0-7.5) H 06/06/18 10:30 Ur Specific [place] 1.017 (1.002-1.030) 06/06/18 10:30 Urine Protein NEGATIVE (NEGATIVE) 06/06/18 10:30 Urine Ketones NEGATIVE (NEGATIVE) 06/06/18 10:30 Urine Blood NEGATIVE (NEGATIVE) 06/06/18 10:30 Urine Nitrate NEGATIVE (NEGATIVE) 06/06/18 10:30 Urine Bilirubin NEGATIVE (NEGATIVE) 06/06/18 10:30 Urine Urobilinogen NEGATIVE EU (0.2-1.0) 06/06/18 10:30 Ur Leukocyte Esterase NEGATIVE (NEGATIVE) 06/06/18 10:30 Urine Glucose NEGATIVE (NEGATIVE) 06/06/18 10:30 Ethyl Alcohol < 10 mg/dL (0-10) 06/06/18 08:30 Assessment & Plan Assessment: 67 year old male with pmh of CABG, etoh abuse, gout, brought in by with increased leg pain, and confusion. Cellulitis- findings consistent with left lower extremity cellulitis. Patient has a leukocytosis and substantial swelling of his left ankle with erythema, and warmth spreading from his ankle into his calf along with nonhealing ulcers and excoriations. -continue vancomycin started in the ER -monitor blood cultures -obtain plain film of ankle to start Left ankle swelling-he has no pain with palpation or movement of his left ankle making septic arthritis or gout flare less likely. But he has a white count with left shift, substantial swelling erythema to his left ankle spreading up into his calf. He has a history of gout and has been on colchicine and prednisone,but currently on uloric. He also may have sustained fall last night as he has excoriations and fractured ribs and does not remember what happened. Discussed the case with the emergency room physician and he has been started on vancomycin. -monitor blood cultures -obtain plain film of left ankle -If x ray shows joint effusion, consult ortho for aspiration to eval for septic arthritis or gout. -continue vancomycin for now -check uric acid -cont uloric Encephalopathy-patient apparently not acting appropriately when brought in. Currently he is alert and oriented x3 but does fall asleep easily. Aside from labs suggestive of an infection he does have a mildly elevated bilirubin but electrolytes are within normal limits. he does take fairly large doses of oxycodone and found an empty bottle of vodka next to him today which likely is the etiology. -hold meds that may contribute to confusion Right eye cataracts-. He has cataract surgery on the right yesterday. Leave patch in place. continue diclofenac, Pred eye drops and ofloxacin drops. Acute rib fractures- patient has no recollection of falling. Reviewed the CT which shows acute fractures of the right 5th through 7th ribs. -pain control, use judiciously given his lethargy -monitor on tele in case of syncopy Etoh abuse- per patient has hx of heavy alcohol use. patient says she has a "few"drinks a day. would not specify. Has elevated bilirubin but not transaminitis. -CIWA -If ciwa scores elevated, then initiate ativan. Coronary artery disease- status post 1 vessel CABG in 2018 along with an aortic valve repair done here -wants medications confirmed will continue Pacemaker- patient with hx of afib and multiple cardioversions in the past Gout-on uloric. No tenderness of ankle and pain is bilateral in feet adn legs. eval ankle as above. cont uloric for now. Elevated BNP- he is not hypoxic, and does not appear fluid overloaded, or decompensated. last TTE in 07/2017 with normal LVEF. ECG wtih TWI but is unchnaged from January 2018. Monitor for now chronic pain- has chronic leg and foot pain. on large doses of oxycodone. Giving reduced dose in setting of confusion. Fluids- saline intravenous 75 Electrolytes- wnl Diet- regular cor- dnr Dispo inpatient
[2018-06-06] MEDS ORDERED: ONDANSETRON 4 MG/2 ML VIAL IVP PRN (11:17)
[2018-06-06] MEDS ORDERED: ONDANSETRON DISINTEGRATING 4 MG TAB PO PRN (11:17)
[2018-06-06] MEDS ORDERED: ACETAMINOPHEN 325 MG TAB PO PRN (11:17)
[2018-06-06] MEDS: DICLOFENAC 0.1% 2.5 ML OPHT.BTL RTEYE SCH ×2 (13:31→21:57)
--- NOTE | 2018-06-06 14:33 | CPEKG ---
Test Reason : OPEN Blood Pressure : / mmHG Vent. Rate : 074 BPM Atrial Rate : 073 BPM P-R Int : 167 ms QRS Dur : 094 ms QT Int : 421 ms P-R-T Axes : 081 077 008 degrees QTc Int : 467 ms Atrial-paced complexes Repol abnrm suggests ischemia, anterolateral Confirmed by Renetta Archer ([id number]) on 06/06/2018 2:33:24 PM Referred By: RENETTA ARCHER Confirmed By:Renetta Archer
[2018-06-06] MEDS: HEPARIN 5,000 UNIT/0.5 ML INJ SC SCH ×2 (14:57→21:57)
[2018-06-06] MEDS: NS 1,000 ML IV SCH (15:05)
[2018-06-06] MEDS: OFLOXACIN 0.3% 5ML OPHT DROPS RTEYE SCH ×2 (17:58→21:57)
[2018-06-06] MEDS: prednisoLONE ACET 1% 5 ML OPHT.BTL RTEYE SCH ×2 (17:59→21:56)
[2018-06-06] MEDS ORDERED: VANCOMYCIN 500 MG in D5W 100 ML IV ONE (19:00)
[2018-06-06] MEDS: OXYCODONE/APAP 5/325 TAB PO PRN (19:33)
[2018-06-07] MEDS: OXYCODONE/APAP 5/325 TAB PO PRN ×3 (01:25→22:33)
[2018-06-07 04:44] LABS: PLATELET COUNT 203 10^3/uL (150-400)
[2018-06-07] MEDS: OFLOXACIN 0.3% 5ML OPHT DROPS RTEYE SCH ×4 (06:12→21:16)
[2018-06-07] MEDS: prednisoLONE ACET 1% 5 ML OPHT.BTL RTEYE SCH ×4 (06:12→21:15)
[2018-06-07] MEDS: HEPARIN 5,000 UNIT/0.5 ML INJ SC SCH ×3 (06:12→22:32)
[2018-06-07] MEDS: NS 1,000 ML IV SCH (06:16)
[2018-06-07] MEDS ORDERED: LORazepam 2 MG/ML INJ IVP PRN (08:38)
[2018-06-07] MEDS ORDERED: FLUMAZENIL 0.5 MG/5 ML MDV IVP PRN (08:38)
[2018-06-07] MEDS: ASPIRIN EC 81 MG TAB PO SCH (09:58)
[2018-06-07] MEDS: THIAMINE HCL 500 MG in NS 100 ML IV SCH (09:59)
[2018-06-07] MEDS: DICLOFENAC 0.1% 2.5 ML OPHT.BTL RTEYE SCH ×2 (10:03→21:15)
[2018-06-07] MEDS: VANCOMYCIN 1.5 GM in NS 250 ML IV SCH (10:32)
[2018-06-07] MEDS: oxyCODONE CR 30 MG TAB PO SCH ×2 (10:32→18:28)
--- NOTE | 2018-06-07 12:04 | PDMN ---
Medical Necessity Medical necessity: [facility] [place] M70 cellulitis: M 545 rib fxs 3 or more traumatic rib fxs- 67 yr old M with LLE cellulitis, AMS- leukocytosis, swelling of L ankle with erythema and warmth spreading from ankle to calf also with non healing ulcers and excoriations. also with acute rib fxs R 5-7- L- 12th . initial RA sat 87% 90-95 on 2 L., eye cataract sgy( yesterday) ., elevated BNP, rising Cr. PMHx: CABG, pacemaker, ETOH abuse, gout, anticipate > 2 MN ongoing gmed nec care- further monitoring , eval and tx.
--- NOTE | 2018-06-07 15:01 | HOSPPROG ---
Hospitalist Progress Note Assessment/Plan: 67 year old male with pmh of CABG, etoh abuse, gout, brought in by with increased leg pain, and confusion. Cellulitis- findings consistent with left lower extremity cellulitis. Patient has a leukocytosis and substantial swelling of his left ankle with erythema, and warmth spreading from his ankle into his calf along with nonhealing ulcers and excoriations. -continue vancomycin started in the ER, significant improvement in erythema per patient this AM -monitor blood cultures -obtain plain film of ankle to start Left ankle swelling-he has no pain with palpation or movement of his left ankle making septic arthritis or gout flare less likely. But he has a white count with left shift, substantial swelling erythema to his left ankle spreading up into his calf. He has a history of gout and has been on colchicine and prednisone,but currently on uloric. He also may have sustained fall last night as he has excoriations and fractured ribs and does not remember what happened. Discussed the case with the emergency room physician and he has been started on vancomycin. -monitor blood cultures -obtain plain film of left ankle -If x ray shows joint effusion, consult ortho for aspiration to eval for septic arthritis or gout. -continue vancomycin for now -check uric acid -cont uloric Encephalopathy-patient apparently not acting appropriately when brought in. Currently he is alert and oriented x3. Aside from labs suggestive of an infection he does have a mildly elevated bilirubin but electrolytes are within normal limits. he does take fairly large doses of oxycodone and found an empty bottle of vodka next to him today which likely is the etiology. Right eye cataracts-. He has cataract surgery on the right yesterday. Leave patch in place. continue diclofenac, Pred eye drops and ofloxacin drops. Acute rib fractures- patient has no recollection of falling. Reviewed the CT which shows acute fractures of the right 5th through 7th ribs. -pain control -monitor on tele in case of syncopy Etoh abuse- per patient has hx of heavy alcohol use. patient says she has a "few"drinks a day. would not specify. Has elevated bilirubin but not transaminitis. -CIWA Coronary artery disease- status post 1 vessel CABG in 2018 along with an aortic valve repair done here - Continue home medciations Pacemaker- patient with hx of afib and multiple cardioversions in the past Gout-on uloric. No tenderness of ankle and pain is bilateral in feet adn legs. eval ankle as above. cont uloric for now. Elevated BNP- he is not hypoxic, and does not appear fluid overloaded, or decompensated. last TTE in 07/2017 with normal LVEF. ECG wtih TWI but is unchnaged from January 2018. Monitor for now chronic pain- has chronic leg and foot pain. on large doses of oxycodone. Giving reduced dose in setting of confusion. Fluids- saline intravenous 75 Electrolytes- wnl Diet- regular cor- dnr Dispo inpatient Subjective: Patient reports pain this AM Objective: Vital Signs Temp Pulse Resp BP Pulse Ox 36.6 C 71 19 116/80 92 06/07/18 07:42 06/07/18 13:00 06/07/18 07:42 06/07/18 13:00 06/07/18 07:42 Laboratory Results 06/07/18 03:35 06/07/18 03:35 06/06/18 06/07/18 06/08/18 05:59 05:59 05:59 Intake Total 2260 Output Total 350 Balance 1910 PT 15.2 SEC (12.0-15.0) H 06/06/18 08:29 INR 1.18 (0.83-1.16) H 06/06/18 08:29 - Physical Exam Constitutional: chronically ill appearing, unkempt Eyes: PERRL Ears, Nose, Mouth, Throat: moist mucous membranes Cardiovascular: regular rate and rhythym Respiratory: no respiratory distress Skin: warm Musculoskeletal: generalized weakness Neurologic: AAOx3 Psychiatric: interacting appropriately ICD10 Worksheet Patient Problems: Problems Problem Status Onset Cellulitis Acute Congestive heart failure (CHF) Acute Acute blood loss anemia Acute Acute renal failure Acute Atrial fibrillation with RVR Acute CAD in [place] artery Acute DVT (deep venous thrombosis) Acute Gout Acute Hyperkalemia Acute Neuropathic pain, leg, bilateral Acute S/P CABG x 1 Acute ~08/09/17 S/P Maze operation for atrial fibrillation Acute ~08/09/17 Status post mitral valve annuloplasty Acute ~08/09/17 Status post tricuspid valve repair Acute ~08/09/17 s/p placement of LV epicardial lead Acute ~08/09/17 Atrial fibrillation Chronic CKD (chronic kidney disease) stage 3, GFR 30-59 ml/min Chronic Diastolic congestive heart failure, NYHA class 3 Chronic Dilated cardiomyopathy Chronic Secondary tricuspid valve regurgitation Chronic Severe mitral regurgitation Chronic
--- NOTE | 2018-06-07 15:29 | ASMTCMCOM ---
CM Note CM Note Notes: 06/07/2018 Case Management Note Pt admitted for cellulitis and AMS. Discussed pt in rounds. Met w/pt to discuss PT recommendation for home care. Pt uncertain if home care is needed but agreeable to referral. Faxed referral to [facility]. Pt lives closer to [facility] than [place]. Case Management d/c poc: to be determined. Case Management to follow. Date Signed: 06/07/2018 03:29 PM Electronically Signed By:Ana M Gaytan RN
[2018-06-07] MEDS ORDERED: oxyCODONE CR 30 MG TAB PO SCH (21:00)
[2018-06-08] MEDS: OXYCODONE/APAP 5/325 TAB PO PRN ×2 (03:49→10:42)
[2018-06-08] MEDS: oxyCODONE CR 30 MG TAB PO SCH (06:21)
[2018-06-08] MEDS: HEPARIN 5,000 UNIT/0.5 ML INJ SC SCH (06:21)
[2018-06-08] MEDS: prednisoLONE ACET 1% 5 ML OPHT.BTL RTEYE SCH ×2 (06:22→11:41)
[2018-06-08] MEDS: OFLOXACIN 0.3% 5ML OPHT DROPS RTEYE SCH ×2 (06:22→11:41)
[2018-06-08] MEDS ORDERED: Febuxostat [Uloric] 40 MG PO SCH (09:00)
[2018-06-08] MEDS: ASPIRIN EC 81 MG TAB PO SCH (09:08)
[2018-06-08] MEDS: THIAMINE HCL 500 MG in NS 100 ML IV SCH (09:08)
[2018-06-08] MEDS: DICLOFENAC 0.1% 2.5 ML OPHT.BTL RTEYE SCH (09:09)
[2018-06-08] MEDS: VANCOMYCIN 1.5 GM in NS 250 ML IV SCH (10:59)
[2018-06-08 13:58] VITALS: BP 112/68
--- NOTE | 2018-06-08 13:59 | PDIAF ---
- Diagnosis Diagnosis: Cellulitis Code Status: Do Not Resuscitate - Medication Management Discharge Medications: electronically signed and located in the Home Medication List. - Orders Services needed: Home Care, Registered Nurse, Physical Therapy, Occupational Therapy Home Care Face to Face: I certify that this patient was under my care and that I had the required [id number] encounter meeting the encounter requirements on the discharge day. My findings support the fact that the patient is homebound as defined in Home Care Face to Face Continued: CMS Chapter 7 Medicare Benefits Manual 30.1.1 , The condition of the patient is such that there exists a normal inability to leave home and consequently, leaving home would require a considerable and taxing effort. Isolation Type: None - Follow Up Care Current Providers and Referrals: MYRIAM ARREGUIN [Primary Care Provider] - As per Instructions
--- NOTE | 2018-06-08 14:10 | ASMTLACE ---
TANVI Length of stay for Answers: 2 days current admission Acuity / Level of Answers: Yes Care: Did the patient have an inpatient admission? Comorbidities - select Answers: Congestive heart failure all that apply Coronary Artery Disease Moderate or severe liver or renal disease Opioid dependence / Chronic pain Other Notes: AFib; HTN # of Emergency department Answers: 1-2 visits in the last 6 months Social determinants Answers: History of substance abuse (ETOH, street drugs, prescription drugs, etc.) Score: 22 Date Signed: 06/08/2018 02:09 PM Electronically Signed By:Ana M Gaytan RN
--- NOTE | 2018-06-08 14:17 | ASDISCHSUM ---
Discharge Information Plan Status:Home with Home Health Medically Cleared to Leave:06/07/2018 Discharge Date:06/07/2018 CM D/C Disposition:Home Health Service ADT D/C Disposition: Projected Discharge Date:06/09/2018 11:00 AM Transportation at D/C:Family Discharge Delay Reason: Follow-Up Date:06/09/2018 11:00 AM Discharge Slot: Final Diagnosis: Placement Information Referral Type:*Home Health Care Services Referral ID:[id number] Provider Name:[facility] Address 1:[address] [place] [address] Address 2: City:[place] Selection Factors: State:[place] Patient Contact Information Contact Name:NORBERTO Relationship: Address:[facility] [address] City:[place] Alternate Phone: State/Zip Code:[place] [address] Email: Financial Information Financial Class:[facility] Primary Plan Desc:[facility] Primary Plan Number:[id number] Secondary Plan Desc:[facility] Secondary Plan Number:[id number] Assessment Information LACE LACE Length of stay for Answers: 2 days current admission Acuity / Level of Answers: Yes Care: Did the patient have an inpatient admission? Comorbidities - select Answers: Congestive heart failure all that apply Coronary Artery Disease Moderate or severe liver or renal disease Opioid dependence / Chronic pain Other Notes: AFib; HTN # of Emergency department Answers: 1-2 visits in the last 6 months Social determinants Answers: History of substance abuse (ETOH, street drugs, prescription drugs, etc.) Score: 22 Date Signed: 06/08/2018 02:09 PM Electronically Signed By:Ana M Gaytan RN [facility] CM Progress Note CM Note CM Note Notes: 06/07/2018 Case Management Note Pt admitted for cellulitis and AMS. Discussed pt in rounds. Met w/pt to discuss PT recommendation for home care. Pt uncertain if home care is needed but agreeable to referral. Faxed referral to [facility]. Pt lives closer to [facility] than [place]. Case Management d/c poc: to be determined. Case Management to follow. Date Signed: 06/07/2018 03:29 PM Electronically Signed By:Ana M Gaytan RN Case Management Discharge Plan Note Case Management Discharge Discharge Order Complete? Answers: Yes Patient to Obtain Answers: via Family Medications Transportation Arranged Answers: Family/Friends Faxed Final Orders Answers: Yes Notes: to [facility] Agency/Facility Transfer Answers: Yes Notes: to [facility] Report Printed & Faxed to Receiving Agency Discharge Comments Notes: 06/08/2018 Case Management Note Faxed d/c orders to [facility]. to transport pt home. Case Management d/c poc: [facility] RN PT Date Signed: 06/08/2018 02:14 PM Electronically Signed By:Ana M Gaytan RN Intervention Information
--- NOTE | 2018-06-08 14:37 | PDDCSUM ---
Discharge Summary Discharge Summary: Date of Admission: 06/06/2018 Date of Discharge: 06/08/2018 Procedures: L Ankle XR, CXR Followup: PCP, Pain Management Hospital Course Problem List: 67 year old male with pmh of CABG, etoh abuse, gout, brought in by with increased leg pain, and confusion. Cellulitis- findings consistent with left lower extremity cellulitis. Patient had a leukocytosis and substantial swelling of his left ankle with erythema, and warmth spreading from his ankle into his calf along with nonhealing ulcers and excoriations. -Was on vancomycin, significant improvement since admission -Will transition to PO Bactrim DS BID to complete 7 day course -Blood cultures NGTD Left ankle swelling-he has no pain with palpation or movement of his left ankle making septic arthritis or gout flare less likely. But he has a white count with left shift, substantial swelling erythema to his left ankle spreading up into his calf. He has a history of gout and has been on colchicine and prednisone,but currently on uloric. He also may have sustained fall as he has excoriations and fractured ribs and does not remember what happened. -Left ankle XR on admission with no acute fracture, no effusion -cont uloric Encephalopathy-patient apparently not acting appropriately when brought in. Alert and oriented x3 since then. Aside from labs suggestive of an infection he does have a mildly elevated bilirubin but electrolytes are within normal limits. He does take fairly large doses of oxycodone and found an empty bottle of vodka next to him prior to admission which likely is the etiology. Right eye cataracts-. He has cataract surgery on the right day prior to admission. Continue diclofenac, Pred eye drops and ofloxacin drops. Acute rib fractures- patient has no recollection of falling. Reviewed the CT which shows acute fractures of the right 5th through 7th ribs. -pain control Etoh abuse- per patient has hx of heavy alcohol use. patient says she has a "few"drinks a day. would not specify. Has elevated bilirubin but not transaminitis. -CIWA during admission Coronary artery disease- status post 1 vessel CABG in 2018 along with an aortic valve repair done here - Continue home medications Pacemaker- patient with hx of afib and multiple cardioversions in the past Gout-on uloric. No tenderness of ankle and pain is bilateral in feet and legs. eval ankle as above. cont uloric for now. Elevated BNP- he is not hypoxic, and does not appear fluid overloaded, or decompensated. last TTE in 07/2017 with normal LVEF. ECG wtih TWI but is unchanged from January 2018. chronic pain- has chronic leg and foot pain. on large doses of oxycodone. Time spent on discharge was >35 minutes with >50% of time spent on patient education and counseling.
[2018-06-08] MEDS ORDERED: SULFAMETHOX/TMP 800/160 MG 1 TAB PO SCH (21:00)
[2018-06-10] MEDS ORDERED: THIAMINE HCL 100 MG TAB PO SCH (08:38)
== END 2018-06-08 16:30 | disposition home health service (06) | DRG 603 ==
LOC: F2W 13:00
PROVIDERS: ADMIT Internal Medicine; ATTEND Internal Medicine
DX: L03.116 Cellulitis of left lower limb (principal); L97.229 Non-pressure chronic ulcer of left calf with unspecified severity; G93.40 Encephalopathy, unspecified; S22.41XA Multiple fractures of ribs, right side, initial encounter for closed fracture; I13.0 Hypertensive heart and chronic kidney disease with heart failure and stage 1 through stage 4 chronic kidney disease, or unspecified chronic kidney disease; W19.XXXA Unspecified fall, initial encounter; N18.3 Chronic kidney disease, stage 3 (moderate); I50.9 Heart failure, unspecified; F10.10 Alcohol abuse, uncomplicated; M10.9 Gout, unspecified; H26.9 Unspecified cataract; I25.10 Atherosclerotic heart disease of native coronary artery without angina pectoris; G89.29 Other chronic pain; E78.5 Hyperlipidemia, unspecified; Z66 Do not resuscitate; Z87.891 Personal history of nicotine dependence; Z95.0 Presence of cardiac pacemaker; Z96.653 Presence of artificial knee joint, bilateral; Z95.1 Presence of aortocoronary bypass graft
CPT/HCPCS: 96365; 97116-GP; 97161-GP; 97166-GO; G0480; J1644; J1940; J3370; J3411; Q9967

== ENCOUNTER 2018-06-20 09:55 | Observation (INO) | payer OTHER ==
--- NOTE | 2018-06-20 10:34 | EDPHY ---
HPI/HX/ROS/PE/MDM Narrative: CHIEF COMPLAINT: Bilateral leg redness HPI: The patient is a 67 y/o male with a history that includes CAD, alcohol abuse, chronic kidney disease, hypertension, gout arriving with his son for evaluation of persistent bilateral leg redness for at least 2 weeks since admission here. Two week ago he was admitted for encephalopathy thought related to alcohol intoxication, left leg cellulitis, and acute rib fractures. His cellulitis was treated with vancomycin initially and he was discharged on a 7- day course of Bactrim. Since then, symptoms have not improved and may have worsened, though the patient is a poor historian and unable to describe how symptoms are different. 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 He was placed on doxycycline at some point, but the timeframe for this is not clear. He endorses a "light fever of 99.9-101F" over the last few days. He denies cough, sore throat, rhinorrhea, dyspnea, chest pain, abdominal pain, vomiting, diarrhea. REVIEW OF SYSTEMS: A comprehensive 10 system review of systems is otherwise negative aside from elements mentioned in the history of present illness. PMH: CAD post CABG x1, alcohol abuse, gout, cataracts, CHF, arthritis, atrial fibrillation, hypertension, hyperlipidemia, liver disease, appendectomy, orthopedic surgeries, mitral valve repair, pacemaker, chronic pain, chronic kidney disease SOCIAL HISTORY: Former smoker. Heavy alcohol use. Son at bedside. Joint Cutter Machine: Dr. Barrera. Prior medical records reviewed including recent admission 06/06/18 for cellulitis and encephalopathy. PHYSICAL EXAM: General:Patient is alert, in no acute distress. ENT:Eyes are normal to inspection. ENT inspection normal. Neck: Normal inspection. Full range of motion. Respiratory:No respiratory distress. Breath sounds normal bilaterally. Cardiovascular: Regular rate and rhythm. Strong peripheral pulses. Normal cap refill. Abdomen:The abdomen is nontender to palpation. There are no peritoneal signs. Back: Normal to inspection. No tenderness to palpation. Skin: Normal color. No rash. Warm and dry. Extremities: Significant lower leg erythema below the level of the knee bilaterally. Full range of motion. Neuro: Oriented x3. Normal motor function. Normal sensory function. ED Course: 67 y/o male with a history that includes CAD, alcohol abuse, chronic kidney disease, hypertension who presents with at least 2-week history of bilateral leg erythema possibly worsening over the last few days. He was treated for left leg cellulitis during an admission 2 weeks ago with vancomycin as an inpatient and Bactrim at discharge. He also reports being on doxycycline recently. Legs are diffusely erythematous bilaterally on exam. Plan for IV, labs, EKG. The 12 lead EKG was interpreted by myself. See hard copy and/or "tracemaster" electronic copy for interpretation. 1 tab PO Phoenix ordered for pain. Consulted with Dr. Dorsey, hospitalist who saw this patient last time he was admitted. He thinks patient's legs look worse than during the prior admission. He recommends ESR and CRP and if elevated then admission. ESR and CRP are both elevated. Hospitalist service paged. Spoke with hospitalist. Dr. Calles accepts admission. - Data Points Laboratory Results: Laboratory Results 06/20/18 12:06 06/20/18 11:09 06/20/18 06/20/18 06/20/18 12:06 11:14 11:09 WBC 6.20 10^3/uL 10^3/uL (3.80-9.50) RBC 5.60 10^6/uL 10^6/uL (4.40-6.38) Hgb 11.7 g/dL L g/dL (13.7-17.5) Hct 39.4 % L % (40.0-51.0) MCV 70.4 fL L fL (81.5-99.8) MCH 20.9 pg L pg (27.9-34.1) MCHC 29.7 g/dL L g/dL (32.4-36.7) RDW 22.5 % H % (11.5-15.2) Plt Count 480 10^3/uL H 10^3/uL (150-400) MPV TNP Neut % (Auto) 56.2 % % (39.3-74.2) Lymph % (Auto) 21.6 % % (15.0-45.0) Madison % (Auto) 16.9 % H % (4.5-13.0) Eos % (Auto) 4.0 % % (0.6-7.6) Baso % (Auto) 1.0 % % (0.3-1.7) Nucleat RBC Rel Count 0.0 % % (0.0-0.2) Absolute Neuts (auto) 3.48 10^3/uL 10^3/uL (1.70-6.50) Absolute Lymphs (auto) 1.34 10^3/uL 10^3/uL (1.00-3.00) Absolute Monos (auto) 1.05 10^3/uL H 10^3/uL (0.30-0.80) Absolute Eos (auto) 0.25 10^3/uL 10^3/uL (0.03-0.40) Absolute Basos (auto) 0.06 10^3/uL 10^3/uL (0.02-0.10) Absolute Nucleated RBC 0.00 10^3/uL 10^3/uL (0-0.01) Immature Gran % 0.3 % % (0.0-1.1) Immature Gran # 0.02 10^3/uL 10^3/uL (0.00-0.10) Platelet Estimate INCREASED H (ADEQ) Polychromasia 1+ H Hypochromasia 1+ H Microcytic Cells 1+ H Tear Drop Cells 1+ H Elliptocytes 1+ H Acanthocytes (Spur) 1+ H ESR 70 MM/HR H MM/HR (0-20) Sodium 133 mEq/L L mEq/L (135-145) Potassium 4.0 mEq/L mEq/L (3.5-5.2) Chloride 104 mEq/L mEq/L (97-110) Carbon Dioxide 21 mEq/l L mEq/l (22-31) Anion Gap 8 mEq/L mEq/L (6-14) BUN 32 mg/dL H mg/dL (7-23) Creatinine 2.5 mg/dL H mg/dL (0.7-1.3) Estimated GFR 26 Glucose 77 mg/dL mg/dL (70-100) Calcium 8.4 mg/dL L mg/dL (8.5-10.4) Total Bilirubin 0.6 mg/dL mg/dL (0.1-1.4) Conjugated Bilirubin 0.4 mg/dL mg/dL (0.0-0.5) Unconjugated Bilirubin 0.2 mg/dL mg/dL (0.0-1.1) AST 30 IU/L IU/L (17-59) ALT 32 IU/L IU/L (21-72) Alkaline Phosphatase 113 IU/L IU/L (38-126) POC Troponin I 0.02 ng/mL ng/mL (0.00-0.08) C-Reactive Protein NT-Pro-B Natriuret Pep 3110 pg/mL H pg/mL (0-125) Total Protein 6.3 g/dL g/dL (6.3-8.2) Albumin 3.4 g/dL L g/dL (3.5-5.0) 06/20/18 06/20/18 06/20/18 11:09 11:03 11:03 WBC REJ RBC REJ Hgb REJ Hct REJ Cancelled MCV REJ MCH REJ MCHC REJ RDW REJ Plt Count REJ MPV REJ Neut % (Auto) REJ Lymph % (Auto) REJ Madison % (Auto) REJ Eos % (Auto) REJ Baso % (Auto) REJ Nucleat RBC Rel Count REJ Absolute Neuts (auto) REJ Absolute Lymphs (auto) REJ Absolute Monos (auto) REJ Absolute Eos (auto) REJ Absolute Basos (auto) REJ Absolute Nucleated RBC REJ Immature Gran % REJ Immature Gran # REJ Platelet Estimate Polychromasia Hypochromasia Microcytic Cells Tear Drop Cells Elliptocytes Acanthocytes (Spur) ESR Cancelled Sodium Potassium Chloride Carbon Dioxide Anion Gap BUN Creatinine Estimated GFR Glucose Calcium Total Bilirubin Conjugated Bilirubin Unconjugated Bilirubin AST ALT Alkaline Phosphatase POC Troponin I C-Reactive Protein 15.7 mg/L H mg/L (<10.0) NT-Pro-B Natriuret Pep Total Protein Albumin Medications Given: Discontinued Medications Hydrocodone Bitart/Acetaminophen (P[place]enix 5/325) 1 tab PO EDNOW ONE Stop: 06/20/18 13:11 Last Admin: 06/20/18 13:18 Dose: 1 tab Hydromorphone HCl (Dilaudid) 0.5 mg IVP EDNOW ONE Stop: 06/20/18 13:53 Last Admin: 06/20/18 13:57 Dose: 0.5 mg Point of Care Test Results: Chemistry 06/20/18 11:14 POC Troponin I 0.02 ng/mL ng/mL (0.00-0.08) General Time Seen by Provider: 06/20/18 10:00 Initial Vital Signs: Initial Vital Signs Temperature (C) 36.9 C 06/20/18 10:03 Heart Rate 70 06/20/18 10:03 Respiratory Rate 16 06/20/18 10:03 Blood Pressure 112/70 06/20/18 10:03 O2 Sat (%) 90 L 06/20/18 10:03 O2 Delivery Mode Room Air Allergies/Adverse Reactions: cephalexin Allergy (Severe, Verified 06/20/18 10:01) Anaphylaxis Home Medications: Medication Instructions Recorded Herbals/Supplements -Info Only 1 ea PO DAILY 02/09/18 oxyCODONE IR [Oxycodone Ir (*)] 10 mg PO TID PRN 02/09/18 Aspirin EC [Aspirin EC 81 mg (*)] 81 mg PO DAILY tab 02/12/18 Febuxostat [ULORIC] 40 mg PO DAILY #30 tablet 02/12/18 Colchicine [Colchicine (*)] 0.6 mg PO DAILY 06/20/18 Doxycycline Hyclate [Doxycycline 100 mg PO DAILY 06/20/18 Hyclate] Metoprolol Succinate Xr [Toprol Xl] 100 mg PO DAILY 06/20/18 Torsemide [Demadex] 20 mg PO DAILY10 06/20/18 oxyCODONE HCL [Oxycontin] 30 mg PO BID 06/20/18 Departure - Departure Disposition: [facility] Inpatient Acute Clinical Impression: Cellulitis Qualifiers: Site of cellulitis: extremity Site of cellulitis of extremity: lower extremity Laterality: unspecified laterality Qualified Code(s): L03.119 - Cellulitis of unspecified part of limb Condition: Fair Report Scribed for: Jorge Alejo Report Scribed by: Martha Fischer Date of Report: 06/20/18 Time of Report: 10:33 Physician Review and Approval Statement: Portions of this note were transcribed by an ED scribe. I personally performed the history, physical exam, and medical decision making; and confirm the accuracy of the information in the transcribed note.
[2018-06-20 12:22] LABS: PLATELET COUNT 480 10^3/uL (150-400)
[2018-06-20] MEDS ORDERED: HYDROCODONE/APAP 5/325 TAB PO ONE (13:10)
[2018-06-20] MEDS ORDERED: HYDROmorphONE/DILAUDID 2 MG/ML INJ IVP ONE (13:52)
--- NOTE | 2018-06-20 15:22 | ASMTLACE ---
TANVI Acuity / Level of Answers: Yes Care: Did the patient have an inpatient admission? Comorbidities - select Answers: Coronary Artery Disease all that apply Moderate or severe liver or renal disease # of Emergency department Answers: 3-4 visits in the last 6 months Social determinants Answers: History of substance abuse (ETOH, street drugs, prescription drugs, etc.) Score: 15 Date Signed: 06/20/2018 03:22 PM Electronically Signed By:Aleja Small RN
[2018-06-20] MEDS ORDERED: ONDANSETRON DISINTEGRATING 4 MG TAB PO PRN (15:36)
[2018-06-20] MEDS ORDERED: ONDANSETRON 4 MG/2 ML VIAL IVP PRN (15:36)
--- NOTE | 2018-06-20 16:13 | PDGENHP ---
History and Physical - Chief Complaint Bilateral lower extremity redness - History of Present Illness HPI: This is a 67 y/o male with hx of CAD s/p CABG x 1, mitral valve repair, CKD , HTN, gout who arrived to the ED w/ his son for an evaluation of his persistent bilateral lower extremity redness. He was admitted here 2 weeks ago for encephalopathy thought to be r/t etoh intoxication, acute rib fx, and left leg cellulitis. His cellulitis at that time was treated with Vancomycin and he was d/c'ed with Bactrim. He now presents today reporting the redness has worsened and his right lower leg is involved. He is a very poor historian but he reports he has been taking his temperature at home and it is in the range of 99.0-101, the 101 being 2 days ago. He denies nausea, vomiting, chills, dysuria , diarrhea chest pains, palpitations, shortness of breath. He can't remember whether he had progressive redness to his RLE 2 weeks prior. Upon waking and getting out of bed, he says his pain is at its worst rating it 7-8/10 and it is painful to walk, described as sharp but his body adapts and "learn to deal with it." Pain improves with rest. He mentioned swelling of his feet has been an issue for some time now and supposedly went to a "blood vessel" doctor and "it all checked out, normal." He is being admitted for treatment and observation. Past Medical History 1. Atrial fibrillation 2. Arthritis 3. CHF (Class III systolic/diastolic) 4. Hypertension 5. Hyperlipidemia 6. Liver disease 7. Pulmonary hypertension 8. CKD Stage III 9. Chronic pain (on narcotics) 10. CAD 11. Pacemaker Past Surgical History 1. Appendectomy 2. CABG x 1 3. Mitral valve repair Social 1. Former smoker. Denies illicit drug use. Reports he stopped drinking etoh 2 months ago. Prior alcohol abuse reporting 3 drinks/day 2. History Information - Allergies/Home Medication List Allergies/Adverse Reactions: cephalexin Allergy (Severe, Verified 06/20/18 10:01) Anaphylaxis Home Medications: Herbals/Supplements -Info Only 1 ea PO DAILY 02/09/18 [Last Taken Unknown] oxyCODONE IR [Oxycodone Ir (*)] 10 mg PO TID PRN 10/13/18 [Last Taken 06/20/18] Colchicine [Colchicine (*)] 0.6 mg PO DAILY 06/20/18 [Last Taken 06/20/18] Doxycycline Hyclate [Doxycycline Hyclate] 100 mg PO DAILY 06/20/18 [Last Taken 06/20/18] Metoprolol Succinate Xr [Toprol Xl] 100 mg PO DAILY 06/20/18 [Last Taken ] Torsemide [Demadex] 20 mg PO DAILY10 06/20/18 [Last Taken Unknown] oxyCODONE HCL [Oxycontin] 30 mg PO BID 06/20/18 [Last Taken 06/20/18] I have personally reviewed and updated: family history, medical history, social history, surgical history - Past Medical History atrial fibrillation, arthritis, CHF (acute on chronic class III systolic/ diastolic ), hypertension, hyperlipidemia, liver disease Additional medical history: pulmonary htn, CKD stage 3, chronic pain on narcotics - Surgical History Reports: appendectomy Additional surgical history: multiple bony injuries requiring surgical repair, mitral valve repair - Family History Positive for: non-pertinent - Social History Smoking Status: Former smoker Alcohol Use: Sober Drug Use: None Review of Systems Review of Systems: ROS: 10pt was reviewed & negative except for what was stated in HPI & below Physical Exam Physical Exam: Lab data and imaging were reviewed. Case discussed with admitting physician, Dr. Mounika Calles. WBC: 6.20 ESR: 70 CRP:15.7 BNP:3110 EKG: Atrial-paced complexes Temp Pulse Resp BP Pulse Ox 37 C 71 18 118/84 H 94 06/20/18 15:49 06/20/18 15:49 06/20/18 15:49 06/20/18 15:49 06/20/18 15:49 Constitutional: no apparent distress, appears nourished, uncomfortable Eyes: PERRL, anicteric sclera, EOMI Ears, Nose, Mouth, Throat: moist mucous membranes, hearing normal, ears appear normal, no oral mucosal ulcers Cardiovascular: regular rate and rhythym, no murmur, rub, or gallop, edema ( Pedal edema, non-pitting) Peripheral Pulses: 2+: dorsalis-pedis (R) (Radial 2+), dorsalis-pedis (L) ( Radial 2+) Respiratory: no respiratory distress, no rales or rhonchi, reduced air movement Gastrointestinal: normoactive bowel sounds, soft, non-tender abdomen, no palpable masses Genitourinary: no bladder fullness, no bladder tenderness Skin: abrasion (Noted scabbed wound to lateral left knee. Apparently, has had this wound for >3 months), erythema (BLE, blanchable) Musculoskeletal: pain with ROM (pain with DF/PF) Neurologic: AAOx3, numbness (Bilateral feet, chronic. ), CN II-XII Intact Psychiatric: interacting appropriately, not anxious, not encephalopathic, thought process linear Lymph, Heme, Immunologic: no cervical LAD, no supraclavicular LAD Lab Data & Imaging Review 06/20/18 12:06 06/20/18 11:09 WBC 6.20 10^3/uL (3.80-9.50) 06/20/18 12:06 RBC 5.60 10^6/uL (4.40-6.38) 06/20/18 12:06 Hgb 11.7 g/dL (13.7-17.5) L 06/20/18 12:06 Hct 39.4 % (40.0-51.0) L 06/20/18 12:06 MCV 70.4 fL (81.5-99.8) L 06/20/18 12:06 MCH 20.9 pg (27.9-34.1) L 06/20/18 12:06 MCHC 29.7 g/dL (32.4-36.7) L 06/20/18 12:06 RDW 22.5 % (11.5-15.2) H 06/20/18 12:06 Plt Count 480 10^3/uL (150-400) H 06/20/18 12:06 MPV TNP 06/20/18 12:06 Neut % (Auto) 56.2 % (39.3-74.2) 06/20/18 12:06 Lymph % (Auto) 21.6 % (15.0-45.0) 06/20/18 12:06 [place] % (Auto) 16.9 % (4.5-13.0) H 06/20/18 12:06 Eos % (Auto) 4.0 % (0.6-7.6) 06/20/18 12:06 Baso % (Auto) 1.0 % (0.3-1.7) 06/20/18 12:06 Nucleat RBC Rel Count 0.0 % (0.0-0.2) 06/20/18 12:06 Absolute Neuts (auto) 3.48 10^3/uL (1.70-6.50) 06/20/18 12:06 Absolute Lymphs (auto) 1.34 10^3/uL (1.00-3.00) 06/20/18 12:06 Absolute Monos (auto) 1.05 10^3/uL (0.30-0.80) H 06/20/18 12:06 Absolute Eos (auto) 0.25 10^3/uL (0.03-0.40) 06/20/18 12:06 Absolute Basos (auto) 0.06 10^3/uL (0.02-0.10) 06/20/18 12:06 Absolute Nucleated RBC 0.00 10^3/uL (0-0.01) 06/20/18 12:06 Immature Gran % 0.3 % (0.0-1.1) 06/20/18 12:06 Immature Gran # 0.02 10^3/uL (0.00-0.10) 06/20/18 12:06 Platelet Estimate INCREASED (ADEQ) H 06/20/18 12:06 Polychromasia 1+ H 06/20/18 12:06 Hypochromasia 1+ H 06/20/18 12:06 Microcytic Cells 1+ H 06/20/18 12:06 Tear Drop Cells 1+ H 06/20/18 12:06 Elliptocytes 1+ H 06/20/18 12:06 Acanthocytes (Spur) 1+ H 06/20/18 12:06 ESR 70 MM/HR (0-20) H 06/20/18 12:06 Sodium 133 mEq/L (135-145) L 06/20/18 11:09 Potassium 4.0 mEq/L (3.5-5.2) 06/20/18 11:09 Chloride 104 mEq/L (97-110) 06/20/18 11:09 Carbon Dioxide 21 mEq/l (22-31) L 06/20/18 11:09 Anion Gap 8 mEq/L (6-14) 06/20/18 11:09 BUN 32 mg/dL (7-23) H 06/20/18 11:09 Creatinine 2.5 mg/dL (0.7-1.3) H 06/20/18 11:09 Estimated GFR 26 06/20/18 11:09 Glucose 77 mg/dL (70-100) 06/20/18 11:09 Calcium 8.4 mg/dL (8.5-10.4) L 06/20/18 11:09 Total Bilirubin 0.6 mg/dL (0.1-1.4) 06/20/18 11:09 Conjugated Bilirubin 0.4 mg/dL (0.0-0.5) 06/20/18 11:09 Unconjugated Bilirubin 0.2 mg/dL (0.0-1.1) 06/20/18 11:09 AST 30 IU/L (17-59) 06/20/18 11:09 ALT 32 IU/L (21-72) 06/20/18 11:09 Alkaline Phosphatase 113 IU/L (38-126) 06/20/18 11:09 POC Troponin I 0.02 ng/mL (0.00-0.08) 06/20/18 11:14 C-Reactive Protein 15.7 mg/L (<10.0) H 06/20/18 11:03 NT-Pro-B Natriuret Pep 3110 pg/mL (0-125) H 06/20/18 11:09 Total Protein 6.3 g/dL (6.3-8.2) 06/20/18 11:09 Albumin 3.4 g/dL (3.5-5.0) L 06/20/18 11:09 Assessment & Plan Plan: A: This is a 67 y/o male with complex cardiac hx including pacemaker, CHF, a-fib , CAD s/p CABG x 1, mitral valve repair and past alcohol abuse presenting with 2 weeks worth of worsening redness and pain to bilateral lower extremities. ESR and CRP both elevated, 70 and 15.7. No leukocytosis (6.20), afebrile (36.8) here but subjectively febrile at home (max 101 2 days ago). C/o pain with walking, alleviates with rest. He has a scabbed wound on the lateral side of his left knee that he has had for over 3 months. P: -US doppler BLE to r/o DVT -Arterial brachial index (KEKE) -ID to consult in AM -Initiate Vancomycin IV; this appears to be cellulitis that did not fully recover L > R leg erythema, elevated ESR and CRP. -PT/OT to evaluate and treat -Wound consult for left lateral knee wound -Chronic pain: pain management with home medications -CKD: avoid nephrotoxic agents. Monitor fluids. -CHF: holding torsemide for now d/t BUN/Cr: 32/2.5. Continue to monitor. -CBC/CMP in AM Diet: Cardiac VTE ppx: Heparin subq Code: DNR Dispo: Admit to obs
[2018-06-20] MEDS: HYDROmorphONE/DILAUDID 1 MG/ML INJ IVP PRN (17:10)
[2018-06-20] MEDS ORDERED: VANCOMYCIN 750 MG in D5W 150 ML IV SCH (17:30)
[2018-06-20] MEDS ORDERED: FLUMAZENIL 0.5 MG/5 ML MDV IVP PRN (18:37)
[2018-06-20] MEDS ORDERED: LORazepam 1 MG TAB PO PRN (18:37)
[2018-06-20] MEDS ORDERED: LORazepam 2 MG/ML INJ IVP PRN (18:37)
[2018-06-20] MEDS ORDERED: NS 1,000 ML IV SCH (19:00)
--- NOTE | 2018-06-20 19:03 | HOSPPROG ---
Hospitalist Progress Note Assessment/Plan: Chart reviewed. Case discussed with Elly Moran [employer] REPA[employer]ER. Pt seen and examined. 67 yo male with h/o etoh abuse, PVD, hypertension, CAD and CKD presented with increased b/l LE pain and redness. He was admitted recently with LLE cellulitis in setting of wounds and was treated with Vancomycin, discharged on oral Bactrim. He reports temp of 100 and increased pain, redness and warmth of b/l LE's, L>R. Agree with resuming Vancomycin for worsening b/l LE cellulitis, L>R after transitioning to PO Bactrim. ID consult in am. He has allergy to cephalosporin. CIWA protocol for etoh dependence. Add Gabapentin for neuropathic pain. Agree with KEKE for further vascular evaluation, though b/l LE DP pulses palpated on my exam. U/S neg for DVT. See Elly Moran's H&P for further details. Objective: Vital Signs Temp Pulse Resp BP Pulse Ox 36.6 C 71 16 134/94 H 95 06/20/18 16:42 06/20/18 16:42 06/20/18 16:42 06/20/18 16:42 06/20/18 16:42 06/19/18 06/20/18 06/21/18 05:59 05:59 05:59 Intake Total 350 Balance 350 ICD10 Worksheet Patient Problems: Problems Problem Status Onset Cellulitis Acute Acute blood loss anemia Acute Acute renal failure Acute Atrial fibrillation with RVR Acute CAD in [place] artery Acute Congestive heart failure (CHF) Acute DVT (deep venous thrombosis) Acute Gout Acute Hyperkalemia Acute Neuropathic pain, leg, bilateral Acute S/P CABG x 1 Acute ~08/09/17 S/P Maze operation for atrial fibrillation Acute ~08/09/17 Status post mitral valve annuloplasty Acute ~08/09/17 Status post tricuspid valve repair Acute ~08/09/17 s/p placement of LV epicardial lead Acute ~08/09/17 Atrial fibrillation Chronic CKD (chronic kidney disease) stage 3, GFR 30-59 ml/min Chronic Diastolic congestive heart failure, NYHA class 3 Chronic Dilated cardiomyopathy Chronic Secondary tricuspid valve regurgitation Chronic Severe mitral regurgitation Chronic
[2018-06-20] MEDS: oxyCODONE CR 30 MG TAB PO SCH (19:37)
[2018-06-20] MEDS: GABAPENTIN 300 MG CAP PO SCH (19:37)
[2018-06-20] MEDS: THIAMINE HCL 500 MG in NS 100 ML IV SCH (21:04)
[2018-06-20] MEDS: HEPARIN 5,000 UNIT/0.5 ML INJ SC SCH (22:58)
[2018-06-21] MEDS: oxyCODONE IR 5 MG TAB PO PRN ×2 (02:31→08:02)
[2018-06-21] MEDS: HYDROmorphONE/DILAUDID 1 MG/ML INJ IVP PRN (04:19)
[2018-06-21] MEDS: HEPARIN 5,000 UNIT/0.5 ML INJ SC SCH ×3 (08:02→21:08)
[2018-06-21] MEDS: METOPROLOL SUCCINATE XR 50 MG TAB PO SCH (08:07)
[2018-06-21] MEDS: GABAPENTIN 300 MG CAP PO SCH ×3 (08:07→21:08)
[2018-06-21] MEDS: COLCHICINE 0.6 MG CAP/TAB PO SCH (08:07)
[2018-06-21] MEDS: ASPIRIN EC 81 MG TAB PO SCH (08:07)
[2018-06-21 08:15] LABS: PLATELET COUNT 430 10^3/uL (150-400)
[2018-06-21] MEDS: oxyCODONE CR 30 MG TAB PO SCH ×2 (09:00→21:08)
[2018-06-21] MEDS: THIAMINE HCL 500 MG in NS 100 ML IV SCH (09:00)
[2018-06-21] MEDS: (Febuxostat [Uloric] 40 MG) PO SCH (09:04)
--- NOTE | 2018-06-21 09:18 | WOCRNPDOC ---
[facility] Advanced Assessment Note - Skin Integrity Problem, Advanced Assess Left Lower Lateral Leg Scab Dressing Type: Open to Air Exudate Amount: None Integumentary Issue Intervention: Dressing Applied, Hydrogel Applied Marycruz Wound Tissue: Intact, Scarred Wound Bed Constitution: Scab Wound Edges: Attached, Well Defined Site Measurement - Head-to-Toe Length X Width X Depth (cm): 2.4x1.3xscab Skin Integrity Problem Comment: Patient states he slipped and fell a couple of months ago and sustained a wound to his left lower leg. His concern is that it' s taken quite a while to heal. Wound bed dry and scabbed. Patient says he alternates between keeping it covered and open to air without much difference. Wound is clearly smaller as there is circumferential scarring indicating a bigger wound at one time. Cleaned with NS and gauze. Hydrogel applied to scab and covered with small Allevyn. Wound care will not continue to round.
--- NOTE | 2018-06-21 10:37 | PDCONSULT ---
Quality Control Auditor Note: # Lower extremity redness worse with dependency and better with elevation and PE findings likely c/w mixed arterial and venous disease. No active cellulitis on exam today + normal wbc + AF. Pain in legs may be due to lumbar spine disease, on exam decreased sensation and mild motor deficits --dc vancomycin --await results of ABIs --discuss with hospitalist whether worthwhile to repeat MRI of lumbar spine (is patient even willing to have intervention?) # ARF likely related to Bactrim. Avoid other nephrotoxins which will limit additional imaging of vasculature for now. # Significant reaction to cephalosporins in the past Chief complaint: worsening BLE redness, left worse than right Referring MD: Mounika Calles DO History of present illness: This is a 67 year-old male, with PMHx of etoh dependency, CAD s/p CABG 2018, mitral valve repair x1, CHF, lumbar stenosis, A-fib, pacemaker, CKD, HTN, gout, pulmonary HTN, hyperlipidemia, who I am asked to see in consultation for suspected BLE cellulitis. Earlier this month, pt was admitted for encephalopathy , acute rib fx, left lower leg cellulitis tx with Vancomycin and discharged on Bactrim. On evaluation, pt provides that his legs go through a cycle everyday where his legs turn lobster red with pain described as a "sharp" sensation and swelling when his leg are dependent. His pain is exacerbated with ambulation. Elevating his legs improves his sx. The [id number]-[id number] process of the BLE redness has been going on for months now. Was put on abx during last hospitalization with no change or improvement to this process. Has also received one dose of IV Vancomycin 750 mg yesterday. Has not tried compression socks. Reports associated [id number] at the bottom of his feet, decreased sensation to light touch, heal and cuello pain, and chronic lower back pain. Does feel like his feet drag as they get caught on rugs frequently. The MRI from is notable for L4-L5 moderate canal stenosis with diffuse disk bulge and right-sided L5-S1 moderate to severe neural foraminal stenosis with another disk bulge. 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 Allergies: 3 Allergy/AdvReac Type Severity Reaction Status Date / Time cephalexin Allergy Severe Anaphylaxis 40 years ago with difficulty breathing, diffuse redness, and swelling so he went to the ER and was given epinephrine Verified 06/20/18 10:01 Medications: 3 Generic Name Dose Route Start Last Admin Trade Name Freq PRN Reason Stop Dose Admin Acetaminophen 650 mg 06/20/18 15:36 Tylenol PO 12/17/18 15:35 Q4HRS PRN Pain, Mild/Fever, Can Take PO Aspirin Buffered 81 mg 06/21/18 09:00 06/21/18 08:07 Aspirin Ec PO 12/18/18 08:59 81 mg DAILY ОЛЕГ Administration Colchicine 0.6 mg 06/21/18 09:00 06/21/18 08:07 Colchicine PO 12/18/18 08:59 0.6 mg DAILY ОЛЕГ Administration Flumazenil 0.2 - 0.5 mg 06/20/18 18:37 Romazicon IVP 12/17/18 18:36 PRN PRN Resp Rate Below 10 Gabapentin 300 mg 06/20/18 21:00 06/21/18 08:07 Neurontin PO 12/17/18 20:59 300 mg BID ОЛЕГ Administration Heparin Sodium (Porcine) 5,000 unit 06/20/18 22:00 06/21/18 08:02 Heparin Sc Injection SC 12/17/18 21:59 5,000 unit Q8 ОЛЕГ Administration Hydromorphone HCl 0.4 mg 06/20/18 16:45 06/21/18 04:19 Dilaudid IVP 06/30/18 16:44 0.4 mg Q4HRS PRN Administration Pain, Severe Unable to Take PO Vancomycin HCl 750 mg/ 150 mls @ 150 mls/hr 06/20/18 17:30 06/20/18 17:14 Dextrose IV 07/20/18 17:29 150 mls Q24H ОЛЕГ Administration Thiamine HCl 500 mg/ Sodium 105 mls @ 210 mls/hr 06/20/18 19:00 06/21/18 09: 00 Chloride IV 06/22/18 09:29 105 mls DAILY ОЛЕГ Administration Sodium Chloride 1,000 mls @ 75 mls/hr 06/20/18 19:00 06/20/18 19:38 Ns IV 12/17/18 18:59 1,000 mls CONT ОЛЕГ Administration Lorazepam 0 mg 06/20/18 18:37 Ativan Injection IVP 12/17/18 18:36 Q1H PRN Alcohol Withdrawal w/IV access Protocol Lorazepam 0 mg 06/20/18 18:37 Ativan PO 12/17/18 18:36 Q4HRS PRN Alcohol W/D w/ No IV Access Protocol Metoprolol Succinate 100 mg 06/21/18 09:00 06/21/18 08:07 Toprol Xl PO 12/18/18 08:59 100 mg DAILY ОЛЕГ Administration Miscellaneous Medication 40 mg 06/21/18 09:00 06/21/18 09:04 Febuxostat [Uloric] PO 12/18/18 08:59 Not Given DAILY ОЛЕГ Ondansetron HCl 4 mg 06/20/18 15:36 Zofran IVP 12/17/18 15:35 Q4HRS PRN Nausea/Vomiting, Can't Take PO Ondansetron HCl 4 mg 06/20/18 15:36 Zofran Odt PO 12/17/18 15:35 Q4HRS PRN Nausea/Vomiting, Use 1st Oxycodone HCl 30 mg 06/20/18 21:00 06/21/18 09:00 Oxycontin PO 06/30/18 20:59 30 mg BID ОЛЕГ Administration Oxycodone HCl 10 mg 06/20/18 16:36 06/21/18 08:02 Oxycodone Ir PO 06/30/18 16:35 10 mg TID PRN Administration Pain, Breakthrough Thiamine HCl 100 mg 06/23/18 09:00 Vitamin B-1 PO 12/20/18 08:59 DAILY ОЛЕГ Vancomycin HCl 1 each 06/20/18 16:45 Vancomycin Pharmacy To Dose, 10-15 Mcg/Ml [facility] [place] 12/17/18 16:44 AD [facility] Protocol ROS: 10 systems were reviewed and are negative with the exception of the elements mentioned in the HPI. Vitals: 3 Temp Pulse Resp BP Pulse Ox 36.4 C 71 18 119/78 95 06/21/18 11:03 06/21/18 11:03 06/21/18 11:03 06/21/18 11:03 06/21/18 11:03 Physical exam: General: Well-nourished, well-developed in no acute distress. Appears nontoxic. HEENT: No scleral icterus, conjunctival injection, conjunctiva petechiae. Fair dentition. Oropharynx shows moist mucous membranes with no thrush. Neck: Supple without palpable lymphadenopathy. Chest: Clear to auscultation bilaterally without adventitious sounds. Respiratory effort is normal. Cardiovascular: Regular rate rhythm, systolic murmur loudest at left mid sternal border, no gallops or rubs. Abdomen: Soft, nontender, mild distension. Musculoskeletal: BLE no hair, small amount of woody chronic edema, right dorsalis pedis pulse palpable, left dorsalis pedis pulse nonpalpable, spindly legs non-cellulitic, onychomycosis of toes. Neuro: Decreased sensation bilaterally, worse on right than the left ; weak ankle extension and flexion worse on the left than right, hip strength intact Back: No spinal tenderness. No CVA tenderness. Skin: No rashes. No stigmata of endocarditis. Laboratory results: 3 WBC 4.59 10^3/uL (3.80-9.50) 06/21/18 07:41 RBC 5.26 10^6/uL (4.40-6.38) 06/21/18 07:41 Hgb 10.9 g/dL (13.7-17.5) L 06/21/18 07:41 Hct 37.1 % (40.0-51.0) L 06/21/18 07:41 MCV 70.5 fL (81.5-99.8) L 06/21/18 07:41 MCH 20.7 pg (27.9-34.1) L 06/21/18 07:41 MCHC 29.4 g/dL (32.4-36.7) L 06/21/18 07:41 RDW 22.3 % (11.5-15.2) H 06/21/18 07:41 Plt Count 430 10^3/uL (150-400) H 06/21/18 07:41 MPV TNP 06/21/18 07:41 Neut % (Auto) 44.5 % (39.3-74.2) 06/21/18 07:41 Lymph % (Auto) 28.5 % (15.0-45.0) 06/21/18 07:41 [place] % (Auto) 19.4 % (4.5-13.0) H 06/21/18 07:41 Eos % (Auto) 6.1 % (0.6-7.6) 06/21/18 07:41 Baso % (Auto) 1.3 % (0.3-1.7) 06/21/18 07:41 Nucleat RBC Rel Count 0.0 % (0.0-0.2) 06/21/18 07:41 Absolute Neuts (auto) 2.04 10^3/uL (1.70-6.50) 06/21/18 07:41 Absolute Lymphs (auto) 1.31 10^3/uL (1.00-3.00) 06/21/18 07:41 Absolute Monos (auto) 0.89 10^3/uL (0.30-0.80) H 06/21/18 07:41 Absolute Eos (auto) 0.28 10^3/uL (0.03-0.40) 06/21/18 07:41 Absolute Basos (auto) 0.06 10^3/uL (0.02-0.10) 06/21/18 07:41 Absolute Nucleated RBC 0.00 10^3/uL (0-0.01) 06/21/18 07:41 Immature Gran % 0.2 % (0.0-1.1) 06/21/18 07:41 Immature Gran # 0.01 10^3/uL (0.00-0.10) 06/21/18 07:41 Platelet Estimate INCREASED (ADEQ) H 06/21/18 07:41 Polychromasia 1+ H 06/20/18 12:06 Hypochromasia 1+ H 06/21/18 07:41 Microcytic Cells 1+ H 06/21/18 07:41 Tear Drop Cells 1+ H 06/21/18 07:41 Elliptocytes 1+ H 06/21/18 07:41 Acanthocytes (Spur) 1+ H 06/21/18 07:41 Schistocytes 1+ H 06/21/18 07:41 ESR 70 MM/HR (0-20) H 06/20/18 12:06 Sodium 131 mEq/L (135-145) L 06/21/18 05:00 Potassium 4.4 mEq/L (3.5-5.2) 06/21/18 05:00 Chloride 101 mEq/L (97-110) 06/21/18 05:00 Carbon Dioxide 21 mEq/l (22-31) L 06/21/18 05:00 Anion Gap 9 mEq/L (6-14) 06/21/18 05:00 BUN 37 mg/dL (7-23) H 06/21/18 05:00 Creatinine 2.6 mg/dL (0.7-1.3) H 06/21/18 05:00 Estimated GFR 25 06/21/18 05:00 Glucose 98 mg/dL (70-100) 06/21/18 05:00 Calcium 8.9 mg/dL (8.5-10.4) 06/21/18 05:00 Total Bilirubin 0.6 mg/dL (0.1-1.4) 06/21/18 05:00 Conjugated Bilirubin 0.4 mg/dL (0.0-0.5) 06/20/18 11:09 Unconjugated Bilirubin 0.2 mg/dL (0.0-1.1) 06/20/18 11:09 AST 37 IU/L (17-59) 06/21/18 05:00 ALT 25 IU/L (21-72) 06/21/18 05:00 Alkaline Phosphatase 107 IU/L (38-126) 06/21/18 05:00 POC Troponin I 0.02 ng/mL (0.00-0.08) 06/20/18 11:14 C-Reactive Protein 15.7 mg/L (<10.0) H 06/20/18 11:03 NT-Pro-B Natriuret Pep 3110 pg/mL (0-125) H 06/20/18 11:09 Total Protein 6.3 g/dL (6.3-8.2) 06/21/18 05:00 Albumin 3.3 g/dL (3.5-5.0) L 06/21/18 05:00 Microbiology: 06/06/18 Blood cx (2) negative. Imagining studies: 06/20/18 Venous Duplex Doppler: No evidence of DVT. The MRI from 07/27/17 is notable for L4-L5 moderate canal stenosis with diffuse disk bulge and right-sided L5-S1 moderate to severe neural foraminal stenosis with another disk bulge. Scribe attestation: IShala, am scribing for, and in the presence of, Chanel Laurent MD. Chanel Pierre MD, personally performed the services described in this documentation, as scribed by Shala Merino in my presence, and it is both accurate and complete. Greater than 70 minutes spent on this patients care, greater than 50% of time spent counseling, educating, and coordinating care regarding the above mentioned plan.
[2018-06-21] MEDS: ACETAMINOPHEN 325 MG TAB PO PRN ×2 (11:08→15:48)
[2018-06-21] MEDS ORDERED: traMADol 50 MG TAB PO PRN (15:41)
--- NOTE | 2018-06-21 15:41 | HOSPPROG ---
Hospitalist Progress Note Assessment/Plan: 67 yo M w af, cd here w CATHY and ? rcurrent LE cellulitis cellulitis: unlikely recurrent b/l cellulitis more likely venous stasis agree w holding abx needs vascular studies when cr improved i have ordered KEKE today LE pain: history very suggestive neuropathic pain, likely 2/2 longstanding heavy alcohol use increase neurontin to tid add amitriptyline he has quit alcohol cathy: bactrim plus ckd volume support etoh: sober x 3 months dc ciwa and thiamine dispo: inpt Subjective: case d/w dr valiente Objective: Vital Signs Temp Pulse Resp BP Pulse Ox 36.4 C 71 18 119/78 95 06/21/18 11:03 06/21/18 11:03 06/21/18 11:03 06/21/18 11:03 06/21/18 11:03 Laboratory Results 06/21/18 07:41 06/21/18 05:00 06/20/18 06/21/18 06/22/18 05:59 05:59 05:59 Intake Total 1250 Output Total 775 250 Balance 475 -250 - Physical Exam Constitutional: no apparent distress, appears nourished Eyes: PERRL, anicteric sclera Ears, Nose, Mouth, Throat: moist mucous membranes, hearing normal Cardiovascular: regular rate and rhythym, no murmur, rub, or gallop Respiratory: no respiratory distress, no rales or rhonchi Gastrointestinal: normoactive bowel sounds, soft, non-tender abdomen Genitourinary: no bladder fullness, No joy in urethra Skin: warm, normal color Musculoskeletal: full muscle strength Neurologic: AAOx3 ICD10 Worksheet Patient Problems: Problems Problem Status Onset Cellulitis Acute Acute blood loss anemia Acute Acute renal failure Acute Atrial fibrillation with RVR Acute CAD in [place] artery Acute Congestive heart failure (CHF) Acute DVT (deep venous thrombosis) Acute Gout Acute Hyperkalemia Acute Neuropathic pain, leg, bilateral Acute S/P CABG x 1 Acute ~08/09/17 S/P Maze operation for atrial fibrillation Acute ~08/09/17 Status post mitral valve annuloplasty Acute ~08/09/17 Status post tricuspid valve repair Acute ~08/09/17 s/p placement of LV epicardial lead Acute ~08/09/17 Atrial fibrillation Chronic CKD (chronic kidney disease) stage 3, GFR 30-59 ml/min Chronic Diastolic congestive heart failure, NYHA class 3 Chronic Dilated cardiomyopathy Chronic Secondary tricuspid valve regurgitation Chronic Severe mitral regurgitation Chronic
--- NOTE | 2018-06-21 16:11 | ASMTCMCOM ---
CM Note CM Note Notes: 06/21/2018 Case Management Note Pt admitted for BLE cellulitis. Pt is known to case management w/recent discharge from [facility] with [facility]. Phone call to [facility], sohan Estrella, pt declined opening service with them. Met w/pt to discuss discharge needs. Pt has a friend who can provide any assistive devices including walkers or wheelchairs. Pt lives on a one level home. 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 Pt son Dallin [phone] [address] down [address] from pt home. PCP is Dr. Mat Coon in [place]. Therapy evals are pending. Case Management d/c poc: to be determined. Case Management to follow. Date Signed: 06/21/2018 04:10 PM Electronically Signed By:Ana M Gaytan RN
[2018-06-21] MEDS: AMITRIPTYLINE HCL 50 MG TAB PO SCH (21:08)
[2018-06-22] MEDS: HEPARIN 5,000 UNIT/0.5 ML INJ SC SCH ×3 (05:39→21:31)
[2018-06-22] MEDS: ASPIRIN EC 81 MG TAB PO SCH (09:28)
[2018-06-22] MEDS: GABAPENTIN 300 MG CAP PO SCH ×3 (09:28→21:31)
[2018-06-22] MEDS: METOPROLOL SUCCINATE XR 50 MG TAB PO SCH (09:29)
[2018-06-22] MEDS: COLCHICINE 0.6 MG CAP/TAB PO SCH (09:29)
[2018-06-22] MEDS: oxyCODONE CR 30 MG TAB PO SCH ×2 (09:29→21:31)
[2018-06-22] MEDS: (Febuxostat [Uloric] 40 MG) PO SCH (10:03)
[2018-06-22] MEDS: oxyCODONE IR 5 MG TAB PO PRN ×2 (12:42→16:52)
--- NOTE | 2018-06-22 15:21 | HOSPPROG ---
Hospitalist Progress Note Assessment/Plan: 67yo M with complex cardiac hx (dCHF, afib, CAD s/p CABG, MV and TV annuloplasty ring placement, SSS s/p pacemaker), past alcohol abuse presented with worsening bilateral leg redness, pain, and difficulty ambulating. # Bilateral leg redness, edema: Do not appear infected. ABIs from yesterday without arterial insufficiency. Suspect venous insufficiency - Leg elevation, compression # Bilateral leg pain: Consistent with neuropathic process. Heavy prior alcohol consumption puts him at risk for long-fiber sensory neuropathy. - Lumbar spine MRI - Has appt for outpatient EMG - Started on gabapentin 300mg TID - Amitriptyline added at night # Acute kidney injury on CKD: Improving. Likely related to bactrim. - Gentle IVF # H/o etoh abuse: In remission. Sober 3 months. # Chronic cardiac issues: He appears compensated. VTE ppx: Code: DNR/DNI Dispo: Remain inpatient, likely dc tomorrow if creatinine better Subjective: Leg pain a bit better. Still red. No fevers. Has been elevating legs which has essentially resolved the edema. Objective: Vital Signs Temp Pulse Resp BP Pulse Ox 36.3 C 70 12 126/87 H 94 06/22/18 12:00 06/22/18 12:00 06/22/18 12:00 06/22/18 12:00 06/22/18 12:00 Laboratory Results 06/21/18 07:41 06/22/18 05:06 06/21/18 06/22/18 06/23/18 05:59 05:59 05:59 Intake Total 1250 1700 Output Total 775 1275 650 Balance 475 425 -650 - Physical Exam Constitutional: no apparent distress, appears nourished, not in pain Eyes: PERRL, anicteric sclera, EOMI Ears, Nose, Mouth, Throat: moist mucous membranes, hearing normal, ears appear normal, no oral mucosal ulcers Cardiovascular: regular rate and rhythym, no murmur, rub, or gallop, edema ( trace BLE) Respiratory: no respiratory distress, no rales or rhonchi, clear to auscultation Gastrointestinal: normoactive bowel sounds, soft, non-tender abdomen, no palpable masses Genitourinary: no bladder fullness, no bladder tenderness, no renal bruits Skin: erythema (blanching in bilateral legs that improved with elevation) Musculoskeletal: full muscle strength Neurologic: AAOx3, other (no ankle clonus, diminished bilateral knee reflexes) Psychiatric: interacting appropriately ICD10 Worksheet Patient Problems: Problems Problem Status Onset Cellulitis Acute Acute blood loss anemia Acute Acute renal failure Acute Atrial fibrillation with RVR Acute CAD in [place] artery Acute Congestive heart failure (CHF) Acute DVT (deep venous thrombosis) Acute Gout Acute Hyperkalemia Acute Neuropathic pain, leg, bilateral Acute S/P CABG x 1 Acute ~08/09/17 S/P Maze operation for atrial fibrillation Acute ~08/09/17 Status post mitral valve annuloplasty Acute ~08/09/17 Status post tricuspid valve repair Acute ~08/09/17 s/p placement of LV epicardial lead Acute ~08/09/17 Atrial fibrillation Chronic CKD (chronic kidney disease) stage 3, GFR 30-59 ml/min Chronic Diastolic congestive heart failure, NYHA class 3 Chronic Dilated cardiomyopathy Chronic Secondary tricuspid valve regurgitation Chronic Severe mitral regurgitation Chronic
--- NOTE | 2018-06-22 15:51 | ASMTCMCOM ---
CM Note CM Note Notes: Pt cleared pt PT/OT for home, lives with and has supportive friends. CM available for any changes, pt will dc home with when medically stable. DC Plan: Independent Date Signed: 06/22/2018 03:50 PM Electronically Signed By:Effie Jennings RN
[2018-06-22] MEDS: AMITRIPTYLINE HCL 50 MG TAB PO SCH (21:31)
[2018-06-23] MEDS: oxyCODONE IR 5 MG TAB PO PRN ×3 (03:21→18:41)
[2018-06-23] MEDS: HEPARIN 5,000 UNIT/0.5 ML INJ SC SCH ×3 (05:39→21:31)
[2018-06-23] MEDS: GABAPENTIN 300 MG CAP PO SCH ×3 (08:04→21:31)
[2018-06-23] MEDS: COLCHICINE 0.6 MG CAP/TAB PO SCH (08:04)
[2018-06-23] MEDS: ASPIRIN EC 81 MG TAB PO SCH (08:04)
[2018-06-23] MEDS: oxyCODONE CR 30 MG TAB PO SCH ×2 (08:04→21:31)
[2018-06-23] MEDS: METOPROLOL SUCCINATE XR 50 MG TAB PO SCH (08:05)
[2018-06-23] MEDS ORDERED: THIAMINE HCL 100 MG TAB PO SCH (09:00)
[2018-06-23] MEDS: (Febuxostat [Uloric] 40 MG) PO SCH (10:07)
--- NOTE | 2018-06-23 16:18 | HOSPPROG ---
Hospitalist Progress Note Assessment/Plan: 67yo M with complex cardiac hx (dCHF, afib, CAD s/p CABG, MV and TV annuloplasty ring placement, SSS s/p pacemaker), past alcohol abuse presented with worsening bilateral leg redness, pain, and difficulty ambulating. # Bilateral leg redness, edema: Resolved. Do not appear infected. ABIs from yesterday without arterial insufficiency. Suspect venous insufficiency - Leg elevation, compression # Bilateral leg pain: Consistent with neuropathic process. Heavy prior alcohol consumption puts him at risk for long-fiber sensory neuropathy. - Lumbar spine MRI pending - Has appt for outpatient EMG - Started on gabapentin 300mg TID, increase to 600mg for evening dose - Amitriptyline added at night # Acute kidney injury on CKD: Improving. Likely related to bactrim. - Gentle IVF # H/o etoh abuse: In remission. Sober 3 months. # Chronic cardiac issues: He appears compensated. VTE ppx: Code: DNR/DNI Dispo: Remain inpatient, hopefully discharge tomorrow Subjective: Pain in legs about the same. Worse in heels with moving. Not so bad when resting. Redness has gone away. Objective: Vital Signs Temp Pulse Resp BP Pulse Ox 36.2 C 69 18 115/82 H 91 L 06/23/18 10:58 06/23/18 15:14 06/23/18 15:14 06/23/18 15:14 06/23/18 15:14 Laboratory Results 06/21/18 07:41 06/23/18 05:17 06/22/18 06/23/18 06/24/18 05:59 05:59 05:59 Intake Total 1700 840 Output Total 1275 650 Balance 425 190 - Physical Exam Constitutional: no apparent distress, appears nourished, not in pain Eyes: PERRL, anicteric sclera, EOMI Ears, Nose, Mouth, Throat: moist mucous membranes, hearing normal, ears appear normal, no oral mucosal ulcers Cardiovascular: regular rate and rhythym, no murmur, rub, or gallop Respiratory: no respiratory distress, no rales or rhonchi, clear to auscultation Gastrointestinal: normoactive bowel sounds, soft, non-tender abdomen, no palpable masses Genitourinary: no bladder fullness, no bladder tenderness, no renal bruits Skin: warm, No erythema Musculoskeletal: full muscle strength, no muscle tenderness, normal joint ROM Neurologic: AAOx3, other (sensation decraesed in legs) Psychiatric: interacting appropriately ICD10 Worksheet Patient Problems: Problems Problem Status Onset Cellulitis Acute Acute blood loss anemia Acute Acute renal failure Acute Atrial fibrillation with RVR Acute CAD in [place] artery Acute Congestive heart failure (CHF) Acute DVT (deep venous thrombosis) Acute Gout Acute Hyperkalemia Acute Neuropathic pain, leg, bilateral Acute S/P CABG x 1 Acute ~08/09/17 S/P Maze operation for atrial fibrillation Acute ~08/09/17 Status post mitral valve annuloplasty Acute ~08/09/17 Status post tricuspid valve repair Acute ~08/09/17 s/p placement of LV epicardial lead Acute ~08/09/17 Atrial fibrillation Chronic CKD (chronic kidney disease) stage 3, GFR 30-59 ml/min Chronic Diastolic congestive heart failure, NYHA class 3 Chronic Dilated cardiomyopathy Chronic Secondary tricuspid valve regurgitation Chronic Severe mitral regurgitation Chronic
[2018-06-23] MEDS ORDERED: GABAPENTIN 300 MG CAP PO SCH (21:00)
[2018-06-23] MEDS: AMITRIPTYLINE HCL 50 MG TAB PO SCH (21:31)
[2018-06-24] MEDS: oxyCODONE IR 5 MG TAB PO PRN ×2 (03:01→15:13)
[2018-06-24] MEDS: HEPARIN 5,000 UNIT/0.5 ML INJ SC SCH ×2 (06:41→15:13)
[2018-06-24 08:11] VITALS: BP 122/84
[2018-06-24] MEDS: GABAPENTIN 300 MG CAP PO SCH ×2 (08:12→16:37)
[2018-06-24] MEDS: METOPROLOL SUCCINATE XR 50 MG TAB PO SCH (08:12)
[2018-06-24] MEDS: ASPIRIN EC 81 MG TAB PO SCH (08:12)
[2018-06-24] MEDS: COLCHICINE 0.6 MG CAP/TAB PO SCH (08:12)
[2018-06-24] MEDS: oxyCODONE CR 30 MG TAB PO SCH (08:12)
[2018-06-24] MEDS: (Febuxostat [Uloric] 40 MG) PO SCH (10:48)
--- NOTE | 2018-06-24 15:49 | PDDCSUM ---
Discharge Summary Discharge Summary: Date of Admission: 06/20/2018 Date of Discharge: 06/24/2018 Studies: lower extremity doppler ultrasound Discharge Diagnoses: 1. Bilateral neuropathic leg pain 2. Bilateral leg erythema and edema 2/2 venous insufficiency 3. Acute kidney injury, resolving 4. H/o alcoholism 5. Chronic pain with continuous opioid dependency 6. Compensated chronic cardiac issues (diastolic CHF, atrial fibrillation s/p SILVANA closure not on AC, CAD s/p CABG, MV and TV annuloplasty ring placement, SSS s/p pacemaker) Brief Hospital Course: 67yo M with complex cardiac hx (dCHF, afib, CAD s/p CABG, MV and TV annuloplasty ring placement, SSS s/p pacemaker), past alcohol abuse presented with worsening bilateral leg redness, pain, and difficulty ambulating. Was just admitted recently hospitalized for left leg cellulitis and completed a course of antibiotics. His exam and clinical picture (lack of fevers, WBC elevation, etc) was not consistent with infection. He had ABIs performed which were negative for arterial insufficiency. Most likely, he has venous insufficiency and diastolic dysfunction that leads to his leg swelling and redness. He was encouraged to continue his diuretic and try leg elevation and compression stockings. Regarding his bilateral leg pain, this is consistent with a peripheral neuropathy. SPEP was normal. We considered repeating a MRI of his lumbar spine but his pacemaker is not compatible with MRI so this was not done. Additionally , I have a low suspicion that his symptoms are related to spinal cord pathology. I suspect that his heavy past alcohol use has lead to this peripheral neuropathy. I strongly recommended that he obtain outpatient EMG and abstain from alcohol use. He was started on gabapentin and amitriptyline with some improvement in his symptoms. Of note, he does have moderately elevated inflammatory markers of unclear significance. His renal function improved with fluid resuscitation. I suspect his recent bactrim exposure lead to his increase in creatinine. Medications: Please refer to EMR for complete list. I sent prescriptions for gabapentin 300mg TID #90 with 0 refills and amitriptyline 50mg QHS #30 with 0 refills to his pharmacy. I discontinued his doxycycline off his medication list. Otherwise, no changes. Follow Up Plan: 1. Recommend EMG of lower extremities to characterize pain syndrome 2. Follow up with PCP for titration of neuropathic pain medications Physical Exam: Vitals reviewed, afebrile. Alert and oriented, RRR, lungs clear, abdomen soft and nt, no leg edema, no leg erythema.
--- NOTE | 2018-06-25 17:51 | PDMN ---
Medical Necessity Medical necessity: Change to inpt as of 06/21/18, meets inpt criteria per MD order and vascular disease GRG. 67 y/o w/hx CAD s/p CABG, mitral valve repair, PPM, CKD, HTN, and alcohol abuse initially admitted as obs for worsening bilat LE cellulitis and CATHY. ID consult, ? cellulitis, could be vascular. Upgraded to inpt for need for further workup including vascular studies when creatinine improved (trending up as of 06/21/18 to 2.6), cont gentle IVF for CATHY, pain management. Est LOS>2MN for ongoing eval/management of above.
== END 2018-06-24 17:20 | disposition home or self-care (01) ==
LOC: INTOOBSV 15:02 → F3E 16:25 → INTOOBSV 06-21 10:30 → OBSVTOIN 06-21 10:30
PROVIDERS: ADMIT Hospitalist; ATTEND Hospitalist
DX: I87.2 Venous insufficiency (chronic) (peripheral) (principal); G57.93 Unspecified mononeuropathy of bilateral lower limbs; N17.9 Acute kidney failure, unspecified; G89.29 Other chronic pain; F11.20 Opioid dependence, uncomplicated; I13.0 Hypertensive heart and chronic kidney disease with heart failure and stage 1 through stage 4 chronic kidney disease, or unspecified chronic kidney disease; I50.9 Heart failure, unspecified; N18.3 Chronic kidney disease, stage 3 (moderate); I48.91 Unspecified atrial fibrillation; I25.10 Atherosclerotic heart disease of native coronary artery without angina pectoris; E78.5 Hyperlipidemia, unspecified; Z95.1 Presence of aortocoronary bypass graft; Z95.0 Presence of cardiac pacemaker; Z87.891 Personal history of nicotine dependence
CPT/HCPCS: 93922; 93970; 96372; 96374; 97161; 97165; 97530; 99285; G0378; 84484-ER; J1170; J1644; J3370; J3411

== ENCOUNTER 2018-08-28 08:48 | Observation (INO) | payer OTHER ==
[2018-08-28] MEDS ORDERED: NS 1,000 ML IV ONE (09:37)
[2018-08-28] MEDS ORDERED: HYDROmorphONE/DILAUDID 2 MG/ML INJ IVP ONE (09:40)
[2018-08-28 09:50] LABS: INR 1.18 (0.83-1.16); PROTIME(PATIENT) 14.5 SEC (12.0-15.0)
--- NOTE | 2018-08-28 09:51 | EDPHY ---
General - History Smoking Status: Former smoker Time Seen by Provider: 08/28/18 09:21 Narrative: CLINICAL IMPRESSION: Hypoxia, acute on chronic renal insufficiency, polyarthralgia ASSESSMENT/PLAN: 67-year-old male with significant multiple comorbidities including atrial fibrillation, sick sinus syndrome with pacemaker, CAD, diastolic CHF, gout, chronic pain, CKD and alcohol abuse presents to the emergency department with 2 days of vague bilateral wrist and hand pain, polyarthralgias, and subjective fever. Patient believes he is having a gout flare. He arrives tachycardic, febrile, tachypneic and hypoxic with no reported home oxygen use. No URI symptoms or cough, chest x-ray is not suggestive of underlying cardiopulmonary disease or acute infiltrate. EKG read by Dr. Loyola, please see her interpretation. He has no obvious lower extremity pitting edema or sign of cellulitis. His hands, wrists and ankles are edematous and tender. D-dimer elevated although patient not a candidate for CT a given an elevated creatinine of 2.3 today. BNP elevated at 6480. Marked elevation of inflammatory markers. Mild leukocytosis of 11, metabolic panel suggestive of dehydration. Respiratory panel pending, urine studies pending, antibiotics not initiated in the emergency department given un identified source of infection. Patient was slowly hydrated. Pain which managed with IV analgesics. Discussed with Dr. Loyola who also saw and examined the patient. Discussed with Lesly from hospitalist service and patient will be admitted in stable condition to Dr. Jenkins service on the telemetry floor. Patient is in agreement with this plan. All questions answered. DIFFERENTIAL DX: Differential includes but not limited to bacteremia, urosepsis, UTI, septic arthritis, pneumonia, cellulitis, dehydration, acute on chronic kidney injury ED PROCEDURES: See lab and/or imaging results below ED COURSE: 9:40 a.m.: Case discussed with Dr. Loyola. Sepsis protocol initiated. Gentle fluid bolus until labs return. 10:15 a.m.: Labs reviewed. White count of 11, K of 5.5, creatinine of 2.3, BUN 57, sed rate over 130, CRP 75, chest x-ray with no acute obvious infiltrate. No obvious clinical findings to suggest cellulitis. Urine pending. D-dimer elevated although not a candidate for CTA given ARF. Patient does meet SIRS criteria but will hold on antibiotics at this time given that we do not have an obvious source of infection. EKG reviewed by Dr. Loyola, please see her note Discussed at length with Dr. Loyola who also saw and examined the patient. Discussed with Lesly from hospitalist service, patient will be assigned to Dr. Jenkins service and placed in the PCU. Plan discussed with patient who is in agreement. CHIEF COMPLAINT: Bilateral hand and wrist pain, "I have gout". HPI: 67-year-old male with significant comorbidities including atrial fibrillation, sick sinus syndrome, CAD, diastolic CHF, gout, chronic pain, CKD, and alcohol abuse, presents to the emergency department with his daughter, with whom he lives, for complaints of 2 days of bilateral hand and wrist swelling. Patient' s daughter reported that he felt very warm this morning. On arrival he is tachycardic, hypoxic, tachypneic. He reports he does not use oxygen at all at home. He denies recent cough and URI symptoms. He has no complaints of chest pain, palpitations or shortness of breath. He reports no abdominal pain, nausea or vomiting. He is still making urine. He is followed by Dr. tSoddard with [facility] but does not know what his baseline creatinine is. He is currently on diuretic therapy turosemide 20 mg daily and has been compliant with this. The only medications he took today were his regular narcotic pain medications. 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 He believes he is having a gout flare. He takes colchicine only when he has a gout flare he does not take regular prophylactic medication. He has not been on recent antibiotic. He reports no history of UTI. He reports no open wounds. He does not know if he has been gaining weight. He reports some swelling in both his lower legs. His daughter reports a slight decrease in oral intake today. PAST MEDICAL HISTORY: Atrial fibrillation, sick sinus syndrome with pacemaker placement, CAD, diastolic CHF, mitral valve and tricuspid valve annuloplasty with ring placement , alcohol abuse, chronic kidney disease followed by [facility], gout, chronic pain See nurse/triage notes for additional history if applicable Pertinent Past Surgical History: Prior Ortho surgery, CABG, cardiac surgery Family History: Lives with his daughter, son lives close by Social History: History of alcohol abuse, former smoker, poor historian REVIEW OF SYSTEMS: All other systems negative Constitutional: Positive for fever, denies chills, appetite change. Eyes: No discharge, vision change ENT: No sore throat, congestion, ear pain. Cardiovascular: No chest pain, no palpitations. Respiratory: No cough, no shortness of breath. Gastrointestinal: No abdominal pain, no vomiting, diarrhea. Genitourinary: No hematuria, dysuria, flank pain, pelvic pain Musculoskeletal: No back pain, positive for joint swelling, positive for joint pain, positive for myalgias. Skin: No rashes, positive for color change. Neurological: No headache, dizziness, weakness. PHYSICAL EXAM: General Appearance: Alert, oriented, appropriate, chronically ill-appearing, appears uncomfortable, hypoxic, tachycardic, tachypneic, febrile , poor historian. Warm to the touch. HEENT: TMs are clear bilaterally no perforation or FB, no injection, no evidence of serous or mucopurulent otitis. Very dry mucous membranes, Oropharynx clear is no erythema or exudates. Dentition without abnormality. Eyes: PERRLA, no acute vision change, nystagmus, swelling, discharge. Conjunctiva pink, no pallor or injection Neck: Supple, nontender, no lymphadenopathy, no midline pain, FROM, no meningismus. Respiratory: There are no retractions, lungs are clear to auscultation. Cardiac: Tachycardic, regular rhythm, 2/6 systolic murmur no gallops. Gastrointestinal: Abdomen is soft, nontender, no rigidity, guarding or focal peritoneal findings. Neurological: [ Alert and oriented x 3 Skin: Swelling noted to both hands wrists and fingers, very tender to touch bilaterally. Limited range of motion due to pain. Swelling seems to stop at the wrists and is not extending to the forearms or elbows Musculoskeletal: See skin findings above.] Psychiatric: Patient is oriented X 3 MEDICAL DECISION MAKING: supervising physician at time of evaluation was Dr. Loyola who also saw and examined patient . Diagnosis: Hypoxia, acute on chronic renal failure, dehydration, polyarthralgias. New, requires workup Summary: See Assessment and Plan for summary of ED visit Clinical lab tests: ordered / reviewed. Independent visualization of images, tracing, or specimens: Yes. Decision to obtain medical records or history from someone other than the patient: Patient's daughter Review / Summarize previous medical records: Reviewed recent discharge summary and hospital records Discussed patient with another provider: Dr. Loyola, hospitalist service Patient Progress: Stable for admission. ([place] Nicole) - Diagnostics Imaging Results: Imaging Impressions Chest X-Ray 08/28/18 09:22 Impression: 1. Possible left lower lobe pneumonia. 2. Postsurgical changes without pneumothorax or definite pleural effusion. Discussion: This patient was seen and examined by me. He presents with acute polyarthritis fever and hypoxia. On physical exam, chest is clear to auscultation, 2/6 systolic murmur present. Meets SIRS criteria, initial lactate is normal. Chest x-ray reveals no evidence of infiltrate. (Renetta Loyola) - Objective Vital Signs: Initial Vital Signs Temperature (C) 38.5 C H 08/28/18 08:57 Heart Rate 104 H 08/28/18 08:57 Respiratory Rate 24 H 08/28/18 08:57 Blood Pressure 113/78 08/28/18 08:57 O2 Sat (%) 84 L 08/28/18 08:57 O2 Delivery Mode Nasal Cannula O2 (L/minute) 2 Allergies/Adverse Reactions: cephalexin Allergy (Severe, Verified 08/28/18 08:55) Anaphylaxis Home Medications: Medication Instructions Recorded Herbals/Supplements -Info Only 1 ea PO DAILY 02/09/18 oxyCODONE IR [Oxycodone Ir (*)] 10 mg PO TID PRN 02/09/18 Aspirin EC [Aspirin EC 81 mg (*)] 81 mg PO DAILY tab 02/12/18 Febuxostat [ULORIC] 40 mg PO DAILY #30 tablet 02/12/18 Colchicine [Colchicine (*)] 0.6 mg PO DAILY 06/20/18 Metoprolol Succinate Xr [Toprol Xl 100 mg PO DAILY 06/20/18 100 mg (*)] Torsemide [Demadex] 20 mg PO DAILY10 06/20/18 Amitriptyline HCl [Elavil 50 mg 50 mg PO HS #30 tab 06/24/18 (*)] Oxycontin 08/28/18 Laboratory Results: Laboratory Results 08/28/18 09:15 08/28/18 09:15 08/28/18 08/28/18 08/28/18 09:15 09:15 09:15 WBC RBC Hgb Hct MCV MCH MCHC RDW Plt Count MPV Neut % (Auto) Lymph % (Auto) Gilliam % (Auto) Eos % (Auto) Baso % (Auto) Nucleat RBC Rel Count Absolute Neuts (auto) Absolute Lymphs (auto) Absolute Monos (auto) Absolute Eos (auto) Absolute Basos (auto) Absolute Nucleated RBC Immature Gran % Seg Neutrophils % Band Neutrophils % Lymphocytes % Monocytes % Eosinophils % Basophils % Metamyelocytes % Myelocytes % Promyelocytes % Blast Cells % Immature Gran # Absolute Seg Neuts Absolute Band Neuts Absolute Lymphocytes Absolute Monocytes Absolute Eosinophils Absolute Basophils Absolute Metamyelocyte Absolute Myelocytes Absolute Promyelocytes Absolute Plasma Cells Nucleated RBCs Absolute Blast Cells Plasma Cells % Platelet Estimate Polychromasia Hypochromasia Microcytic Cells Schistocytes Smear Review By ESR PT INR APTT D-Dimer VBG Lactic Acid 1.5 mmol/L mmol/L (0.7-2.1) Sodium 130 mEq/L L mEq/L (135-145) Potassium 5.5 mEq/L H mEq/L (3.5-5.2) Chloride 93 mEq/L L mEq/L (97-110) Carbon Dioxide 23 mEq/l mEq/l (22-31) Anion Gap 14 mEq/L mEq/L (6-14) BUN 57 mg/dL H mg/dL (7-23) Creatinine 2.3 mg/dL H mg/dL (0.7-1.3) Estimated GFR 28 Glucose 102 mg/dL H mg/dL (70-100) Calcium 9.7 mg/dL mg/dL (8.5-10.4) Total Bilirubin 1.5 mg/dL H mg/dL (0.1-1.4) C-Reactive Protein 73.5 mg/L H mg/L (<10.0) NT-Pro-B Natriuret Pep 6480 pg/mL H pg/mL (0-125) Specimen Hemolysis 185 08/28/18 08/28/18 09:15 09:15 WBC 11.54 10^3/uL H 10^3/uL (3.80-9.50) RBC 5.32 10^6/uL 10^6/uL (4.40-6.38) Hgb 11.2 g/dL L g/dL (13.7-17.5) Hct 36.8 % L % (40.0-51.0) MCV 69.2 fL L fL (81.5-99.8) MCH 21.1 pg L pg (27.9-34.1) MCHC 30.4 g/dL L g/dL (32.4-36.7) RDW 25.2 % H % (11.5-15.2) Plt Count 322 10^3/uL 10^3/uL (150-400) MPV TNP Neut % (Auto) WINDER HELPER Lymph % (Auto) WINDER HELPER Gilliam % (Auto) WINDER HELPER Eos % (Auto) WINDER HELPER Baso % (Auto) WINDER HELPER Nucleat RBC Rel Count WINDER HELPER Absolute Neuts (auto) WINDER HELPER Absolute Lymphs (auto) WINDER HELPER Absolute Monos (auto) WINDER HELPER Absolute Eos (auto) WINDER HELPER Absolute Basos (auto) WINDER HELPER Absolute Nucleated RBC WINDER HELPER Immature Gran % WINDER HELPER Seg Neutrophils % 79.8 % % Band Neutrophils % 0.0 % % Lymphocytes % 11.1 % % Monocytes % 8.1 % % Eosinophils % 0.0 % % Basophils % 1.0 % % Metamyelocytes % 0.0 % % Myelocytes % 0.0 % % Promyelocytes % 0.0 % % Blast Cells % 0.0 % % Immature Gran # WINDER HELPER Absolute Seg Neuts 9.21 10^3/uL H 10^3/uL (1.70-6.50) Absolute Band Neuts 0.00 10^3/uL 10^3/uL (0.00-0.70) Absolute Lymphocytes 1.28 10^3/uL 10^3/uL (1.00-3.00) Absolute Monocytes 0.93 10^3/uL H 10^3/uL (0.30-0.80) Absolute Eosinophils 0.00 10^3/uL L 10^3/uL (0.03-0.40) Absolute Basophils 0.12 10^3/uL H 10^3/uL (0.02-0.10) Absolute Metamyelocyte 0.00 10^3/mL 10^3/mL (0.00-0.00) Absolute Myelocytes 0.00 10^3/mL 10^3/mL (0.00-0.00) Absolute Promyelocytes 0.00 10^3/uL 10^3/uL (0.00-0.00) Absolute Plasma Cells 0.00 10^3/uL 10^3/uL (0.00-0.00) Nucleated RBCs 0 /100 WBC /100 WBC (0-0) Absolute Blast Cells 0.00 10^3/uL 10^3/uL (0.00-0.00) Plasma Cells % 0.0 % % Platelet Estimate ADEQUATE (ADEQ) Polychromasia 1+ H Hypochromasia 1+ H Microcytic Cells 1+ H Schistocytes 1+ H Smear Review By Pending ESR > 130 MM/HR H MM/HR (0-20) PT 14.5 SEC SEC (12.0-15.0) INR 1.18 H (0.83-1.16) APTT 43.4 SEC H SEC (23.0-38.0) D-Dimer 2.68 ug/mLFEU H ug/mLFEU (0.00-0.50) VBG Lactic Acid Sodium Potassium Chloride Carbon Dioxide Anion Gap BUN Creatinine Estimated GFR Glucose Calcium Total Bilirubin C-Reactive Protein NT-Pro-B Natriuret Pep Specimen Hemolysis Medications Given: Discontinued Medications Acetaminophen (Tylenol) 650 mg PO EDNOW ONE Stop: 08/28/18 10:18 Last Admin: 08/28/18 10:23 Dose: 650 mg Hydromorphone HCl (Dilaudid) 0.5 mg IVP EDNOW ONE Stop: 08/28/18 09:41 Last Admin: 08/28/18 09:43 Dose: 0.5 mg Sodium Chloride (Ns) 1,000 mls @ 0 mls/hr IV EDNOW ONE; Wide Open PRN Reason: Protocol Stop: 08/28/18 09:38 Last Admin: 08/28/18 09:44 Dose: 1,000 mls Departure - Departure Disposition: [facility] Acute Condition: Fair
[2018-08-28] MEDS ORDERED: ACETAMINOPHEN 325 MG TAB PO ONE (10:17)
[2018-08-28 10:21] LABS: PLATELET COUNT 322 10^3/uL (150-400)
--- NOTE | 2018-08-28 10:21 | CPEKG ---
Test Reason : OPEN Blood Pressure : / mmHG Vent. Rate : 101 BPM Atrial Rate : 101 BPM P-R Int : 211 ms QRS Dur : 102 ms QT Int : 345 ms P-R-T Axes : 031 076 -33 degrees QTc Int : 448 ms Sinus tachycardia Borderline prolonged LA interval Probable left ventricular hypertrophy Abnrm T, probable ischemia, anterolateral lds similar to EKG on 06/20/18 Confirmed by Renetta Archer ([id number]) on 08/28/2018 10:20:18 AM Referred By: RENETTA ARCHER Confirmed By:Renetta Archer
[2018-08-28] MEDS ORDERED: ACETAMINOPHEN 325 MG TAB PO PRN (11:16)
[2018-08-28] MEDS ORDERED: ONDANSETRON 4 MG/2 ML VIAL IVP PRN ×2 (11:16→11:40)
[2018-08-28] MEDS ORDERED: ONDANSETRON DISINTEGRATING 4 MG TAB PO PRN ×2 (11:16→11:40)
--- NOTE | 2018-08-28 12:03 | ASMTLACE ---
TANVI Acuity / Level of Answers: Yes Care: Did the patient have an inpatient admission? Comorbidities - select Answers: Congestive heart failure all that apply Coronary Artery Disease Moderate or severe liver or renal disease Opioid dependence / Chronic pain Other Notes: AFib # of Emergency department Answers: 3-4 visits in the last 6 months Social determinants Answers: History of substance abuse (ETOH, street drugs, prescription drugs, etc.) Score: 22 Date Signed: 08/28/2018 12:02 PM Electronically Signed By:Gloria Yang
[2018-08-28] MEDS: HYDROmorphONE/DILAUDID 1 MG/ML INJ IVP PRN (12:17)
[2018-08-28] MEDS: predniSONE 20 MG TAB PO SCH (12:17)
[2018-08-28] MEDS: COLCHICINE 0.6 MG CAP/TAB PO SCH ×3 (12:18→14:19)
[2018-08-28] MEDS: METOPROLOL SUCCINATE XR 50 MG TAB PO SCH (14:20)
[2018-08-28] MEDS: ASPIRIN EC 81 MG TAB PO SCH (14:20)
[2018-08-28] MEDS: HEPARIN 5,000 UNIT/0.5 ML INJ SC SCH ×2 (14:23→21:12)
[2018-08-28] MEDS: Febuxostat [Uloric] 40 MG PO SCH (14:26)
--- NOTE | 2018-08-28 15:03 | ASMTCMCOM ---
CM Note CM Note Notes: Pts case discussed in tx rounds. Pt is a 67 y/o man admitted for chronic renal insufficiency and polyarthralgia. CM attempted to meet w/ pt but he was asleep. Therapies have been ordered and awaiting recommendations. Pt uses a cane when he ambulates. Pt has had [facility] in the past. Needs are TBD at this time. CM to follow. Plan: TBD Date Signed: 08/28/2018 03:02 PM Electronically Signed By:EDGAR Manzanares
--- NOTE | 2018-08-28 16:14 | PDGENHP ---
History and Physical - Chief Complaint B/l Wrist Pain - History of Present Illness Kolton Crawley is a 67 yo M with a PMHx of Gout, A Fib, SSS s/p PPM, CAD s/p CABG, diastolic CHF, chronic pain, CKD, alcohol abuse who presents to [facility] for b/ l wrist pain. His daughter is at bedside who has helped with hx taking. They report that yesterday patient started having swelling and pain in his wrists b/ l. Pain is described as sharp worse with movement and improved with rest and pain medications. Pain reports last gout flare 1 month ago which was similar in presentation to his symptoms today. He denies any cough, chest pain, SOB, abdominal pain, n/v, d/c, f/c. History Information - Allergies/Home Medication List Allergies/Adverse Reactions: cephalexin Allergy (Severe, Verified 08/28/18 08:55) Anaphylaxis Home Medications: oxyCODONE IR [Oxycodone Ir (*)] 10 mg PO TID PRN 02/09/18 [Last Taken 06/20/18] Colchicine [Colchicine (*)] 0.6 mg PO DAILY 06/20/18 [Last Taken 08/27/18] Torsemide [Demadex] 20 mg PO DAILY10 06/20/18 [Last Taken 08/27/18] Amitriptyline HCl 25 mg PO HS 08/28/18 [Last Taken 08/27/18] Febuxostat [Uloric] 80 mg PO DAILY 08/28/18 [Last Taken 08/27/18] Metoprolol Succinate Xr [Toprol Xl 50 mg (*)] 50 mg PO DAILY 08/28/18 [Last Taken 08/27/18] oxyCODONE HCL [Oxycontin] 30 mg PO BID 08/28/18 [Last Taken 08/27/18 21:00] I have personally reviewed and updated: family history, medical history, social history, surgical history - Past Medical History atrial fibrillation, arthritis, CHF (acute on chronic class III systolic/ diastolic ), hypertension, hyperlipidemia, liver disease Additional medical history: pulmonary htn, CKD stage 3, chronic pain on narcotics - Surgical History Reports: appendectomy Additional surgical history: multiple bony injuries requiring surgical repair, mitral valve repair - Family History Positive for: non-pertinent - Social History Smoking Status: Former smoker Review of Systems Review of Systems: ROS: 10pt was reviewed & negative except for what was stated in HPI & below Physical Exam Physical Exam: Temp Pulse Resp BP Pulse Ox 36.9 C 70 20 97/61 L 97 08/28/18 15:07 08/28/18 15:07 08/28/18 15:07 08/28/18 15:07 08/28/18 15:07 O2 (L/minute) 2 Constitutional: chronically ill appearing Eyes: PERRL Ears, Nose, Mouth, Throat: moist mucous membranes Cardiovascular: regular rate and rhythym, No edema Respiratory: no respiratory distress, clear to auscultation Gastrointestinal: soft, non-tender abdomen Skin: warm Musculoskeletal: joint tenderness, pain with ROM Neurologic: AAOx3 Psychiatric: interacting appropriately Lab Data & Imaging Review 08/28/18 09:15 08/28/18 14:50 WBC 11.54 10^3/uL (3.80-9.50) H 08/28/18 09:15 RBC 5.32 10^6/uL (4.40-6.38) 08/28/18 09:15 Hgb 11.2 g/dL (13.7-17.5) L 08/28/18 09:15 Hct 36.8 % (40.0-51.0) L 08/28/18 09:15 MCV 69.2 fL (81.5-99.8) L 08/28/18 09:15 MCH 21.1 pg (27.9-34.1) L 08/28/18 09:15 MCHC 30.4 g/dL (32.4-36.7) L 08/28/18 09:15 RDW 25.2 % (11.5-15.2) H 08/28/18 09:15 Plt Count 322 10^3/uL (150-400) 08/28/18 09:15 MPV TNP 08/28/18 09:15 Neut % (Auto) RECYCLING DIRECTOR 08/28/18 09:15 Lymph % (Auto) RECYCLING DIRECTOR 08/28/18 09:15 [place] % (Auto) RECYCLING DIRECTOR 08/28/18 09:15 Eos % (Auto) RECYCLING DIRECTOR 08/28/18 09:15 Baso % (Auto) RECYCLING DIRECTOR 08/28/18 09:15 Nucleat RBC Rel Count RECYCLING DIRECTOR 08/28/18 09:15 Absolute Neuts (auto) RECYCLING DIRECTOR 08/28/18 09:15 Absolute Lymphs (auto) RECYCLING DIRECTOR 08/28/18 09:15 Absolute Monos (auto) RECYCLING DIRECTOR 08/28/18 09:15 Absolute Eos (auto) RECYCLING DIRECTOR 08/28/18 09:15 Absolute Basos (auto) RECYCLING DIRECTOR 08/28/18 09:15 Absolute Nucleated RBC RECYCLING DIRECTOR 08/28/18 09:15 Immature Gran % RECYCLING DIRECTOR 08/28/18 09:15 Seg Neutrophils % 79.8 % 08/28/18 09:15 Band Neutrophils % 0.0 % 08/28/18 09:15 Lymphocytes % 11.1 % 08/28/18 09:15 Monocytes % 8.1 % 08/28/18 09:15 Eosinophils % 0.0 % 08/28/18 09:15 Basophils % 1.0 % 08/28/18 09:15 Metamyelocytes % 0.0 % 08/28/18 09:15 Myelocytes % 0.0 % 08/28/18 09:15 Promyelocytes % 0.0 % 08/28/18 09:15 Blast Cells % 0.0 % 08/28/18 09:15 Immature Gran # RECYCLING DIRECTOR 08/28/18 09:15 Absolute Seg Neuts 9.21 10^3/uL (1.70-6.50) H 08/28/18 09:15 Absolute Band Neuts 0.00 10^3/uL (0.00-0.70) 08/28/18 09:15 Absolute Lymphocytes 1.28 10^3/uL (1.00-3.00) 08/28/18 09:15 Absolute Monocytes 0.93 10^3/uL (0.30-0.80) H 08/28/18 09:15 Absolute Eosinophils 0.00 10^3/uL (0.03-0.40) L 08/28/18 09:15 Absolute Basophils 0.12 10^3/uL (0.02-0.10) H 08/28/18 09:15 Absolute Metamyelocyte 0.00 10^3/mL (0.00-0.00) 08/28/18 09:15 Absolute Myelocytes 0.00 10^3/mL (0.00-0.00) 08/28/18 09:15 Absolute Promyelocytes 0.00 10^3/uL (0.00-0.00) 08/28/18 09:15 Absolute Plasma Cells 0.00 10^3/uL (0.00-0.00) 08/28/18 09:15 Nucleated RBCs 0 /100 WBC (0-0) 08/28/18 09:15 Absolute Blast Cells 0.00 10^3/uL (0.00-0.00) 08/28/18 09:15 Plasma Cells % 0.0 % 08/28/18 09:15 Platelet Estimate ADEQUATE (ADEQ) 08/28/18 09:15 Polychromasia 1+ H 08/28/18 09:15 Hypochromasia 1+ H 08/28/18 09:15 Microcytic Cells 1+ H 08/28/18 09:15 Schistocytes 1+ H 08/28/18 09:15 ESR > 130 MM/HR (0-20) H 08/28/18 09:15 PT 14.5 SEC (12.0-15.0) 08/28/18 09:15 INR 1.18 (0.83-1.16) H 08/28/18 09:15 APTT 43.4 SEC (23.0-38.0) H 08/28/18 09:15 D-Dimer 2.68 ug/mLFEU (0.00-0.50) H 08/28/18 09:15 VBG Lactic Acid 1.5 mmol/L (0.7-2.1) 08/28/18 09:15 Sodium 130 mEq/L (135-145) L 08/28/18 14:50 Potassium 4.3 mEq/L (3.5-5.2) 08/28/18 14:50 Chloride 96 mEq/L (97-110) L 08/28/18 14:50 Carbon Dioxide 25 mEq/l (22-31) 08/28/18 14:50 Anion Gap 9 mEq/L (6-14) 08/28/18 14:50 BUN 52 mg/dL (7-23) H 08/28/18 14:50 Creatinine 2.0 mg/dL (0.7-1.3) H 08/28/18 14:50 Estimated GFR 33 08/28/18 14:50 Glucose 106 mg/dL (70-100) H 08/28/18 14:50 Calcium 9.2 mg/dL (8.5-10.4) 08/28/18 14:50 Total Bilirubin 1.5 mg/dL (0.1-1.4) H 08/28/18 09:15 C-Reactive Protein 73.5 mg/L (<10.0) H 08/28/18 09:15 NT-Pro-B Natriuret Pep 6480 pg/mL (0-125) H 08/28/18 09:15 Specimen Hemolysis 185 08/28/18 09:15 Urine Color YELLOW 08/28/18 11:03 Urine Appearance MODERATELY TURBID 08/28/18 11:03 Urine pH 7.0 (5.0-7.5) 08/28/18 11:03 Ur Specific [place] 1.014 (1.002-1.030) 08/28/18 11:03 Urine Protein NEGATIVE (NEGATIVE) 08/28/18 11:03 Urine Ketones NEGATIVE (NEGATIVE) 08/28/18 11:03 Urine Blood NEGATIVE (NEGATIVE) 08/28/18 11:03 Urine Nitrate NEGATIVE (NEGATIVE) 08/28/18 11:03 Urine Bilirubin NEGATIVE (NEGATIVE) 08/28/18 11:03 Urine Urobilinogen NEGATIVE EU (0.2-1.0) 08/28/18 11:03 Ur Leukocyte Esterase NEGATIVE (NEGATIVE) 08/28/18 11:03 Urine RBC NONE SEEN /hpf (0-3) 08/28/18 11:03 Urine WBC 0-1 /hpf (0-3) 08/28/18 11:03 Ur Epithelial Cells NONE SEEN /lpf (NONE-1+) 08/28/18 11:03 Urine Glucose NEGATIVE (NEGATIVE) 08/28/18 11:03 Assessment & Plan Assessment: Gout Flare - B/l wrist swelling with minimal warmth and erythema, CRP elevated 73.5 - Hx of Gout, on Febuxostat as outpatient, will decrease dose to 40 mg qd due to renal insufficiency - Will initiate Colchicine 0.3 mg qd due to renal impairment as well as Prednisone 40 mg qd in setting of acute flare - Will check uric acid in the AM - Pain control PRN SIRS Criteria - Pt with fever, 38.5, leukocytosis 11.5 on admission, possibly in setting of inflammation with gout flare vs. infection - CXR performed which shows possible LLL PNA, although patient denies any cough or recent upper respiratory infectious symptoms - Will hold off on abx for now, if patient becomes febrile or worsening in symptoms will initiate - Blood cultures collected on admission, f/u results - Respiratory PCR negative on admission, LA normal at 1.5 - UA negative on admission Hyponatremia - Na 130 on admission - S/p 1L IVF in ED - Appears chronically low 131-134 in recent past - Repeat Na in the AM CATHY on Stage 3 CKD - Cr 2.3 on admission, has ranged from 1.5-2.6 in the past - Follows with Dr. Barrera of [facility] - S/p 1L IVF on admission, will hold on additional IVF for now - Will hold home Torsemide for now - Continue to monitor Cr, I/O, avoid nephrotoxic agents Diastolic CHF - Appears slightly hypovolemic on exam, s/p IVF in ED - Continue home B-phli - Will hold Torsemide for now, likely restart tomorrow pending kidney function Etoh abuse - Reports cessation for past 2 months Coronary artery disease- status post 1 vessel CABG in 2018 along with an aortic valve repair done here - Continue home medications Chronic pain- has chronic leg and foot pain. - Continue home medications, added PRN IV for acute gout flare for now FEN: S/p IVF, Cardiac diet DVT PPx: SubQ Heparin Code: DNR Dispo: Admit to Medicine
[2018-08-28] MEDS: AMITRIPTYLINE HCL 25 MG TAB PO SCH (21:12)
[2018-08-28] MEDS: oxyCODONE CR 30 MG TAB PO SCH (21:12)
[2018-08-29] MEDS: HYDROCODONE/APAP 5/325 TAB PO PRN ×4 (00:01→20:44)
[2018-08-29 04:28] LABS: PLATELET COUNT 309 10^3/uL (150-400)
[2018-08-29] MEDS: HEPARIN 5,000 UNIT/0.5 ML INJ SC SCH ×3 (06:22→20:38)
[2018-08-29] MEDS: predniSONE 20 MG TAB PO SCH (09:23)
[2018-08-29] MEDS: COLCHICINE 0.6 MG CAP/TAB PO SCH (09:23)
[2018-08-29] MEDS: ASPIRIN EC 81 MG TAB PO SCH (09:24)
[2018-08-29] MEDS: oxyCODONE CR 30 MG TAB PO SCH ×2 (09:24→20:37)
[2018-08-29] MEDS: METOPROLOL SUCCINATE XR 50 MG TAB PO SCH (10:09)
[2018-08-29] MEDS: Febuxostat [Uloric] 40 MG PO SCH (10:41)
[2018-08-29] MEDS: HYDROmorphONE/DILAUDID 1 MG/ML INJ IVP PRN (13:05)
--- NOTE | 2018-08-29 14:07 | PDMN ---
Medical Necessity Medical necessity: Pt meets IP criteria per MD & MCG MG-MD Musculoskeletal Disease; est los >2 mn for eval/tx of gout flare with severe 9/10 pain, CATHY on CKD, SIRS criteria w/possible LLL pneumonia; requiring further workup/ monitoring & pain/med management; hx multiple comorbidities; per H&P & order 08/28
--- NOTE | 2018-08-29 16:09 | ASMTCMCOM ---
CM Note CM Note Notes: CM met w/ pt for dispo planning. Pts left hand and feet are swollen. OT is recommending HC vs SNF. PT is pending. Pt does not recall having [facility] . Pt does not want to set up any services until his test results are back. Pt lives w/ his and a son lives nearby. CM to follow up tomorrow. Date Signed: 08/29/2018 04:07 PM Electronically Signed By:EDGAR Manzanares
--- NOTE | 2018-08-29 17:20 | HOSPPROG ---
Hospitalist Progress Note Assessment/Plan: Gout Flare - B/l wrist swelling with minimal warmth and erythema, CRP elevated 73.5 - Hx of Gout, on Febuxostat as outpatient, continue - Continue Colchicine 0.3 mg qd due to renal impairment as well as Prednisone 40 mg qd in setting of acute flare - Pain control PRN SIRS Criteria - Pt with fever, 38.5, leukocytosis 11.5 on admission, possibly in setting of inflammation with gout flare vs. infection - CXR performed which shows possible LLL PNA, although patient denies any cough or recent upper respiratory infectious symptoms - Continue holding off on abx for now, if patient becomes febrile or worsening in symptoms will initiate - Blood cultures collected on admission, f/u results - Respiratory PCR negative on admission, LA normal at 1.5 - UA negative on admission Hyponatremia - Na 130 on admission, 132 this AM - S/p 1L IVF in ED - Appears chronically low 131-134 in recent past - Continue to monitor CATHY on Stage 3 CKD - Cr 2.3 on admission, has ranged from 1.5-2.6 in the past - Follows with Dr. Barrera of [facility] - S/p 1L IVF on admission, will hold on additional IVF for now - Will hold home Torsemide for now, repeat Cr 1.9 this AM - Continue to monitor Cr, I/O, avoid nephrotoxic agents Diastolic CHF - Appears slightly hypovolemic on exam, s/p IVF in ED - Continue home B-phil - Will hold Torsemide for now Etoh abuse - Reports cessation for past 2 months Coronary artery disease- status post 1 vessel CABG in 2018 along with an aortic valve repair done here - Continue home medications Chronic pain- has chronic leg and foot pain. - Continue home medications, added PRN IV for acute gout flare for now FEN: S/p IVF, Cardiac diet DVT PPx: SubQ Heparin Code: DNR Dispo: Pending clinical course, Pt/OT recommending possible SNF Subjective: Pt reports some improvement in b/l wrist pain this AM, improved ROM Objective: Vital Signs Temp Pulse Resp BP Pulse Ox 36.6 C 82 18 103/68 96 08/29/18 16:00 08/29/18 16:00 08/29/18 16:00 08/29/18 16:00 08/29/18 16:00 Microbiology 08/28/18 11:07 Respiratory Panel (PCR) - Final Nasal, Sinus - Swab No Organism Detected By Pcr Laboratory Results 08/29/18 03:16 08/29/18 03:16 08/28/18 08/29/18 08/30/18 05:59 05:59 05:59 Intake Total 1850 Output Total 875 Balance 975 PT 14.5 SEC (12.0-15.0) 08/28/18 09:15 INR 1.18 (0.83-1.16) H 08/28/18 09:15 - Physical Exam Constitutional: chronically ill appearing Eyes: PERRL Ears, Nose, Mouth, Throat: moist mucous membranes Cardiovascular: regular rate and rhythym Respiratory: no respiratory distress Gastrointestinal: soft, non-tender abdomen Skin: warm, erythema Musculoskeletal: joint tenderness, pain with ROM Neurologic: AAOx3 Psychiatric: interacting appropriately ICD10 Worksheet Patient Problems: Problems Problem Status Onset Acute blood loss anemia Acute Acute renal failure Acute Atrial fibrillation with RVR Acute CAD in [place] artery Acute Cellulitis Acute Congestive heart failure (CHF) Acute DVT (deep venous thrombosis) Acute Gout Acute Hyperkalemia Acute Neuropathic pain, leg, bilateral Acute S/P CABG x 1 Acute ~08/09/17 S/P Maze operation for atrial fibrillation Acute ~08/09/17 Status post mitral valve annuloplasty Acute ~08/09/17 Status post tricuspid valve repair Acute ~08/09/17 s/p placement of LV epicardial lead Acute ~08/09/17 Atrial fibrillation Chronic CKD (chronic kidney disease) stage 3, GFR 30-59 ml/min Chronic Diastolic congestive heart failure, NYHA class 3 Chronic Dilated cardiomyopathy Chronic Secondary tricuspid valve regurgitation Chronic Severe mitral regurgitation Chronic
[2018-08-29] MEDS: AMITRIPTYLINE HCL 25 MG TAB PO SCH (20:38)
[2018-08-30 04:19] LABS: PLATELET COUNT 360 10^3/uL (150-400)
[2018-08-30] MEDS: HEPARIN 5,000 UNIT/0.5 ML INJ SC SCH (06:24)
[2018-08-30] MEDS: HYDROCODONE/APAP 5/325 TAB PO PRN ×2 (07:09→12:04)
[2018-08-30] MEDS: predniSONE 20 MG TAB PO SCH (08:48)
[2018-08-30] MEDS: METOPROLOL SUCCINATE XR 50 MG TAB PO SCH (08:48)
[2018-08-30] MEDS: COLCHICINE 0.6 MG CAP/TAB PO SCH (08:48)
[2018-08-30] MEDS: oxyCODONE CR 30 MG TAB PO SCH (08:48)
[2018-08-30] MEDS: ASPIRIN EC 81 MG TAB PO SCH (08:49)
[2018-08-30] MEDS ORDERED: Febuxostat [Uloric] 40 MG PO SCH (09:00)
[2018-08-30 12:02] VITALS: BP 104/71
--- NOTE | 2018-08-30 13:28 | PDDCSUM ---
Discharge Summary Discharge Summary: Pt had run of nonsustained VF-- was asymptomatic. Discussed that he is at risk of recurrent fatal arrhythmias, which he is aware of and maintains DNR status. He has good FU w/ Cardiology.
--- NOTE | 2018-08-30 13:55 | ASDISCHSUM ---
Discharge Information Plan Status:Home with No Needs Medically Cleared to Leave:08/30/2018 Discharge Date:08/30/2018 CM D/C Disposition:Home, Routine, Self-Care ADT D/C Disposition:Home, Routine, Self-Care Projected Discharge Date:08/30/2018 Transportation at D/C:Family Discharge Delay Reason: Follow-Up Date:08/30/2018 Discharge Slot: Final Diagnosis: Placement Information Patient Contact Information Contact Name:NORBERTO Relationship: Address:[address] City:[place] Alternate Phone: [facility]/Zip Code:[place] [address] Email: Financial Information Financial Class:[employer] [facility] Primary Plan Number:[id number] Secondary Plan Desc:MEDICARE INPATIENT Secondary Plan Number:[id number] Assessment Information LACE LACE Acuity / Level of Answers: Yes Care: Did the patient have an inpatient admission? Comorbidities - select Answers: Congestive heart failure all that apply Coronary Artery Disease Moderate or severe liver or renal disease Opioid dependence / Chronic pain Other Notes: AFib # of Emergency department Answers: 3-4 visits in the last 6 months Social determinants Answers: History of substance abuse (ETOH, street drugs, prescription drugs, etc.) Score: 22 Date Signed: 08/28/2018 12:02 PM Electronically Signed By:Gloria Yang [facility] Progress Note CM Note CM Note Notes: Pts case discussed in tx rounds. Pt is a 67 y/o man admitted for chronic renal insufficiency and polyarthralgia. CM attempted to meet w/ pt but he was asleep. Therapies have been ordered and awaiting recommendations. Pt uses a cane when he ambulates. Pt has had [facility] in the past. Needs are TBD at this time. CM to follow. Plan: TBD Date Signed: 08/28/2018 03:02 PM Electronically Signed By:EDGAR Manzanares [facility] CM Progress Note CM Note CM Note Notes: CM met w/ pt for dispo planning. Pts left hand and feet are swollen. OT is recommending HC vs SNF. PT is pending. Pt does not recall having [facility]. Pt does not want to set up any services until his test results are back. Pt lives w/ his and a son lives nearby. CM to follow up tomorrow. Date Signed: 08/29/2018 04:07 PM Electronically Signed By:EDGAR Manzanares Case Management Discharge Plan Note Case Management Discharge Discharge Order Complete? Answers: Yes Patient to Obtain Answers: via Family Medications Transportation Arranged Answers: Family/Friends Discharge Comments Notes: 08/30/2018 Case Management Note Met w/pt. Pt continues to decline home care services. Jolanta [phone] is transporting home. Jolanta works in construction and is currently working the [facility]. Pt to discharge independent with follow up as directed. PCP is Dr. Coon. Date Signed: 08/30/2018 01:53 PM Electronically Signed By:Ana M Gaytan, RN Intervention Information
== END 2018-08-30 15:24 | disposition home or self-care (01) ==
LOC: INTOOBSV 10:41 → F2W 11:14
PROVIDERS: ADMIT Internal Medicine; ATTEND Internal Medicine
DX: R09.02 Hypoxemia (principal); M10.9 Gout, unspecified; I48.91 Unspecified atrial fibrillation; N18.3 Chronic kidney disease, stage 3 (moderate); E86.9 Volume depletion, unspecified; I49.5 Sick sinus syndrome; G89.29 Other chronic pain; I25.10 Atherosclerotic heart disease of native coronary artery without angina pectoris; I50.30 Unspecified diastolic (congestive) heart failure; Z95.0 Presence of cardiac pacemaker; Z95.1 Presence of aortocoronary bypass graft
CPT/HCPCS: 71046; 93005; 96361; 96374; 97165; 99285; G0378; J1170; J1644; J7512

== ENCOUNTER 2018-09-13 09:03 | Inpatient (IN) | payer OTHER ==
[2018-09-13] MEDS ORDERED: NS 1,000 ML IV ONE ×2 (09:17→14:36)
[2018-09-13] MEDS ORDERED: HYDROmorphONE/DILAUDID 2 MG/ML INJ IVP ONE (09:17)
--- NOTE | 2018-09-13 09:20 | EDPHY ---
H & P Stated Complaint: Acute exacerbation of chronic pain Time Seen by Provider: 09/13/18 09:07 HPI/ROS: CHIEF COMPLAINT: Acute exacerbation of chronic pain HISTORY OF PRESENT ILLNESS: This is a 67-year-old gentleman with history of gout CHF alcohol abuse and chronic pain who was recently admitted to the hospital with acute gouty arthritis. The patient declined consideration of placement and ultimately was treated with colchicine and prednisone in the emergency department. The patient reported that he stop taking his prednisone several days ago. There seems to be some correlation and of the recurrence of pain and the stopping of prednisone. The patient has been taking oxycodone at home. The patient complains of bilateral lower extremity pain and right shoulder pain. The patient denies any history of recent fall or trauma. The patient has no complaints of acute fever, cough abdominal pain or gastrointestinal complaints. Patient does feel that he needs to be admitted to the hospital secondary to the severity of his pain. REVIEW OF SYSTEMS: A comprehensive 10 point review of systems is otherwise negative aside from elements mentioned in the history of present illness. Source: Patient Exam Limitations: No limitations - Personal History Current Tetanus/Diphtheria Vaccine: Yes Current Tetanus Diphtheria and Acellular Pertussis (TDAP): Yes - Medical/Surgical History Hx Asthma: No Hx Chronic Respiratory Disease: No Hx Diabetes: No Hx Cardiac Disease: Yes Hx Renal Disease: Yes Hx Cirrhosis: No Hx Alcoholism: Yes Hx HIV/AIDS: No Hx Splenectomy or Spleen Trauma: No Other PMH: a fib, CHF, open heart 08/15,. HTN/RAYNAUDS/BACK FX x2, knee replacements, chronic pain, CKD, MVR & TVR repair July 2017, cataract surgery , gout - Social History Smoking Status: Former smoker - Physical Exam Exam: General Appearance: Thin elderly male, mild discomfort Eyes: Pupils equal and round no pallor or injection ENT, Mouth: Mucous membranes moist Respiratory: There are no retractions, lungs are clear to auscultation Cardiovascular: Regular rate and rhythm Gastrointestinal: Abdomen is soft and nontender, no masses, bowel sounds normal Neurological: A&O, normal motor function, normal sensory exam, normal cranial nerves Skin: Mild erythematous changes noted to the bilateral legs, old superficial abrasions noted Musculoskeletal: Neck is supple nontender Extremities: Bilateral knee effusions, diffuse tenderness to palpation over the right humerus, bilateral knees and ankles Psychiatric: Patient is oriented X 3, there is no agitation Constitutional: Initial Vital Signs Temperature (C) 37.1 C 09/13/18 09:08 Heart Rate 89 09/13/18 09:08 Respiratory Rate 16 09/13/18 09:08 Blood Pressure 120/77 09/13/18 09:08 O2 Sat (%) 93 09/13/18 09:08 O2 Delivery Mode Nasal Cannula O2 (L/minute) 2 Allergies/Adverse Reactions: cephalexin Allergy (Severe, Verified 08/28/18 08:55) Anaphylaxis Home Medications: Medication Instructions Recorded oxyCODONE IR [Oxycodone Ir (*)] 10 mg PO TID PRN 02/09/18 Aspirin EC [Aspirin EC 81 mg (*)] 81 mg PO DAILY tab 02/12/18 Colchicine [Colchicine (*)] 0.6 mg PO DAILY 06/20/18 Torsemide [Demadex] 20 mg PO DAILY10 06/20/18 Amitriptyline HCl 25 mg PO HS 08/28/18 Metoprolol Succinate Xr [Toprol Xl 50 mg PO DAILY 08/28/18 50 mg (*)] oxyCODONE HCL [Oxycontin] 30 mg PO BID 08/28/18 Febuxostat [Uloric] 80 mg PO DAILY #60 tablet 08/30/18 Medical Decision Making ED Course/Re-evaluation: Patient presents the ED with an acute gouty arthritic flare. The patient had been on prednisone which he stop taking several days ago. The patient does have a leukocytosis and recurrent renal insufficiency. The patient was treated with IV Solu-Medrol for his gouty flare. The patient does have a history of chronic lower extremity venous insufficiency. He had been hospitalized in May for presumptive cellulitis which was likely secondary to venous insufficiency at that point time as the patient lacked fever leukocytosis. Today the [place] [address]. He reports clinically his legs are more erythematous than normal. The patient had blood cultures x2 obtained. The patient received a dose of vancomycin given his cephalosporin allergy. The patient will require admission to the hospital for further evaluation and management of his gouty arthritis flare and cellulitis versus chronic venous insufficiency. The patient also requires fluid resuscitation for his renal disease. Consultation was made with the hospitalist service. The patient will be admitted to a medical-surgical floor bed. Differential Diagnosis: Differential diagnosis considered includes cellulitis, gout, venous insufficiency, dehydration, metabolic abnormality, worsening renal failure - Data Points Laboratory Results: Laboratory Results 09/13/18 09:20 09/13/18 09:20 09/13/18 09/13/18 09/13/18 09:20 09:20 09:20 WBC 18.78 10^3/uL H 10^3/uL (3.80-9.50) RBC 5.17 10^6/uL 10^6/uL (4.40-6.38) Hgb 11.3 g/dL L g/dL (13.7-17.5) Hct 37.0 % L % (40.0-51.0) MCV 71.6 fL L fL (81.5-99.8) MCH 21.9 pg L pg (27.9-34.1) MCHC 30.5 g/dL L g/dL (32.4-36.7) RDW 26.5 % H % (11.5-15.2) Plt Count 334 10^3/uL 10^3/uL (150-400) MPV TNP Neut % (Auto) 83.1 % H % (39.3-74.2) Lymph % (Auto) 6.1 % L % (15.0-45.0) [place] % (Auto) 9.4 % % (4.5-13.0) Eos % (Auto) 0.2 % L % (0.6-7.6) Baso % (Auto) 0.4 % % (0.3-1.7) Nucleat RBC Rel Count 0.0 % % (0.0-0.2) Absolute Neuts (auto) 15.61 10^3/uL H 10^3/uL (1.70-6.50) Absolute Lymphs (auto) 1.15 10^3/uL 10^3/uL (1.00-3.00) Absolute Monos (auto) 1.77 10^3/uL H 10^3/uL (0.30-0.80) Absolute Eos (auto) 0.04 10^3/uL 10^3/uL (0.03-0.40) Absolute Basos (auto) 0.08 10^3/uL 10^3/uL (0.02-0.10) Absolute Nucleated RBC 0.00 10^3/uL 10^3/uL (0-0.01) Immature Gran % 0.8 % % (0.0-1.1) Immature Gran # 0.15 10^3/uL H 10^3/uL (0.00-0.10) RBC/WBC/PLT Morphology TNP Platelet Estimate ADEQUATE (ADEQ) Hypochromasia 1+ H Microcytic Cells 1+ H Echinocytes 1+ H Elliptocytes 1+ H Schistocytes 1+ H Sodium 130 mEq/L L mEq/L (135-145) Potassium 4.3 mEq/L mEq/L (3.5-5.2) Chloride 94 mEq/L L mEq/L (97-110) Carbon Dioxide 21 mEq/l L mEq/l (22-31) Anion Gap 15 mEq/L H mEq/L (6-14) BUN 42 mg/dL H mg/dL (7-23) Creatinine 2.3 mg/dL H mg/dL (0.7-1.3) Estimated GFR 28 Glucose 121 mg/dL H mg/dL (70-100) Calcium 9.2 mg/dL mg/dL (8.5-10.4) Procalcitonin 1.55 ng/mL H ng/mL (0.02-0.10) Medications Given: Discontinued Medications Hydromorphone HCl (Dilaudid) 0.5 mg IVP EDNOW ONE Stop: 09/13/18 09:18 Last Admin: 09/13/18 09:32 Dose: 0.5 mg Sodium Chloride (Ns) 1,000 mls @ 0 mls/hr IV EDNOW ONE; Wide Open PRN Reason: Protocol Stop: 09/13/18 09:18 Last Admin: 09/13/18 09:32 Dose: 1,000 mls Departure - Departure Disposition: [facility] Inpatient Acute Clinical Impression: Cellulitis of left lower extremity, Gout, CKD (chronic kidney disease) stage 3 , GFR 30-59 ml/min Condition: Fair Referrals: MYRIAM ARREGUIN [Primary Care Provider] - As per Instructions
[2018-09-13 09:59] LABS: PLATELET COUNT 334 10^3/uL (150-400)
[2018-09-13] MEDS ORDERED: VANCOMYCIN HCL/NORMAL SALINE 250 ML IV ONE (11:07)
--- NOTE | 2018-09-13 11:59 | PDGENHP ---
History and Physical - Chief Complaint right shoulder and bilateral leg pain. - History of Present Illness Patient is a 68-year-old male with past medical history of gout, alcohol dependency, coronary artery disease status post CABG in 2018, mitral valve repair x1, congestive heart failure, lumbar stenosis, atrial fib status post pacemaker placement, CKD, hypertension, pulmonary hypertension, hyperlipidemia who presented the emergency room with complaints of bilateral lower extremity pain from his knees down along with right shoulder pain. Symptoms started about September 11. Patient was just here and discharged on August 28 for a gout flare. On that admission he was discharged on prednisone along with colchicine. At home patient was on uloric which he decided to stop as he was told that it could be exacerbating his lower extremity neuropathy. He then had a cataract surgery on September 11 and about the same day developed right shoulder pain as well as bilateral lower extremity pain. He denies any fevers or chills , nausea vomiting, cough, chest pain or other symptoms. His pain in his shoulders exacerbated with any movement but he has not noticed any increased swelling. He says that the pain in his lower extremities feels different than his typical gout exacerbation. He denied any other symptoms. History Information - Allergies/Home Medication List Allergies/Adverse Reactions: cephalexin Allergy (Severe, Verified 08/28/18 08:55) Anaphylaxis Home Medications: oxyCODONE IR [Oxycodone Ir (*)] 10 mg PO TID PRN 02/09/18 [Last Taken 06/20/18] Torsemide [Demadex] 20 mg PO DAILY10 06/20/18 [Last Taken 09/13/18] Amitriptyline HCl 25 mg PO HS 08/28/18 [Last Taken 08/27/18] Metoprolol Succinate Xr [Toprol Xl 50 mg (*)] 50 mg PO DAILY 08/28/18 [Last Taken 09/13/18] oxyCODONE HCL [Oxycontin] 30 mg PO BID 08/28/18 [Last Taken 09/13/18] Diclofenac 0.1% [Voltaren 0.1% (*)] 1 drops RIGHTEYE AD 09/13/18 [Last Taken ] Ergocalciferol [Vitamin D2 (*)] 50,000 unit PO FERRARO 09/13/18 [Last Taken Unknown] Ofloxacin 10 ml OP AD 09/13/18 [Last Taken 09/13/18] Prednisolone Acetate/Pf [Prednisolone Acet 1% Eye Drop] 1 drop OP AD 09/13/18 [ Last Taken 09/13/18] I have personally reviewed and updated: family history, medical history, social history, surgical history - Past Medical History atrial fibrillation, arthritis, CHF (acute on chronic class III systolic/ diastolic ), hypertension, hyperlipidemia, liver disease Additional medical history: pulmonary htn, CKD stage 3, chronic pain on narcotics - Surgical History Reports: appendectomy Additional surgical history: multiple bony injuries requiring surgical repair, mitral valve repair - Family History Positive for: non-pertinent - Social History Smoking Status: Former smoker Review of Systems Review of Systems: ROS: 10pt was reviewed & negative except for what was stated in HPI & below Physical Exam Physical Exam: Temp Pulse Resp BP Pulse Ox 37.4 C 95 16 102/74 94 09/13/18 11:36 09/13/18 11:36 09/13/18 11:36 09/13/18 11:36 09/13/18 11:36 O2 (L/minute) 2 Constitutional: no apparent distress, appears nourished, not in pain Eyes: PERRL, anicteric sclera, EOMI Ears, Nose, Mouth, Throat: moist mucous membranes, hearing normal, ears appear normal, no oral mucosal ulcers Cardiovascular: regular rate and rhythym, no murmur, rub, or gallop, No edema Respiratory: no respiratory distress, no rales or rhonchi, clear to auscultation Gastrointestinal: normoactive bowel sounds, soft, non-tender abdomen, no palpable masses Genitourinary: no bladder fullness, no bladder tenderness Skin: warm, normal color, no rashes or abrasions, no fluctuance, no induration, No mottled Musculoskeletal: full muscle strength, no muscle tenderness, normal joint ROM, no joint effusions Psychiatric: interacting appropriately, not anxious, not encephalopathic, thought process linear Lymph, Heme, Immunologic: no cervical LAD, no supraclavicular LAD Lab Data & Imaging Review 09/13/18 09:20 09/13/18 09:20 WBC 18.78 10^3/uL (3.80-9.50) H 09/13/18 09:20 RBC 5.17 10^6/uL (4.40-6.38) 09/13/18 09:20 Hgb 11.3 g/dL (13.7-17.5) L 09/13/18 09:20 Hct 37.0 % (40.0-51.0) L 09/13/18 09:20 MCV 71.6 fL (81.5-99.8) L 09/13/18 09:20 MCH 21.9 pg (27.9-34.1) L 09/13/18 09:20 MCHC 30.5 g/dL (32.4-36.7) L 09/13/18 09:20 RDW 26.5 % (11.5-15.2) H 09/13/18 09:20 Plt Count 334 10^3/uL (150-400) 09/13/18 09:20 MPV TNP 09/13/18 09:20 Neut % (Auto) 83.1 % (39.3-74.2) H 09/13/18 09:20 Lymph % (Auto) 6.1 % (15.0-45.0) L 09/13/18 09:20 Dupage % (Auto) 9.4 % (4.5-13.0) 09/13/18 09:20 Eos % (Auto) 0.2 % (0.6-7.6) L 09/13/18 09:20 Baso % (Auto) 0.4 % (0.3-1.7) 09/13/18 09:20 Nucleat RBC Rel Count 0.0 % (0.0-0.2) 09/13/18 09:20 Absolute Neuts (auto) 15.61 10^3/uL (1.70-6.50) H 09/13/18 09:20 Absolute Lymphs (auto) 1.15 10^3/uL (1.00-3.00) 09/13/18 09:20 Absolute Monos (auto) 1.77 10^3/uL (0.30-0.80) H 09/13/18 09:20 Absolute Eos (auto) 0.04 10^3/uL (0.03-0.40) 09/13/18 09:20 Absolute Basos (auto) 0.08 10^3/uL (0.02-0.10) 09/13/18 09:20 Absolute Nucleated RBC 0.00 10^3/uL (0-0.01) 09/13/18 09:20 Immature Gran % 0.8 % (0.0-1.1) 09/13/18 09:20 Immature Gran # 0.15 10^3/uL (0.00-0.10) H 09/13/18 09:20 RBC/WBC/PLT Morphology TNP 09/13/18 09:20 Platelet Estimate ADEQUATE (ADEQ) 09/13/18 09:20 Hypochromasia 1+ H 09/13/18 09:20 Microcytic Cells 1+ H 09/13/18 09:20 Echinocytes 1+ H 09/13/18 09:20 Elliptocytes 1+ H 09/13/18 09:20 Schistocytes 1+ H 09/13/18 09:20 Sodium 130 mEq/L (135-145) L 09/13/18 09:20 Potassium 4.3 mEq/L (3.5-5.2) 09/13/18 09:20 Chloride 94 mEq/L (97-110) L 09/13/18 09:20 Carbon Dioxide 21 mEq/l (22-31) L 09/13/18 09:20 Anion Gap 15 mEq/L (6-14) H 09/13/18 09:20 BUN 42 mg/dL (7-23) H 09/13/18 09:20 Creatinine 2.3 mg/dL (0.7-1.3) H 09/13/18 09:20 Estimated GFR 28 09/13/18 09:20 Glucose 121 mg/dL (70-100) H 09/13/18 09:20 Calcium 9.2 mg/dL (8.5-10.4) 09/13/18 09:20 Procalcitonin 1.55 ng/mL (0.02-0.10) H 09/13/18 09:20 Assessment & Plan Assessment: 68 year old male with pmh of gout, CKD, CHF, afib, who presented with pain in legs and shoulder, concerning for gout, cellulitis or both. Cellulitis of left lower extremity- vs venous insufficiency. patient has an elevated procalcitonin to 1.5 along with lower extremity redness and erythema. Patient was seen for this exact same thing back in May and Infectious Disease was consulted who did not think that this represented a lower extremity infection. I discussed the case with ER physician who gave a dose of vancomycin in the emergency room along with blood cultures being obtained. Will plan to monitor white count blood cultures and procalcitonin but at this point would hold off on further antibiotics and monitor him clinically. -monitor cultures -Follow WBC, procal Hyponatremia- likely hypovolemic hyponatremia in setting of poor po intake. -Giving IVF now -recheck serum sodium in am -check urine osm, and urine lytes Gout-- history of gout, was on uloric but self stopped. Was discharged here on colcrys and prednisone and also stopped the colcrys and ran out of prednisone. likely having another flare. Given solumedrol in er. has a leukocytosis, and elevated CRP. -check uric acid -restart prednisone 40 daily Right shoulder pain- possibly related to gout. No erythema, warmth or effusion. If fails to improve or patient develops signs of infection will consult ortho and likely obtain imaging. Kenrick on CKD strage 3- Follows with Dr. Barrera from [facility]. Creatinine up to 2.3. looks dry on exam and likely has prerenal azotemia. -on intravenous saline -hold demedex -repeat renal function in am Afib- with SSS and status post pacer placement. On toprol XL but no anticoagulant other than 81mg asa. Appears to be in sinus rhythm now. -telemetry -cont asa. CHF- appears slightly hypovolemic on my examination. - Hold demedex -cont toprol -cautious with fluids. Recent cataract surgery- right eye cataract surgeyr. on pred forte, ofloxacin and diclofenac drops. Cont here. neuropathy- cont home elavil. Anemia- appears sligtly better than previous. No evidence of bleeding. Monitor for now. PPX- No SCDs, heparin Fluids- IV saline Lytes- WNL Nutrition- regular diet cor=- DNR Dispo- anticipate requiring longer than 2 midnights for this patient, will make inpatient. patient new to me. I reviewed the patients old records showing extensive medical hx and recent admission for gout flare on 08.28.
[2018-09-13] MEDS ORDERED: ONDANSETRON DISINTEGRATING 4 MG TAB PO PRN (12:13)
[2018-09-13] MEDS ORDERED: ACETAMINOPHEN 325 MG TAB PO PRN (12:13)
[2018-09-13] MEDS ORDERED: ONDANSETRON 4 MG/2 ML VIAL IVP PRN (12:13)
[2018-09-13] MEDS: oxyCODONE IR 5 MG TAB PO PRN ×2 (12:48→14:08)
[2018-09-13] MEDS: NS 1,000 ML IV SCH ×2 (13:10→15:56)
[2018-09-13] MEDS: HEPARIN 5,000 UNIT/0.5 ML INJ SC SCH ×2 (14:08→22:56)
[2018-09-13] MEDS: predniSONE 20 MG TAB PO SCH (14:46)
--- NOTE | 2018-09-13 14:58 | ASMTLACE ---
TANVI Acuity / Level of Answers: Yes Care: Did the patient have an inpatient admission? Comorbidities - select Answers: Congestive heart failure all that apply Coronary Artery Disease Moderate or severe liver or renal disease Opioid dependence / Chronic pain Other Notes: AFib; HTN # of Emergency department Answers: 3-4 visits in the last 6 months Social determinants Answers: History of substance abuse (ETOH, street drugs, prescription drugs, etc.) Score: 22 Date Signed: 09/13/2018 02:57 PM Electronically Signed By:Gloria Yang
[2018-09-13] MEDS: OFLOXACIN 0.3% 5ML OPHT DROPS LEFTEYE SCH ×2 (15:56→20:23)
[2018-09-13] MEDS: prednisoLONE ACET 1% 5 ML OPHT.BTL LEFTEYE SCH ×2 (15:58→20:24)
[2018-09-13] MEDS: AMITRIPTYLINE HCL 25 MG TAB PO SCH (20:21)
[2018-09-13] MEDS: oxyCODONE CR 30 MG TAB PO SCH (20:21)
[2018-09-13] MEDS: DICLOFENAC 0.1% 2.5 ML OPHT.BTL LEFTEYE SCH (20:42)
[2018-09-14] MEDS: HEPARIN 5,000 UNIT/0.5 ML INJ SC SCH ×3 (05:13→22:11)
[2018-09-14] MEDS: HYDROCODONE/APAP 5/325 TAB PO PRN ×3 (05:13→19:05)
[2018-09-14] MEDS: OFLOXACIN 0.3% 5ML OPHT DROPS LEFTEYE SCH ×4 (05:14→21:41)
[2018-09-14] MEDS: prednisoLONE ACET 1% 5 ML OPHT.BTL LEFTEYE SCH ×4 (05:14→21:41)
[2018-09-14] MEDS: NS 1,000 ML IV SCH (05:28)
[2018-09-14 06:34] LABS: PLATELET COUNT 293 10^3/uL (150-400)
[2018-09-14] MEDS: oxyCODONE CR 30 MG TAB PO SCH ×2 (09:51→20:18)
[2018-09-14] MEDS: ASPIRIN EC 81 MG TAB PO SCH (09:51)
[2018-09-14] MEDS: DICLOFENAC 0.1% 2.5 ML OPHT.BTL LEFTEYE SCH ×2 (09:52→21:41)
[2018-09-14] MEDS: predniSONE 20 MG TAB PO SCH (09:52)
[2018-09-14] MEDS: METOPROLOL SUCCINATE XR 50 MG TAB PO SCH (09:52)
--- NOTE | 2018-09-14 11:27 | GCON ---
[f rep st] CONSULTATION INFECTIOUS DISEASE CONSULT DATE OF CONSULTATION: 09/14/2018 REFERRING PHYSICIAN: Jimbo Dorsey MD REASON FOR CONSULT: To assist in the management of this 68-year-old male with multiple medical problems. I am specifically asked to opine on whether or not the patient could have a bacterial lower extremity cellulitis, or septic arthritis. HISTORY OF PRESENT ILLNESS: Mr. Crawley is a complicated 68-year-old male, who previous medical history is notable for the followin. Bilateral neuropathic leg pain. 2. Bilateral lower extremity edema and erythema felt secondary to venous insufficiency. 3. History of chronic renal insufficiency. 4. History of alcoholism, none since April, per the patient. 5. History of chronic pain with opioid dependency. 6. Atrial fibrillation. 7. Sick sinus syndrome with pacemaker in place. 8. Hyperlipidemia. 9. Lumbar stenosis. 10. CHFd. 11. CAD, status post 1 vessel CABG in 2018. 12. Gout: This dates back to 2017. Please see discussion below. 13. Elevated uric acid levels. PREVIOUS SURGICAL HISTORY: 1. CABG x1 vessel 2018. 2. Mitral valve and tricuspid valve annuloplasty ring placement. 3. SSS status post pacemaker. 4. History of ACL repairs in his knees. Reviewing the patient's extensive data, it appears that his diagnosis of polyarticular gout was made back in 2016, when he presented with severe bilateral wrist pain and swelling. Arthrocentesis was attempted, but only a small amount of fluid was removed, and this was negative for crystals. He was found to have an elevated serum uric acid level, and has been taking Uloric for that, but as I will outline below, he has recently stopped that. The patient states he has never had an arthrocentesis outside of [facility]. He states that in 2017 he saw a manager regional at [facility] in [place], for an evaluation, and his symptoms were felt secondary to gout. He has had intermittent flares, mostly in his hands and wrists, and has been on and off prednisone and colchicine. He is felt to be a poor candidate for nonsteroidals in the setting of his chronic renal insufficiency. Regarding his present issues, the patient was recently admitted to [facility] earlier in August, with bilateral wrist swelling felt secondary to a gouty flare. His CRP was 73 at the time, with an elevated white blood cell count, and low-grade fevers. He was treated with 40 mg of prednisone daily and colchicine, and improved greatly. He was discharged on August 30 to complete 7 days of 40 mg of prednisone, which stopped on September 06. The patient tells me that approximately 2 to 3 days after stopping prednisone, his hands began to swell again, and his right shoulder became exquisitely painful, as well as his right elbow. (he reports the shoulder and elbow are new joints for him) He states that his left shoulder is painful, but no where near like the right. In fact, he states that all of his joints hurt. When I asked him to be specific, he named his right shoulder, right elbow, hands, wrists bilaterally, knees bilaterally, feet, and ankles. He states that he has been unable to move. His brought him in to [facility] for further evaluation and treatment on September 13. In the emergency room, the patient was afebrile, but found to have a low blood pressure of 84/50. He was given IV fluids. In addition, his white blood cell count was elevated at 18.7, with a procalcitonin of 1.5. He did have some lower extremity pinkish erythema, and given his multiple joint symptoms, particularly his right shoulder pain, vancomycin was initiated out of concern for septic arthritis and lower extremity cellulitis. I am now asked to assist in his management. The p atient states he has not drunk any alcohol since April! He states that he stopped Uloric approximately 2 weeks ago, as his mutuel machine operator told him that he should not be on that. He denies any fevers at home, shaking chills, headache, blurred vision or changes in his vision, nausea, vomiting, abdominal pain, cough , shortness of breath, sore throat, changes in his bowel movements, melena or hematochezia, penile discharge or burning when he urinates, or skin rash. He states that his appetite is excellent, but the patient tells me he has lost approximately 15 pounds over the past couple of weeks, and he does not understand why. He reports that his weight has been going down progressively, in spite of an excellent appetite. He has no drenching night sweats. He reports no recent dental work, bleeding gums. Last colonoscopy was over 10 years ago, and he cannot recall the result. REVIEW OF SYSTEMS: Aside from what is listed above, 10 systems reviewed and all are negative. PAST MEDICAL HISTORY: As outlined above. ALLERGIES: Keflex: The patient states he developed hives, shortness of breath , and throat swelling 4 years ago. He states he has not been on a penicillin since that time. MEDICATIONS: Presently include: 1. Tylenol. 2. Baby aspirin 81 mg daily. 3. Elavil 25 mg h.s. 4. [place]. 5. Voltaren. 6. Toprol-XL 50 mg p.o. daily. 7. Zofran. 8. OxyContin and oxycodone. 9. Prednisone 40 mg p.o. daily (patient received a dose of Solu-Medrol in the emergency department). 10. Vancomycin 1 g IV q.24 hours. SOCIAL HISTORY: The patient lives in [place] with his . They have a dog , 3 cats, that are both indoor and outdoor, a ferret, which roams around the house but does not go outside, and 2 hens. The patient adamantly denies that his ferret, cats or dogs, have licked, scratched, or bitten him lately. He also has fish tanks, both salt and fresh water. He has no water exposure other than his shower and bathtub. No alcohol since April. He has never injected drugs or used intravenous drugs. No marijuana or other illicit substances. History of tobacco, quit 40 years ago. 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 He enjoys racing motorcycles (in the past), and mountain biking (in the past). No recent travel within or outside the [facility]. He has been for 38 years and has a closed relationship. FAMILY HISTORY: Parents of old age. Brother of gastric carcinoma. He has a son who was healthy. PHYSICAL EXAM: VITAL SIGNS: T-current is 36.1, T-max 37.6, heart rate is 70, blood pressure 111/72. GENERAL: Appears older than stated age, but nontoxic. HEENT: Atraumatic, normocephalic. Pupils equal, round, react to light. Extraocular movements are intact. No conjunctival injection or icterus. No sinus process tenderness or discharge from the nares. Mucous membranes are moist. No oral lesions noted. The patient has false upper teeth. Lower teeth in fair repair. NECK: Trachea is midline. No thyromegaly. No cervical or supraclavicular lymphadenopathy. CARDIOVASCULAR: Patient has a well-healed median sternotomy incision consistent with prior surgery. S1, S2. 2/6 systolic ejection murmur, heard best at the right and left upper sternal border , and left lower sternal border. LUNGS: Clear to auscultation bilaterally. No rales, rhonchi, or wheeze. No increased respiratory effort. ABDOMEN: Soft. No organomegaly or tenderness to palpation. EXTREMITIES: The patient has notable swelling of the small joints, particularly in his right hand greater than left, with fusiform swelling and sausage digits of his thumb, 2nd finger, and middle finger. There is no erythema. It is difficult for him to make a fist. There are no swan-neck deformities. He does have some evidence of osteoarthritis in his DIP and PIP joints. There are no tophi. He also has exquisite tenderness of both wrists. His right elbow has a notable effusion, with no overlying skin changes. His right shoulder is extremely tender to palpation, with no overlying skin changes or evidence of visible effusion, but he is unable to lift his arm. Both of his knees are swollen with ballotable effusions, with overlying well-healed scars, consistent with prior ACL surgery. His feet are swollen, and it is difficult for him to flex and extend his ankles. Lower extremities are not particularly swollen per se. There is some overlying pinkish erythema bilaterally, without overlying warmth, that does not look cellulitic in nature, but looks more so secondary to venostasis. It is not blanching. His skin is notable for a small abrasion in his left lower extremity laterally, that does not appear secondarily infected. He also has some dry skin of his arms, no stigmata of endocarditis. NEUROLOGIC: He is alert and oriented x3. No focal deficits. LABORATORY DATA: Microbiologic data: Blood cultures x2 are pending. Sodium of 133, BUN and creatinine of 39 and 1.7, down from 2.3 on admission. Liver function tests are normal, with an alkaline phosphatase of 114, ALT of 37, AST of 29, total bilirubin of 0.6, albumin of 2.7, procalcitonin of 1.55, calcium of 8.3, white blood cell count of 10.2, down from 18.7 on admission, hematocrit 32, with an MCV of 71. The patient has become progressively anemic over the past year and a half. Platelet count of 293, 96% neutrophils. The patient had a hepatitis B surface antigen and hepatitis C antibody that were negative June 2017, and rheumatoid factor that was less than 8.6, 03/06/2017, but I cannot appreciate any other rheumatologic workup. In February 2017, the patient had a wrist arthrocentesis, but not enough was removed for a white blood cell count or differential. There were no crystals seen. IMAGING: Chest x-ray on August 28, showed a possible left lower lobe pneumonia. No other radiographic data are available to me. He has had previous ultrasounds of his lower extremities back in May, that did not show a clot. IMPRESSION: 68-year-old male with multiple medical problems, status post recent admission 2 weeks ago for probable polyarticular gout exacerbation, most notable in his wrists responsive to corticosteroids and colchicine, now admitted with recurrent polyarticular inflammation and pain exacerbation particularly since cessation of corticosteroids. Because of his right shoulder pain, hypotension, and elevated blood cell count, there was concern for possible septic arthritis, for which vancomycin was initiated. His lower extremity pinkish erythema appears chronic in nature, and not suggestive of an acute bacterial cellulitis, per se. The patient does have a heart murmur, which is old, as well as a pacemaker in place that does not appear to be infected. At this point in time, a bacteremia with septic arthritis of the shoulder, elbow, or other joints seems less likely. Strongly suspect present clinical presentation is related to his underlying inflammatory process, which is felt to be gout. Suspicion for endocarditis or endovascular infection is also low. PLAN: 1. Continue vancomycin for 1 more day: If blood cultures remain negative, will discontinue. 2. The patient has actually never had an arthrocentesis revealing urate crystals, per se. For now, given exquisite new pain in the right shoulder, will obtain CT scan and ask Orthopedics to see the patient for an arthrocentesis if an effusion is evident. 3. Check ESR, CRP, rheumatoid factor, MIKE, anti-CCP, and TSH 4. The patient's uric acid is elevated; defer reinitiation of Uloric to Medicine Team. 5. Agree with corticosteroids as you are doing. Patient may have also been experiencing some mild adrenal insufficiency upon arrival (hypotension,low sodium) 6. No TTE for now. 7. Patient has an unexplained weight loss with a microcytic anemia. Will obtain iron studies, and hemoglobin A1c, along with TSH as outlined above. He will need a screening colonoscopy as an outpatient. 8. Patient had hepatitis serologies within the past 5 years, and has had no risk factors for this. Will not repeat. Will obtain HIV antibody test for completeness, although this seems improbable. Thank you very much for consulting Infectious Diseases. We will continue to follow this patient with you. /[id number]/MODL MTDD
[2018-09-14] MEDS: oxyCODONE IR 5 MG TAB PO PRN (11:29)
[2018-09-14] MEDS: VANCOMYCIN HCL/NORMAL SALINE 250 ML IV SCH (11:53)
--- NOTE | 2018-09-14 15:20 | ASMTCMCOM ---
CM Note CM Note Notes: Pt in for cellulitis, gout. Pt resides with and has a son local. ID consulting, pt currently on IV vanco. Pt with numerous co-morbidities including CHF, CAD, HTN, CKD ([facility]), ETOH use. Pt has numerous visits to [facility], he just d/c 08/30/18 and declined HC then. Today OT rec SNF, PT rec HC vs SNF. Pt is limited by pain and swelling. Pt does not want to discuss SNF d/c but agrees to take the [facility] SNF list for review. Pt wants to see how he does with OT/PT tomorrow before further d/c planning discussion. D/c plan of care: TBD Date Signed: 09/14/2018 03:19 PM Electronically Signed By:YOLANDA Buchanan
--- NOTE | 2018-09-14 15:25 | PDMN ---
Medical Necessity Medical necessity: Pt meets IP criteria as of 09/13/2018 per and NAVIN PEGUERO ( Musculoskeletal Disease); est los > 2 mn for ongoing tx and further work up of suspected septic shoulder; pt having pain and redness in the area; requiring IV vancomycin, further imaging and possible ortho consultation/intervention.
[2018-09-14] MEDS ORDERED: IOPAMIDOL (ISOVUE-300) 100 ML BTL ONE (15:31)
--- NOTE | 2018-09-14 15:48 | HOSPPROG ---
Hospitalist Progress Note Assessment/Plan: 68 year old male with pmh of gout, CKD, CHF, afib, who presented with pain in legs and shoulder, concerning for gout, septic shoulder, or both. Venous insufficiency. patient has an elevated procalcitonin to 1.5 along with lower extremity redness and erythema. Patient was seen for this exact same thing back in May and Infectious Disease was consulted who did not think that this represented a lower extremity infection. I discussed the case with ER physician who gave a dose of vancomycin in the emergency room along with blood cultures being obtained. Will plan to monitor white count blood cultures and procalcitonin but at this point would hold off on further antibiotics and monitor him clinically. -monitor cultures -Follow WBC, procal Hyponatremia- likely hypovolemic hyponatremia in setting of poor po intake. -Giving IVF now -recheck serum sodium in am -check urine osm, and urine lytes Gout-- history of gout, was on uloric but self stopped. Was discharged here on colcrys and prednisone and also stopped the colcrys and ran out of prednisone. likely having another flare. Given solumedrol in er. has a leukocytosis, and elevated CRP. -check uric acid -restart prednisone 40 daily Right shoulder pain- most likely gout but concern for septic arthritis. Discussed case with ID who recommends obtaining CT of shoulder, cont vanc for today. If concern on shoulder CT will consult ortho for possible tap. diffuse arthritis- no official history of any arthrocentesis to confirm gout, although he does have an elevated uric acid and was on uloric. will check ESR, CRP, CCP Ab, RF, MIKE, TSH. Weight loss- despite normal appetite. HIV pending. Kenrick on CKD strage 3- Follows with Dr. Barrera from [facility]. Creatinine up to 2.3 on admission. Now down to 1.7. likely prerenal azotemia. -on intravenous saline -hold demedex -repeat renal function in am Afib- with SSS and status post pacer placement. On toprol XL but no anticoagulant other than 81mg asa. Appears to be in sinus rhythm now. -telemetry -cont asa. CHF- appears slightly hypovolemic on my examination. - Hold demedex -cont toprol -cautious with fluids. Recent cataract surgery- right eye cataract surgeyr. on pred forte, ofloxacin and diclofenac drops. Cont here. neuropathy- cont home elavil. Anemia- appears sligtly better than previous. No evidence of bleeding. Monitor for now. PPX- No SCDs, heparin Fluids- IV saline Lytes- WNL Nutrition- regular diet cor=- DNR Dispo- anticipate requiring longer than 2 midnights for this patient, will make inpatient. patient new to me. I reviewed the patients old records showing extensive medical hx and recent admission for gout flare on 08.28. Subjective: still wtih severe pain in shoulder. not really any better. Objective: Vital Signs Temp Pulse Resp BP Pulse Ox 36.7 C 70 16 113/71 100 09/14/18 11:11 09/14/18 11:11 09/14/18 11:11 09/14/18 11:11 09/14/18 11:11 Laboratory Results 09/14/18 10:30 09/14/18 05:06 09/13/18 09/14/18 09/15/18 05:59 05:59 05:59 Intake Total 3585 Output Total 1435 Balance 2150 - Physical Exam Constitutional: no apparent distress, appears nourished, not in pain Eyes: PERRL, anicteric sclera, EOMI Ears, Nose, Mouth, Throat: moist mucous membranes, hearing normal, ears appear normal, no oral mucosal ulcers Cardiovascular: regular rate and rhythym, no murmur, rub, or gallop Respiratory: no respiratory distress, no rales or rhonchi, clear to auscultation Gastrointestinal: normoactive bowel sounds, soft, non-tender abdomen, no palpable masses Genitourinary: no bladder fullness, no bladder tenderness, no renal bruits Skin: no rashes or abrasions, no fluctuance, no induration, other (chronic venous changes in legs, ) Musculoskeletal: full muscle strength, no muscle tenderness, no joint effusions , pain with ROM, other (right shoulder with severe limited rom, due to pain. diffuse swelling to wrists, and ankles. ) Neurologic: AAOx3, sensation intact bilaterally Psychiatric: interacting appropriately, not anxious, not encephalopathic, thought process linear Lymph, Heme, Immunologic: no cervical LAD, no supraclavicular LAD ICD10 Worksheet Patient Problems: Problems Problem Status Onset Cellulitis of left lower extremity Acute Gout Acute CKD (chronic kidney disease) stage 3, GFR 30-59 ml/min Chronic Acute blood loss anemia Acute Acute renal failure Acute Atrial fibrillation with RVR Acute CAD in [place] artery Acute Cellulitis Acute Congestive heart failure (CHF) Acute DVT (deep venous thrombosis) Acute Hyperkalemia Acute Neuropathic pain, leg, bilateral Acute S/P CABG x 1 Acute ~08/09/17 S/P Maze operation for atrial fibrillation Acute ~08/09/17 Status post mitral valve annuloplasty Acute ~08/09/17 Status post tricuspid valve repair Acute ~08/09/17 s/p placement of LV epicardial lead Acute ~08/09/17 Atrial fibrillation Chronic Diastolic congestive heart failure, NYHA class 3 Chronic Dilated cardiomyopathy Chronic Secondary tricuspid valve regurgitation Chronic Severe mitral regurgitation Chronic
[2018-09-14] MEDS: AMITRIPTYLINE HCL 25 MG TAB PO SCH (20:18)
[2018-09-15] MEDS: HYDROCODONE/APAP 5/325 TAB PO PRN ×2 (01:04→18:42)
[2018-09-15] MEDS: NS 1,000 ML IV SCH (02:39)
[2018-09-15 05:13] LABS: PLATELET COUNT 276 10^3/uL (150-400)
[2018-09-15] MEDS: HEPARIN 5,000 UNIT/0.5 ML INJ SC SCH ×3 (06:09→22:17)
[2018-09-15] MEDS: OFLOXACIN 0.3% 5ML OPHT DROPS LEFTEYE SCH ×4 (06:10→20:53)
[2018-09-15] MEDS: prednisoLONE ACET 1% 5 ML OPHT.BTL LEFTEYE SCH ×4 (06:10→20:41)
[2018-09-15] MEDS: oxyCODONE IR 5 MG TAB PO PRN ×4 (08:12→20:39)
[2018-09-15] MEDS: COLCHICINE 0.6 MG CAP/TAB PO SCH ×2 (09:00→20:39)
[2018-09-15] MEDS: METOPROLOL SUCCINATE XR 50 MG TAB PO SCH (09:00)
[2018-09-15] MEDS: oxyCODONE CR 30 MG TAB PO SCH ×2 (09:00→20:39)
[2018-09-15] MEDS: predniSONE 20 MG TAB PO SCH (09:00)
[2018-09-15] MEDS: ASPIRIN EC 81 MG TAB PO SCH (09:01)
[2018-09-15] MEDS: DICLOFENAC 0.1% 2.5 ML OPHT.BTL LEFTEYE SCH ×2 (09:04→20:45)
[2018-09-15] MEDS: VANCOMYCIN HCL/NORMAL SALINE 250 ML IV SCH (12:12)
--- NOTE | 2018-09-15 12:29 | PCMIDPN ---
Assessment/Plan: 1. Polyarticular gouty arthritis with severe flare: Blood cultures are negative, and his CT scan does not show any fluid collection in the right shoulder. All of this was conveyed to the patient today. Will discontinue vancomycin. The patient absolutely needs a rheumatologic evaluation, and would ask them to see patient in house, as he is practically immobile from the pain. Hopefully this can happen tomorrow. Please feel free to call our service with any additional issues! Case discussed with hospitalist this morning. 09/15/18 12:29 Subjective: Pain is starting to be better controlled. Conveyed all of his radiographic studies to him, and the fact that his blood cultures are negative. Told him that we will really try to get a buyer to see him tomorrow while he is here, and he appreciates that. Objective: Vancomycin no line no fevers Vital Signs Temp Pulse Resp BP Pulse Ox 36.7 C 72 16 127/79 H 96 09/15/18 11:33 09/15/18 11:33 09/15/18 11:33 09/15/18 11:33 09/15/18 11:33 Laboratory Results 09/15/18 04:39 09/15/18 04:39 09/14/18 09/15/18 09/16/18 05:59 05:59 05:59 Intake Total 3585 4890 Output Total 1435 2175 Balance 2150 2715 ESR 84 MM/HR (0-20) H 09/14/18 10:30 C-Reactive Protein 185.4 mg/L (<10.0) H 09/14/18 10:30 - Physical Exam General Appearance: alert, other (Looks mildly uncomfortable secondary to right hand pain) Extremities: other (Able to move his right shoulder more than yesterday. His right hand is significantly swollen as is his right wrist. Knees are also swollen. Feet and ankles less so compared with yesterday.) ICD10 Worksheet Patient Problems: Problems Problem Status Onset Cellulitis of left lower extremity Acute Gout Acute CKD (chronic kidney disease) stage 3, GFR 30-59 ml/min Chronic Acute blood loss anemia Acute Acute renal failure Acute Atrial fibrillation with RVR Acute CAD in [place] artery Acute Cellulitis Acute Congestive heart failure (CHF) Acute DVT (deep venous thrombosis) Acute Hyperkalemia Acute Neuropathic pain, leg, bilateral Acute S/P CABG x 1 Acute ~04/12/18 S/P Maze operation for atrial fibrillation Acute ~08/09/17 Status post mitral valve annuloplasty Acute ~08/09/17 Status post tricuspid valve repair Acute ~08/09/17 s/p placement of LV epicardial lead Acute ~08/09/17 Atrial fibrillation Chronic Diastolic congestive heart failure, NYHA class 3 Chronic Dilated cardiomyopathy Chronic Secondary tricuspid valve regurgitation Chronic Severe mitral regurgitation Chronic
--- NOTE | 2018-09-15 12:35 | HOSPPROG ---
Hospitalist Progress Note Assessment/Plan: 68 year old male with pmh of gout, CKD, CHF, afib, who presented with pain in legs and shoulder, concerning for gout, septic shoulder, or both. Venous insufficiency. patient has an elevated procalcitonin to 1.5 along with lower extremity redness and erythema. Patient was seen for this exact same thing back in May and Infectious Disease was consulted who did not think that this represented a lower extremity infection. I discussed the case with ER physician who gave a dose of vancomycin in the emergency room along with blood cultures being obtained. Will plan to monitor white count blood cultures and procalcitonin but at this point would hold off on further antibiotics and monitor him clinically. -monitor cultures -Follow WBC, procal Hyponatremia- likely hypovolemic hyponatremia in setting of poor po intake. Resolving with fluids. -recheck serum sodium in am Gout-- history of gout, was on uloric but self stopped. Was discharged here on colcrys and prednisone and also stopped the colcrys and ran out of prednisone. likely having another flare. Given solumedrol in er. has a leukocytosis, and elevated CRP. -check uric acid -restart prednisone 40 daily Right shoulder pain- most likely gout but concern for septic arthritis. CT reviewed by myself and no evidence of septic joint or other abnormality. Discussed with ID and will stop vancomycin as no evidence of acute infection. diffuse arthritis- no official history of any arthrocentesis to confirm gout, although he does have an elevated uric acid and was on uloric. Has seen rheum in the past and diagnosed with gout. will check ESR, CRP, CCP Ab, RF, MIKE, TSH. ESR and CRP are elevated along with RF. plan to discuss with rheum tomorrow in hopes of getting an inpatient consult Weight loss- despite normal appetite. HIV pending. Kenrick on CKD strage 3- Follows with Dr. Barrera from [facility]. Creatinine up to 2.3 on admission. Now down to 1.4. likely prerenal azotemia. -on intravenous saline -hold demedex -repeat renal function in am Afib- with SSS and status post pacer placement. On toprol XL but no anticoagulant other than 81mg asa. Appears to be in sinus rhythm now. appears to have stopped coumadin due to non compliance with INR checks. -telemetry -cont asa. CHF- appears slightly hypovolemic on my examination. - Hold demedex -cont toprol -cautious with fluids. Recent cataract surgery- right eye cataract surgeyr. on pred forte, ofloxacin and diclofenac drops. Cont here. neuropathy- cont home elavil. Anemia- appears sligtly better than previous. No evidence of bleeding. Monitor for now. PPX- No SCDs, heparin Fluids- IV saline Lytes- WNL Nutrition- regular diet cor=- DNR Dispo- anticipate requiring longer than 2 midnights for this patient, will make inpatient. Subjective: still with pain in right shoulder. Objective: Vital Signs Temp Pulse Resp BP Pulse Ox 36.7 C 72 16 127/79 H 96 09/15/18 11:33 09/15/18 11:33 09/15/18 11:33 09/15/18 11:33 09/15/18 11:33 Laboratory Results 09/15/18 04:39 09/15/18 04:39 09/14/18 09/15/18 09/16/18 05:59 05:59 05:59 Intake Total 3585 4890 Output Total 1435 2175 Balance 2150 2715 - Physical Exam Constitutional: chronically ill appearing Eyes: PERRL, anicteric sclera, EOMI Ears, Nose, Mouth, Throat: moist mucous membranes, hearing normal, ears appear normal, no oral mucosal ulcers Cardiovascular: regular rate and rhythym, no murmur, rub, or gallop Respiratory: no respiratory distress, no rales or rhonchi, clear to auscultation Gastrointestinal: normoactive bowel sounds, soft, non-tender abdomen, no palpable masses Genitourinary: no bladder fullness, no bladder tenderness, no renal bruits Skin: no rashes or abrasions, no fluctuance, no induration Musculoskeletal: no joint effusions, pain with ROM, generalized weakness Neurologic: AAOx3, sensation intact bilaterally Psychiatric: interacting appropriately, not anxious, not encephalopathic, thought process linear Lymph, Heme, Immunologic: no cervical LAD, no supraclavicular LAD ICD10 Worksheet Patient Problems: Problems Problem Status Onset Cellulitis of left lower extremity Acute Gout Acute CKD (chronic kidney disease) stage 3, GFR 30-59 ml/min Chronic Acute blood loss anemia Acute Acute renal failure Acute Atrial fibrillation with RVR Acute CAD in [place] artery Acute Cellulitis Acute Congestive heart failure (CHF) Acute DVT (deep venous thrombosis) Acute Hyperkalemia Acute Neuropathic pain, leg, bilateral Acute S/P CABG x 1 Acute ~08/09/17 S/P Maze operation for atrial fibrillation Acute ~08/09/17 Status post mitral valve annuloplasty Acute ~08/09/17 Status post tricuspid valve repair Acute ~08/09/17 s/p placement of LV epicardial lead Acute ~08/09/17 Atrial fibrillation Chronic Diastolic congestive heart failure, NYHA class 3 Chronic Dilated cardiomyopathy Chronic Secondary tricuspid valve regurgitation Chronic Severe mitral regurgitation Chronic
[2018-09-15] MEDS: AMITRIPTYLINE HCL 25 MG TAB PO SCH (20:39)
[2018-09-16] MEDS: oxyCODONE IR 5 MG TAB PO PRN ×5 (00:32→16:17)
[2018-09-16] MEDS: OFLOXACIN 0.3% 5ML OPHT DROPS LEFTEYE SCH ×3 (06:33→16:15)
[2018-09-16] MEDS: HEPARIN 5,000 UNIT/0.5 ML INJ SC SCH ×2 (06:33→15:58)
[2018-09-16] MEDS: prednisoLONE ACET 1% 5 ML OPHT.BTL LEFTEYE SCH ×3 (06:35→16:22)
[2018-09-16] MEDS: METOPROLOL SUCCINATE XR 50 MG TAB PO SCH (08:28)
[2018-09-16] MEDS: COLCHICINE 0.6 MG CAP/TAB PO SCH (08:28)
[2018-09-16] MEDS: oxyCODONE CR 30 MG TAB PO SCH (08:28)
[2018-09-16] MEDS: predniSONE 20 MG TAB PO SCH (08:28)
[2018-09-16] MEDS: ASPIRIN EC 81 MG TAB PO SCH (08:31)
[2018-09-16] MEDS: DICLOFENAC 0.1% 2.5 ML OPHT.BTL LEFTEYE SCH (08:32)
--- NOTE | 2018-09-16 10:43 | ASMTCMCOM ---
CM Note CM Note Notes: CM discussed case w/ Dr. Forte. Pt is agreeable to going to SNF. Pt would like referrals made to [facility] and [facility]. Referrals sent. CM informed them to start getting auth once pt has been accepted. Pt is medically stable to d/c. CM to follow. Plan: [facility] vs SNF Date Signed: 09/16/2018 10:43 AM Electronically Signed By:EDGAR Manzanares
[2018-09-16 11:52] VITALS: BP 136/69
--- NOTE | 2018-09-16 15:56 | PDIAF ---
- Diagnosis Code Status: Do Not Resuscitate - Medication Management Discharge Medications: electronically signed and located in the Home Medication List. - Orders Services needed: Home Care, Registered Nurse Home Care Face to Face: I certify that this patient was under my care and that I had the required [id number] encounter meeting the encounter requirements on the discharge day. My findings support the fact that the patient is homebound as defined in Home Care Face to Face Continued: CMS Chapter 7 Medicare Benefits Manual 30.1.1 , The condition of the patient is such that there exists a normal inability to leave home and consequently, leaving home would require a considerable and taxing effort. Isolation Type: None Diet Recommendation: no restrictions on diet Diet Texture: Regular Texture Diet Additional Instructions: Resume activity as tolerated. See your PCP as soon as possible, and re establish care with rheumatology. avoid alcohol. Stay hydrated. - Follow Up Care Current Providers and Referrals: MYRIAM ARREGUIN [Primary Care Provider] - As per Instructions
--- NOTE | 2018-09-16 16:04 | PDIAF ---
- Diagnosis Code Status: Do Not Resuscitate - Medication Management Discharge Medications: electronically signed and located in the Home Medication List. - Orders Services needed: Home Care, Registered Nurse, Physical Therapy, Occupational Therapy Home Care Face to Face: I certify that this patient was under my care and that I had the required [id number] encounter meeting the encounter requirements on the discharge day. My findings support the fact that the patient is homebound as defined in Home Care Face to Face Continued: CMS Chapter 7 Medicare Benefits Manual 30.1.1 , The condition of the patient is such that there exists a normal inability to leave home and consequently, leaving home would require a considerable and taxing effort. Isolation Type: None Diet Recommendation: no restrictions on diet Diet Texture: Regular Texture Diet Additional Instructions: Resume activity as tolerated. See your PCP as soon as possible, and re establish care with rheumatology. avoid alcohol. Stay hydrated. - Follow Up Care Current Providers and Referrals: MYRIAM ARREGUIN [Primary Care Provider] - As per Instructions
--- NOTE | 2018-09-16 17:33 | PDDCSUM ---
Discharge Summary Discharge Summary: Discharge diagnosis Venous insufficiency Hyponatremia Acute gout flare Right shoulder pain A KI on CKD Atrial fibrillation History of congestive heart failure Recent cataract surgery Neuropathy Anemia The patient was admitted with severe bilateral lower extremity and right shoulder pain. He had a white count elevated procalcitonin and there was concern for a lower extremity cellulitis or septic arthritis and so he was started on vancomycin. Infectious Disease was consulted who recommended obtaining a CT of his right shoulder to rule out infectious bursitis and he was continued on vancomycin until the CT result came back normal and at that point the vancomycin was discontinued. CT showed no evidence of fluid collection or infection. He was started on prednisone. He was given intravenous saline for his acute kidney injury and his renal function returned to baseline. Once his creatinine clearance improved he was started on colchicine 0.6 twice daily. With the initiation of the colchicine his pain resolved rather quickly. His hyponatremia also resolved spontaneously was not intravenous fluids. The patient worked with physical therapy and occupational therapy and initially was thought to need long-term facility but his strength improved quickly and on the day of discharge only was recommended to have home with home health. He was discharged home with home health set up for him. He was also discharged home with a short prednisone burst along with colchicine twice daily. He was instructed that he needed to follow up with his primary care physician and also needed to reestablish care with sales assistant institutional sales given his fairly severe gout. The patient was discharged home to follow up with his primary care physician and to re-establish care with Rheumatology for further evaluation of his underlying medical issues. Disposition Home with home health New medications Prednisone 40 mg for 3 days Colchicine 0.6 twice daily I spent over 30 min on the discharge of this patient
--- NOTE | 2018-09-16 17:55 | ASDISCHSUM ---
Discharge Information Plan Status:Home with Home Health Medically Cleared to Leave:09/16/2018 Discharge Date:09/16/2018 CM D/C Disposition: [facility] D/C Disposition:[id number] Projected Discharge Date:09/16/2018 11:00 AM Transportation at D/C: Discharge Delay Reason: Follow-Up Date:09/16/2018 11:00 AM Discharge Slot: Final Diagnosis: Placement Information Referral Type:*Halfway/SNF Referral ID:[id number] Provider Name: Address 1: Phone Number: Address 2: Fax Number: City: Selection Factors: State: Referral Type:*Home Health Care Services Referral ID:[id number] Provider Name:[facility] Address 1:[address] [place] [address] Address 2: City:[place] Selection Factors: State:[place] Patient Contact Information Contact Name:NORBERTO Relationship: Address:[address] City:[place] Alternate Phone: State/Zip Code:[place] [address] Email: Financial Information Financial Class:[employer] Primary Plan Desc:[id number] [facility] Primary Plan Number:[id number] Secondary Plan Desc:MEDICARE INPATIENT Secondary Plan Number:[id number] Assessment Information LACE LACE Acuity / Level of Answers: Yes Care: Did the patient have an inpatient admission? Comorbidities - select Answers: Congestive heart failure all that apply Coronary Artery Disease Moderate or severe liver or renal disease Opioid dependence / Chronic pain Other Notes: AFib; HTN # of Emergency department Answers: 3-4 visits in the last 6 months Social determinants Answers: History of substance abuse (ETOH, street drugs, prescription drugs, etc.) Score: 22 Date Signed: 09/13/2018 02:57 PM Electronically Signed By:Gloria Yang [facility] CM Progress Note CM Note CM Note Notes: Pt in for cellulitis, gout. Pt resides with and has a son local. ID consulting, pt currently on IV vanco. Pt with numerous co-morbidities including CHF, CAD, HTN, CKD ([facility]), ETOH use. [facility], he just d/c 08/30/18 and declined HC then. Today OT rec SNF, PT rec HC vs SNF. Pt is limited by pain and swelling. Pt does not want to discuss SNF d/c but agrees to take the [facility] SNF list for review. Pt wants to see how he does with OT/PT tomorrow before further d/c planning discussion. D/c plan of care: TBD Date Signed: 09/14/2018 03:19 PM Electronically Signed By:YOLANDA Buchanan [facility] CM Progress Note CM Note CM Note Notes: CM discussed case w/ Dr. Forte. Pt is agreeable to going to SNF. Pt would like referrals made to [facility] and [facility]. Referrals sent. CM informed them to start getting auth once pt has been accepted. Pt is medically stable to d/c. CM to follow. Plan: [facility] vs SNF Date Signed: 09/16/2018 10:43 AM Electronically Signed By:EDGAR Manzanares Case Management Discharge Plan Note Case Management Discharge Discharge Order Complete? Answers: Yes Patient to Obtain Answers: Independently Medications Transportation Arranged Answers: Family/Friends EMTALA Complete Answers: No Case Management Transport Answers: No Form Complete Faxed Final Orders Answers: Yes Agency/Facility Transfer Answers: Yes Report Printed & Faxed to Receiving Agency Family Notified Answers: No Discharge Comments Notes: PT has cleared pt to d/c home with HC services. Pt would like to d/c home. Pt does not want to d/c to SNF. CM arranged for pt to be seen by Esmer FRANCIS. DC orders sent. Esmer iWlson can accept and see pt on . Pt is ok w/ this. CM confirmed pts address, phone number and PCP. CM available for changes. Plan: [facility]mer FRANCIS; PT, OT, RN Date Signed: 09/16/2018 04:13 PM Electronically Signed By:EDGAR Manzanares Intervention Information
[2018-10-03] MEDS ORDERED: prednisoLONE ACET 1% 5 ML OPHT.BTL LEFTEYE SCH (09:00)
[2018-10-06] MEDS ORDERED: prednisoLONE ACET 1% 5 ML OPHT.BTL LEFTEYE SCH (09:00)
== END 2018-09-16 17:48 | disposition home health service (06) | DRG 300 ==
LOC: F3N 12:25
PROVIDERS: ADMIT Internal Medicine; ATTEND Internal Medicine
DX: I87.2 Venous insufficiency (chronic) (peripheral) (principal); M10.9 Gout, unspecified; E87.1 Hypo-osmolality and hyponatremia; N17.9 Acute kidney failure, unspecified; I48.91 Unspecified atrial fibrillation; G62.9 Polyneuropathy, unspecified; D64.9 Anemia, unspecified; M25.511 Pain in right shoulder; I25.10 Atherosclerotic heart disease of native coronary artery without angina pectoris; I12.9 Hypertensive chronic kidney disease with stage 1 through stage 4 chronic kidney disease, or unspecified chronic kidney disease; N18.3 Chronic kidney disease, stage 3 (moderate); G89.29 Other chronic pain; F11.20 Opioid dependence, uncomplicated; Z79.52 Long term (current) use of systemic steroids; Z95.0 Presence of cardiac pacemaker; Z66 Do not resuscitate; Z95.1 Presence of aortocoronary bypass graft; Z87.891 Personal history of nicotine dependence
CPT/HCPCS: 96365; 97116-GP; 97162-GP; 97166-GO; 97530-GP; 97535-GO; J1170; J1644; J3370; J7512; Q9967